=== PATIENT | male | born 1960 | race Caucasian/White ===

== ENCOUNTER → 2019-01-15 10:35 | Outpatient (CLI) | payer MEDICAID, SELFPAY ==
[2016-07-24 17:12] VITALS: BMI 32.2
[2019-01-15 11:42] LABS: Absolute Lymphocyte Count 2.09 X10^3/ul (0.83-4.51); Absolute Neutrophil Count 3.9 X10^3/uL (2.0-7.7); Basophil# 0.03 X10^3/uL; Basophil% 0.4 % (0-1); Eosinophil# 0.35 X10^3/uL; Hematocrit 45.7 % (40-54); Hemoglobin 15.8 g/dl (13.0-16.5); Lymphocyte # 2.09 X10^3/ul (4.0); Lymphocyte % 29.9 % (19-41); Mean Corp Hgb Conc 34.6 g/gl (32-36); Mean Corpuscular Hgb 30.9 pg (27.0-32.0); Mean Corpuscular Volume 89.4 fL (80-94); Mean Platelet Vol. 9.9 fl (6.2-12.0); Monocyte# 0.57 X10^3/uL; Monocyte% 8.2 % (0-10); Neutrophil # 3.93 X10^3/uL (2.7-7.7); Neutrophil % 56.2 % (47-70); Platelet Count 309 K/mm3 (150-450); RBC Distribution Width CV 13.3 % (11.6-14.6); RBC Distribution Width SD 43.8 fl (35.1-43.9); Red Blood Count 5.11 M/mm3 (4.6-6.2)
[2019-01-15 11:45] LABS: POSITIVE COUNT NO; POSITIVE DIFFERENTIAL NO; POSITIVE MORPHOLOGY NO
[2019-01-15 12:07] LABS: Anion Gap 10 (5-15); BUN 10 mg/dL (7-18); Chloride 104 mmol/L (98-107); Creatinine, Serum 0.91 mg/dL (0.70-1.30); EST Glomerular Filtration Rate 91 mL/min (>60); Est Glom Filt Rate - Afr Amer 110 mL/min (>60); Glucose 88 mg/dL (74-106); Potassium 4.4 mmol/L (3.5-5.1); Sodium Level 138 mmol/L (136-145); Thyroid Stim Hormone (TSH) 1.37 uIU/mL (0.358-3.74)
--- OUTSIDE RECORDS SUMMARY | 2019-01-15 15:24 | XMS RPT_ITS | CCD ---
:1960 External Reference #:[id number] Author Organization [facility] Care Team Providers Name Role Phone Unavailable Unavailable Unavailable Allergies Reported Allergen Reaction(s) Severity Date of Onset Location naproxen rash Moderate, 03-20-2017 - [facility] Moderate [facility] [place] [facility] ([id number]) naproxen hives Critical, 05-22-2014 - [facility] Critical (10451) penicillin throat swells Critical, 03-20-2017 - [facility] Critical [facility] (66650) Penicillins Critical, 05-22-2014 - [facility] (Antibiotic) Critical (45272) Medications Medication Name Sig Date Prescriber Location acetaminophen / PERCOCET 10-325 MG 05-22-2014 [facility] oxyCODONE TABS As needed Group (57605) OXYCODONE-ACETAMINOPH EN [id number] Dolly Harris RN PERCOCET 10-325 MG TABS As needed 05-22-2014 - --2015 [facility] ([id number]) OXYCODONE-ACETAMINOPHEN [id number] Gilles Castillo MD cyclobenzaprine CYCLOBENZAPRINE HCL 10 MG TABS 06-22-2017 [facility] One tablet by mouth three times (41847) daily CYCLOBENZAPRINE HCL [id number] Aftab Hartman [employer] CYCLOBENZAPRINE HCL 10 MG TABS 1 tablet 03-20-2017 [facility] ([id number]) daily CYCLOBENZAPRINE HCL [id number] [facility]ie [facility] CYCLOBENZAPRINE HCL 10 MG TABS 1 tablet 3 03-20-2017 [facility] (70073) times daily CYCLOBENZAPRINE HCL [id number] Rylie Cors[facility] CYCLOBENZAPRINE HCL 10 MG TABS 1 tablet 3 03-20-2017 [facility] (07527) times daily CYCLOBENZAPRINE HCL [id number] Rylie Cors[facility] gabapentin GABAPENTIN 800 MG TABS 1 tablet 03-20-2017 [facility] (57503) daily GABAPENTIN [id number] Rylie Corsaro [facility] GABAPENTIN 800 MG TABS 1 tablet daily 03-20-2017 [facility] (38715) GABAPENTIN [id number] Rylie Corsaro [facility] GABAPENTIN 800 MG TABS 1 tablet daily 03-20-2017 [facility] (02082) GABAPENTIN [id number] Rylie Cors[facility] NEURONTIN 800 MG TABS One tablet by mouth 05-22-2014 [facility] (43396) three times daily GABAPENTIN [id number] Dolly Harris RN hydroCHLOROthiazide / LISINOPRIL-HYDROCHLOROTHIAZIDE 06-22-2017 [facility]opril 10-12.5 MG TABS One tablet by [facility] daily (09882) LISINOPRIL-HYDROCHLOROTHIAZIDE [id number] Aftab Hartman NP LISINOPRIL-HYDROCHLOROTHIAZIDE 10-12.5 MG TABS 1 03-20-2017 [facility] tablet daily (07987) LISINOPRIL-HYDROCHLOROTHIAZIDE [id number] Rylie Cors[facility] LISINOPRIL-HYDROCHLOROTHIAZIDE 10-12.5 MG TABS 1 03-20-2017 [facility] tablet daily (77647) LISINOPRIL-HYDROCHLOROTHIAZIDE [id number] Rylie Cors[facility] LISINOPRIL-HYDROCHLOROTHIAZIDE 10-12.5 MG TABS 1 03-20-2017 [facility] tablet daily (41960) LISINOPRIL-HYDROCHLOROTHIAZIDE [id number] Rylie Cors[facility] meloxicam MELOXICAM 15 MG TABS 1 tablet 03-20-2017 [facility] (08558) daily MELOXICAM [id number] Rylie Cors[facility] MELOXICAM 15 MG TABS One tablet by mouth 05-22-2014 [facility] (34883) daily MELOXICAM [id number] Dolly Harris RN methocarbamol METHOCARBAMOL 750 MG TABS One 05-22-2014 [facility] tablet by mouth three times (86297) daily METHOCARBAMOL [id number] Dolly Harris RN METHOCARBAMOL 750 MG TABS One 05-22-2014 - 06-22-2017 [facility] tablet by mouth three times daily (64582) METHOCARBAMOL [id number] Aftab Hartman NP metoprolol METOPROLOL SUCCINATE ER 50 MG 03-20-2017 [facility] (80734) [id number] 1/2 tablet twice daily METOPROLOL SUCCINATE [id number] Rylie Corsaro [facility] METOPROLOL SUCCINATE ER [id number] one 09-06-2016 [facility] (09680) half tablet twice a day METOPROLOL SUCCINATE [id number] Rosio Parikh PA-C pantoprazole PROTONIX 40 MG TBEC 1 tablet 03-20-2017 [facility] (68592) daily PANTOPRAZOLE SODIUM [id number] Rylie Cors[facility] PANTOPRAZOLE SODIUM 40 MG TBEC One tablet by 05-22-2014 [facility] (55099) mouth twice daily PANTOPRAZOLE SODIUM [id number] Dolly Harris RN tamsulosin FLOMAX 0.4 MG CAPS 1 capsule 10-16-2017 [facility] Orthopaedic once daily Center - [facility] TAMSULOSIN HCL [id number] [facility] (61834) Jarvis Dolan [employer] Problems Active Problems Category Problem Name Status Date Location Allergic reactions Allergy status to Active 09-19-2018 - [facility] analgesic agent status (16204) Chronic obstructive Chronic obstructive Active 11-18-[address] [facility] pulmonary disease and pulmonary disease, (04170) bronchiectasis unspecified Disorders of lipid Hyperlipidemia Active 05-22-2014 - [facility] metabolism (77329) Esophageal disorders Gastro-esophageal Active 11-18-[address] [facility] reflux disease without (12174) esophagitis Essential hypertension Hypertensive disorder Active 09-06-2016 - [facility] (91107) Osteoarthritis Arthritis of hip Active 10-01-2018 - [facility] (28735) Other connective tissue Presence of right Active 11-18-2018 - [facility] disease artificial knee joint (21663) Other connective tissue Presence of right Active 11-18-2018 - [facility] disease artificial knee joint (84085) Other connective tissue Arthrodesis status Active 09-19-2018 - [facility] disease (57867) Other connective tissue Arthrodesis status Active 09-19-2018 - [facility] disease (23103) Other injuries and At risk for falls Active 10-01-2018 - [facility] conditions due to [facility] external causes - [facility] (63131) Other nervous system Other chronic pain Active 11-18-2018 - [facility] disorders (59374) Other nervous system Polyneuropathy, Active 11-18-2018 - [facility] disorders unspecified (80808) Other nervous system Other chronic pain Active 11-18-2018 - [facility] disorders (38067) Other nervous system Polyneuropathy, Active 11-18-2018 - [facility] disorders unspecified (94072) Other non-epithelial Personal history of Active 11-18-[address] [facility] cancer of skin other malignant (22004) neoplasm of skin Other non-traumatic joint Pain in right hip Active 09-14-2018 - [facility] disorders (39932) Other non-traumatic joint Pain in right hip Active 09-14-2018 - [facility] disorders (74709) Other non-traumatic joint Pain in left hip Active 09-14-2018 - [facility] disorders (00635) Other non-traumatic joint Pain in left hip Active 09-14-2018 - [facility] disorders (90995) Phlebitis; Personal history of Active 11-18-2018 [facility] thrombophlebitis and other venous (27957) thromboembolism thrombosis and embolism Residual codes; Other specified Active 09-08-2017 - [facility] unclassified postprocedural states [facility] (07270) Screening and history of Personal history of Active 11-18-2018 - [facility] mental health and nicotine dependence (85551) substance abuse codes Spondylosis; Degeneration of lumbar Active 03-21-2017 - [facility] intervertebral disc intervertebral disc [facility] disorders; other back - [facility] problems [facility] (04866) Substance-related Tobacco dependence Active 05-22-2014 - [facility] disorders syndrome (42942) Unclassified Other specified Active 09-08-2017 - [facility] postprocedural states [facility] Surgeons [facility] (20244) Unclassified History of cervical Active 07-20-2017 - [facility] spine fusion [facility] (37986) Past or Other Problems Category Problem Name Status Date Location Other connective Hematoma Completed 07-20-2017 - [facility] tissue disease [facility] (56477) Unclassified Preoperative Completed 05-21-2014 [facility] Heart [facility] cardiovascular - 09-08-2015 (17705) examination - Unclassified Family history of Completed 05-21-2014 [facility] ischemic heart disease (97854) and other diseases of the circulatory system Unclassified Problem [facility] (27461) Unclassified Problem [facility] (13820) Results Result Name Value Range Unit Interpretation Flag Date Location office visit: follow-up by complaint, rm: 43 on null Protein mass conc Done 09-24-2018 - [facility] 09-24-2018 [facility] (19040) NEGATED: Highlighted Done 09-24-2018 [facility] rowProtein mass conc 09-24-2018 [facility] (41732) xray history of the cervical 09-24-2018 - [facility] spine on 09-24-2018 [facility] - 02/13/2018 at [facility] Surgeons [facility] (05216) NEGATED: Highlighted of the cervical 09-24-2018 [facility] rowxray history spine on 09-24-2018 [facility] - 02/13/2018 at [facility] Orthopaedic Surgeons [facility] (09426) office visit: pre-op clearance on null Smoking cessation yes Invalid Interpretation 05-28-2014 [facility] Heart education Code 05-28-2014 Group (38759) (procedure) replaced document: midmark ecg observations on null EKG QRS axis -32 deg Invalid 05-28-2014 - [facility] Interpretation Code 05-28-2014 [facility] (50603) Interpretation Sinus Rhythm Invalid 05-28-2014 - [facility] WITHIN Interpretation Code 05-28-2014 [facility] NORMAL (10720) LIMITS P [place] -1 deg Invalid 05-28-2014 - [facility] Interpretation Code 05-28-2014 [facility] (23870) ND Interval 152 ms Invalid 05-28-2014 - [facility] Interpretation Code 05-28-2014 [facility] (85651) Pulse (Heart Rate) 73 BPM /min Invalid 05-28-2014 - [facility] Interpretation Code 05-28-2014 [facility] (70295) QRS Duration 98 ms Invalid 05-28-2014 - [facility] Interpretation Code 05-28-2014 [facility] (41721) QT Interval new path ms Invalid 05-28-2014 - [facility] Interpretation Code 05-28-2014 [facility] (83611) QTc Pandey 412 ms Invalid 05-28-2014 - [facility] Interpretation Code 05-28-2014 [facility] (91049) T [place] 12 deg Invalid 05-28-2014 - Interpretation Code 05-28-2014 [facility] (42071) clinical lists update: preload extended on null Tobacco smoking former smoker 09-20-2018 - [facility] status NHIS 09-20-2018 [facility] (94932) xr chest 2 views on 2018-12-25 XR CHEST 2 VIEWS ORIGINAL Normal 12-25-2018 [facility] XR CHEST 2 VIEWS [facility] ([place]) PA and lateral chest (40245) CLINICAL INDICATION: Chest Pain COMPARISON: 12/17/2009 FINDINGS: The heart is normal in size. Hilar and mediastinal contours are normal. There is no pleural effusion. The lungs are clear. There is no vascular congestion. There are mild degenerative changes in the thoracic spine. Postoperative changes are seen at the base of the cervical spine. IMPRESSION: No acute cardiopulmonary disease. Interpreted By: Jon Crawford MD Preliminary Report By: Jon Crawford MD Electronically Signed By: Jon Crawford MD Dictated Date: 12/25/2018 1:46:01 PM Prelim Date: 12/25/2018 1:46:01 PM Sign Date: 12/25/2018 1:48:22 PM external other: preferred method of contact on null methcontact phone Invalid Interpretation 09-08-2015 - [facility] Code 09-08-2015 Group (61913) office visit on null cardiac risk group B Invalid 09-08-2015 - [facility] Interpretation Code 09-08-2015 [facility] (18352) General Not enough Invalid 09-08-2015 - [facility] cardiovascular information Interpretation Code 09-08-2015 [facility] disease 10Y risk (38687) [#] [place] no Tobacco use CPHS Former smoker Invalid 09-08-2015 - [facility] Interpretation Code 09-08-2015 [facility] (90025) clinical lists update: preload on null Left ventricular 50 % Invalid Interpretation 06-14-2017 - [facility] Ejection fraction Code 06-14-2017 Group (77207) office visit: jhr on null Dietary management yes Invalid Interpretation 06-22-2017 - [facility] education, guidance, Code 06-22-2017 Group (67209) and counseling (procedure) Documentation of Done Invalid Interpretation 06-22-2017 - [facility] current medications Code 06-22-2017 Group (69744) (procedure) Fall risk assessment No Invalid Interpretation 06-22-2017 - [facility] Code 06-22-2017 Group (02871) office visit: new/est - 1st visit with physician, rm: on null NEGATED: Highlighted Done 10-01-2018 [facility] rowProtein mass conc 10-01-2018 [facility] Surgeons [facility] (56872) NEGATED: Highlighted of the Bilateral 10-01-2018 [facility] rowxray history hips on 09/14/2018 10-01-2018 [facility] Orthopaedic Surgeons [facility] (12019) clinical summary: hmspatientid on null OOP 10-01-2018 - [facility] 10-01-2018 [facility]geons [facility] (27407) OOP 09-24-2018 - [facility] 09-24-2018 [facility] Surgeons [facility] (78537) OOP Invalid 02-13-2018 - [facility] Interpretation Code 02-13-2018 [facility] Surgeons [facility] (99571) office visit: postop - subsequent visit, rm: 2 on null NEGATED: Highlighted Done Invalid 02-13-2018 [facility] rowDocumentation of Interpretation Code 02-13-2018 [facility] current medications Center - (procedure) Orthopaedic Surgeons [facility] (35577) trop on 2018-12-25 Troponin I.cardiac <0.020 0.000-0.040 ng/mL Normal 12-25-2018 [facility] conc [facility] ([place] (20627) Comment: Result Comment: Troponin I reference range: 0.00-0.040 ng/mL Negative and non-diagnostic. >0.040 ng/mL Consistent with cardiac damage, increased clinical risk and possibility of myocardial infarction. Serial measurements, a rise & fall in test results, clinical history, appropriate symptoms and/or ECG changes may help assess possibility of [place]. *Other non-acute coronary syndrome conditions such as CHF, myocarditis, pulmonary emboli, sepsis and cardiac surgery could result in myocardial damage and increased troponin levels. Performed By: #### CBC, ADIFF, ANEU #### [place] [address] #### BMP, TROP, GFR #### [address] [address] cbc on 2018-12-25 Erythrocyte distribution 14.2 11.5-14.5 % Normal 12-25-2018 [facility] width Ratio (RBC) [facility] ([place] (49205) Comment: Performed By: #### CBC, ADIFF, ANEU #### [place] [address] #### BMP, TROP, GFR #### [place] [address] Hematocrit Volume 44.4 42.0-52.0 % Normal 12-25-2018 Count Includes [facility] Fraction (Bld) ([place]) (00658) Comment: Performed By: #### CBC, ADIFF, ANEU #### [place] [address] #### BMP, TROP, GFR #### [place] [address] Hemoglobin mass conc 15.4 14.0-18.0 G/dL Normal 12-25-2018 [facility] (Bld) [facility] ([place]) (97580) Comment: Performed By: #### CBC, ADIFF, ANEU #### [place] [address] #### BMP, TROP, GFR #### [place] [address] MCH Entitic mass (RBC) 30.9 27.0-31.2 pg Normal 12-25-2018 Count Includes [facility] ([place]) (26209) Comment: Performed By: #### CBC, ADIFF, ANEU #### [place] [address] #### BMP, TROP, GFR #### [place] [address] MCHC mass conc (RBC) 34.6 31.8-35.4 G/dL Normal 12-25-2018 Count Includes [facility] ([place] (98893) Comment: Performed By: #### CBC, ADIFF, ANEU #### [place] [address] #### BMP, TROP, GFR #### [place] [address] MCV Entitic volume 89.4 80.0-94.0 fL Normal 12-25-2018 Count Includes [facility] (RBC) ([place]) (03567) Comment: Performed By: #### CBC, ADIFF, ANEU #### [place] [address] #### BMP, TROP, GFR #### [place] [address] Platelet mean volume 7.9 7.4-10.4 fL Normal 12-25-2018 Count Includes [facility] Entitic volume (Bld) ([place]) (04763) Comment: Performed By: #### CBC, ADIFF, ANEU #### [place] [address] #### BMP, TROP, GFR #### [place] [address] Platelets #/vol (Bld) 281 130-400 10 3/mcL Normal 12-25-2018 Count Includes [facility] ([place] (73609) Comment: Performed By: #### CBC, ADIFF, ANEU #### [place] [address] #### BMP, TROP, GFR #### [address] [address] RBC #/vol (Bld) 4.97 4.04-6.13 10 6/[facility] Normal 12-25-2018 Count Includes [facility] ([place] (41306) Comment: Performed By: #### CBC, ADIFF, ANEU #### [address] [address] #### BMP, TROP, GFR #### [place] [address] WBC #/vol (Bld) 8.00 4.60-10.80 10 3/[facility] Normal 12-25-2018 Count Includes [facility] ([place] (14262) Comment: Performed By: #### CBC, ADIFF, ANEU #### [place] [address] #### BMP, TROP, GFR #### [place] [address] bmp on 2018-12-25 Calcium mass conc 9.0 8.4-10.2 mg/dL Normal 12-25-2018 Count Includes [facility] ([place] (43468) Comment: Performed By: #### CBC, ADIFF, ANEU #### [place] [address] #### BMP, TROP, GFR #### [place] [address] Chloride molar conc 102 98-107 mmol/L Normal 12-25-2018 Count Includes [facility] ([place] (49952) Comment: Performed By: #### CBC, ADIFF, ANEU #### [place] [address] #### BMP, TROP, GFR #### [place] [address] CO2 molar conc 26 22-29 mmol/L Normal 12-25-2018 Count Includes [facility] ([place] (14012) Comment: Performed By: #### CBC, ADIFF, ANEU #### [place] [address] #### BMP, TROP, GFR #### [address] [address] Creatinine mass conc 0.81 0.70-1.30 mg/dL Normal 12-25-2018 Count Includes [facility] ([place] (96515) Comment: Performed By: #### CBC, ADIFF, ANEU #### [address] [address] #### BMP, TROP, GFR #### [address] [address] Electrolyte Balance 11.0 mEq/L Normal 12-25-2018 Count Includes [facility] ([place] (45656) Comment: Performed By: #### CBC, ADIFF, ANEU #### [place] [address] #### BMP, TROP, GFR #### [address] [address] Glucose mass conc 98 70-105 mg/dL Normal 12-25-2018 Count Includes [facility] ([place] (77197) Comment: Performed By: #### CBC, ADIFF, ANEU #### [address] [address] #### BMP, TROP, GFR #### [address] [address] Potassium molar conc 4.1 3.5-5.1 mmol/L Normal 12-25-2018 Count Includes [facility] ([place] (65291) Comment: Performed By: #### CBC, ADIFF, ANEU #### [address] [address] #### BMP, TROP, GFR #### [address] [address] Sodium molar conc 139 136-145 mmol/L Normal 12-25-2018 Count Includes [facility] ([place] (63016) Comment: Performed By: #### CBC, ADIFF, ANEU #### [address] [address] #### BMP, TROP, GFR #### [place] [address] Urea nitrogen mass conc 11 7-18 mg/dL Normal 12-25-2018 Count Includes [facility] ([place] (21405) Comment: Performed By: #### CBC, ADIFF, ANEU #### [address] [address] #### BMP, TROP, GFR #### [address] [address] Urea nitrogen/Creatinine mass 14 7-27 ratio Normal 12-25-2018 [facility] ([place]) (31453) Comment: Performed By: #### CBC, ADIFF, ANEU #### [address] [address] #### BMP, TROP, GFR #### [address] [address] .neuabs on 2018-12-25 Neutrophils #/vol 4.90 2.85-6.16 10 3/mcL Normal 12-25-2018 [facility] ([facility]) [facility]) (77109) Comment: Performed By: #### CBC, ADIFF, ANEU #### [address] [address] #### BMP, TROP, GFR #### [address] [address] .gfr on 2018-12-25 GFR 119 ml/min/1.73sqm Normal 12-25-2018 Count Includes [facility] ([place] (91782) Comment: Result Comment: GFR Population mean for , Non- Americans Ages 20-29 = 116 mL/min/1.73 sq.m. Ages 30-39 = 107 mL/min/1.73 sq.m. Ages 40-49 = 99 mL/min/1.73 sq.m. Ages 50-59 = 93 mL/min/1.73 sq.m. Ages 60-69 = 85 mL/min/1.73 sq.m. Ages 70+ = 75 mL/min/1.73 sq.m. Chronic Kidney Disease: Less than 60 mL/min/1.73 square meters End Stage Renal Disease: Less than 15 mL/min/1.73 square meters Performed By: #### CBC, ADIFF, ANEU #### [address] [address] #### BMP, TROP, GFR #### [address] [address] GFR Non- 99 ml/min/1.73sqm Normal 12-25-2018 Count Includes [facility] ([place]) (86112) Comment: Result Comment: GFR Population mean for , Non- Americans Ages 20-29 = 116 mL/min/1.73 sq.m. Ages 30-39 = 107 mL/min/1.73 sq.m. Ages 40-49 = 99 mL/min/1.73 sq.m. Ages 50-59 = 93 mL/min/1.73 sq.m. Ages 60-69 = 85 mL/min/1.73 sq.m. Ages 70+ = 75 mL/min/1.73 sq.m. Chronic Kidney Disease: Less than 60 mL/min/1.73 square meters End Stage Renal Disease: Less than 15 mL/min/1.73 square meters Performed By: #### CBC, ADIFF, ANEU #### [place] [address] #### BMP, TROP, GFR #### [address] [address] .auto diff on 2018-12-25 Ammonia mass conc 0.50 0.15-1.00 10 3/[facility] Normal 12-25-2018 [facility] () [facility] ([place] (43499) Comment: Performed By: #### CBC, ADIFF, ANEU #### [place] [address] #### BMP, TROP, GFR #### [address] [address] Basophils #/vol (Bld) 0.10 0.00-0.19 10 3/[facility] Normal 12-25-2018 Count Includes [facility] ([place] (32974) Comment: Performed By: #### CBC, ADIFF, ANEU #### [place] [address] #### BMP, TROP, GFR #### [place] [address] Basophils/100 WBC (Bld) 1.0 0.0-2.5 % Normal 12-25-2018 Count Includes [facility] ([place]) (78532) Comment: Performed By: #### CBC, ADIFF, ANEU #### [address] [address] #### BMP, TROP, GFR #### [address] [address] Eosinophils #/vol 0.40 0.00-0.40 10 3/mcL Normal 12-25-2018 [facility]) (49121) Comment: Performed By: #### CBC, ADIFF, ANEU #### [place] [address] #### BMP, TROP, GFR #### [address] [address] Eosinophils/100 WBC (Bld) 4.9 0.0-7.0 % Normal 12-25-2018 Count Includes [facility] ([place]) (09946) Comment: Performed By: #### CBC, ADIFF, ANEU #### [address] [address] #### BMP, TROP, GFR #### [address] [address] Lymphocytes #/vol 2.20 0.77-3.85 10 3/mcL Normal 12-25-2018 [facility]) (81538) Comment: Performed By: #### CBC, ADIFF, ANEU #### [place] [address] #### BMP, TROP, GFR #### [address] [address] Lymphocytes/100 WBC (Bld) 26.9 10.0-50.0 % Normal 12-25-2018 [facility]) (19467) Comment: Performed By: #### CBC, ADIFF, ANEU #### [place] [address] #### BMP, TROP, GFR #### [address] [address] Monocytes/100 WBC (Bld) 6.6 1.7-13.0 % Normal 12-25-2018 Count Includes [facility] ([place]) (24718) Comment: Performed By: #### CBC, ADIFF, ANEU #### [facility] [address] [place], [place] [address] #### BMP, TROP, GFR #### [address] [address] Neutrophils/100 WBC (Bld) 60.6 37.0-80.0 % Normal 12-25-2018 Count Includes [facility] ([place]) (53595) Comment: Performed By: #### CBC, ADIFF, ANEU #### [address] [place], [place] [address] #### BMP, TROP, GFR #### [address] [address] [address] low dose lung screening on 2018-11-16 CT Low Dose Lung Patient Name: JEMAL BETTS Jr Normal 11-16-2018 [facility] [employer] Screening System ([id number]) CT Exam Date/Time 11/15/2018 09:50:[address] Low Dose Lung Scrn Ordering Physician ARAMIS MENDOZA ANGEL M Accession Number [id number] CPT4 Codes G0297 (CT Low Dose Lung Scrn) Reason For Exam Personal history of nicotine dependence Report CLINICAL HISTORY: History of tobacco use. This is a screening study for pulmonary nodules. COMPARISON: 10/17/2017 Technique: 1 mm low dose helical CT images were obtained of the chest without the use of intravenous contrast. Images were reformatted in coronal and sagittal projections. FINDINGS: Pulmonary nodules: *All nodule measurements are mean axial diameter* There are numerous bilateral pulmonary nodules measuring up to 5 mm in mean axial diameter. These are unchanged dating back to 01/28/2016. No new pulmonary nodules or masses. Lungs: The lungs are clear with no acute infiltrate or effusion. The tracheobronchial tree remains patent. Mediastinum: Normal heart size with no pericardial effusion. Aorta and pulmonary arteries normal in caliber. No enlarged mediastinal, hilar, or axillary lymph nodes. Thyroid and Esophagus: Normal. Upper Abdomen: Normal Soft tissues and Osseous structures: No suspicious osseous lesions. IMPRESSION: Multiple bilateral pulmonary nodules measuring up to 5 mm which remain unchanged dating back to 01/28/2016. No new pulmonary nodules or masses. No areas of consolidation or effusion. Lung Rads category two: Benign behavior or appearance. Recommendations: Repeat low-dose screening CT in one year. Report Dictated on Final Dictating Physician: MD TURCIOS YUN ROBERT Signed Date and Time: 11/16/2018 8:39 am Signed by: MD TURCIOS YUN ROBERT Transcribed Date and Time: 11/16/2018 8:40 rf arthrogram aspir inj sukhi jt right on 2018-10-04 RF Arthrogram Aspir Patient Name: JEMAL BETTS Jr 10-04-2018 [facility] [employer] Inj Sukhi Jt Right System ([id number]) Fluoroscopy Exam Date/Time 10/04/2018 12:23:52 EST Exam RF Arthrogram Aspir Inj Sukhi Jt Right Ordering Physician DANNY LANDERS Accession Number [id number] CTP4 Codes 28318 (), 56663 (RF FLUORO GUIDANCE NEEDLE PLACEMENT) Reason For Exam arthritis of both hips Report Examination: Fluoroscopic guided right hip arthrogram and therapeutic injection Clinical Indication: DJD and pain Comparison: None Findings: Informed written consent was obtained from the patient after the risks, benefits, and alternatives to arthrography and therapeutic injection were adequately explained and all questions were answered. The right hip was prepared and draped in usual sterile fashion utilizing Betadine antisepsis. 1.0 percent Lidocaine was used for local anesthesia. A 22-gauge spinal needle was then introduced into the right hip joint space utilizing fluoroscopy. Approximately 1 mL of Isovue-300 contrast was used to confirm intra-articular location. Patient was then given injection of 2 mL of 40 mg/mL Kenalog (80mg) and 2 mL of one percent Lidocaine . Patient had no immediate postprocedural complications. Patient described immediate postprocedural pain relief. Total fluoroscopic time 0.6 minutes. One saved fluoroscopic image. Impression: Status post right hip arthrogram and therapeutic injection. The patient described immediate postprocedural pain relief. Report Dictated on Final Dictated: 10/04/2018 12:41 pm Dictating Physician: MD HOPKINS JASON Signed Date and Time: 10/04/2018 12:42 pm Signed by: MD HOPKINS JASON Transcribed Date and Time: 10/04/2018 12:41 ct spine lumbar w/o contrast on 2018-09-19 CT Spine Lumbar w/o Patient Name: JEMAL BETTS Jr Normal 09-19-2018 [employer] Contrast System ([id number]) CT Exam Date/Time 09/19/2018 15:20:[address] Spine Lumbar w/o Contrast Ordering Physician CLIVE FELIX Accession Number [id number] CPT4 Codes 82804 () Reason For Exam back pain, hx of surgery Report CT LUMBAR SPINE - WITH 3-D: CLINICAL INDICATION: Back pain, history of prior spine surgery TECHNIQUE: Multidetector axial sequence was performed through the lumbar spine. Multiplanar reconstruction imaging was performed. COMPARISON: MRI from 08/18/2017 FINDINGS: Five lumbar vertebrae are present. The lumbar vertebrae demonstrate no evidence for fracture or subluxation. No bone lesion is identified. T11-T12: There is a very mild posterior disc bulge. No definite encroachment on the central canal. T12-L1: There is a mild degree of intervertebral disc space narrowing. No definite disc bulge or herniation. There is no bony encroachment upon the spinal canal or bony foraminal narrowing. L1-L2: There is a mild broad-based disc bulge. There is posterior osteophyte formation involving L1. There is mild intervertebral disc space narrowing. Hypertrophic facet changes are seen. No significant central canal or neural foraminal narrowing.. L2-L3: The intervertebral disc maintains normal height without apparent bulge or identifiable herniation as noted with CT imaging. There is no bony encroachment upon the spinal . There is anterior osteophyte formation. L3-L4: Status post laminectomy. There is a posterior disc bulge and hypertrophic facet changes, which result in mild to moderate narrowing of both bony neural foramina. There is mild central canal narrowing the transverse dimensions. L4-L5: Status post laminectomy. There is a very small posterior osteophyte and a mild posterior disc bulge. Hypertrophic facet changes are seen. These findings result in mild to moderate narrowing of the bilateral bony neural foramina. There is mild central canal narrowing.. L5-S1: There is intervertebral disc space narrowing and vacuum disc phenomena. Post surgical changes are seen of prior laminectomy. There is a posterior disc osteophyte complex and hypertrophic facet changes. These findings result in moderate narrowing of the bilateral bony neural foramina and mild central canal narrowing. The paraspinal soft tissues are unremarkable. There is unchanged infrarenal abdominal aortic aneurysm measuring 3.1 cm in transverse diameter and 3.1 cm in AP diameter. Atherosclerotic calcifications are seen within the abdominal aorta. There is a punctate 3 mm nonobstructive left renal calculus. IMPRESSION: 1. Degenerative and postsurgical changes in the spine. No evidence of spondylolisthesis or fracture. 2. Note that the evaluation of the ligaments, cord and discs is somewhat limited on CT compared to MRI. 3. Abdominal aortic aneurysm. 4. Nonobstructive left renal calculus. Report Dictated on Final Dictating Physician: MD ENRIQUEZ NICHOLAS Signed Date and Time: 09/19/2018 3:49 pm Signed by: MD ENRIQUEZ NICHOLAS Transcribed Date and Time: 09/19/2018 3:50 cr hip w/ pelvis bilateral 5+ views on 2018-09-14 CR Hip w/ Pelvis Patient Name: JEMAL BETTS Jr Normal 09-14-2018 [facility] Bilateral 5+ Views System ([id number]) Diagnostic Radiology Exam Date/Time 09/14/2018 11:48:54 EST Exam CR Hip w/ Pelvis Bilateral 5+ View Ordering Physician MD QUICK PAULO M Accession Number [id number] CPT4 Codes 27427 () Reason For Exam Pain right and left hips Report BILATERAL HIPS CLINICAL INDICATION: Bilateral hip pain An AP view of the pelvis followed by AP and lateral views of the left and right hips were performed. COMPARISON: 06/30/2015 FINDINGS: No fracture of the bony pelvis is identified. There is no fracture or dislocation of the left or right hip. There is mild loss of joint space and degenerative spurring of the left and right hip joints. No bony lytic or blastic lesions are seen. The soft tissues are unremarkable. IMPRESSION: No fracture or dislocation of the pelvis, left hip, or right hip is identified. Mild osteoarthritis of the bilateral hips. Report Dictated on Workstation: [id number] Final Dictated: 09/14/2018 12:53 pm Dictating Physician: MD GE JONATHAN R Signed Date and Time: 09/14/2018 12:54 pm Signed by: MD GE JONATHAN R Transcribed Date and Time: 09/14/2018 12:53 Vital Signs Vital Sign Description Value / Unit Date Location The following section is limited to 5 entries per type and includes entries from the following time range: [id number] - [id number]. NEGATED: Highlighted 38.41 kg/m2 10-01-2018 [facility] ([id number]) NEGATED: Highlighted 38.41 kg/m2 09-24-2018 - 09-24-2018 [facility] rowBMI (Body Mass Index) [facility] (38211) NEGATED: Highlighted 36.74 kg/m2 02-13-2018 - 02-13-2018 [facility] (13537) BMI (Body Mass Index) 35.44 kg/m2 06-22-2017 - 06-22-2017 [facility] ([id number]) BSA (Body Surface Area) 1.99 m2 09-06-2016 - 09-06-2016 [facility] ([id number]) NEGATED: Highlighted 165 cm 10-01-2018 - 10-01-2018 [facility] ([id number]) NEGATED: Highlighted 165.1 cm 10-01-2018 - 10-01-2018 [facility] ([id number]) NEGATED: Highlighted 165.1 cm 09-24-2018 - 09-24-2018 [facility] ([id number]) NEGATED: Highlighted 165 cm 09-24-2018 - 09-24-2018 [facility] ([id number]) NEGATED: Highlighted 165.1 cm 02-13-2018 - [facility]-13-[facility] ([id number]) NEGATED: Highlighted 99 /min 10-01-2018 - 10-01-2018 [facility] rowPulse (Heart Rate) [facility] ([id number]) NEGATED: Highlighted 96 /min 09-24-2018 - 09-24-2018 [facility] rowPulse (Heart Rate) [facility] ([id number]) NEGATED: Highlighted 85 /min 02-13-2018 - 02-13-2018 [facility] rowPulse (Heart Rate) [facility] ([id number]) Pulse (Heart Rate) 72 /min 06-22-2017 - 06-22-2017 [facility] ([id number]) Respiratory Rate 18 /min 06-22-2017 - 06-22-2017 [facility] ([id number]) NEGATED: Highlighted 105 kg 10-01-2018 - 10-01-2018 [facility] ([id number]) NEGATED: Highlighted 104.33 kg 10-01-2018 - 10-01-2018 [facility] ([id number]) NEGATED: Highlighted 105 kg 09-24-2018 - 09-24-2018 [facility] ([id number]) NEGATED: Highlighted 104.33 kg 09-24-2018 - 09-24-2018 [facility] ([id number]) NEGATED: Highlighted 100 kg 02-13-2018 - 02-13-2018 [facility] ([id number]) Encounters Date Type Reason Provider Location 12-25-2018 - Emergency EMILY ALRED Facility:B 12-25-2018 department patient NICK QUICK visit 11-18-2018 Emergency Low back pain [facility] department patient [facility] ([id number]) visit Angeles Quick 09-19-2018 Emergency Arthrodesis status Daniel Heatr [facility] department patient [facility] ([id number]) visit Nick Quick 11-15-2018 Patient encounter URBANO Ruth MENDOZA [facility] procedure [facility] ([id number]) Nick [facility] 10-04-2018 Patient encounter Bilateral primary Danny Landers [facility] procedure osteoarthritis of hip [facility] ([id number]) Nick [facility] 10-03-2018 - Patient encounter JARVIS Miranda Facility:B 11-06-2018 procedure BENNETT JARVIS Miranda JAC NICK Rica PIRESGES 10-01-2018 - Patient encounter [facility] [place] [facility] ([id number]) 09-24-2018 - Patient encounter Jarvis Miranda [facility] 09-24-2018 procedure [facility] ([id number]) 09-14-2018 Patient encounter Pain in left hip [facility] procedure [facility] ([id number]) Nick Quick 02-13-2018 - Patient encounter Yury Holliday DO [facility] 02-18-2018 procedure [facility] [place] [facility] ([id number]) 09-24-2018 - Pt evaluation Jarvis Miranda [facility] 09-24-2018 [facility] ([id number]) Procedures Procedure Name Date Provider Location Blood pressure outside of 10-01-2018 - Danny R [place] [facility] normal parameters - 10-01-2018 [facility] - follow-up documented [facility] ([id number]) BMI documented as above 10-01-2018 - Danny R [place] [facility] normal parameters - 10-01-2018 [facility] - follow-up documented [facility] ([id number]) Documentation of current 10-01-2018 - Danny R [place] [facility] medications 10-01-2018 [facility] ([id number]) Pain assessment documented 10-01-2018 - Danny R [place] [facility] as positive - follow-up 10-01-2018 [facility] - documented [facility] ([id number]) Tobacco non-user 10-01-2018 - Danny R [place] [facility] 10-01-2018 [facility] - [facility] ([id number]) Blood pressure within normal 09-24-2018 - Jarvis Dolan [facility] parameters - no follow-up 09-24-[address] [facility] - required [facility] (59927) BMI documented as above 09-24-2018 - Jarvis Dolan [facility] normal parameters - 09-24-[address] [facility] - follow-up documented [facility] ([id number]) Documentation of current 09-24-2018 - Jarvis Dolan [facility] medications 09-24-[address] [facility] - [facility] ([id number]) Pain assessment documented 09-24-2018 [facility] 09-24-[address] [facility] - documented [facility] ([id number]) Radex spine cervical 4 or 5 09-24-2018 - Jarvis Dolan [facility] views 09-24-[address] [facility] - [facility] ([id number]) Radex spine lumbosacral 09-24-2018 - [facility] minimum 4 views 09-24-[address] [facility] ([id number]) Tobacco non-user 09-24-2018 - Jravis [facility] 09-24-[address] [facility] ([id number]) Blood pressure within normal 02-13-2018 - Scot Jarvis Holliday [facility] parameters - no follow-up 02-18-2018 [facility] - required [facility] ([id number]) BMI documented as above 02-13-2018 - Scot Jarvis Holliday DO [facility] normal parameters - 02-18-2018 [facility] - follow-up documented [facility] (39990) Current medications 02-13-2018 - Scot Jarvis Holliday DO [facility] documented 02-18-2018 [facility] [place] [facility] ([id number]) Pain assessment documented 02-13-2018 - Scot Jarvis Holliday [facility] as positive - follow-up 02-18-2018 [facility] - documented [facility] (10966) Tobacco non-user 02-13-2018 - Scot Jarvis Holliday DO [facility] 02-18-2018 [facility] ([id number]) CASTING COORDINATOR 09-06-2016 - [facility] 09-06-2016 CHASTITY Parikh ([id number]) Follow Up Appt 1 year 09-06-2016 - [facility] 09-06-2016 CHASTITY Parikh (58077) Follow Up Appt 1 year 09-08-2015 - MD [facility] 08-23-2016 ([id number]) MMM 09-08-2015 - MD [facility] 08-23-2016 (40394) Ecg routine ecg w/least 05-28-2014 - Gilles Castillo MD [facility] lds w/i&r 05-28-2014 ([id number]) Echocardiography 05-28-2014 - Gilles Castillo MD [facility] 06-05-2014 ([id number]) Follow Up Appt Other 05-28-2014 - Gilles Castillo MD [facility] 05-28-2014 ([id number]) Nuclear stress test 05-28-2014 - Gilles Castillo MD [facility] -[facility] 06-04-2014 (44801) Plan of Treatment Plan Description Date Location Appointment Appointment 10-01-2018 - [facility] 10-01-2018 [facility] ([id number]) Intra-articular Right Hip Intra-articular Right Hip 10-01-2018 - [facility] injection under Fluoro injection under Fluoro 10-01-2018 [facility] ([id number]) Appointment Appointment 09-24-2018 - [facility] 09-24-2018 [facility] ([id number]) EMG/NCT bilateral lower no information 09-24-2018 - [facility] extremity 09-24-2018 [facility] ([id number]) XR CERVICAL 4VWS FLEX/EXT XR CERVICAL 4VWS FLEX/EXT 02-13-2018 - [facility] 02-13-2018 [facility] ([id number]) Appointment Appointment 09-07-2017 - [facility] 09-07-2017 ([id number]) CASTING COORDINATOR CASTING COORDINATOR 09-06-2016 - [facility] 09-06-2016 ([id number]) Follow Up Appt 1 year Follow Up Appt 1 year 09-06-2016 - [facility] 09-06-2016 ([id number]) Follow Up Appt 1 year Follow Up Appt 1 year 09-08-2015 - [facility] 08-23-2016 ([id number]) MMM MMM 09-08-2015 - [facility] 08-23-2016 ([id number]) EKG (In office) EKG (In office) 05-28-2014 - [facility] 05-28-2014 ([id number]) Echocardiogram (complete) Echocardiogram (complete) 05-28-2014 - [facility] 05-28-2014 ([id number]) Follow Up Appt Other Follow Up Appt Other 05-28-2014 - [facility] 05-28-2014 ([id number]) Nuclear stress test Nuclear stress test 05-28-2014 - [facility] -[facility] 05-28-2014 ([id number]) Patient education \cps-sql1\CPS_PtEducation [facility] \[facility]_FALL_PREVENTION.pdf, [facility] - \cps-sql1\CPS_PtEducation [facility] \htn.pdf Clinic (50765) The following information is from the original human readable content Type Date Detail Appointment 03:00 PM Gilles Castillo MD, [address], [address], [place], [address], Pending order CASTING COORDINATOR Pending order Follow Up Appt 1 year Pending order MMM Pending order Follow Up Appt 1 year Pending order EKG (In office) Pending order Echocardiogram (complete) Pending order Nuclear stress test -Lexisc[facility] Pending order Follow Up Appt Other Type Date Detail Pending order XR CERVICAL 4VWS FLEX/EXT Type Date Detail Appointment 02:00 PM Jarvis Dolan [employer], [address] [facility], [place], [address], Appointment 11:00 AM Danny Landers MD, [address] [facility] [address] [facility], [place], [address], Pending order EMG/NCT bilateral lower extremity Pending order EMG/NCT bilateral upper extremity Type Date Detail Appointment 11:00 AM Danny Landers MD, [address] [facility] [address] [facility], [address], [place], [address], Pending order Intra-articular Right Hip injection under Fluoro Patient education \cps-sql1\CPS_PtEducation\CDC_FALL_PREVENTION.p df, \cps-sql1\CPS_PtEducation\htn.pdf Immunizations Vaccine Notes Status Date Location No information No information (completed) [facility] available. available. [facility] (01026) Payers Payer Name Policy Number Location MEDICA[place] [employer] [id number] Count Includes [facility] [place] (63207) [employer] [id number] Count Includes [facility] [place] (88673) [place] Advantage Medicaid [facility] (52402) [id number] [facility] (91400) [id number] [facility] (84224) [id number] [facility] [facility] (97052) [id number] [facility] (94887) [id number] [facility] (39179) [id number] Count Includes [facility] [place] (99254) [id number] Count Includes [facility] [place] (10269) The following information is from the original human readable content ENCOUNTER GUARANTOR PAYER SUBSCRIBER SOURCE 10/04/2018 Jemal GodinezB: Primary Jemal W ReedDOB: [employer] Insurance:[place] [id number] System Repository [facility] [address]Tdq: MedicaidPol[facility] Number: Effective Date: () 09/14/2018 Jemal W GustaboDOB: Primary Jemal W ReedDOB: [employer] [place] Insurance:MedicaidPoli [id number] System Repository [facility] Number: Effective [place] [id number]: Date: (HP) ENCOUNTER GUARANTOR PAYER SUBSCRIBER SOURCE 11/18/2018 Jemal W GustaboDOB: Primary Jemal W ReedDOB: [employer] [place] Insurance:[place] [id number] System Repository [facility] [address]Obx: MedicaidPolicy Number: Effective Date: (HP) 11/15/2018 Jemal W GretchenB: Primary Jemal W ReedDOB: [employer] [place] Insurance:[place] [id number] System Repository [address], [facility] [address]Waw: MedicaidPolicy Number: Effective Date: () 09/19/2018 Jemal BettsDOB: Primary Jemal Nam ReedDOB: [facility] Sc Insurance:MedicaidPoli [id number] System Repository [address] Number: Effective [place] [id number]: Date: (HP) ENCOUNTER GUARANTOR PAYER SUBSCRIBER SOURCE 12/25/2018 JEMAL BETTS Primary [facility] JrDOB: Insurance:[place]OUNT JrDOB: Foundation ADVANTAGE [id number] Repository [facility] Number: [place], [place] [id number] [place] [email or web address] Date:[id number]: ([phone]) Josy: [phone] -[phone] (HP)Tel: [phone] (HP) Name:[address], [place] ([place]) [id number]: 10/03/2018 JEMAL BETTS Primary [facility]AL [facility] JrDOB: Insurance:MEDICAID JrDOB: Foundation [facility] [id number] Repository [place] Number: [place], [place] [id number] [address]~[email or web address] e Date:2018-09-13 24437Bgc: [phone]) Josy: [phone] -[phone] (HP)Tel: [phone] (HP) Name:[address], [place] ([place]) [id number]: Social History Type Social History Description Date Location Assertion Unknown if ever smoked 02-18-2018 [facility] 10-01-[address] [facility] (23843) The following information is from the original human readable contentNo information available.No information available.No information available.No Social History RecordsFoundNo Social History Records FoundNo Social History Records FoundNo Social History Records FoundNoSocial History Records Found Instructions Instruction Description Start Date Patient advised to follow-up with Primary Care Physician for BMI management. Reason For Visit Description Start Date Follow-up by complaint Preliminary reason for visit data, not yet signed by the author as of neck pain Chief Complaint Description Start Date neck pain Preliminary chief complaint data, not yet signed by the author as of Instruction Description Start Date Patient advised to follow-up with Primary Care Physician for BMI management. Reason For Visit Description Start Date New/Est - 1st visit with physician Preliminary reason for visit data, not yet signed by the author as of bilateral hip pain Chief Complaint Description Start Date bilateral hip pain Preliminary chief complaint data, not yet signed by the author as of Instruction Description Start Date Please follow-up with Primary Care Physician or Neuropsychiatrist for treatment or adjustment of medication regarding elevated blood pressure.Patient advised to follow-up with Primary Care Physician for BMI management. DATE CREATED AUTHOR AUTHOR'S ORGANIZATION 10/22/2018 [facility] DATE CREATED AUTHOR AUTHOR'S ORGANIZATION 11/17/2018 [facility] DATE CREATED AUTHOR AUTHOR'S ORGANIZATION 11/30/2018 [facility] DATE CREATED AUTHOR AUTHOR'S ORGANIZATION 12/25/2018 [facility] Includes [facility] ([place]) Advance Directives No Advanced Directives Records FoundThere may be information available, but it has not been provided by the sender. Assessments There may be information available, but it has not been provided by the sender. Review of System There may be information available, but it has not been provided by the sender. Family History No Family History Records FoundThere may be information available, but it has not been provided by the sender. Chief Complaint Chief Complaint Description Start Date bilateral hip pain Preliminary chief complaint data, not yet signed by the author as of Chief Complaint Description Start Date neck pain Preliminary chief complaint data, not yet signed by the author as of History of Present Illness There may be information available, but it has not been provided by the sender. Summary Purpose DATE CREATED AUTHOR AUTHOR'S ORGANIZATION 12/25/2018 [facility] Includes [facility] ([place]) DATE CREATED AUTHOR AUTHOR'S ORGANIZATION 11/30/2018 [facility] DATE CREATED AUTHOR AUTHOR'S ORGANIZATION 11/17/2018 [facility] DATE CREATED AUTHOR AUTHOR'S ORGANIZATION 10/22/2018 [facility] Additional Source Comments FOR RECORDS PERTAINING TO PATIENTS WHO ARE OR HAVE BEEN ENROLLED IN A CHEMICAL DEPENDENCY/SUBSTANCE ABUSE PROGRAM, SOME INFORMATION MAY BE OMITTED. This clinical summary was aggregated from multiple sources. Caution should be exercised in using it in the provision of clinical care. This summary normalizes information from multiple sources, and as a consequence, information in this document may materially changethe coding, format and clinical context of patient data. In addition, data may be omittedin some cases. CLINICAL DECISIONS SHOULD BE BASED ON THE PRIMARY CLINICAL RECORDS. [facility] provides no warranty or guarantee of the accuracy or completeness of information in this document. UNRECOGNIZED CONTENT PROVIDED BELOW FOR UNRECOGNIZED SECTION Reason for Visit Reason For Visit Description Start Date New/Est - 1st visit with physician Preliminary reason for visit data, not yet signed by the author as of bilateral hip pain Chief Complaint Description Start Date bilateral hip pain Preliminary chief complaint data, not yet signed by the author as of Instruction Description Start Date Please follow-up with Primary Care Physician or Neuropsychiatrist for treatment or adjustment of medication regarding elevated blood pressure.Patient advised to follow-up with Primary Care Physician for BMI management. Reason For Visit Description Start Date Follow-up by complaint Preliminary reason for visit data, not yet signed by the author as of neck pain Chief Complaint Description Start Date neck pain Preliminary chief complaint data, not yet signed by the author as of Instruction Description Start Date Patient advised to follow-up with Primary Care Physician for BMI management. UNRECOGNIZED CONTENT PROVIDED BELOW FOR UNRECOGNIZED SECTION No Status Records Found UNRECOGNIZED CONTENT PROVIDED BELOW FOR UNRECOGNIZED SECTION INFORMATION SOURCE DATE CREATED AUTHOR AUTHOR'S ORGANIZATION 12/25/2018 Count Includes [facility] ([place]) DATE CREATED AUTHOR AUTHOR'S ORGANIZATION 11/30/2018 [facility] DATE CREATED AUTHOR AUTHOR'S ORGANIZATION 11/17/2018 [facility] DATE CREATED AUTHOR AUTHOR'S ORGANIZATION 10/22/2018 [facility]
== END ==
PROVIDERS: Family Provider Family Medicine; PCP Family Medicine; Referring Provider Internal Medicine Cardiovascular Disease; Visit Provider Internal Medicine Cardiovascular Disease
DX: I10 Essential (primary) hypertension (principal)
CPT/HCPCS: 36415; 80048; 84443; 85025

== ENCOUNTER 2021-11-01 13:58 | Outpatient (CLI) | payer MEDICARE, MEDICAID, SELFPAY ==
--- NOTE | 2021-11-01 14:03 | ECHOCS_ITS ---
Reason For Study: HYPERTENSION, PRE-OP KNEE SURGERY Procedure This was a 2D Doppler, Color Flow transthoracic echocardiogram. The study was technically difficult. Exam performed in department. Left Ventricle Normal LV size. Left ventricular systolic function is normal. The estimated ejection fraction is 65 %. Stage 1 diastolic dysfunction. No regional wall motion abnormalities noted. Right Ventricle Normal RV size. Normal systolic function. Atria Normal left atrium. Normal right atrium. Mitral Valve Normal mitral valve. Tricuspid Valve Normal tricuspid valve. Aortic Valve Normal aortic valve. Pulmonic Valve Normal pulmonic valve. Great Vessels Normal aortic root. The pulmonary artery is normal size. Normal inferior vena cava. Pericardium/Pleural No pericardial effusion. Medication 22 gauge I.V. with prn adaptor inserted into right arm. Diluted definity 3ml given slow IV push to enhance endocardial definition. MMode/2D Measurements & Calculations LVIDd: 4.1 cm IVSd: 1.1 cm Ao root diam: 3.1 cm LVIDs: 2.8 cm LVPWd: 1.1 cm RVDd: 3.0 cm FS: 31.9 % LAV(MOD-bp): 32.0 ml LVAd ap4: 32.8 cm2 SV(MOD-sp4): 61.0 ml LAV(MOD-bp) Indexed: 15.1 ml/m2 LVLd ap4: 8.4 cm LAV(MOD-sp2): 30.3 ml EDV(MOD-sp4): 107.5 ml LAV(MOD-sp4): 33.8 ml EDV(sp4-el): 109.3 ml LVAs ap4: 19.6 cm2 LVLs ap4: 6.8 cm ESV(MOD-sp4): 46.6 ml ESV(sp4-el): 48.1 ml EF(MOD-sp4): 56.7 % EF(sp4-el): 56.0 % SV(sp4-el): 61.2 ml LA A4 area: 14.3 cm2 LA dimension(2D): 3.6 cm RA A4 area: 12.0 cm2 Time Measurements MV dec time: 0.17 sec Doppler Measurements & Calculations MV E max homero: 65.3 cm/sec Lat Peak E' Homero: 8.9 cm/sec Med Peak E' Homero: 7.4 cm/sec MV A max homero: 110.0 cm/sec E/E' lat: 7.3 E/E' med: 8.8 MV E/A: 0.59 Ao V2 max: 135.2 cm/sec LV V1 max: 108.5 cm/sec PA V2 max: 109.5 cm/sec Ao max P.3 mmHg LV V1 max P.7 mmHg ECHO/Echo Complete W/ Contrast Interpretation Summary Normal LV size. Left ventricular systolic function is normal. The estimated ejection fraction is 65 %. Stage 1 diastolic dysfunction. Contrast injection was performed. Structurally normal valves. Ordering Physician: Gilles Castillo Referring Physician: NICK HAILE Performed By: Christy Schuler RDCS
== END 2021-11-01 23:59 | disposition home or self-care (01) ==
PROVIDERS: PCP Family Medicine; Referring Provider Internal Medicine Cardiovascular Disease; Visit Provider Internal Medicine Cardiovascular Disease
DX: Z01.810 Encounter for preprocedural cardiovascular examination (principal)
CPT/HCPCS: 93306; Q9957; A4216; C8929

== ENCOUNTER → 2023-01-02 | Outpatient (CLI) | payer MEDICARE, MEDICAID, SELFPAY ==
--- NOTE | 2023-01-02 08:04 | AAVD_ITS ---
Reason For Study: AAA Aorta Measurements Aorta Doppler Measurements Proximal aorta measures2.21 x 2.21cm. in cross- Peak systolic flow velocities within the proximal sectional axis. aorta measure 74.1 cm/sec. Proximal aorta measures2.18cm. in longitudinal Peak systolic flow velocities within the mid aorta axis. measure 64.2 cm/sec. Mid aorta measures3.79 x 3.48cm. in cross- Peak systolic flow velocities within the distal sectional axis. aorta measure 38.6 cm/sec. Mid aorta measures3.72cm. in longitudinal axis. Distal aorta measures3.07 x 2.92cm. in cross- sectional axis. Distal aorta measures3.36cm. in longitudinal axis. Left Iliac Artery Left iliac artery measures 1.32 x 1.30 cm. in the cross-sectional axis. Left iliac artery measures 1.30 cm. in the longitudinal axis. Peak systolic velocity in the left iliac artery measures 57.6 cm/sec. Right Iliac Artery Right iliac artery measures 2.06 x 1.96 cm. in the cross-sectional axis. Right iliac artery measures 1.96 cm. in the longitudinal axis. Peak systolic velocity in the right iliac artery measures 53.9 cm/sec. Procedure Aorta IVC Iliac vasculature or bypass grafts 55263. The exam was diagnostic. Exam performed in department. VL/Abd Aortic/IVC Duplex scan Interpretation Summary Aorta patent, 3.79 cm aneurysm present Right iliac artery patent, normal caliber Left iliac artery patent, 2.06 cm aneurysm present Ordering Physician: Moses Castañeda Referring Physician: Moses Castañeda MD Performed By: Tez Aguilar, RVT
== END | disposition home or self-care (01) ==
LOC: CVS 08:03
PROVIDERS: PCP Family Medicine; Referring Provider Surgery Trauma Surgery; Visit Provider Surgery Trauma Surgery
DX: I10 Essential (primary) hypertension (principal)
CPT/HCPCS: 93978

== ENCOUNTER → 2024-01-17 | Outpatient (CLI) | payer MEDICARE, MEDICAID, SELFPAY ==
--- NOTE | 2024-01-17 07:42 | AAVD_ITS ---
Reason For Study: HX AAA/ Rt SAM Aneurysm Aorta Measurements Aorta Doppler Measurements Proximal aorta measures2.36 x 2.29cm. in cross- Peak systolic flow velocities within the proximal sectional axis. aorta measure 68.5 cm/sec. Proximal aorta measures2.38cm. in longitudinal Peak systolic flow velocities within the mid aorta axis. measure 66.3 cm/sec. Mid aorta measures2.44/2.28cm. in cross-sectional Peak systolic flow velocities within the distal axis. aorta measure 54.3 cm/sec. Mid aorta measures2.29cm. in longitudinal axis. Distal aorta measures3.86 x 3.77cm. in cross- sectional axis. Distal aorta measures3.73cm. in longitudinal axis. Left Iliac Artery Left iliac artery measures 1.27 x 1.21 cm. in the cross-sectional axis. Left iliac artery measures 1.29 cm. in the longitudinal axis. Peak systolic velocity in the left iliac artery measures 67.4 cm/sec. Right Iliac Artery Right iliac artery measures 2.03 x 1.76 cm. in the cross-sectional axis. Right iliac artery measures 2.03 cm. in the longitudinal axis. Peak systolic velocity in the right iliac artery measures 80.2 cm/sec. VL/Abd Aortic/IVC Duplex scan Interpretation Summary Aorta patent, 3.86 cm aneurysm present. Right iliac artery patent, 2.03 cm aneurysm present Left iliac artery patent, 1.27 cm ectasia present Ordering Physician: Jagruti Jerez Referring Physician: Homer Reynoso Performed By: Tez Aguilar, RVT
== END | disposition home or self-care (01) ==
LOC: CVS 07:35
PROVIDERS: PCP Family Medicine; Referring Provider Physician Assistant; Visit Provider Physician Assistant
DX: I72.3 Aneurysm of iliac artery (principal); I71.40 Abdominal aortic aneurysm, without rupture, unspecified
CPT/HCPCS: 93978

== ENCOUNTER → 2025-01-17 | Outpatient (CLI) | payer MEDICARE, MEDICAID, SELFPAY ==
--- NOTE | 2025-01-17 08:02 | AAVD_ITS ---
Reason For Study Reason For Study: AAA, Rt SAM Aneurysm Aorta Measurements Aorta Doppler Measurements Proximal aorta measures2.29cm x 2.42cm. in cross-sectional Peak systolic flow velocities within the proximal aorta axis. measure 69 cm/sec. Proximal aorta measures2.22cm. in longitudinal axis. Peak systolic flow velocities within the mid aorta measure Mid aorta measures2.55cm x 2.40cm. in cross-sectional axis. 54 cm/sec. Mid aorta measures2.38cm. in longitudinal axis. Peak systolic flow velocities within the distal aorta Distal aorta measures3.69cm x 4.07cm. in cross-sectional measure 34 cm/sec. axis. Distal aorta measures3.73cm. in longitudinal axis. Left Iliac Artery Left iliac artery measures 1.38cm x 1.50 cm. in the cross-sectional axis. Left iliac artery measures 1.47 cm. in the longitudinal axis. Peak systolic velocity in the left iliac artery measures 68 cm/sec. Right Iliac Artery Right iliac artery measures 2.07cm x 1.98 cm. in the cross-sectional axis. Right iliac artery measures 1.99 cm. in the longitudinal axis. Peak systolic velocity in the right iliac artery measures 46 cm/sec. VL/Abd Aortic/IVC Duplex scan Interpretation Summary Aorta patent, 4.07 cm aneurysm present. Right iliac artery patent, 2.07 cm aneurysm present Left iliac artery patent, 1.50 cm ectasia present Ordering Physician: Jagruti Jerez Referring Physician: Сергей Reynoso Performed By: Ruthie Hartman, LUDWIN, RVT
== END | disposition home or self-care (01) ==
LOC: CVS 08:02
PROVIDERS: PCP Family Medicine; Referring Provider Physician Assistant; Visit Provider Physician Assistant
DX: I72.3 Aneurysm of iliac artery (principal); I71.40 Abdominal aortic aneurysm, without rupture, unspecified
CPT/HCPCS: 93978

== ENCOUNTER → 2025-03-27 | Outpatient (CLI) | payer MEDICARE, MEDICAID, SELFPAY ==
--- NOTE | 2025-03-27 06:09 | ECHOD_ITS ---
Reason For Study Reason For Study: Dyspnea/SOB Procedure This was a 2D Doppler, Color Flow transthoracic echocardiogram. Exam performed in department. Left Ventricle Normal LV size. Left ventricular systolic function is normal. The left ventricular ejection fraction is 55 %. No regional wall motion abnormalities noted. Right Ventricle Normal RV size. Normal systolic function. Atria Normal left atrium. Normal right atrium. Mitral Valve Normal mitral valve. Tricuspid Valve Normal tricuspid valve. Mild (1+) tricuspid valve insufficiency. Pulmonary artery systolic pressure is 25 mmHg. Aortic Valve Trisinus/trileaflet aortic valve. Pulmonic Valve Normal pulmonic valve. Great Vessels Normal aortic root. The pulmonary artery is normal size. Inferior vena cava collapse with respiration. Pericardium/Pleural No pericardial effusion. MMode/2D Measurements & Calculations LVIDd: 5.0 cm IVSd: 1.3 cm Ao root diam: 3.2 cm LVIDs: 3.2 cm LVPWd: 0.89 cm RVDd: 3.7 cm FS: 36.1 % LAV(MOD-bp): 40.6 ml LVAd ap4: 31.0 cm2 SV(MOD-sp4): 53.4 ml LAV(MOD-bp) Indexed: 20.1 ml/m2 LVLd ap4: 8.1 cm SI(MOD-sp4): 26.4 ml/m2 LAV(MOD-sp2): 41.9 ml EDV(MOD-sp4): 94.5 ml LAV(MOD-sp4): 35.8 ml EDV(sp4-el): 100.2 ml LVAs ap4: 18.4 cm2 LVLs ap4: 7.0 cm ESV(MOD-sp4): 41.2 ml ESV(sp4-el): 41.1 ml EF(MOD-sp4): 56.4 % EF(sp4-el): 58.9 % SV(sp4-el): 59.0 ml LA A4 area: 14.4 cm2 LA dimension(2D): 3.9 cm RA A4 area: 13.4 cm2 TAPSE: 2.3 cm Time Measurements MV dec time: 0.22 sec Doppler Measurements & Calculations MV E max homero: 74.7 cm/sec Lat Peak E' Homero: 13.4 cm/sec Med Peak E' Homero: 9.3 cm/sec MV A max homero: 103.5 cm/sec E/E' lat: 5.6 E/E' med: 8.1 MV E/A: 0.72 MV V2 max: 106.8 cm/sec MV P1/2t max homero: 90.6 cm/sec Ao V2 max: 145.5 cm/sec MV max P.6 mmHg MV P1/2t: 78.7 msec Ao max P.5 mmHg MV V2 mean: 60.0 cm/sec Ao V2 mean: 99.0 cm/sec MV mean P.7 mmHg MV dec slope: 337.3 cm/sec2 Ao mean P.5 mmHg MV V2 VTI: 30.8 cm MVA(P1/2t): 2.8 cm2 Ao V2 VTI: 29.1 cm AV (velocity ratio): 0.86 LV V1 max: 125.9 cm/sec PA V2 max: 143.0 cm/sec TR max homero: 236.1 cm/sec LV V1 max P.3 mmHg PA V2 mean: 93.0 cm/sec TR max P.3 mmHg LV V1 mean P.3 mmHg LV V1 mean: 84.0 cm/sec LV V1 VTI: 25.0 cm ECHO/Echo Complete Interpretation Summary Normal LV size. Left ventricular systolic function is normal. The left ventricular ejection fraction is 55 %. Structurally normal valves. Ordering Physician: Ro Joya Referring Physician: Ro Joya Performed By: Volodymyr Soto RCS
--- OUTSIDE RECORDS SUMMARY | 2025-03-27 06:09 | XMS RPT_ITS | CCD ---
Author Organization [facility] Care Team Providers Care Fitter/Welder Name Role Phone Daisha Little Unavailable Nick Quick Primary Care Provider [phone] Nick Quick Primary Care Provider [phone] Nick Quick Primary Care Provider [phone] Nick Quick MD Primary Care Provider Nick Quick MD Primary Care Provider Daniel Jordan MD Unavailable DR NICK QUICK MD Primary Care Physician [phone] Concepcion WILKERSON, Zhane Unavailable Unavailable Nick Quick MD Primary Care Provider Nick Quick MD Primary Care Provider PROVIDER, UNKNOWN Referring Unavailable Ck Dyer Attending Unavailable Nick Quick Primary Care Unavailable Nick Quick Primary Care Unavailable PROVIDER, UNKNOWN Referring Unavailable JOSE ARMANDO ROBBINS Attending Unavailable iNck Quick Primary Care Unavailable PROVIDER, UNKNOWN Referring Unavailable TYSHAWN LOVE Attending Unavailab Nick Houston Primary Care Unavailable Barrett Moore Attending Unavailable PROVIDER, UNKNOWN Referring Unavailable Nick Quick MD Primary Care Provider Nick Quick MD Primary Care Provider [phone] DUNCAN VÁSQUEZ Attending Unavailable NICK QUICK OSITO Primary Care Unavailable DUNCAN VÁSQUEZ Referring Unavailable BENNY HEDRICK Attending Unavaila ble NICK QUICK OSITO Primary Care Unavailable DUNCAN VÁSQUEZ Attending Unavailable NICK QUICK OSITO Primary Care Unavailable YNES, NICK OSITO Primary Care Unavailable MEGHAN JESSICARIMA Referring Unavailable NICK QUICK OSITO Primary Care Unavailable Dr. Nick Quick Primary Care Provider [phone] Nick Quick Referring Provider Devan CAR FERRIER, CAR FERRIERRaji Estevez Attending Provider Dr. Liberty Castañeda Attending Provider [phone] Nick Quick MD Primary Care Provider SHONA LYMAN Attending Unavailable SUZY MARSHALL Referring Unavailable SHOAN LYMAN Attending Unavailable Ynes MARTNIEZ, Nick Osito Primary Care Provider Ynes MARTINEZ, Nick Primary Care Provider [phone] Unavailable Primary Care Provider Unavailabl e YNES, NICK Primary Care Unavailable OZHATHIL, PRANAV K Referring Unavailable ALICIA CABALLERO Attending Unavailable OZHATHIL, PRANAV K Referring Unavailable OZHATHIL, PRANAV K Attending Unavailable YNES, NICK Primary Care Unavailable Dr. Nick Quick MD Primary Care Provider Dr. Nick Quick MD Referring Provider [phone] Jagruti Scott Attending Provider [phone] Jagruti Scott Referring Provider [phone] Liberty Castañeda MD Attending Provider Toan HUMPHRIES-Ro Reid Attending Provider QUICK, NICK Primary Care Unavailable GOMBASH, CHAN Attending Unavailable QUICK, NICK Primary Care Unavailable HUGO SINGER Attending Unavailable QUICK, NICK Primary Care Unavailable QUICK, NICK Primary Care Unavailable GOMBASH, CHAN Attending Unavailable QUICK, NICK Primary Care Unavailable EDDIE WHITE Attending Unavailable SUZY CARROLL Attending Unavailable QUICK, NICK Primary Care Unavailable QUICK, NICK Attending Unavailable QUICK, NICK Referring Unavailable QUICK, NICK Primary Care Unavailable QUICK, NICK Attending Unavailable QUICK, NICK Referring Unavailable QUICK, NICK Primary Care Unavailable GOMBASH, CHAN Referring Unavailable QUICK, NICK Primary Care Unavailable Quick, Nick Primary Care Unavailable Liberty Castañeda Attending Unavailable Jagruti Jerez Referring Unavailable Quick, Nick Primary Care Unavailable JerezJagruti galeana Attending Unavailable Jerez, Jagruti Referring Unavailable Quick, Nick Primary Care Unavailable Toan CAR FERRIER, Ro Attending Unavailable Toan CAR FERRIER, Ro Referring Unavailable Quick, Nick Primary Care Unavailable Quick, Nick Referring Unavailable Jagruti Jerez Attending Unavailable Quick, Nick Referring Unavailable Quick, Nick Primary Care Unavailable Toan CAR FERRIER, Ro Attending Unavailable Quick, Nick Referring Unavailable Doroteo Pandya Attending Unavailable Quick, Nick Primary Care Unavailable Allergies Allergy Classification Reported Allergen(s) Allergy Type Date of Onset Reaction(s) Facility NSAIDs (1 source) Naproxen Drug Allergy 8 Hives, Shortness Of Breath [facility] Penicillins (antibiotic) (1 source) Penicillins Drug Allergy 8 Hives [facility] (2 sources) naproxen; Translations: [Naproxen] [facility] Work Phone: (1 source) Penicillins (Antibiotic) drug allergy 4 [facility] Work Phone: (20 sources) Naproxen; Translations: [NAPROXEN] Drug Allergy 8 Hives, Shortness Of Breath, Other, Rash, Other (See Comments), Swelling [facility] Work Phone: (12 sources) Penicillins; Translations: [PENICILLINS] Propensity to adverse reactions to drug 8 Hives, Shortness Of Breath [facility] Work Phone: (2 sources) Penicillin G Drug Allergy 7 throat swells [facility] Work Phone: (1 source) Penicillin; Translations: [penicillins] Drug Allergy [facility] (6 sources) Penicillin Drug Allergy 8 [facility] (20 sources) Penicillins Drug Intolerance 8 Shortness of breath [facility] (1 source) OTHER; Translations: [OTHER] Propensity to adverse reactions (disorder) 8 [facility] (2 sources) Penicillins Allergy to substance 3 [facility] (3 sources) Penicillin G; Translations: [PENICILLIN G] Drug Allergy 8 [facility] (1 source) Penicillins Propensity to adverse reactions 4 [facility] Work Phone: (1 source) Naproxen Drug Allergy 5 [facility] (1 source) Penicillins Drug allergy (disorder) 5 [facility] Medications Current Medications Medication Drug Class(es) Dates Sig (Normalized) Sig (Original) acetaminophen 325 mg / HYDROcodone bitartrate 5 mg oral tablet (4 sources) Opioid Agonist Start: 02-19-2023 End: 02-22-2023 take 1 tablet by mouth every six hours as needed for pain HYDROcodone-aceta minophen (Fyffe) 5-325 MG tablet Indications: Chronic pain due to trauma Take 1 tablet by mouth every 6 hours as needed for severe pain (7-10) for up to 3 days. 12 tablet 0 02/19/2023 02/22/2023 Active Start: 03-14-2017 End: 01-12-2018 Hydrocodone-Acetaminophen 1 TABLET tablet Discontinued 1 - 2 {tbl} PO EVERY 4 HOURS NEEDED as needed for Pain March 14, 2017 12:00am January 12, 2018 11:40am Start: 03-14-2017 End: 01-12-2018 take 1 tablet by mouth every four hours as needed Hydrocodone-Acetaminophen Discontinued 1 - 2 TABLET PO EVERY 4 HOURS NEEDED March 14, 2017 12:00am January 12, 2018 11:40am acetaminophen 325 mg / oxyCODONE hydrochloride 5 mg oral tablet (20 sources) Opioid Agonist Start: 01-03-2025 End: 01-05-2025 take 1 tablet by mouth every six hours as needed for pain oxyCODONE-acetaminophen (Percocet) 5-325 MG tablet Indications: Acute exacerbation of chronic low back pain , Sciatica, left side Take 1 tablet by mouth every 6 hours as needed for severe pain (7-10) for up to 2 days. 8 tablet 01/03/2025 01/05/2025 Active Start: 09-18-2024 End: 09-21-2024 take 1 tablet by mouth every six hours as needed for pain oxyCODONE-acetaminophen (Percocet) 5-325 MG tablet Indications: Chronic sciatica of left side , Chronic left hip pain Take 1 tablet by mouth every 6 hours as needed for severe pain (7-10) for up to 3 days. 6 tablet 09/18/2024 09/21/2024 Active Start: 09-18-2024 End: 09-18-2024 1 tablet, Oral, Once, On Mon09/18/24 at 1305, For 1 dose, Maximum dose of acetaminophen is 4000 mg from all sources in 24 hours. Start: 07-22-2024 End: 07-27-2024 take 1 tablet by mouth every six hours as needed for pain oxyCODONE-acetaminophen (Percocet) 5-325 MG tablet Indications: Superficial burn of face, initial encounter , Superficial burn of back of right hand, initial encounter Take 1 tablet by mouth every 6 hours as needed for severe pain (7-10) for up to 5 days. 15 tablet 07/22/2024 07/27/2024 Active Start: 07-22-2024 End: 07-22-2024 2 tablet, Oral, Once, On Mon07/22/24 at 1050, For 1 dose, Maximum dose of acetaminophen is 4000 mg from all sources in 24 hours. Start: 04-08-2023 End: 04-08-2023 oxyCODONE-acetaminophen (Per cocet) 5-325 MG per tablet 1 tablet Start: 12-08-2022 End: 12-13-2022 take 1 tablet by mouth every six hours as needed for pain oxyCODONE-acetaminophen (Percocet) 5-325 MG tablet Indications: Acute exacerbation of chronic low back pain , Lumbar strain, initial encounter Take 1 tablet by mouth every 6 hours as needed for severe pain (7-10) for up to 5 days. 15 tablet 0 12/08/2022 12/13/2022 Active Start: 12-08-2022 End: 12-08-2022 oxyCODONE-acetaminophen (Per cocet) 5-325 MG per tablet 1 tablet Start: 06-11-2022 End: 06-13-2022 oxyCODONE-acetaminophen (PER COCET) 5-325 MG per tablet Indications: Acute exacerbation of chronic low back pain Take 1 tablet by mouth every 8 hours as needed for Pain for up to 2 days. Intended supply: 3 days. Take lowest dose possible to manage pain 6 tablet 0 06/11/2022 06/13/2022 Active Start: 03-30-2022 End: 04-04-2022 oxyCODONE-acetaminophen (PER COCET) 5-325 MG per tablet Indications: Strain of left shoulder, initial encounter Take 1 tablet by mouth 2 times daily as needed for Pain for up to 5 days. Intended supply: 5 days. Take lowest dose possible to manage pain 10 tablet 0 03/30/2022 04/04/2022 Active Start: 12-27-2021 End: 03-30-2022 take 1-2 tablets by mouth every eight hours for pain oxyCODONE-acetaminophen (PERCOCET) 5-325 MG per tablet take 1 to 2 tablets by mouth every 8 hours if needed for pain 0 12/27/2021 03/30/2022 Discontinued (LIST CLEANUP) Start: 12-02-2021 End: 12-09-2021 take 1-2 tablets by mouth every six hours as needed for pain OXYCODONE-ACETAMINOPHEN 5-325 MG TABS Take 1-2 tablet by mouth every six hours as needed for pain oxycodone-acetaminophen [id number] Daniel Jordan MD Start: 11-16-2021 End: 11-16-2021 oxyCODONE-acetaminophen (PER COCET) 5-325 MG per tablet 1 tablet Start: 05-19-2021 oxyCODONE-acet aminophen (PERCOCET) 5-325 MG per tablet 1 tablet Start: 07-24-2016 End: 10-19-2017 Oxycodone-Acetaminophen 1 TA BLET tablet Discontinued 1 {tbl} PO EVERY 6 HOURS NEEDED as needed for Pain July 24, 2016 1:00am October 19, 2017 7:44pm Start: 07-24-2016 End: 10-19-2017 take 1 tablet by mouth every six hours as needed Oxycodone-Acetaminophen Discontinued 1 TABLET PO EVERY 6 HOURS NEEDED July 24, 2016 1:00am October 19, 2017 7:44pm Start: 08-21-2015 End: 10-28-2015 Oxycodone-Acetaminophen 1 TA BLET tablet Discontinued 1 - 2 {tbl} PO EVERY 4 HOURS NEEDED as needed for Pain August 21, 2015 1:00am October 28, 2015 8:50am Start: 08-21-2015 End: 10-28-2015 take 1 tablet by mouth every four hours as needed Oxycodone-Acetaminophen Discontinued 1 - 2 TABLET PO EVERY 4 HOURS NEEDED August 21, 2015 1:00am October 28, 2015 8:50am Start: 05-22-2014 End: 09-08-2015 PERCOCET 10-325 MG TABS As n eeded OXYCODONE-ACETAMINOPHEN [id number] Dolly Harris RN End: 12-08-2022 oxyCODONE-Acetaminophen (PER COCET PO) oxyCODONE-Acetam inophen (PERCOCET PO) [id number] 200 actuat albuterol 0.09 mg/actuat metered dose inhaler (20 sources) beta2-Adrenergic Agonist Start: 01-12-2021 albut meg 108 (90 Base) MCG/ACT inhaler 2 puff(s) 01/12/2021 Active Start: 04-03-2018 End: 10-20-2019 take 2 puff(s) by inhalation every four hours as needed for wheezing albuterol sulfate HFA (PROVENTIL HFA) 108 (90 Base) MCG/ACT inhaler Inhale 2 puffs into the lungs every 4 hours as needed for Wheezing or Shortness of Breath 1 Inhaler 11 04/03/2018 10/20/2019 Discontinued amLODIPine 10 mg oral tablet (20 sources) Dihydropyridine Calcium Channel Ernie Start: 11-07-2021 take 10 mg by mouth once daily 10 mg, Oral, DAILY, First dose on 11/07/21 at 1630 Start: 05-21-2021 End: 03-02-2025 take 1 tablet by mouth in the morning amLODIPine (Norvasc) 10 MG tablet Take 1 tablet by mouth in the morning. 05/21/2021 03/02/2025 Discontinued Start: 05-20-2021 End: 05-20-2021 amLODIPine (NORVASC) tablet 5 mg amLODIPine (Norv asc) 10 MG tablet Every 24 hours. Active Comment on above: 1 tab(s) AMLODIPINE BESYLATE, BULK, MISC (1 source) AMLODIPINE BESYL ATE, BULK, MISC Active amoxicillin 875 mg / clavulanate 125 mg oral tablet (4 sources) Penicillin-class Antibacterial Start: 05-20-2021 End: 05-23-2021 amoxicillin-clavulanat e (AUGMENTIN) 875-125 MG per tablet 1 tablet Start: 05-20-2021 End: 05-25-2021 take 1 tablet by mouth every twelve hours amoxicillin-clavulanate (AUGMENTIN) 875-125 MG per tablet Take 1 tablet by mouth every 12 hours for 5 days 10 tablet 0 05/20/2021 05/25/2021 Active Start: 05-17-2021 End: 05-27-2021 take 1 tablet by mouth twice daily amoxicillin-clavulanate (AUGMENTIN) 875-125 MG per tablet Take 1 tablet by mouth 2 times daily for 10 days 20 tablet 0 05/17/2021 05/20/2021 Discontinued (Stop Taking at Discharge) apixaban 2.5 mg oral tablet (5 sources) Factor Xa Inhibitor Start: 11-07-2021 take 2.5 mg by mouth twice daily 2.5 mg, Oral, 2 TIMES DAILY, First dose on 11/07/21 at 2100 ANTICOAGULANT Start: 11-04-2021 take 1 tablet by mary anne th twice daily ELIQUIS 2.5 MG TABS 1 tablet by mouth twice a day apixaban [id number] Zhane Yap LPN aspirin 81 mg delayed release oral tablet (20 sources) Platelet Aggregation Inhibitor, Nonsteroidal Anti-inflammatory Drug Start: 10-01-2020 End: 03-02-2025 take 1 tablet by mouth once daily Aspirin (Adult Aspirin Regimen) 81 mg tablet,delayed release (DR/EC) Active 81 mg PO DAILY October 01, 2020 1:00am Start: 07-24-2016 End: 02-03-2020 take 1 tablet by mouth twice daily Aspirin 325 MG tablet Discontinued 325 mg PO TWICE A DAY July 24, 2016 1:00am February 03, 2020 8:29am aspirin 81 MG ch ewable tablet Every 24 hours. Active Comment on above: 1 tab(s) carboxymethylcellulose sodium 5 mg/ml ophthalmic solution (2 sources) Start : 07-25 End: 08-01 take 1 drop(s) into the eye(s) three times daily carboxymethylcellulose (REFRESH TEARS) 0.5 % ophthalmic solution instill 1 Drop into the right eye 3 times daily for 7 days 15 mL 07/25/2024 08/01/2024 Active cetirizine hydrochloride 10 mg oral capsule (20 sources) Histamine-1 Receptor Antagonist Start : 02-07 Cetirizine HCl 10 MG capsule Take 10 mg by mouth. 02/07/2023 Active cetirizine (ZyrT EC) 10 MG tablet Take by mouth. Active cetirizine (ZyrT EC) 10 mg chewable tablet Chew once daily. Active docusate sodium 50 mg / sennosides, senior living 8.6 mg oral tablet (1 source) Start: 11-07-2021 take 2 tablets by mouth once daily 2 tablet, Oral, NIGHTLY, First dose on 11/07/21 at 2100 0.4 ml enoxaparin sodium 100 mg/ml prefilled syringe (2 sources) Low Molecular Weight Heparin Start: 05-18-2021 enoxaparin (LOVENOX) injection 40 mg Start: 10-20-2019 End: 10-20-2019 enoxaparin (LOVENOX) injecti on 100 mg fluorouracil 50 mg/ml topical cream (20 sources) Nucleoside Metabolic Inhibitor Start: 07-04-2022 fluorouracil (Efudex) 5 % cream Indications: Actinic keratoses Apply to the cheeks, temples and forehead twice daily x2 weeks 40 g 07/04/2022 Active FLUoxetine 20 mg oral capsule (3 sources) Serotonin Reuptake Inhibitor Start: 12-20-2023 End: 07-25-2024 take 1 capsule by mouth once daily Fluoxetine 20 mg capsule Active 20 mg PO DAILY December 20, 2023 12:00am Uzdymbdokyx-Oxbtljaxc-Aga anter (1 source) Anticholinergic, Corticosteroid, beta2-Adrenergic Agonist Start: 12-19-2024 Fluticasone-Umecl idin-Vilanter (Trelegy Ellipta) 100-62.5-25 mcg blister with device Active 1 NMA INHALATION daily December 19, 2024 12:00am hydroCHLOROthiazide 12.5 mg / lisinopril 10 mg oral tablet (20 sources) Thiazide Diuretic, Angiotensin Converting Enzyme Inhibitor Start: 10-01-2020 End: 12-20-2023 Lisinopril-Hydroc hlorothiazide 10-12.5 mg tablet Active 1 {tbl} PO DAILY December 20, 2023 11:45am Start: 10-01-2020 End: 10-11-2022 take 1 tablet by mouth once daily Lisinopril-Hydrochlorothiazide Active 1 TABLET PO DAILY October 11, 2022 6:41pm Start: 08-15-2016 End: 10-20-2019 take 1 tablet by mouth once daily LISINOPRIL-HYDROCHLOROTHIAZIDE 10-12.5 M G TABS One tablet by mouth daily LISINOPRIL-HYDROCHLOROTHIAZIDE [id number] Trent Estevez Devan HUMPHRIES Start: 08-15-2016 End: 01-15-2019 take 1 tablet by mouth once daily Lisinopril-Hydrochlorothiazide Discontin ued 1 TABLET PO DAILY August 15, 2016 1:00am January 15, 2019 10:13am Start: 04-06-2016 End: 03-02-2025 lisinopril-hydroCHLOROthiazi de 10-12.5 MG tablet Every 24 hours. 04/06/2016 03/02/2025 Discontinued Comment on above: Every 24 hours. ibuprofen 200 mg oral tablet (20 sources) Nonsteroidal Anti-inflammatory Drug ibuprofen 200 MG tablet every 8 hours. Active lidocaine 0.04 mg/mg medicated patch (20 sources) Antiarrhythmic, Amide Local Anesthetic Start: 3 End: 3 apply 1 dose transdermal route once daily Lidocaine (HM Lidocaine Patch) 4 % patch Place 1 patch on the skin daily. 5 patch 12/08/2022 Active Start: 07-09-2022 End: 12-08-2022 apply 1 dose transdermal route every twelve hours in the morning lidocaine (Lidoderm) 5 % patch Apply 1 patch topically in the morning. Remove & discard patch within 12 hours or as directed by . 10 patch 0 07/09/2022 12/08/2022 Discontinued Start: 11-06-2021 End: 11-16-2021 lidocaine (LIDODERM) 5 % Yue ce 1 patch onto the skin daily for 10 days 12 hours on, 12 hours off. 10 patch 0 11/06/2021 11/16/2021 Active Start: 05-19-2021 lidocaine 4 % external patch 1 patch lisinopril 10 mg oral tablet (20 sources) Angiotensin Converting Enzyme Inhibitor Start: 11-07-2021 take 10 mg by mouth once daily 10 mg, Oral, DAILY, First dose on 11/07/21 at 1630 Start: 05-20-2021 take 1 tablet by mary anne th in the morning lisinopril 20 MG tablet Take 1 tablet by mouth in the morning. 05/21/2021 Active Start: 05-18-2021 End: 05-19-2021 lisinopril (PRINIVIL;ZESTRIL ) tablet 10 mg melatonin 3 mg oral tablet (2 sources) Start: 05-19-2021 melatonin tabl et 6 mg Start: 05-18-2021 End: 05-19-2021 melatonin tablet 3 mg meloxicam 15 mg oral tablet (20 sources) Nonsteroidal Anti-inflammatory Drug Start: 01-08-2023 take 7.5 mg by mouth every twenty-four hours as needed meloxicam (Mobic) 15 MG tablet Take 0.5 tablets (7.5 mg) by mouth Daily as needed (pain). 14 tablet 01/08/2023 Active Start: 01-08-2023 End: 01-08-2023 meloxicam (Mobic) tablet 7.5 mg Start: 05-22-2014 End: 02-07-2023 take 1 tablet by mouth once daily Meloxicam 15 MG tablet Discontinued 15 mg PO DAILY July 08, 2016 12:00am February 03, 2020 8:29am End: 01-08-2023 meloxicam (Mobic) 15 MG tabl et Every 24 hours. 0 01/08/2023 Discontinued (Reorder) Comment on above: 15 mg. methocarbamol 500 mg oral tablet (15 sources) Muscle Relaxant Start: 03-02-2025 End: 03-02-2025 take 1 dose by mouth four times daily 1,000 mg, Oral, Every 6 hours scheduled (4 times per day), First dose on 03/02/25 at 1225 Start: 01-03-2025 End: 03-12-2025 take 1 tablet by mouth twice daily methocarbamol (Robaxin) 500 MG tablet Take 1 tablet (500 mg) by mouth 2 times daily for 10 days. 20 tablet 03/02/2025 03/12/2025 Active Start: 07-24-2016 End: 02-03-2020 take 1 tablet by mouth four times daily Methocarbamol 750 MG tablet Discontinued 750 mg PO 4 TIMES DAILY July 24, 2016 1:00am February 03, 2020 8:29am Start: 05-22-2014 End: 06-22-2017 Robaxin-750 oral tablet Dose : 750 mg = 1 tab(s), Oral, TID Start Date: 05/14/15 Status: Ordered methylPREDNISolone 4 mg oral tablet (4 sources) Corticosteroid Start: 06-28-2022 methylPREDNISo lone (Medrol Dospak) 4 MG tablets use as directed FOLLOW DIRECTIONS ON BACK OF FOIL PACK 0 06/28/2022 Active Start: 12-01-2021 MEDROL 4 MG TB PK Take by mouth as directed following package instructions methylprednisolone [id number] Daniel Jordan MD Start: 07-24-2016 End: 10-19-2017 Methylprednisolone 4 MG tabl et Discontinued 4 mg PO DIRECTED July 24, 2016 1:00am October 19, 2017 7:44pm multivitamin,or-kiff-aelevhv s (1 source) Start: 10-01-2020 take 1 tablet by mouth once daily multivitamin,pr-mutl-hyhhphmt Active 1 TABLET PO DAILY October 01, 2020 1:00am ondansetron (ZOFRAN-ODT) disintegrating tablet 4 mg (1 source) Start: 11-07-2021 ondansetron (ZOFRAN-ODT) disintegrating tablet 4 mg pantoprazole 40 mg delayed release oral tablet (20 sources) Proton Pump Inhibi tor Start: 06-20-2022 End: 08-04-2023 take 1 tablet by mouth in the morning pantoprazole (ProtoNix) 40 MG EC tablet Take 40 mg by mouth in the morning. 10/28/2022 Active Start: 06-20-2022 End: 03-02-2025 pantoprazole (ProtoNix) 40 M G EC tablet Every 24 hours. 06/20/2022 03/02/2025 Discontinued Start: 08-21-2015 End: 02-03-2020 take 1 tablet by mouth once daily Pantoprazole 40 MG tablet Discontinued 40 mg PO DAILY August 15, 2016 1:00am January 15, 2019 10:13am Start: 05-22-2014 Protonix 40 mg oral enteric coated tablet Dose : 40 mg = 1 tab(s), Oral, BIDAC Start Date: 05/14/15 Status: Ordered Comment on above: Take 1 tablet by mary anne th. Take 1 tablet by mary anne th once daily. take 1 tablet by mary anne th once daily polyethylene glycol [id number] mg powder for oral solution (1 source) Osmotic Laxative Start: 2 17 g, Oral, DAILY PRN, Constipation, Starting on 11/07/21 at 1610 First line therapy for constipation predniSONE 10 mg oral tablet (13 sources) Start: 5 End: 5 take 2 tablets by mouth once daily predniSONE (Deltasone) 10 MG tablet Take 2 tablets (20 mg) by mouth daily for 4 days. 8 tablet 03/02/2025 03/06/2025 Active Start: 01-03-2025 End: 01-14-2025 take 4 tablets by mouth once daily, then take 3 tablets by mouth once daily, then take 2 tablets by mouth once daily, then take 1 tablet by mouth once daily predniSONE (Deltasone) 10 MG tablet Take 4 tablets (40 mg) by mouth daily for 3 days, THEN 3 tablets (30 mg) daily for 3 days, THEN 2 tablets (20 mg) daily for 3 days, THEN 1 tablet (10 mg) daily for 3 days. 30 tablet 01/03/2025 01/14/2025 Active Start: 01-03-2025 End: 01-03-2025 take 50 mg by mouth once 50 mg, Oral, Once, On 10/29 at 0955, For 1 dose Start: 04-08-2023 End: 04-08-2023 predniSONE (Deltasone) table t 50 mg Start: 12-08-2022 End: 12-13-2022 take 4 tablets by mouth once daily predniSONE (Deltasone) 10 MG tablet Take 4 tablets (40 mg) by mouth daily for 5 days. 20 tablet 0 12/08/2022 12/13/2022 Active Start: 12-08-2022 End: 12-08-2022 predniSONE (Deltasone) table t 40 mg predniSONE 10 mg tablets,dose pack Take by mouth. Active pregabalin 50 mg oral capsule (3 sources) Start: 07-25-2024 End: 08-08-2024 take 1 capsule by mouth three times daily pregabalin (LYRICA) 50 MG capsule Take 1 Capsule (50 mg) by mouth 3 times daily for 14 days 42 Capsule 07/25/2024 08/08/2024 Active sodium chloride flush 0.9 % injection 3 mL (1 source) Start: 11-06-2021 sodium chloride flush 0.9 % injection 3 mL sulfamethoxazole 800 mg / trimethoprim 160 mg oral tablet (2 sources) Dihydrofolate Reductase Inhibitor Antibacterial, Sulfonamide Antimicrobial Start: 05-20-2021 End: 05-25-2021 sulfamethoxazol e-trimethoprim (BACTRIM DS;SEPTRA DS) 800-160 MG per tablet 2 tablet Start: 05-20-2021 End: 05-25-2021 take 2 tablets by mouth every twelve hours sulfamethoxazole-trimethoprim (BACTRIM DS;SEPTRA DS) 800-160 MG per tablet Take 2 tablets by mouth every 12 hours for 10 doses 20 tablet 0 05/20/2021 05/25/2021 Active vancomycin 125 mg oral capsule (1 source) Glycopeptide Antibacterial Start: 09-20-2022 End: 09-30-2022 take 1 capsule by mouth four times daily vancomycin (VANCOCIN) 125 mg capsule Indications: Enterocolitis due to Clostridium difficile Take 1 capsule by mouth four times daily for 10 days. 40 capsule 0 09/20/2022 09/30/2022 Active Comment on above: Take 1 capsule by [facility] four times daily for 10 days. Completed/Discontinued Medications Medication Drug Class(es) Dates Sig (Normalized) Sig (Original) acetaminophen 500 mg oral tablet (5 sources) Start: 02-19-2023 End: 02-19-2023 acetaminophen (Tylenol) tablet 1,000 mg Start: 11-07-2021 take 1 dose by mouth three times daily 1,000 mg, Oral, EVERY 8 HOURS SCHEDULED (3 times per day), First dose on 11/07/21 at 1630 Maximum dose of acetaminophen is 4000 mg from all sources in 24 hours. Start: 05-18-2021 End: 05-19-2021 acetaminophen (TYLENOL) tabl et 1,000 mg ampicillin-sulbactam (UNASYN) 3,000 mg in sodium chloride 0.9 % 100 mL IVPB (ADD-VANTAGE) (1 source) Start: 05-19-2021 End: 05-20-2021 ampicillin-sulbactam (UNASYN) 3,000 mg in sodium chloride 0.9 % 100 mL IVPB (ADD-VANTAGE) bacitracin 0.5 unt/mg topical ointment (2 sources) Start: 07-22-2024 End: 07-22-2024 apply 1 dose topically once Topical, Once, On 07/22/24 at 1000, For 1 dose 50 ml clindamycin 12 mg/ml injection (2 sources) Lincosamide Antibacterial Start: 05-18-2021 End: 05-19-2021 clindamycin (CLEOCIN) 600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 presents for evaluation COMPARISON: Chest x-ray dated 08/17/2022 TECHNIQUE: Frontal view of the chest was obtained. FINDINGS: Lines/support devices: Cardiac leads project over the chest, somewhat limiting evaluation. Cardiomediastinal silhouette: Within normal limits. Lungs/pleura: Chronic interstitial coarsening is seen. No focal consolidation, pleural effusion or pneumothorax. Osseous structures: Degenerative changes of the spine and shoulders are seen. No acute osseous abnormality is demonstrated. Other findings: None. [facility] Claudio Greenfield MD - 07/22/2024 Patient Name: JEMAL BETTS : 1960 Exam Date/Time: 07/22/2024 10:49 Procedure: XR CHEST 1 VIEW Ordering Provider: CHAKRABORTY TYLER Reason For Exam: sob, thermal injury EXAMINATION: XR chest AP. EXAM DATE & TIME: 07/22/2024 10:49 AM EST INDICATION: sob, thermal injury ADDITIONAL INFORMATION: 64-year-old male shortness of breath and a history of thermal injury presents for evaluation COMPARISON: Chest x-ray dated 08/17/2022 TECHNIQUE: Frontal view of the chest was obtained. FINDINGS: Lines/support devices: Cardiac leads project over the chest, somewhat limiting evaluation. Cardiomediastinal silhouette: Within normal limits. Lungs/pleura: Chronic interstitial coarsening is seen. No focal consolidation, pleural effusion or pneumothorax. Osseous structures: Degenerative changes of the spine and shoulders are seen. No acute osseous abnormality is demonstrated. Other findings: None. IMPRESSION: No acute cardiopulmonary abnormality identified. Chronic appearing lung changes. Report Dictated on Electronically Signed By: Claudio Greenfield MD Electronically Signed Date/Time: 07/22/2024 11:10 AM EST [facility] Radiology Study observation (narrative) [facility] XR Chest Single viewOrdered By: Claudio Greenfield on 07-22-2024 [facility] Work Phone: CT Chest for screening WO co ntraston 04-20-2024 Unchanged pulmonary nodules measuring up to 6 mm in diameter. ASSESSMENT CATEGORY: Lung-RADS Category 2 - Benign appearance or behavior. Recommend continued annual low-dose screening CT in 12 months. No other clinically significant findings. Report Dictated on Electronically Signed By: Tj Gray DR Electronically Signed Date/Time: 04/20/2024 8:10 AM [employer] Patient Name: JEMAL BETTS : 1960 Exam Date/Time: 04/15/2024 14:51 Procedure: CT LUNG SCREENING LOW DOSE Ordering Provider: QUICK PAULO Reason For Exam: [id number] CLINICAL HISTORY: Past smoker > 20 pack year history. This is a screening study for pulmonary nodules. COMPARISON: 01/10/2023 Technique: 1 mm low dose helical CT images were obtained of the chest without the use of intravenous contrast. Images were reformatted in coronal and sagittal projections. Dose reduction was employed with automated exposure control. FINDINGS: Pulmonary nodules: *All nodule measurements are mean axial diameter and saved on zuniga images* (6:208) 6 mm right middle lobe nodule, unchanged from prior study by direct remeasurement similar technique. (6:248) 6 x 4 mm subpleural nodule in the right lower lobe, unchanged Several additional smaller nodules are again seen, unchanged from prior study. The largest of these are marked in zuniga images. Lungs: No acute consolidative process. Mediastinum: Normal heart size with no pericardial effusion. Mild coronary artery calcification. Aorta and pulmonary arteries normal in caliber. No enlarged mediastinal, hilar, or axillary lymph nodes. Thyroid and Esophagus: No significant abnormality. Upper Abdomen: No significant abnormality Soft tissues and Osseous structures: No suspicious osseous lesions. Mild endplate osteophytosis throughout the thoracic spine. [facility] Marina, Tj Castaneda MD - 04/20/2024 Patient Name: JEMAL BETTS : 1960 Located Within [facility]#: [id number] Exam Date/Time: 04/15/2024 14:51 Procedure: CT LUNG SCREENING LOW DOSE Ordering Provider: QUICK PAULO Reason For Exam: [id number] CLINICAL HISTORY: Past smoker > 20 pack year history. This is a screening study for pulmonary nodules. COMPARISON: 01/10/2023 Technique: 1 mm low dose helical CT images were obtained of the chest without the use of intravenous contrast. Images were reformatted in coronal and sagittal projections. Dose reduction was employed with automated exposure control. FINDINGS: Pulmonary nodules: *All nodule measurements are mean axial diameter and saved on zuniga images* (6:208) 6 mm right middle lobe nodule, unchanged from prior study by direct remeasurement similar technique. (6:248) 6 x 4 mm subpleural nodule in the right lower lobe, unchanged Several additional smaller nodules are again seen, unchanged from prior study. The largest of these are marked in zuniga images. Lungs: No acute consolidative process. Mediastinum: Normal heart size with no pericardial effusion. Mild coronary artery calcification. Aorta and pulmonary arteries normal in caliber. No enlarged mediastinal, hilar, or axillary lymph nodes. Thyroid and Esophagus: No significant abnormality. Upper Abdomen: No significant abnormality Soft tissues and Osseous structures: No suspicious osseous lesions. Mild endplate osteophytosis throughout the thoracic spine. IMPRESSION: Unchanged pulmonary nodules measuring up to 6 mm in diameter. ASSESSMENT CATEGORY: Lung-RADS Category 2 - Benign appearance or behavior. Recommend continued annual low-dose screening CT in 12 months. No other clinically significant findings. Report Dictated on Electronically Signed By: Tj Gray DR Electronically Signed Date/Time: 04/20/2024 8:[address] [facility] [address] Chest for screening WO co ntrastOrdered By: Tj Gray on 04-20-2024 [facility] Work Phone: CT LUNG SCREENING LOW DOSEon 04-20-2024 CT LUNG SCREENING LOW DOSE This is a summary report. The complete report is available in the patient's medical record. If you cannot access the medical record, please contact the sending organization for a detailed fax or copy. Patient Name: JEMAL BETTS : 1960 Exam Date/Time: 04/15/2024 14:51 Procedure: CT LUNG SCREENING LOW DOSE Ordering Provider: QUICK PAULO Reason For Exam: [id number] CLINICAL HISTORY: Past smoker > 20 pack year history. This is a screening study for pulmonary nodules. COMPARISON: 01/10/2023 Technique: 1 mm low dose helical CT images were obtained of the chest without the use of intravenous contrast. Images were reformatted in coronal and sagittal projections. Dose reduction was employed with automated exposure control. FINDINGS: Pulmonary nodules: *All nodule measurements are mean axial diameter and saved on zuniag images* (6:208) 6 mm right middle lobe nodule, unchanged from prior study by direct remeasurement similar technique. (6:248) 6 x 4 mm subpleural nodule in the right lower lobe, unchanged Several additional smaller nodules are again seen, unchanged from prior study. The largest of these are marked in zuniga images. Lungs: No acute consolidative process. Mediastinum: Normal heart size with no pericardial effusion. Mild coronary artery calcification. Aorta and pulmonary arteries normal in caliber. No enlarged mediastinal, hilar, or axillary lymph nodes. Thyroid and Esophagus: No significant abnormality. Upper Abdomen: No significant abnormality Soft tissues and Osseous structures: No suspicious osseous lesions. Mild endplate osteophytosis throughout the thoracic spine. IMPRESSION: Unchanged pulmonary nodules measuring up to 6 mm in diameter. ASSESSMENT CATEGORY: Lung-RADS Category 2 - Benign appearance or behavior. Recommend continued annual low-dose screening CT in 12 months. No other clinically significant findings. Report Dictated on Electronically Signed By: Tj Gray DR Electronically Signed Date/Time: 04/20/2024 8:10 AM EDT Quit 8 yrs ago Hx of COPD [facility] CT Chest for screening WO co ntraston 04-15-2024 Radiology Study observation (narrative) [facility] Cryotherapy, skin lesionon 0 03-27-2024 [facility] Office Visiton 03-27-2024 Follow-up visit [id number] Jemal Betts 1960 M Date Provider Department Center 03/27/2024 [id number] MARSHALL [facility] None Family History Problem Relation Age of Onset Heart disease Mother High Blood Pressure Father Heart disease Sister Heart disease Brother Family Status - Relation Status Age at Mother Father Alive Sister Alive Brother Alive Level of Service:83719 [place] OFFICE/OUTPATIENT ESTABLISHED SF MDM 10 MIN (25) Reason for Visit and Comments: Actinic Keratosis [[id number]] - SAMMI 11/01/2023 with Suzy Marshall PA-C (AT) [facility] PATINSon 03-27-2024 PATINS Cryotherapy Aftercar e: Redness, swelling and the formation of a blister at the site of cryotherapy are possible and normal reactions. Apply a thin layer of Vaseline or Aquaphor daily to treated sites while healing. [facility] Progress Noteon 03-27-2024 Progress Note DATE OF SERVICE: 03/27/2024 PATIENT NAME: Jemal Betts : 1960 AGE: 64 y.o. CLINIC NUMBER: [id number] Visit type: Established patient Chief Complaint Patient presents with Actinic Keratosis SAMMI 11/01/2023 with Suzy Marshall PA-C (AT) Subjective HISTORY OF PRESENT ILLNESS: This is a 64 y.o. male who presents for a follow up of actinic keratoses located on the left religious and mid forehead; last seen 11/01/2023. At this visit patient was treated with Efudex Cream BID x 2 weeks. Unsure of redness, roughness, flaking, itching, bleeding, and tenderness. Patient is unsure if areas have resolved. Pathology Report 11/01/2023: - Skin, right religious: Superficial portion of an infiltrative basal cell carcinoma with patchy squamous differentiation - s/p MOHs on 03/20/[address] Lyman. History of pacemaker/ defibrillator? No History of HIV/ Hep C? No Allergies to Lidocaine, Epinephrine, Latex or Adhesive? No Review of Systems There were no vitals filed for this visit. PHYSICAL EXAM GENERAL APPEARANCE:?Alert & oriented x3, pleasant. Well developed, well nourished. PSYCH: appropriate mood and affect DERMATOLOGY: (all measurements are in cm, unless otherwise noted) 1. Actinic keratoses (4) Left Forehead, Left Gnosticism, Left Zygomatic Area, Mid Forehead [place] scaly macule(s) - Plant to repeat efudex at follow up. Patient educated on actinic keratosis and the possibility of transformation into SCC. Treatment options are discussed with risks and benefits reviewed. Cryotherapy is agreed upon and performed. Reassured that redness, swelling and the formation of a blister at the site of cryotherapy are possible reactions. After care instructions are given and reviewed. Patient to apply Vaseline to treated sites while healing. Patient to monitor for resolution. If unresolved after 2-3 months, patient to return for further evaluation and management Cryotherapy Actinic Keratosis: Medical Necessity: It was explained to the patient that actinic keratoses are precancerous. Consent: The patient understood all the risks and benefits prior to treatment. The risks explained included scarring, hyper and/or hypopigmentation. Although this treatment is highly effective, recurrences do occur and this was explained to the patient. The patient further understood that these lesions are precancerous and may develop into a malignancy. Number of lesions treated/ location: 4=Left Forehead x 1, Left Gnosticism x2 and Mid Forehead x 1. Method: Liquid nitrogen was used to treat the lesion(s) with two freeze-thaw cycles. Post-op: The patient was instructed to clean the site normally twice a day. Signs of infection were reviewed and patient was instructed to call if he/ she develops increasing pain, purulent drainage, or beefy redness. The patient was informed that a blister may occur at the cryo site and that this is an expected event. Sun protection was reviewed and patient advised to use sunscreen with SPF 30 or greater on exposed skin when outdoors. Post-op instructions were given orally and in writing. Cryotherapy, skin lesion - Left Forehead, Left Gnosticism, Left Zygomatic Area, Mid Forehead Related Medications fluorouracil (Efudex) 5 % cream Apply to the cheeks, temples and forehead twice daily x2 weeks 2. History of nonmelanoma skin cancer Right Gnosticism No evidence of recurrence on exam today. S/p MOHs w/ Dr Lyman (03/20/24) Educated on signs of skin cancer, skin cancer causes, prevention, and risk of developing skin cancers in the future. Sun protection measures reviewed recommending 30 SPF or greater and should do monthly self skin exams and annual full skin exam. Follow up in about 5 months (around 08/27/2024) for FSE / AK Follow Up . Suzy Marshall PA-C 03/27/24 8:18 AM [facility] Mohs surgeryon 03-20-2024 Consent obtained: written [place] Protocol: Procedure explained and questions answered to patient or proxy's satisfaction: Yes Test results available and properly labeled: Yes Pathology report reviewed: Yes External notes reviewed: Yes Photo or diagram used for site identification: Yes Site/side marked: Yes Slide independently reviewed by Mohs surgeon: Yes Immediately prior to procedure a time out was called: Yes Patient identity confirmed: verbally with patient Preparation: Patient was prepped and draped in usual sterile fashion Anticoagulation: Is the patient taking prescription anticoagulant and/or aspirin prescribed/recommended by a physician? Yes Was the anticoagulation regimen changed prior to Mohs? No Anesthesia: Anesthesia method: local infiltration Local anesthetic: lidocaine 1% WITH epi Procedure Details: Biopsy accession number: [id number] Date of biopsy: 11/01/2023 Pre-Op diagnosis: basal cell carcinoma BCC subtype: infiltrative Surgery side: right Surgical site (from skin exam): Right Gnosticism Pre-operative length (cm): 1.8 Pre-operative width (cm): 1.2 Indications for Mohs surgery: anatomic location where tissue conservation is critical Previously treated? No Micrographic Surgery Details: Post-operative length (cm): 2 Post-operative width (cm): 1.8 Number of Mohs stages: 3 Stage 1 Comments: The patient was brought into the operating room and placed in the procedure chair in the appropriate position. The area positive by previous biopsy was identified and confirmed with the patient. The area of clinically obvious tumor was debulked using a curette and/or scalpel as needed. An incision was made following the Mohs approach through the skin. The specimen was taken to the lab, divided into 2 piece(s) and appropriately chromacoded and processed. . Tumor was seen on the lateral margins as indicated on the on the Mohs map. Superficial basal cell carcinoma. Histologic examination revealed small buds of atypical basaloid cells with peripheral palisading and tumoral clefting. Tumor features identified on Mohs section: basal carcinoma Depth of invasion comment: epidermis Stage 2 Comments: The area of positivity as noted on the Mohs map in the previous stage was identified and removed using the Mohs technique. The specimen was taken to the lab and appropriately chromacoded and processed in 1 piece(s). . Tumor was seen on the lateral margins as indicated on the on the Mohs map. Superficial basal cell carcinoma. Histologic examination revealed small buds of atypical basaloid cells with peripheral palisading and tumoral clefting. Tumor features identified on Mohs section: basal carcinoma Depth of invasion comment: epidermis Stage 3 Comments: The area of positivity as noted on the Mohs map in the previous stage was identified and removed using the Mohs technique. The specimen was taken to the lab and appropriately chromacoded and processed in 1 piece(s). Tumor features identified on Mohs section: no tumor identified Depth of defect: subcutaneous fat Patient tolerance of procedure: tolerated well, no immediate complications Reconstruction: Was the defect reconstructed? Yes Was reconstruction performed by the same Mohs surgeon? Yes Setting of reconstruction: outpatient office When was reconstruction performed? same day Type of reconstruction: flap Type of flap: advancement Advancement flap type: unilateral single arm Flap area (cm2): 11 Subcutaneous Layers (Deep Stitches) Suture size: 4-0 Suture type: Vicryl Stitches: Buried vertical mattress Fine/surface layer approximation (top stitches) Epidermal/Superficial suture size: 5-0 Epidermal/Superficial suture type: Fast-absorbing gut Stitches: simple interrupted and simple running Hemostasis achieved with: electrodesiccation Outcome: patient tolerated procedure well with no complications Post-procedure details: sterile dressing applied and wound care instructions given Dressing type: pressure dressing [facility] Work Phone: [facility] Work Phone: ED Nursing Noteon 03-11-2024 ED Nursing Note Pt left the ED after discussion with ED reg regarding the other pt being taken back before him. Migdalia Wood RN 03/11/24 1693 [facility] ED Nursing Note Pt questioned ED registration as to why someone else was brought back ahead of him. ED reg advised pt of pts being brought back by acuity and not order of arrival. Migdalia Wood RN 03/11/24 [id number] [facility] Cryotherapy, skin lesionon 0 05-03-2023 [facility] Skin Biopsyon 05-03-2023 Type of biopsy: punc h Informed consent: discussed and consent obtained Timeout: patient name, date of , surgical site, and procedure verified Anesthesia: the lesion was anesthetized in a standard fashion Anesthetic: 1% lidocaine w/ epinephrine 1-100,000 buffered w/ 8.4% NaHCO3 Punch size: 2 mm Hemostasis achieved with: pressure Outcome: patient tolerated procedure well Post-procedure details: wound care instructions given [facility] No Panel Informationon 01-08 Radiology Study observation (narrative) [facility] XR Wrist - left 2 Viewson Widening at the articulation between the scaphoid and lunate, possible lunate subluxation. If pain persists, CT would be recommended for further evaluation. Report Dictated on Electronically Signed By: Lopez Romo Electronically Signed Date/Time: 01/08/2023 4:53 PM [facility] [employer] Patient Name: JEMAL BETTS : 1960 Exam Date/Time: 01/08/2023 14:55 Procedure: XR WRIST 1-2 VIEWS LEFT Ordering Provider: GLEASON NISHIT Reason For Exam: supination oblique view, carpal tunnel view. left wrist pain LEFT WRIST: CLINICAL INDICATION: Injury with pain TECHNIQUE: Oblique view and supination (patient was unable to position for a scaphoid view) COMPARISON: Conventional views from earlier today FINDINGS: There is widening malalignment at the junction of the lunate and capitate. No fracture is identified. No bone lesion is identified. There is no soft tissue abnormality. [facility] Lopez Romo MD - 01/08/2023 Patient Name: JEMAL BETTS : 1960 Exam Date/Time: 01/08/2023 14:55 Procedure: XR WRIST 1-2 VIEWS LEFT Ordering Provider: GLEASON NISHIT Reason For Exam: supination oblique view, carpal tunnel view. left wrist pain LEFT WRIST: CLINICAL INDICATION: Injury with pain TECHNIQUE: Oblique view and supination (patient was unable to position for a scaphoid view) COMPARISON: Conventional views from earlier today FINDINGS: There is widening malalignment at the junction of the lunate and capitate. No fracture is identified. No bone lesion is identified. There is no soft tissue abnormality. IMPRESSION: Widening at the articulation between the scaphoid and lunate, possible lunate subluxation. If pain persists, CT would be recommended for further evaluation. Report Dictated on Electronically Signed By: Lopez Romo Electronically Signed Date/Time: 01/08/2023 4:53 PM EDT [facility] XR Wrist - left 2 ViewsOrder ed By: Lopez Romo on 01-08-2023 [facility] Work Phone: XR Wrist - left 3 Viewson No acute findings. Report Dictated on Electronically Signed By: Jorge Elias Electronically Signed Date/Time: 01/08/2023 1:33 PM EDT [facility] [employer] Patient Name: JEMAL BETTS : 1960 Exam Date/Time: 01/08/2023 13:29 Procedure: XR WRIST 3+ VIEWS LEFT Ordering Provider: GLEASON NISHIT Reason For Exam: left wrist pain Left wrist three views HISTORY: Pain No acute fracture or dislocation. Mild degenerative changes. [facility] Jorge Elias MD - 01/08/2023 [facility] 1960 [id number] Exam Date/Time: 01/08/2023 13:29 Procedure: XR WRIST 3+ VIEWS LEFT Ordering Provider: GLEASON NISHIT Reason For Exam: left wrist pain Left wrist three views HISTORY: Pain No acute fracture or dislocation. Mild degenerative changes. IMPRESSION: No acute findings. Report Dictated on Electronically Signed By: Jorge Elias Electronically Signed Date/Time: 01/08/2023 1:33 PM EDT [facility] XR Wrist - left 3 ViewsOrder ed By: Jorge Elias on 01-08-2023 [facility] Work Phone: ANES POSTPROC EVALon 023 ANES POSTPROC EVAL HNO ID: [id number] Author: Valorie Amaya APRN.HAND MARKER Service: ? Author Type: Nurse Scrap Baller Type: Anesthesia Postprocedure Evaluation Filed: 01/04/2023 11:32 AM Note Text: POST ANESTHESIA EVALUATION NOTE : 1960 Procedure Summary Date: 01/04/23 Room / Location: Ambulatory Surgery Anesthesia Start: 1106 Anesthesia Stop: 1124 Procedure: COLONOSCOPY DIAGNOSTIC Diagnosis: Encounter for screening colonoscopy Burping Chronic diarrhea Class 2 severe obesity due to excess calories with serious comorbidity and body mass index (BMI) of 35.0 to 35.9 in adult (HCC) Gastroesophageal reflux disease, unspecified whether esophagitis present Altered bowel habits Abdominal distention Generalized abdominal pain (Screening for colorectal malignant neoplasm) Scheduled Providers: Benny Hedrick MD Responsible Provider: Valorie Amaya APRN.HAND MARKER Anesthesia Type: MAC ASA Status: 3 Anesthesia Type: MAC Last Vitals Vitals Value Taken Time BP 133/79 01/04/23 1122 Temp 37 ?C (98.6 ?F) 01/04/23 1122 Pulse 85 01/04/23 1122 Resp 16 01/04/23 1122 SpO2 96 % 01/04/23 1122 Post Anesthesia Patient Status Patient Evaluation: PACU. PACU/ICU Patient Condition: stable. Anticipated Disposition: phase 2 then home. Neurological Status: sleepy but arousable. Pulmonary Status: breathing comfortably on room air Airway Control: returned to baseline unsupported. Cardiovascular Status: stable. Pain Management: clinically adequate - multimodal analgesia pain management approach Postoperative Hydration: acceptable. Intraoperative Events: no significant anesthesia events Post Operative Nausea/Vomiting Status: no significant post operative nausea or vomiting Recommendation: continue current plan of care. Anesthesia Observations No Documentation SIGNATURE: Valorie Amaya APRN.HAND MARKER PATIENT NAME: Jemal Betts JR DATE: January 04, 2023 TIME: 11:32 AM CSN: [id number] [facility] ANES PRE-OPon 01-04-2023 ANES PRE-OP HNO ID: [id number] Author: Valorie Amaya APRN.HAND MARKER Service: ? Author Type: Nurse Scrap Baller Type: Anesthesia Preprocedure Evaluation Filed: 01/04/2023 11:04 AM Note Text: ANESTHESIOLOGY DAY OF SURGERY NOTE : 1960 Procedure Information Date/Time: 01/04/23 1030 Scheduled providers: Benny Hedrick MD Procedure: COLONOSCOPY DIAGNOSTIC Location: Ambulatory Surgery Estimated body mass index is 35.87 kg/m? as calculated from the following: Height as of this encounter: 170.2 cm (5' 7"). Weight as of this encounter: 103.9 kg (229 lb). Most recent hematocrit and potassium results: No results found for this basename: HCT,HEMATOCRIT,K,POTAS SIUM Relevant Problems No relevant active problems I - PHYSICAL EVALUATION AIRWAY Patient intubated: No. Tracheostomy tube not present Mallampati: II. TM distance: >3 FB. Neck ROM: full ROM without neurological symptoms. Mouth opening: adequate. Short neck: yes. Thick neck: yes Edward present: yes DENTAL Dental findings: edentulous. Additional exam findings: no II - ANESTHESIA PLAN ASA Score: 3 Anesthetic Plan: MAC The patient is a current smoker. NPO Status: adequate Beta Ernie Monitoring Plan Monitoring plan: standard ASA. Post Procedure Analgesic Plan Postoperative analgesic plan: parenteral or oral opioids and multimodal analgesia. Informed Consent Anesthetic risks, benefits, alternatives, personnel and consent discussed: yes. Patient / Responsible Constitution Party agrees to proceed: yes Patient / Surrogate agrees to blood products: blood products not planned Significant changes in the patient condition since the History and Physical, not otherwise documented in primary service progress note: no. Vitals Value Taken Time BP 146/93 01/04/23 1057 Pulse 98 01/04/23 1057 Resp 16 01/04/23 1057 Temp 36.7 ?C (98 ?F) 01/04/23 1057 SpO2 99 % 01/04/23 1057 Outpatient Medications as of 01/04/2023 Medication Sig - pantoprazole DR (PROTONIX) 40 mg tablet Take 1 tablet by mouth once daily. - amLODIPine (NORVASC) 10 mg tablet 1 tab(s) - aspirin, enteric coated (ASPIRIN, ENTERIC COATED) 81 mg EC tablet 1 tab(s) - ondansetron (ZOFRAN) 4 mg tablet Take 4 mg by mouth. - lisinopril-hydroCHLORO thiazide (PRINZIDE,ZESTORETIC) 10-12.5 mg per tablet Every 24 hours. - meloxicam (MOBIC) 15 mg tablet 15 mg. No current facility-administered medications on file as of 01/04/2023. I have interviewed and examined the patient. I have reviewed the medical record and/or the pre-anesthesia evaluation, pertinent labs, and test results. This contains updated information obtained within 48 hours of Surgery/Procedure. SIGNATURE: Valorie Amaya APRN.HAND MARKER PATIENT NAME: Jmeal Betts JR DATE: January 04, 2023 TIME: 11:04 AM CSN: [id number] [facility] Colonoscopyon 01-04-2023 Colonoscopy [facility] Patient Name: Jemal Betts Procedure Date: 01/04/2023 10:58 AM Date of : 1960 Admit Type: Outpatient Age: 62 Room: [place] [address] Gender: Male Note Status: Finalized Attending MD: Benny Hedrick MD Procedure: Colonoscopy Indications: Screening for colorectal malignant neoplasm Providers: Benny Hedrick MD Patient Profile: Last Colonoscopy: 10 years ago. Referring Physician: Duncan Vásquez MD (Referring MD) Medicines: Propofol per Anesthesia Complications: No immediate complications. Requesting Provider: Procedure: Pre-Anesthesia Assessment: - Prior to the procedure, a History and Physical was performed, and patient medications and allergies were reviewed. The patient's tolerance of previous anesthesia was also reviewed. The risks and benefits of the procedure and the sedation options and risks were discussed with the patient. All questions were answered, and informed consent was obtained. Prior Anticoagulants: The patient has taken no anticoagulant or antiplatelet agents. ASA Grade Assessment: II - A patient with mild systemic disease. After reviewing the risks and benefits, the patient was deemed in satisfactory condition to undergo the procedure. After I obtained informed consent, the scope was passed under direct vision. Throughout the procedure, the patient's blood pressure, pulse, and oxygen saturations were monitored continuously. The Colonoscope was introduced through the anus and advanced to the cecum, identified by appendiceal orifice and ileocecal valve. I was present and participated during the entire procedure, including non-zuniga portions, and during the administration and monitoring of Moderate Sedation. The colonoscopy was performed without difficulty. The patient tolerated the procedure well. The quality of the bowel preparation was good. The ileocecal valve, appendiceal orifice, and rectum were photographed. Moderate Sedation: MAC anesthesia was administered by the anesthesia team. Findings: The colon (entire examined portion) appeared normal. Impression: - The entire examined colon is normal. - No specimens collected. Recommendation: - Resume previous diet. - Continue present medications. - Repeat colonoscopy in 10 years for screening purposes. - The patient is not currently taking anticoagulant or antiplatelet agents. - Patient has a contact number available for emergencies. The signs and symptoms of potential delayed complications were discussed with the patient. Return to normal activities tomorrow. Written discharge instructions were provided to the patient. Procedure Code(s): --- Professional --- 63350, Colonoscopy, flexible; diagnostic, including collection of specimen(s) by brushing or washing, when performed (separate procedure) CPT copyright 2020 [employer]. All rights reserved. The codes documented in this report are preliminary and upon construction teacher review may be revised to meet current compliance requirements. Attending Participation: I personally performed the entire procedure. Scope In: 11:09:50 AM Scope Out: 11:14:45 AM MD Benny Contreras MD 01/04/2023 11:18:17 AM This report has been signed electronically by Benny Hedrick MD Number of Addenda: 0 Note Initiated On: 01/04/2023 10:58 AM Estimated Blood Loss: Estimated blood loss: none. [facility] Flexible sigmoidoscopy study on 01-04-2023 [facility] Patient Name: Jemal Betts Procedure Date: 01/04/2023 10:58 AM Date of : 1960 Admit Type: Outpatient Age: 62 Room: [place] [address] Gender: Male Note Status: Finalized Attending MD: Benny Hedrick MD Procedure: Colonoscopy Indications: Screening for colorectal malignant neoplasm Providers: Benny Hedrick MD Patient Profile: Last Colonoscopy: 10 years ago. Referring Physician: Duncan Vásquez MD (Referring MD) Medicines: Propofol per Anesthesia Complications: No immediate complications. Requesting Provider: Procedure: Pre-Anesthesia Assessment: - Prior to the procedure, a History and Physical was performed, and patient medications and allergies were reviewed. The patient's tolerance of previous anesthesia was also reviewed. The risks and benefits of the procedure and the sedation options and risks were discussed with the patient. All questions were answered, and informed consent was obtained. Prior Anticoagulants: The patient has taken no anticoagulant or antiplatelet agents. ASA Grade Assessment: II - A patient with mild systemic disease. After reviewing the risks and benefits, the patient was deemed in satisfactory condition to undergo the procedure. After I obtained informed consent, the scope was passed under direct vision. Throughout the procedure, the patient's blood pressure, pulse, and oxygen saturations were monitored continuously. The Colonoscope was introduced through the anus and advanced to the cecum, identified by appendiceal orifice and ileocecal valve. I was present and participated during the entire procedure, including non-zuniga portions, and during the administration and monitoring of Moderate Sedation. The colonoscopy was performed without difficulty. The patient tolerated the procedure well. The quality of the bowel preparation was good. The ileocecal valve, appendiceal orifice, and rectum were photographed. Moderate Sedation: MAC anesthesia was administered by the anesthesia team. Findings: The colon (entire examined portion) appeared normal. Impression: - The entire examined colon is normal. - No specimens collected. Recommendation: - Resume previous diet. - Continue present medications. - Repeat colonoscopy in 10 years for screening purposes. - The patient is not currently taking anticoagulant or antiplatelet agents. - Patient has a contact number available for emergencies. The signs and symptoms of potential delayed complications were discussed with the patient. Return to normal activities tomorrow. Written discharge instructions were provided to the patient. Procedure Code(s): --- Professional --- 09958, Colonoscopy, flexible; diagnostic, including collection of specimen(s) by brushing or washing, when performed (separate procedure) CPT copyright 2020 [employer]. All rights reserved. The codes documented in this report are preliminary and upon construction teacher review may be revised to meet current compliance requirements. Attending Participation: I personally performed the entire procedure. Scope In: 11:09:50 AM Scope Out: 11:14:45 AM MD Benny Contreras MD 01/04/2023 11:18:17 AM This report has been signed electronically by Benny Hedrick MD Number of Addenda: 0 Note Initiated On: 01/04/2023 10:58 AM Estimated Blood Loss: Estimated blood loss: none. PROVATION [facility] Radiology Study observation (narrative) [facility] HISTORY PHYSICALon HISTORY PHYSICAL HNO ID: [id number] Author: Benny Hedrick MD Service: Gastroenterology Author Type: Physician Type: HANDP Filed: 01/04/2023 10:58 AM Note Text: HISTORY AND PHYSICAL Jemal Nam Alpesh GREGG, 62 year old male here fro colonoscopy, average risk for colon cancer screening Current history and physical on file: No Is a new History and Physical required for today's visit? Yes Indication for procedure: Screening PROCEDURE(S) SCHEDULED FOR: Colonoscopy with or without biopsies and with or without removal of polyps or lesions, dilation (any means), treatment of bleeding (any means), based on clinical findings. BASELINE BEHAVIOR: Calm BASELINE ORIENTATION: A AND O x3 All medications and allergies reviewed: Yes Skin Assessment: Warm dry muscus membranes pink Airway/Respiratory Assessment: Airway: visualization of the uvula- Yes Mouth: opening greater than 2 fingerbreadths- Yes Neck: full range of motion- Yes Breath sounds clear/equal- Yes Cardiac Assessment: Regular rate and rhythm without murmur Abdominal Assessment: Abdomen soft, non-tender, no masses or organomegaly. Sedation Plan: Deep Additional Comments: None Benny Hedrick MD [facility] CNCOon 11-28-2022 CNCO Letter Text [facility] CNCOon 10-28-2022 CNCO Letter Text [facility] CNOVon 10-28-2022 CNOV Office Visit ([facility] ) JEMAL BETTS ([id number]) 1960 M Date Time Provider Department 10/28/22 8:45 AM DUNCAN VÁSQUEZ [facility] During your visit today, we recorded the following information about you: Pulse Blood pressure Weight Height 77/minute 108/60 103.9 kg 1.702 m Duncan Vásquez MD 10/28/2022 9:39 AM Signed CHIEF COMPLAINT: Patient presents with: Recheck: Stool 09/12/22. Some LLQ pain and blood when he wipes at times. HPI Jemal Betts is a 62 year old male here today for Recheck (Stool 09/12/22. Some LLQ pain and blood when he wipes at times.) CV 09/12/22 HPI: Jemal Betts is a 62 year old male who presents for Abdominal Pain (Also having loose stools. Labs 08/17/22 CT 07/09/22). Pt has diarrhea Frequent bowel movements Started after taking PPI for GERD Bad diarrhea which improved after stopping PPI He restarted PPI again Now with bad GERD but ate Hamburger today Pt last colonoscopy was normal Excessive burping and abdominal distention Interval hx: Pt still with lower abd pain Still with diarrhea on and off Stomach noise after eating certain food PT wakes up at night to go to the bathroom Moves his bowels 2 times a day Some times with straining and incomplete evacuation Current Outpatient Medications Medication Sig pantoprazole DR (PROTONIX) 40 mg tablet Take 1 tablet by mouth once daily. amLODIPine (NORVASC) 10 mg tablet 1 tab(s) aspirin, enteric coated (ASPIRIN, ENTERIC COATED) 81 mg EC tablet 1 tab(s) lisinopril-hydroCHLORO thiazide (PRINZIDE,ZESTORETIC) 10-12.5 mg per tablet Every 24 hours. ondansetron (ZOFRAN) 4 mg tablet Take 4 mg by mouth. meloxicam (MOBIC) 15 mg tablet 15 mg. No current facility-administered medications for this visit. ALLERGIES Allergen Reactions Naprosyn [Naproxen] Penicillin [Other] Social History Tobacco Use Smoking status: Former Types: Cigarettes Smokeless tobacco: Never Vaping Use Vaping Use: Never used Substance Use Topics Alcohol use: Not Currently Drug use: Yes Types: Marijuana PAST MEDICAL HISTORY Diagnosis Date Aneurysm (HCC) Arthritis Basal cell carcinoma Chronic back pain COPD (chronic obstructive pulmonary disease) (HCC) PAST SURGICAL HISTORY Procedure Laterality Date COLONOSCOPY SCREENING 10/15/2012 normal History reviewed. No pertinent family history. REVIEW OF SYSTEMS Review of Systems Gastrointestinal: Positive for abdominal pain and nausea. All other systems reviewed and are negative. PHYSICAL EXAM BP 108/60 Pulse 77 Ht 5' 7" (1.70m) Wt 229 lb (103.9kg) BMI 35.86 kg/(m2). Physical Exam General: Alert, oriented, No acute distress. Skin: No rash; warm. Head: Normocephalic, atraumatic. Eyes: EOMI, PERRLA. Lymph: No cervical lymphadenopathy. Thyroid: Neck supple. No thyromegaly. Heart: S1, S2. No murmurs, gallops or rubs. Lungs: Clear to auscultation bilaterally. No wheezes or crackles. Abdomen: Soft, tender in the left lower quadrant, nondistended. Bowel sounds are normal. No organomegaly. Musculoskeletal: No joint swelling or effusion. Extremities: No cyanosis, clubbing or edema. Mental: Mood appropriate. Not depressed. Neuro: Cranial nerves II through XII intact. ASSESSMENT: Encounter for screening colonoscopy (primary encounter diagnosis) Burping Chronic diarrhea Class 2 severe obesity due to excess calories with serious comorbidity and body mass index (bmi) of 35.0 to 35.9 in adult (hcc) Gastroesophageal reflux disease, unspecified whether esophagitis present Altered bowel habits Abdominal distention Generalized abdominal pain Pelvic floor dysfunction Left lower quadrant pain PLAN: Advised to continue to use stool softeners Schedule upper endoscopy with small bowel biopsies and colonoscopy with random colon biopsies Refill PPI This office note has been created using eFolder, a speech recognition software program, and may contain errors including punctuation, grammar, spelling, gender, and inappropriate words or phrases that pertain to the sytem. Duncan Vásquez MD Office Visit on 10/28/22 EGD DIAGNOSTIC COLONOSCOPY DIAGNOSTIC No follow-ups on file. Duncan Vásquez MD DATE: 10/28/22 TIME: 9:03 AM Duncan Vásquez MD 10/28/2022 9:09 AM Signed Bowel Preparation Instructions for: Miralax-Gatorade Preparations IF YOU DO NOT FOLLOW THESE DIRECTIONS, YOUR COLONOSCOPY WILL BE CANCELLED. Zuniga Instructions: Your bowel must be empty so that your doctor can clearly view your colon. Follow all of the instructions in this handout EXACTLY as they are written. Do NOT eat any solid food the ENTIRE day before your colonoscopy. Buy your bowel preparation at least 5 days before your colonoscopy. Four (4) Dulcolax laxative tablets containing 5mg of bisacodyl each (NOT Dulcolax stool softener) One (1) 8.3oz. bottle Miralax (238 (more content not included)... [facility] [place] 09-20-2022 [facility] Telephone ([facility]) JEMAL BETTS ([id number]) 1960 M Date Time Provider Department 09/20/22 DUNCAN VÁSQUEZ During your visit today, we recorded the following information about you: Zhane Paige Ma 09/20/2022 9:46 AM Signed Patient call for results, labs neg, C diff PCR is positive, patient is symptomatic Requested Prescriptions Pending Prescriptions Disp Refills vancomycin (VANCOCIN) 125 mg capsule 40 capsule 0 Sig: Take 1 capsule by mouth four times daily for 10 days. Zhane Galdamez PA-C 09/20/2022 3:27 PM Signed Vanco script signed. Allergies As of Date: 09/20/2022 Noted Allergy Reaction NAPROSYN (NAPROXEN) 11/12/2007 penicillin [Other] 11/12/2007 Date Reviewed: 09/12/2022 Reviewed by: Nancy Haddad MA - Fully Assessed Reason for Visit: Results [95] Primary Visit Diagnosis:Enterocoliti s due to Clostridium difficile [A04.72] Order(s):vancomycin (VANCOCIN) 125 mg capsuleTake 1 capsule by mouth four times daily for 10 days.Disp: 40 capsuleRfl: 0 Prescriptions as of 09/20/2022 - vancomycin (VANCOCIN) 125 mg capsule Take 1 capsule by mouth four times daily for 10 days. - amLODIPine (NORVASC) 10 mg tablet 1 tab(s) - aspirin, enteric coated (ASPIRIN, ENTERIC COATED) 81 mg EC tablet 1 tab(s) - pantoprazole DR (PROTONIX) 40 mg tablet Take 1 tablet by mouth. - ondansetron (ZOFRAN) 4 mg tablet Take 4 mg by mouth. - lisinopril-hydroCHLORO thiazide (PRINZIDE,ZESTORETIC) 10-12.5 mg per tablet Every 24 hours. - meloxicam (MOBIC) 15 mg tablet 15 mg. Problem List As Of Date: 09/20/2022 (None) Prescriptions ordered this encounter Disp Refills Start End VANCOMYCIN 125 MG CAPSULE 40 c* 0 09/20/2022 09/30/2022 Route: ORAL Sig: Take 1 capsule by mouth four times daily for 10 days. Encounter Status:Closed by ALICIA GALDAMEZ on 09/20/22 [facility] C diff Tox gens Stl Ql THOMAS+p robeon 09-15-2022 C. difficile toxin genes THOMAS+probe Ql (Stl) Positive Abnormal Negative for C. difficile toxin by PCR [facility] Comment on above: Order Comment: Speci men Type: STOOL SPECIMENOrdering Facility: [facility] Address: [address] [place] [id number] Result Comment: A po sitive PCR result may indicate C.difficile infection or colonization. The positive predictive value of this test for C.difficile infection is highest for patients with clinically significant diarrhea (>=3 unformed stools in 24h) who do not have an alternative explanation (e.g., recent receipt of laxatives). Toxin EIA testing will also be performed as recommended by [employer]SA clinical practice guidelines for institutions without pre-agreed criteria for specimen submission. Performed By: #### [place] STUBBS, [id number] ####[facility] LABCLIA [id number] [address] C. DIFFICILE TOXIN BY EIAon 09-15-2022 C. difficile toxin A+B IA Ql (Stl) Not detected Normal Negative for C. difficile toxin [facility] Comment on above: Order Comment: Speci men Type: STOOL SPECIMENOrdering Facility: [facility] Address: [address] [place] [address] Result Comment: Toxi n EIA is less sensitive than cell cytotoxin and PCR assays. Clinical correlation of PCR positive/toxin EIA negative results is required to distinguish C. difficle colonization from disease. Performed By: #### [place] STUBBS, [id number] ####[facility] LABIA [id number] [address] [facility] Calprotectin Stl-mCnton 09-04 Calprotectin (Stl) [Mass/Mass] 109.9 mg/kg Abnormal 0-50 [facility] Comment on above: Order Comment: Speci men Type: STOOL SPECIMENOrdering Facility: [facility] Address: [address] [place] [address] Result Comment: INTE RPRETIVE INFORMATION: Calprotectin, Fecal <50.0 mg/kg : Normal 50.0-120.0 mg/kg: Borderline. Test should be re-evaluated in 4-6 wks. >120.0 mg/kg: Abnormal Performed By: #### 3 [id number] ####[facility] LABCLIA [id number] [facility] [id number] [address] [facility] CNOVon 09-12-2022 CNOV Office Visit ([facility] ) JEMAL BETTS ([id number]) 1960 M Date Time Provider Department 09/12/22 11:00 AM DUNCAN VÁSQUEZ During your visit today, we recorded the following information about you: Pulse Blood pressure Weight Height 84/minute 120/62 102.5 kg 1.702 m Duncan Vásquez MD 09/12/2022 12:01 PM Signed CHIEF COMPLAINT: Patient presents with: Abdominal Pain: Also having loose stools. Labs 08/17/22 CT 07/09/22 This consult was requested by Self for an opinion regarding loose stool. My final recommendations will be communicated to the requesting health care provider by way of the shared medical record for internal providers or letter via the [email or web address] for external providers. HPI: Jemal Betts is a 62 year old male who presents for Abdominal Pain (Also having loose stools. Labs 08/17/22 CT 07/09/22). Pt has diarrhea Frequent bowel movements Started after taking PPI for GERD Bad diarrhea which improved after stopping PPI He restarted PPI again Now with bad GERD but ate Hamburger today Pt last colonoscopy was normal Excessive burping and abdominal distention Record Review: [facility] / Outside records reviewed. PAST MEDICAL HISTORY Diagnosis Date Aneurysm (HCC) Arthritis Basal cell carcinoma Chronic back pain COPD (chronic obstructive pulmonary disease) (HCC) PAST SURGICAL HISTORY Procedure Laterality Date COLONOSCOPY SCREENING 10/15/2012 normal Allergies: ALLERGIES Allergen Reactions Naprosyn [Naproxen] Penicillin [Other] Medications: amLODIPine (NORVASC) 10 mg tablet 1 tab(s) aspirin, enteric coated (ASPIRIN, ENTERIC COATED) 81 mg EC tablet 1 tab(s) pantoprazole DR (PROTONIX) 40 mg tablet Take 1 tablet by mouth. ondansetron (ZOFRAN) 4 mg tablet Take 4 mg by mouth. lisinopril-hydroCHLORO thiazide (PRINZIDE,ZESTORETIC) 10-12.5 mg per tablet Every 24 hours. meloxicam (MOBIC) 15 mg tablet 15 mg. No family history on file. Employer And Job Title: None on file Years Of Education Completed: Not specified Marital Status: Single Social History Tobacco Use Smoking status: Former Types: Cigarettes Smokeless tobacco: Never Vaping Use Vaping Use: Never used Substance Use Topics Alcohol use: Not Currently Drug use: Yes Types: Marijuana Review of Systems: Review of Systems Gastrointestinal: Positive for abdominal pain. Gas, Heartburn All other systems reviewed and are negative. Are you taking any blood thinners? No Physical Examination: BP 120/62 Pulse 84 Ht 5' 7" (1.70m) Wt 226 lb (102.5kg) BMI 35.39 kg/(m2). Physical Exam General: Alert, oriented, No acute distress. Skin: No rash; warm. Head: Normocephalic, atraumatic. Eyes: EOMI, PERRLA. Lymph: No cervical lymphadenopathy. Thyroid: Neck supple. No thyromegaly. Heart: S1, S2. No murmurs, gallops or rubs. Lungs: Clear to auscultation bilaterally. No wheezes or crackles. Abdomen: Soft, diffusely tender, distended. Bowel sounds are normal. No organomegaly. Musculoskeletal: No joint swelling or effusion. Extremities: No cyanosis, clubbing or edema. Mental: Mood appropriate. Not depressed. Neuro: Cranial nerves II through XII intact. ASSESSMENT: Encounter for screening colonoscopy (primary encounter diagnosis) Gastroesophageal reflux disease, unspecified whether esophagitis present Class 2 severe obesity due to excess calories with serious comorbidity and body mass index (bmi) of 35.0 to 35.9 in adult (hcc) Chronic diarrhea Burping Abdominal distention Altered bowel habits Pelvic floor dysfunction Generalized abdominal pain PLAN: Check CRP and stool calprotectin Check celiac panel and C. Difficile Schedule upper endoscopy with small bowel biopsies and colonoscopy with random colon biopsies Advised to use MiraLAX and titrate up to have 1-2 bowel movements a day Might benefit from pelvic floor evaluation in the future Advised to use bisacodyl suppositories as a rescue medication This office note has been created using eFolder, a speech recognition software program, and may contain errors including punctuation, grammar, spelling, gender, and inappropriate words or phrases that pertain to the sytem. Duncan Vásquez MD Office Visit on 09/12/22 C-REACTIVE PROTEIN (CRP) TRANSGLUTAMINASE ABS IGA BLD CALPROTECTIN,FECAL C. DIFFICILE PCR EGD DIAGNOSTIC COLONOSCOPY SCREENING No follow-ups on file. Duncan Vásquez MD DATE: 09/12/22 TIME: 11:33 AM Duncan Vásquez MD 09/12/2022 11:58 AM Addendum Miralax 1-2 times a day and titrate it up to have 1-2 bowel movements a day Bisacodyl suppositories as a rescue medication Squatty potty and massage the colon very frequently Bowel Preparation Instructions for: Miralax-Gatorade Preparations IF YOU DO NOT FOLLOW THESE DIRECTIONS, YOUR COLONOSCOPY WILL BE CANCELLED. [facility] (more content not included)... Normal [facility] CRP SerPl-mCncon 09-12-2022 CRP [Mass/Vol] 0.5 mg/dL Normal <0.9 [facility] Comment on above: Order Comment: Speci men Type: BLOOD SPECIMENOrdering Facility: [facility] Address: [address] [address] Performed By: #### 1 988-5 ####[facility] [id number] [address] [place] IgA SerPl-mCncon 09-12-2022 IgA [Mass/Vol] 321 mg/dL Normal 70-400 [facility] Comment on above: Order Comment: Speci men Type: BLOOD SPECIMENOrdering Facility: [facility] Address: [address] [address] Performed By: #### 2 458-8 ####[facility] [id number] [place] [address] [place] tTG IgA Qn (S)on 09-12-2022 TRANSGLUTAMINASE IGA QUAL Negative Normal Negative, Test not Indicated [facility] Comment on above: Order Comment: Speci men Type: BLOOD SPECIMENOrdering Facility: [facility] Address: [address] [place] [address] Result Comment: The following results were obtained with the Inova QAUNTA Lite h-tTG IgA CHARLEEN. h-tTG IgA values obtained with different manufacturers' assay methods may not be used interchangeable. The magnitude of the reported IgA levels cannot be correlated to an endpoint titer. This is used as an aid in diagnosis of celiac disease. Clinical correlation is required. Performed By: #### 3 1017-7, 17579-6 ####[facility] [id number] [address] STATES OF [facility] tTG IgA Ser-aCncon 3 tTG IgA Qn (S) 8 Units Normal <20 [facility] Comment on above: Order Comment: Giuliana pride Type: BLOOD SPECIMENOrdering Facility: [facility] Address: [address] [place] [address] Performed By: #### 3 1017-7, 27706-5 ####[facility] [id number] [address] [place] tTG IgG Qn (S)on 09-12-2022 TRANSGLUTAMINASE IGG QUAL Negative Normal Negative, Test not Indicated [facility] Comment on above: Order Comment: Giuliana pride Type: BLOOD SPECIMENOrdering Facility: [facility] Address: [address] [place] [address] Result Comment: The following results were obtained with the Inova QUANTA Lite h-tTG IgG CHARLEEN. h-tTG IgG values obtained with different manufacturers' assay methods may not be used interchangeable. The magnitude of the reported IgG levels cannot be correlated to an endpoint titer. This test is used as an aid in diagnosis of celiac disease in IgA-deficient individuals only. Clinical correlation is required. Performed By: #### 3 1017-7, 39917-2 ####[facility] [id number] [place] [address] [place] tTG IgG Ser-aCncon 3 tTG IgG Qn (S) 5 Units Normal <20 [facility] Comment on above: Order Comment: Speci men Type: BLOOD SPECIMENOrdering Facility: [facility] Address: [address] [id number] Performed By: #### 3 1017-7, 61387-4 ####[facility] LABCLIA [id number] [place] [place] [address] [place] CR Shoulder 2+ Views Lefton 03-30-2022 CR Shoulder 2+ Views Left Patient Name: JEMAL BETTS Jr Diagnostic Radiology ACCESSION EXAM DATE/TIME PROCEDURE ORDERING PROVIDER [id number] 03/30/2022 14:26 EDT CR Shoulder 2+ Views MD TERESA, BARRETT T Left CPT code 95313 Reason For Exam (CR Shoulder 2+ Views Left) Pain, limitd ROM Report LEFT SHOULDER CLINICAL INDICATION: Pain after trauma Three views of the left shoulder were obtained. COMPARISON: None. FINDINGS: Questionable irregularity of the greater tuberosity on the axillary view, not seen on additional views. While this may represent a nondisplaced fracture, given lack of trauma, osteophytes or degenerative change or also considered. Recommend further evaluation with MRI. Advanced glenohumeral and acromioclavicular osteoarthritis. IMPRESSION: Questionable irregularity of the greater tuberosity on the axillary view, not seen on additional views. While this may represent a nondisplaced fracture, given lack of trauma, osteophytes or degenerative change or also considered. Recommend further evaluation with MRI. Advanced glenohumeral and acromioclavicular osteoarthritis. Alignment is anatomic. No dislocation. Report Dictated on Final Dictating Physician: MD LACY NEIL Signed Date and Time: 03/30/2022 2:57 pm Signed by: MD LACY NEIL Transcribed Date and Time: 03/30/2022 2:58 Normal [facility] XR Shoulder Left 2 VWon 03-05 Patient Name: JEMAL Redding Diagnostic Radiology ACCESSION EXAM DATE/TIME PROCEDURE ORDERING PROVIDER [id number] 03/30/2022 14:26 EDT CR Shoulder 2+ Views MD MOORE JASON T Left CPT code 79397 Reason For Exam (CR Shoulder 2+ Views Left) Pain, limitd ROM Report LEFT SHOULDER CLINICAL INDICATION: Pain after trauma Three views of the left shoulder were obtained. COMPARISON: None. FINDINGS: Questionable irregularity of the greater tuberosity on the axillary view, not seen on additional views. While this may represent a nondisplaced fracture, given lack of trauma, osteophytes or degenerative change or also considered. Recommend further evaluation with MRI. Advanced glenohumeral and acromioclavicular osteoarthritis. IMPRESSION: Questionable irregularity of the greater tuberosity on the axillary view, not seen on additional views. While this may represent a nondisplaced fracture, given lack of trauma, osteophytes or degenerative change or also considered. Recommend further evaluation with MRI. Advanced glenohumeral and acromioclavicular osteoarthritis. Alignment is anatomic. No dislocation. Report Dictated on --- Final --- Dictating Physician: MD LACY NEIL Signed Date and Time: 03/30/2022 2:57 pm Signed by: MD LACY NEIL Transcribed Date and Time: 03/30/2022 2:58 [facility] Howie Lacy MD - 03/30/2022 [id number] ACCESSION EXAM DATE/TIME PROCEDURE ORDERING PROVIDER [id number] 03/30/2022 14:26 EDT CR Shoulder 2+ Views MD MOORE JASON T Left CPT code 74093 Reason For Exam (CR Shoulder 2+ Views Left) Pain, limitd ROM Report LEFT SHOULDER CLINICAL INDICATION: Pain after trauma Three views of the left shoulder were obtained. COMPARISON: None. FINDINGS: Questionable irregularity of the greater tuberosity on the axillary view, not seen on additional views. While this may represent a nondisplaced fracture, given lack of trauma, osteophytes or degenerative change or also considered. Recommend further evaluation with MRI. Advanced glenohumeral and acromioclavicular osteoarthritis. IMPRESSION: Questionable irregularity of the greater tuberosity on the axillary view, not seen on additional views. While this may represent a nondisplaced fracture, given lack of trauma, osteophytes or degenerative change or also considered. Recommend further evaluation with MRI. Advanced glenohumeral and acromioclavicular osteoarthritis. Alignment is anatomic. No dislocation. Report Dictated on --- Final --- Dictating Physician: MD LACY NEIL Signed Date and Time: 03/30/2022 2:57 pm Signed by: MD LACY NEIL Transcribed Date and Time: 03/30/2022 2:58 [facility] Work Phone: Radiology Study observation (narrative) [facility] Work Phone: XR Shoulder Left 2 VWOrdered By: Howie Lacy on 03-30-2022 [facility] Work Phone: VL Aorta Iliac Duplexon 01-03 VL Aorta Iliac Duplex Patient Name: JEMAL BETTS Jr Located Within [facility]#: [id number] Ultrasound ACCESSION EXAM DATE/TIME PROCEDURE ORDERING PROVIDER [id number] 01/27/2022 10:22 EDT VL Aorta Iliac Duplex ARAMIS SANDS MARY KATHLEEN CPT code 06900 Reason For Exam (VL Aorta Iliac Duplex) AAA Report [facility] ----- Abdominal Aortic Duplex Report Patient Jemal Betts : 1960 Study 01/27/2022 Name: Viv (61yrs) Date: Age: 61 Account: [id number] Gender: M Loc: BP: Ordering Physician: Keila Sands Vegetable Tester: FEMI BarrientosT Interpreting Physician: Trent Laurent MD ----- Location: [address] ----- Indications: AAA. Family history. Hypertension. Smoking history. ----- Conclusions 1. There is a 3.5 cm infrarenal abdominal aortic aneurysm. 2. There is a 2.1 cm right common iliac artery aneurysm. 3. Study is negative for aneurysm and stenosis involving the left common iliac artery. ----- History: Risk factors: Former tobacco use. Hypertension. Obese. Hyperlipidemia. Age over 50 years. ----- Study data: Abdominal aorta duplex. Duplex scan, grayscale 2D imaging, color Doppler imaging, and spectral Doppler analysis. Location: Vascular laboratory. Procedure: A vascular evaluation was performed with the patient in the supine position. Images were obtained using a [email or web address] vascular ultrasound machine. The study was technically limited due to bowel gas. Ultrasound Report ----- Arterial flow: +---------+ --+ +------ -----+ +---- ----+ +Location +Diameter AP+Diameter +PSV(cm/sec)+EDV(cm/se c)+Comment + + + +Tr + + + + +---------+ --+ +------ -----+ +---- ----+ +Aorta , +2.22 cm +1.92 +64 +10 +--------+ +prox + + + + + + +---------+ --+ +------ -----+ +---- ----+ +Aorta , +2.58 cm +2.42 +24 +3 +--------+ +mid + + + + + + +---------+ --+ +------ -----+ +---- ----+ +Aorta , +3.34 cm +3.54 +22 +7 +3.3 cm + +distal + + + + +on CT + + + + + + +2021. + +---------+ --+ +------ -----+ +---- ----+ +R SAM , +1.92 cm +2.11 +44 +1 +--------+ +distal + + + + + + +---------+ --+ +------ -----+ +---- ----+ +R IIA + +------- -----+76 +4 +--------+ +---------+ --+ +------ -----+ +---- ----+ +R EIA + +------- -----+78 +3 +--------+ +---------+ --+ +------ -----+ +---- ----+ +L SAM +1.31 cm +1.34 +52 +1 +--------+ +---------+ --+ +------ -----+ +---- ----+ +L SAM , + +------- -----+77 +0 +--------+ +distal + + + + + + +---------+ --+ +------ -----+ +---- ----+ +L IIA + +------- -----+118 +14 +--------+ +---------+ --+ +------ -----+ +---- ----+ Prepared and electronically signed by Trent Laurent MD 01/27/2022 13:33 Final Dictated: 01/27/2022 1:33 pm Dictating Physician: TRENT LAURENT Signed Date and Time: 01/27/2022 1:33 pm Signed by: TRENT LAURENT Cardiovascular ACCESSION EXAM DATE/TIME PROCEDURE [id number] 01/27/2022 10:22 EDT VL Aorta Iliac Duplex CPT code 28412 Reason For Exam (VL Aorta Iliac Duplex) AAA Report [facility] ----- Abdominal Aortic Duplex Report Cardiovascular Report Patient Jemal Betts : 1960 Study 01/27/2022 Name: Viv (61yrs) Date: Age: 61 Account: [id number] Gender: M Loc: BP: Ordering Physician: Keila Sands Vegetable Tester: Amira Garcia RVT Interpreting Physician: Trent Laurent MD ----- Location: [address] ----- Indications: AAA. Family history. Hypertension. Smoking history. ----- Conclusions 1. There is a 3.5 cm infrarenal abdominal aortic aneurysm. 2. There is a 2.1 cm right common iliac artery aneurysm. 3. Study is negative for aneurysm and stenosis involving the left common iliac artery. ---- (more content not included)... Normal [facility] Clinical Summary: [employer] 12-08-2021 75 OP Visit Invalid Interpretation Code [facility] Work Phone: Clinical Summary: [employer] 12-01-2021 MC75 OP Visit Invalid Interpretation Code [facility] Work Phone: Clinical Summary: [employer] 11-26-2021 MC75 OP Visit Invalid Interpretation Code [facility] Work Phone: VL LOWER EXTREMITY VENOUS LE FTon 11-16-2021 Patient Name: JEMAL Redding Ultrasound ACCESSION EXAM DATE/TIME PROCEDURE ORDERING PROVIDER [id number] 11/16/2021 16:32 EDT VL Venous Duplex US [id number] -IVAN, TYSHAWN Lower Ext Left CPT code 71070 Reason For Exam (VL Venous Duplex US Lower Ext Left) left leg pain recent surgery Report Examination: Left lower extremity duplex Ultrasound Indication: left leg pain recent surgery Findings: Multiple static thao scale spectral and color Doppler sonographic images of the left lower extremity are submitted for interpretation. Imaging was performed of the common femoral vein, SFV, profunda femoris, popliteal veins as well as the tibial peroneal trunk below the knee. The right common femoral vein was also imaged. Augmentation was also performed, which was unremarkable. Normal compressibility of the veins is demonstrated on this study. The color and spectral Doppler images are unremarkable in appearance. IMPRESSION: Negative for DVT thrombosis. Report Dictated on --- Final --- Dictating Physician: MD STEVENS KRIKOR Signed Date and Time: 11/16/2021 4:43 pm Signed by: MD STEVENS KRIKOR Transcribed Date and Time: 11/16/2021 4:44 Cardiovascular ACCESSION EXAM DATE/TIME PROCEDURE [id number] 11/16/2021 16:32 EDT VL Venous Duplex US Lower Ext Left CPT code 03828 Reason For Exam (VL Venous Duplex US Lower Ext Left) left leg pain recent surgery Cardiovascular Report Examination: Left lower extremity duplex Ultrasound Indication: left leg pain recent surgery Findings: Multiple static thao scale spectral and color Doppler sonographic images of the left lower extremity are submitted for interpretation. Imaging was performed of the common femoral vein, SFV, profunda femoris, popliteal veins as well as the tibial peroneal trunk below the knee. The right common femoral vein was also imaged. Augmentation was also performed, which was unremarkable. Normal compressibility of the veins is demonstrated on this study. The color and spectral Doppler images are unremarkable in appearance. IMPRESSION: Negative for DVT thrombosis. Report Dictated on --- Final --- Dictating Physician: MD STEVENS KRIKOR Signed Date and Time: 11/16/2021 4:43 pm Signed by: MD STEVENS KRIKOR Transcribed Date and Time: 11/16/2021 4:44 [facility] Barbara Stevens MD - 11/16/2021 [id number] Ul[facility]ound ACCESSION EXAM DATE/TIME PROCEDURE ORDERING PROVIDER [id number] 11/16/2021 16:32 EDT VL Venous Duplex US [id number] -IVAN, TYSHAWN Lower Ext Left CPT code 03250 Reason For Exam (VL Venous Duplex US Lower Ext Left) left leg pain recent surgery Report Examination: Left lower extremity duplex Ultrasound Indication: left leg pain recent surgery Findings: Multiple static thao scale spectral and color Doppler sonographic images of the left lower extremity are submitted for interpretation. Imaging was performed of the common femoral vein, SFV, profunda femoris, popliteal veins as well as the tibial peroneal trunk below the knee. The right common femoral vein was also imaged. Augmentation was also performed, which was unremarkable. Normal compressibility of the veins is demonstrated on this study. The color and spectral Doppler images are unremarkable in appearance. IMPRESSION: Negative for DVT thrombosis. Report Dictated on --- Final --- Dictating Physician: MD STEVENS KRIKOR Signed Date and Time: 11/16/2021 4:43 pm Signed by: MD STEVENS KRIKOR Transcribed Date and Time: 11/16/2021 4:44 Cardiovascular ACCESSION EXAM DATE/TIME PROCEDURE [id number] 11/16/2021 16:32 EDT VL Venous Duplex US Lower Ext Left CPT code 22803 Reason For Exam (VL Venous Duplex US Lower Ext Left) left leg pain recent surgery Cardiovascular Report Examination: Left lower extremity duplex Ultrasound Indication: left leg pain recent surgery Findings: Multiple static thao scale spectral and color Doppler sonographic images of the left lower extremity are submitted for interpretation. Imaging was performed of the common femoral vein, SFV, profunda femoris, popliteal veins as well as the tibial peroneal trunk below the knee. The right common femoral vein was also imaged. Augmentation was also performed, which was unremarkable. Normal compressibility of the veins is demonstrated on this study. The color and spectral Doppler images are unremarkable in appearance. IMPRESSION: Negative for DVT thrombosis. Report Dictated on --- Final --- Dictating Physician: MD STEVENS KRIKOR Signed Date and Time: 11/16/2021 4:43 pm Signed by: MD STEVENS KRIKOR Transcribed Date and Time: 11/16/2021 4:44 [facility] Work Phone: Radiology Study observation (narrative) [facility] Work Phone: VL LOWER EXTREMITY VENOUS LE FTOrdered By: Barbara Stevens on 11-16-2021 [facility] Work Phone: VL Venous Duplex US Lower Ex t Lefton 11-16-2021 VL Venous Duplex US Lower Ext Left Patient Name: JEMAL BETTS Jr Ultrasound ACCESSION EXAM DATE/TIME PROCEDURE ORDERING PROVIDER [id number] 11/16/2021 16:32 EDT VL Venous Duplex US [id number] -IVAN, TYSHAWN Lower Ext Left CPT code 23969 Reason For Exam (VL Venous Duplex US Lower Ext Left) left leg pain recent surgery Report Examination: Left lower extremity duplex Ultrasound Indication: left leg pain recent surgery Findings: Multiple static thao scale spectral and color Doppler sonographic images of the left lower extremity are submitted for interpretation. Imaging was performed of the common femoral vein, SFV, profunda femoris, popliteal veins as well as the tibial peroneal trunk below the knee. The right common femoral vein was also imaged. Augmentation was also performed, which was unremarkable. Normal compressibility of the veins is demonstrated on this study. The color and spectral Doppler images are unremarkable in appearance. IMPRESSION: Negative for DVT thrombosis. Report Dictated on Final Dictating Physician: MD STEVENS KRIKOR Signed Date and Time: 11/16/2021 4:43 pm Signed by: MD STEVENS KRIKOR Transcribed Date and Time: 11/16/2021 4:44 Cardiovascular ACCESSION EXAM DATE/TIME PROCEDURE [id number] 11/16/2021 16:32 EDT VL Venous Duplex US Lower Ext Left CPT code 42278 Reason For Exam (VL Venous Duplex US Lower Ext Left) left leg pain recent surgery Cardiovascular Report Examination: Left lower extremity duplex Ultrasound Indication: left leg pain recent surgery Findings: Multiple static thao scale spectral and color Doppler sonographic images of the left lower extremity are submitted for interpretation. Imaging was performed of the common femoral vein, SFV, profunda femoris, popliteal veins as well as the tibial peroneal trunk below the knee. The right common femoral vein was also imaged. Augmentation was also performed, which was unremarkable. Normal compressibility of the veins is demonstrated on this study. The color and spectral Doppler images are unremarkable in appearance. IMPRESSION: Negative for DVT thrombosis. Report Dictated on Final Dictating Physician: MD STEVENS KRIKOR Signed Date and Time: 11/16/2021 4:43 pm Signed by: MD STEVENS KRIKOR Transcribed Date and Time: 11/16/2021 4:44 Normal [facility] ED Provider Noteon ED Provider Note Emergency Department Encounter [facility] EMERGENCY DEPT Patient: Jemal Betts Jr. : 1960 Date of Evaluation: 11/07/2021 ED Supervising Physician: Yohana Stafford MD I independently examined and evaluated Jemal Betts Jr.. In brief, Jemal Betts Jr. is a 61 y.o. male that presents to the emergency department For persistent pain. The patient states that he had a left total knee arthroplasty 3 days ago and has had a hard time getting around and caring for himself at home. The patient was here twice yesterday and seen by orthopedic surgery. He states that he has continued to have difficulty caring for himself. Focused exam: Tachycardic, no murmurs. Lungs with good aeration bilaterally. Brief ED course/MDM: Patient unable to take care of self in the setting of a recent surgery and I believe that he would benefit from admission. All diagnostic, treatment, and disposition decisions were made by myself in conjunction with the [facility]. For all further details of the patient's emergency department visit, please see their documentation. (Please note that portions of this note may have been completed with a voice recognition program. Efforts were made to edit the dictations but occasionally words are mis-transcribed.) Yohana Stafford MD Acute Care [facility] Yohana Stafford MD 11/07/21 1453 [facility] ED Provider Note Emergency DepartmentEncounter [facility] H6 TELEMETRY Patient: Jemal Betts Jr. : 1960 Date of Evaluation: 11/07/2021 ED [facility] Provider: Eduarda Oseguera PA-C EDcare was supervised by Dr. Stafford who independently examined and evaluated the patient. Please see their attestation note for further details. This patient was cared for in the setting of the COVID Pandemic, with nationwide stress on resources and staffing. Furthermore, all efforts were made to protect PHI in the setting of pandemic and the limitations of protective distancing, time, space and resources. I was wearing personal protective equipment for the entirety of this encounter. Chief Complaint Chief Complaint Patient presents with ? Post-op Problem Patient states he had total left knee replacement on 11/04, states he has no help at home, unable to take his medications, asking for help. [place] I was wearing appropriate PPE, including a mask for the entirety of this encounter. Does this patient come from an ECF, SNF, Rehab, Skilled Nursing or other Congregate setting: NO (If yes to above patient needs a Covid-19 test) Jemal Betts Jr. is a 61 y.o. male with past medical history of arthritis, asthma, COPD, HTN who presents to the emergency department with left knee pain. Patient had total left knee replacement 11/[address] Jordan at [facility]. Patient states that he has been having uncontrollable pain and has no help at home for recovery. Nauseous from the pain. Has been seen twice in the emergency department over the past 2 days for same. Negative for DVT. 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 seen by orthopedics last night, recommended supportive care at home, WBAT. Secondary to the pain, patient main concern is lack of support at home. He states that the partner that lives with him has not been helping. He has not been eating. Has been unable to take some of his medications. Has no assistance ambulating. He is afraid that his knee is not going to recover well and the surgery will have been a waste. Denies fever, chills, chest pain, SOB, palpitation, dizziness, headache, weakness, abdominal pain, bladder and bowel problems, rash, sick contacts, or recent travel. ROS: At least 10 systems reviewed and otherwise acutely negative except as in the [place]. Past History Past Medical History: Diagnosis Date ? Acid reflux ? Arthritis ? Asthma ? Cancer (HCC) Basel Cell ? Chronic back pain ? COPD (chronic obstructive pulmonary disease) (HCC) ? H/O blood clots ? Hypertension ? Neuropathy ? Spinal stenosis of cervical region Past Surgical History: Procedure Laterality Date ? CERVICAL SPINE SURGERY ? COLONOSCOPY 10/15/2012 ? HAND SURGERY ? JOINT REPLACEMENT Right 2010 Knee ? OTHER SURGICAL HISTORY 09/04/2017 revision lumbar decompression and hematoma evacuation ? SPINE SURGERY 1992 Social History Socioeconomic History ? Marital status: Single Spouse name: None ? Number of children: None ? Years of education: None ? Highest education level: None Occupational History ? None Tobacco Use ? Smoking status: Former Smoker Packs/day: 1.00 Years: 30.00 Pack years: 30.00 Types: Cigarettes Quit date: 09/04/2014 Years since quittin.1 ? Smokeless tobacco: Never Used Substance and Sexual Activity ? Alcohol use: Yes Alcohol/week: 0.0 standard drinks Comment: occasional ? Drug use: Yes Types: Marijuana (Backus) Comment: daily x 3 ? Sexual activity: None Other Topics Concern ? None Social History Narrative ? None Social Determinants of Health Financial Resource Strain: ? Difficulty of Paying Living Expenses: Not on file Food Insecurity: ? Worried About Running Out of Food in the Last Year: Not on file ? Ran Out of Food in the Last Year: Not on file Transportation Needs: ? Lack of Transportation (Medical): Not on file ? Lack of Transportation (Non-Medical): Not on file Physical Activity: ? Days of Exercise per Week: Not on file ? Minutes of Exercise per Session: Not on file Stress: ? Feeling of Stress : Not on file Social Connections: ? Frequency of Communication with Friends and Family: Not on file ? Frequency of Social Gatherings with Friends and Family: Not on file ? Attends Latter-Day Services: Not on file ? Active Member of Clubs or Organizations: Not on file ? Attends Club or Organization Meetings: Not on file ? Marital Status: Not on file Intimate Partner Violence: ? Fear of Current or Ex-Partner: Not on file ? Emotionally Abused: Not on file ? Physically Abused: Not on file ? Sexually Abused: Not on file Housing Stability: ? Unable to Pay for Housing in the Last Year: Not on file ? Number of Places Lived in the Last Year: Not on file ? Unstable Housing in the Last Year: Not on file Medications/Allergies Discharge Medication List as of 11/08/2021 5:10 PM CONTINUE these medications which have NOT CHANGED (more content not included)... Normal [facility] Basic Metabolic Panelon 03-0 Anion gap [Moles/Vol] 6 mmol/L Normal 3-13 [facility] Comment on above: Performed By: #### C /BLD #### [address] [place], [place] Calcium [Mass/Vol] 9.5 mg/dL Normal 8.4-10.4 [facility] Comment on above: Performed By: #### C /BLD #### [address] [place] [address] CO2 [Moles/Vol] 27 mmol/L Normal 22-30 [facility] Comment on above: Performed By: #### C /BLD #### [address] [place], [place] Glucose [Mass/Vol] 123 mg/dL High 70-100 [facility] Comment on above: Performed By: #### C /BLD #### [address] [address] [place], [place] Urea nitrogen [Mass/Vol] 17 mg/dL Normal 7-17 [facility] Comment on above: Performed By: #### C /BLD #### [address] [place], [place] Creatinine [Mass/Vol] 0.66 mg/dL Normal 0.52-1.25 [facility] Comment on above: Performed By: #### C /BLD #### [address] eGFR OTHER > 90.0 Normal >60 [facility] Comment on above: Result Comment: KDIG O guidelines provide the following GFR categories: Stage GFR(ml/min/1.73 m2) Terms G1 >=90 Normal or high G2 60-89 Mildly decreased* G3a 45-59 Mildly to moderately decreased G3b 30-44 Moderately to severely decreased G4 15-29 Severely decreased G5 <15 Kidney failure *Relative to young adult level. In the absence of evidence of kidney damage, neither GFR category G1 nor G2 fulfill the criteria for CKD. The CKD-EPI equation is validated in individuals 18 years of age and older. Currently the best equation for estimating glomerular filtration rate (GFR) from serum creatinine in children is the Bedside Larsen equation. It is less accurate in patients with extremes of muscle mass, restriction of dietary protein, ingestion of creatine, extra-renal metabolism of creatinine, or treatment with medications that affect renal tubular creatinine secretion. Performed By: #### C /BLD #### [address] [place], [place] GFR/1.73 sq M.predicted among blacks MDRD (S/P/Bld) [Vol rate/Area] mL/min/{1.73_m2} Normal >60 [facility] Comment on above: Performed By: #### C /BLD #### [address] [place], [place] Potassium [Moles/Vol] 4.0 mmol/L Normal 3.5-5.1 [facility] Comment on above: Performed By: #### C /BLD #### [address] [address] [place], [place] Chloride [Moles/Vol] 95 mmol/L Low 98-107 [facility] Comment on above: Performed By: #### C /BLD #### [address] [address] [place], [place] Sodium [Moles/Vol] 128 mmol/L Low 135-145 [facility] Comment on above: Performed By: #### C /BLD #### [facility] [address] [place] [address] Anion gap [Moles/Vol] 6 mmol/L 3 - 13 mmol/L [facility] Calcium [Mass/Vol] 9.5 mg/dL 8.4 - 10. 4 mg/dL [facility] Chloride [Moles/Vol] 95 mmol/L Low 98 - 10 7 mmol/L [facility] CO2 [Moles/Vol] 27 mmol/L 22 - 30 mmol/L [facility] Creatinine [Mass/Vol] 0.66 mg/dL 0.52 - 1.25 mg/dL [facility] EGFR IF NonAfrican Nigerien >90.0 >60 mL/min [facility] Comment on above: KDIGO guidelines pro vide the following GFR categories: Stage GFR(ml/min/1.73 m2) Terms G1 >=90 Normal or high G2 60-89 Mildly decreased* G3a 45-59 Mildly to moderately decreased G3b 30-44 Moderately to severely decreased G4 15-29 Severely decreased G5 <15 Kidney failure *Relative to young adult level. In the absence of evidence of kidney damage, neither GFR category G1 nor G2 fulfill the criteria for CKD. The CKD-EPI equation is validated in individuals 18 years of age and older. Currently the best equation for estimating glomerular filtration rate (GFR) from serum creatinine in children is the Bedside Larsen equation. It is less accurate in patients with extremes of muscle mass, restriction of dietary protein, ingestion of creatine, extra-renal metabolism of creatinine, or treatment with medications that affect renal tubular creatinine secretion. GFR/1.73 sq M.predicted among blacks MDRD (S/P/Bld) [Vol rate/Area] mL/min/{1.73_m2} >60 mL/min [facility] Glucose [Mass/Vol] 123 mg/dL High 70 - 100 mg/dL [facility] Potassium [Moles/Vol] 4.0 mmol/L 3.5 - 5.1 mmol/L [facility] Sodium [Moles/Vol] 128 mmol/L Low 135 - 145 mmol/L [facility] Urea nitrogen (BldV) [Mass/Vol] 17 mg/dL 7 - 17 mg/dL [facility] C-Reactive Proteinon 022 CRP [Mass/Vol] 66.8 mg/L High 0.0-9.9 [facility] Comment on above: Result Comment: . Performed By: #### C /BLD #### [facility] [address] [place] [address] CRP [Mass/Vol] 66.8 mg/L High 0.0 - 9.9 mg/L [facility] Comment on above: . CBC with Auto Differentialon 11-06-2021 Absolute Baso # 0.0 10*3/uL 0.0 - 0.2 10*3/uL [facility] Absolute Neut # 7.3 10*3/uL High 1.8 - 7.0 10*3/uL [facility] Basophils/100 WBC (Bld) 0.3 % 0.0 - 2.0 % [facility] Eosinophils (Bld) [#/Vol] 0.1 10*3/uL 0.0 - 0.5 10*3/uL [facility] Eosinophils/100 WBC (Bld) 0.9 % Low 1.0 - 6.0 % [facility] Granulocytes/100 WBC (Bld) 70.4 % 40.0 - 80.0 % [facility] Hematocrit (Bld) [Volume fraction] 34.5 % Low 40.0 - 52.0 % [facility] Hemoglobin.gastrointes tinal spec 1 Ql (Stl) 12.1 g/dL Low 13.0 - 18.0 g/dL [facility] Interpretation and review of laboratory results Abnormal [facility] Lymphocytes (Bld) [#/Vol] 1.5 10*3/uL 1.0 - 4.3 10*3/uL [facility] Lymphocytes/100 WBC (Bld) 14.2 % Low 20.0 - 40.0 % [facility] MCH (RBC) [Entitic mass] 30.4 pg 26.0 - 34.0 pg [facility] MCHC (RBC) [Mass/Vol] 35.0 % 32.0 - 36.0 % [facility] MCV (RBC) [Entitic vol] 87.1 fL 80.0 - 98.0 fL [facility] Monocytes (Bld) [#/Vol] 1.5 10*3/uL High 0.0 - 0.8 10*3/uL [facility] Monocytes/100 WBC (Bld) 14.2 % High 2.0 - 10.0 % [facility] Platelet distribution width (Bld) [Ratio] 14.0 % 11.5 - 14.5 % [facility] Platelet mean volume (Bld) [Entitic vol] 7.6 fL 7.4 - 10.4 fL [facility] Platelets (Bld) [#/Vol] 279 10*3/uL 140 - 440 10*3/uL [facility] RBC (Bld) [#/Vol] 3.96 10*6/uL Low 4.40 - 5.9 0 10*6/uL [facility] WBC (Bld) [#/Vol] 10.4 10*3/uL 3.6 - 10.7 10*3/uL [facility] Test Performed by [facility], [address] [place] [id number] [place] [address] ED Provider Noteon [facility] Patient: Jemal Betts Jr. : 1960 Date of Evaluation: 11/06/2021 ED [facility] Provider: SOLIS Gutiérrez CNP EDcare was supervised by Dr. Niño who independently examined and evaluated the patient. Please see their attestation note for further details. Chief Complaint Chief Complaint Patient presents with ? Leg Swelling left knee surgery on 11/04/21, patient complains of increased redness, swelling, and pain to the left leg [place] I was wearing a surgical mask for the entirety of this encounter. Does this patient come from an ECF, SNF, Rehab, Skilled Nursing or other Congregate setting: no (If yes to above patient needs a Covid-19 test) Jemal Betts Jr. is a 61 y.o. male who presents to the emergency department with left extremity pain, uncontrolled with pain medication as well as bleeding from the surgical site, patient had left TKR on 11/04/[address] Jordan at [facility], is currently taking Eliquis due to previous history of DVT status post right TKR on the right side. Has been taking home pain medications with no relief of symptoms. Denies any paresthesias, fevers, chills, shortness of breath, abdominal pain, nausea, vomiting. Patient reports that the pain is so bad that it gives him "heartburn". Was seen at [place] earlier and given IM opioids which did help alleviate some of his pain. ROS: Review of Systems At least 10 systems reviewed and otherwise acutely negative except as in the [place]. Past History Past Medical History: Diagnosis Date ? Acid reflux ? Arthritis ? Asthma ? Cancer (HCC) Basel Cell ? Chronic back pain ? COPD (chronic obstructive pulmonary disease) (HCC) ? H/O blood clots ? Hypertension ? Neuropathy ? Spinal stenosis of cervical region Past Surgical History: Procedure Laterality Date ? CERVICAL SPINE SURGERY ? COLONOSCOPY 10/15/2012 ? HAND SURGERY ? JOINT REPLACEMENT Right 2010 Knee ? OTHER SURGICAL HISTORY 09/04/2017 revision lumbar decompression and hematoma evacuation ? SPINE SURGERY 1992 Social History Socioeconomic History ? Marital status: Single Spouse name: Not on file ? Number of children: Not on file ? Years of education: Not on file ? Highest education level: Not on file Occupational History ? Not on file Tobacco Use ? Smoking status: Former Smoker Packs/day: 1.00 Years: 30.00 Pack years: 30.00 Types: Cigarettes Quit date: 09/04/2014 Years since quittin.1 ? Smokeless tobacco: Never Used Substance and Sexual Activity ? Alcohol use: Yes Alcohol/week: 0.0 standard drinks Comment: occasional ? Drug use: Yes Types: Marijuana ([place]) Comment: daily x 3 ? Sexual activity: Not on file Other Topics Concern ? Not on file Social History Narrative ? Not on file Social Determinants of Health Financial Resource Strain: ? Difficulty of Paying Living Expenses: Not on file Food Insecurity: ? Worried About Running Out of Food in the Last Year: Not on file ? Ran Out of Food in the Last Year: Not on file Transportation Needs: ? Lack of Transportation (Medical): Not on file ? Lack of Transportation (Non-Medical): Not on file Physical Activity: ? Days of Exercise per Week: Not on file ? Minutes of Exercise per Session: Not on file Stress: ? Feeling of Stress : Not on file Social Connections: ? Frequency of Communication with Friends and Family: Not on file ? Frequency of Social Gatherings with Friends and Family: Not on file ? Attends Latter-Day Services: Not on file ? Active Member of Clubs or Organizations: Not on file ? Attends Club or Organization Meetings: Not on file ? Marital Status: Not on file Intimate Partner Violence: ? Fear of Current or Ex-Partner: Not on file ? Emotionally Abused: Not on file ? Physically Abused: Not on file ? Sexually Abused: Not on file Housing Stability: ? Unable to Pay for Housing in the Last Year: Not on file ? Number of Places Lived in the Last Year: Not on file ? Unstable Housing in the Last Year: Not on file Medications/Allergies Previous Medications AMLODIPINE (NORVASC) 10 MG TABLET Take 1 tablet by mouth daily KETOROLAC (TORADOL) 10 MG TABLET Take 1 tablet by mouth every 6 hours as needed for Pain LIDOCAINE (LIDODERM) 5 % Place 1 patch onto the skin daily for 10 days 12 hours on, 12 hours off. LISINOPRIL (PRINIVIL;ZESTRIL) 20 MG TABLET Take 1 tablet by mouth daily Allergies Allergen Reactions ? Naprosyn [Naproxen] Hives and Shortness Of Breath ? Pcn [Penicillins] Shortness Of Breath Physical Exam ED Triage Vitals [11/06/21 1533] BP Temp Temp Source Pulse Resp SpO2 Height Weight (!) 147/102 98.2 ?F (36.8 ?C) Oral 125 16 98 % 5' 7" (1.702 m) 210 lb (95.3 kg) Physical Exam GENERAL: The patient appears well nourished, well developed. Good historian. Able to answer questions appropriately. Vital signs as documented. HEENT: (more content not included)... Normal [facility] ED Provider Note Emergency Department Encounter [facility] EMERGENCY DEPT Patient: Jemal Betts Jr. : 1960 Date of Evaluation: 11/06/2021 ED Supervising Physician: Helena Niño, DO I independently examined and evaluated Jemal Betts Jr.. ED Course as of 11/06/212044 Sat Nov 06, 2021 1728 61-year-old male presents emergency department today s/p left knee replacement on November 04 at [facility] with worsening pain. Has had some swelling and bruising is on Eliquis chronically. [BM] 1755 On exam wound appears to be well-healing no drainage, warmth or bleeding. Does have bruising to his proximal medial thigh. Compartments are soft he is neurovascular intact distally. [BM] 1755 Of note sodium found to be incidentally decreased to 128. [BM] 1755 Duplex showing no evidence of DVT. Will discuss with his orthopedic surgeon and give increased pain control for home. Was given morphine here in the emergency department. [BM] ED Course User Index [BM] Helena Niño DO Recommended wrapping the leg with pressure dressing and will increase pain control for home follow-up outpatient with orthopedic surgery. All diagnostic, treatment, and disposition decisions were made by myself in conjunction with the [facility]. For all further details of the patient's emergency department visit, please see their documentation. (Please note that portions of this note may have been completed with a voice recognition program. Efforts were made to edit the dictations but occasionally words are mis-transcribed.) Helena Niño DO [employer] Helena Niño DO 11/06/212044 [facility] ED Provider Note Emergency Department Encounter [facility] EMERGENCY DEPT Patient: Jemal Betts Jr. : 1960 Date of Evaluation: 11/06/2021 ED Provider: Mitch Leger PA-C This patient was seen during the COVID-19 pandemic. As the [id number], I performed a medical screening history and physical exam on this patient. An N95 and gloves were worn during the entirety of this encounter. HISTORY OF PRESENT ILLNESS In brief, Jemal Betts Jr. is a 61 y.o. male that presents for left lower extremity swelling, pain. Recent left total knee replacement by Dr. Duff at [facility] on 11/04/2021. Over the last 24 hours, has developed left lower extremity edema, erythema and warmth. History of clots to the other leg. Nothing makes it feel better. Denies fever, chills, chest pain, shortness of breath. Unable to bear weight. PHYSICAL EXAM ED Triage Vitals Enc Vitals Group BP Pulse Resp Temp Temp src SpO2 Weight Height Head Circumference Peak Flow Pain Score Pain Loc Pain Edu? Excl. in GC? On brief exam, patient is alert and oriented x3. Resting comfortably in no acute distress. Tachycardic with regular rhythm. Lungs clear to auscultation bilaterally. Bandage applied to the left knee. Generalized left lower extremity edema compared to the right leg. Erythema noted to the medial aspect of the proximal thigh, which patient reports is hot and painful. We will initiate diagnostics/treatments as indicated and place in main ED as soon as available. (Connie) Mitch Leger PA-C [employer] Mitch Leger PA-C 11/06/21 1535 Mitch Leger PA-C 11/06/21 1620 Normal [facility] Hemogram w/ Autodiffon 11-06 Abs Baso Cnt 0.0 10*3/uL Normal 0.0-0.2 [facility] Comment on above: Performed By: #### C /BLD #### [address] [place], [place] Abs Neutrophile Cnt 7.3 10*3/uL High 1.8-7.0 [facility] Comment on above: Performed By: #### C /BLD #### [address] [place], [place] Basophils/100 WBC (Bld) 0.3 % Normal 0.0-2.0 [facility] Comment on above: Performed By: #### C /BLD #### [address] [place], [place] Eosinophils (Bld) [#/Vol] 0.1 10*3/uL Normal 0.0-0.5 [facility] Comment on above: Performed By: #### C /BLD #### [address] [place], [place] Eosinophils/100 WBC (Bld) 0.9 % Low 1.0-6.0 [facility] Comment on above: Performed By: #### C /BLD #### [address] [place], [place] Erythrocyte distribution width (RBC) [Ratio] 14.0 % Normal 11.5-14.5 [facility] Comment on above: Performed By: #### C /BLD #### [address] [address] [place], [place] Granulocytes/100 WBC (Bld) 70.4 % Normal 40.0-80.0 [facility] Comment on above: Performed By: #### C /BLD #### [address] [place], [place] Hematocrit (Bld) [Volume fraction] 34.5 % Low 40.0-52.0 [facility] Comment on above: Performed By: #### C /BLD #### [address] [place], [place] Hemoglobin (Bld) [Mass/Vol] 12.1 g/dL Low 13.0-18.0 [facility] Comment on above: Performed By: #### C /BLD #### [address] [place], [place] Lymphocytes (Bld) [#/Vol] 1.5 10*3/uL Normal 1.0-4.3 [facility] Comment on above: Performed By: #### C /BLD #### [address] Lymphocytes/100 WBC (Bld) 14.2 % Low 20.0-40.0 [facility] Comment on above: Performed By: #### C /BLD #### [address] [place], [place] MCH (RBC) [Entitic mass] 30.4 pg Normal 26.0-34.0 [facility] Comment on above: Performed By: #### C /BLD #### [address] MCHC 35.0 % Normal 32.0-36.0 [facility] Comment on above: Performed By: #### C /BLD #### [address] [place], [place] MCV (RBC) [Entitic vol] 87.1 fL Normal 80.0-98.0 [facility] Comment on above: Performed By: #### C /BLD #### [address] Monocytes (Bld) [#/Vol] 1.5 10*3/uL High 0.0-0.8 [facility] Comment on above: Performed By: #### C /BLD #### [address] Monocytes/100 WBC (Bld) 14.2 % High 2.0-10.0 [facility] Comment on above: Performed By: #### C /BLD #### [address] Platelet mean volume (Bld) [Entitic vol] 7.6 fL Normal 7.4-10.4 [facility] Comment on above: Performed By: #### C /BLD #### [address] [address] [place], [place] Platelets (Bld) [#/Vol] 279 10*3/uL Normal 140-440 [facility] Comment on above: Performed By: #### C /BLD #### [address] RBC (Bld) [#/Vol] 3.96 10*6/uL Low 4.40-5.90 [facility] Comment on above: Performed By: #### C /BLD #### [address] WBC (Bld) [#/Vol] 10.4 10*3/uL Normal 3.6-10.7 [facility] Comment on above: Performed By: #### C /BLD #### [address] No Panel Informationon 11-06 Interpretation and review of laboratory results Abnormal [facility] Test Performed by [address] [facility] Sed Rateon 11-06-2021 Sed Rate 32 mm/h High 0-10 [facility] Comment on above: Performed By: #### C /BLD #### [address] Sedimentation Rateon 022 Interpretation and review of laboratory results Abnormal [facility] Sed Rate 32 mm/h High 0 - 10 mm/h [facility] Test Performed by [address] [facility] VL Venous Duplex US Lower Ex t Lefton 11-06-2021 VL Venous Duplex US Lower Ext Left [facility]: [id number] ACCESSION EXAM DATE/TIME PROCEDURE ORDERING PROVIDER [id number] 11/06/2021 16:28 EST VL Venous Duplex US FROYLANSILVIOCALLYGRAHAM VargasMITCH Lower Ext Left CPT code 35179 Reason For Exam (VL Venous Duplex US Lower Ext Left) LLE swelling, recent knee surgery, hx clots Report [facility] ----- Left Lower Extremity Venous Duplex Report Patient Jemal Betts : 1960 Study 11/06/2021 Name: Viv (61yrs) Date: Age: 61 Account: [id number] Gender: M Loc: 1EAW BP: Ordering Physician: Mitch Leger Vegetable Tester: Oliva Dietz RVT Interpreting Physician: Michel Vasquez MD ----- Location: [facility] ----- Indications: LLE swelling, recent knee replacement, hx clots. ----- Preliminary result was reported to Mitch Leger PA-C , by Olvia Dietz Neelima , on 11/06/2021 , at 04:33 PM. Correct read-back was verified. ----- Conclusions 1. There is no evidence of acute deep or superficial venous thrombosis noted in the left lower extremity. 2. The right common femoral vein fully compresses and demonstrates normal venous flow. ----- History: Risk factors: Obese. Immobility. ----- Study data: Left lower extremity venous duplex evaluation. Grayscale 2D imaging, color Doppler imaging, and spectral Doppler analysis. Location: Vascular laboratory. Procedure: A vascular evaluation was Ultrasound Report performed with the patient in the supine position. Images were obtained using a [employer] vascular ultrasound machine. The study was technically limited due to patient cooperation. ----- Venous flow and imaging: + +---- + ---------+ ----+ +Location +Overall +Properties +Comments + + +---- + ---------+ ----+ +L CFV +Patent +Normal phasicity; + + + + +spontaneous; normal+ + + + +augmentation; + + + + +compressible + + + +---- + ---------+ ----+ +L saphenofemoral+Patent +Compressible + + +junction + + + + + +---- + ---------+ ----+ +L profunda +Patent + +- + +femoral + + + + + +---- + ---------+ ----+ +L FV - prox. +Patent +Compressible + + + +---- + ---------+ ----+ +L FV - mid +Patent +Normal phasicity; + + + + +spontaneous; normal+ + + + +augmentation; + + + + +compressible + + + +---- + ---------+ ----+ +L FV - distal +Patent with +Normal phasicity +Patent with + + +color flow and + +color, patient + + +Doppler imaging+ +unable to + + + + +tolerate + + + + +compression. + + +---- + ---------+ ----+ +L popliteal +Patent +Normal phasicity; + + + + +spontaneous; normal+ + + + +augmentation; + + + + +compressible + + + +---- + ---------+ ----+ +L gastrocnemius +Patent +Compressible + + + +---- + ---------+ ----+ +L PTV +Patent +Compressible + + + +---- + ---------+ ----+ +L peroneal +Patent +Compressible + + + +---- + ---------+ ----+ +L soleal +Patent +Compressible + + + +---- + ---------+ ----+ +L GSV +Patent +Compressible + + + +---- + ---------+ ----+ +R CFV +Patent +Normal phasicity; + + + + +spontaneous; normal+ + + + +augmentation; + + + + +compressible + + + +---- + ---------+ ----+ Prepared and electronically signed by Michel Vasquez MD Ultrasound Report 11/07/2021 08:08 Final Dictated: 11/07/2021 8:08 am Dictating Physician: MICHEL VASQUEZ Signed Date and Time: 11/07/2021 8:08 am Signed by: MICHEL VASQUEZ Cardiovascular ACCESSION EXAM DATE/TIME PROCE (more content not included)... Normal [facility] CULTURE BLOODon 05-24-2021 Microscopic examination of blood, culture CULTURE BLOOD --> Status: F No growth at 5 days. [facility] Comment on above: Performed By: #### C /BLD #### [address] [place], [place] CULTURE BLOOD (Two)on 2020 Microscopic examination of blood, culture CULTURE BLOOD (Two) --> Status: F No growth at 5 days. [facility] Comment on above: Performed By: #### C /BLT #### [address] [place], [place] Basic Metabolic Panelon 05-05 Calcium [Mass/Vol] 9.4 mg/dL Normal 8.4-10.4 [facility] Comment on above: Performed By: #### H PAULETTE BMP3 #### [address] [place], [place] Anion gap [Moles/Vol] 10 mmol/L Normal 3-13 [facility] Comment on above: Performed By: #### H PAULETTE BMP3 #### [address] [place], [place] CO2 [Moles/Vol] 21 mmol/L Low 22-30 [facility] Comment on above: Performed By: #### H PAULETTE BMP3 #### [address] [place], [place] Creatinine [Mass/Vol] 0.68 mg/dL Normal 0.52-1.25 [facility] Comment on above: Performed By: #### H ROHITH CALDWELL3 #### [address] eGFR OTHER > 90.0 Normal >60 [facility] Comment on above: Result Comment: KDIG O guidelines provide the following GFR categories: Stage GFR(ml/min/1.73 m2) Terms G1 >=90 Normal or high G2 60-89 Mildly decreased* G3a 45-59 Mildly to moderately decreased G3b 30-44 Moderately to severely decreased G4 15-29 Severely decreased G5 <15 Kidney failure *Relative to young adult level. In the absence of evidence of kidney damage, neither GFR category G1 nor G2 fulfill the criteria for CKD. The CKD-EPI equation is validated in individuals 18 years of age and older. Currently the best equation for estimating glomerular filtration rate (GFR) from serum creatinine in children is the Bedside Larsen equation. It is less accurate in patients with extremes of muscle mass, restriction of dietary protein, ingestion of creatine, extra-renal metabolism of creatinine, or treatment with medications that affect renal tubular creatinine secretion. Performed By: #### H ROHITH CALDWELL3 #### [address] [address] [place], [place] GFR/1.73 sq M.predicted among blacks MDRD (S/P/Bld) [Vol rate/Area] mL/min/{1.73_m2} Normal >60 [facility] Comment on above: Performed By: #### H ROHITH CALDEWLL3 #### [address] Glucose [Mass/Vol] 100 mg/dL Normal 70-100 [facility] Comment on above: Performed By: #### H PAULETTE BMP3 #### [address] Urea nitrogen [Mass/Vol] 13 mg/dL Normal 7-17 [facility] Comment on above: Performed By: #### H PAULETTE BMP3 #### [address] Chloride [Moles/Vol] 106 mmol/L Normal 98-107 [facility] Comment on above: Performed By: #### H EMDF, BMP3 #### [facility] [address], [place] Potassium [Moles/Vol] 4.1 mmol/L Normal 3.5-5.1 [facility] Comment on above: Performed By: #### H EMDF, BMP3 #### [facility] [address], [place] Sodium [Moles/Vol] 138 mmol/L Normal 135-145 [facility] Comment on above: Performed By: #### H EMDF, BMP3 #### [facility] [address] [place], [place] Basic Metabolic PanelOrdered By: Melanie Burgos on 05-20-2021 Anion gap [Moles/Vol] 10 mmol/L 3 - 13 mmol/L [facility] Work Phone: Calcium [Mass/Vol] 9.4 mg/dL 8.4 - 10. 4 mg/dL [facility] Work Phone: Chloride [Moles/Vol] 106 mmol/L 98 - 10 7 mmol/L [facility] Work Phone: CO2 [Moles/Vol] 21 mmol/L Low 22 - 30 mmol/L [facility] Work Phone: Creatinine [Mass/Vol] 0.68 mg/dL 0.52 - 1.25 mg/dL [facility] Work Phone: EGFR IF NonAfrican Nigerien >90.0 >60 mL/min [facility] Work Phone: Comment on above: KDIGO guidelines pro vide the following GFR categories: Stage GFR(ml/min/1.73 m2) Terms G1 >=90 Normal or high G2 60-89 Mildly decreased* G3a 45-59 Mildly to moderately decreased G3b 30-44 Moderately to severely decreased G4 15-29 Severely decreased G5 <15 Kidney failure *Relative to young adult level. In the absence of evidence of kidney damage, neither GFR category G1 nor G2 fulfill the criteria for CKD. The CKD-EPI equation is validated in individuals 18 years of age and older. Currently the best equation for estimating glomerular filtration rate (GFR) from serum creatinine in children is the Bedside Larsen equation. It is less accurate in patients with extremes of muscle mass, restriction of dietary protein, ingestion of creatine, extra-renal metabolism of creatinine, or treatment with medications that affect renal tubular creatinine secretion. GFR/1.73 sq M.predicted among blacks MDRD (S/P/Bld) [Vol rate/Area] mL/min/{1.73_m2} >60 mL/min [employer] Work Phone: Glucose [Mass/Vol] 100 mg/dL 70 - 100 mg/dL [employer] [facility] Work Phone: Interpretation and review of laboratory results Abnormal [employer] Work Phone: Potassium [Moles/Vol] 4.1 mmol/L 3.5 - 5.1 mmol/L [employer] Work Phone: Sodium [Moles/Vol] 138 mmol/L 135 - 145 mmol/L [employer] Work Phone: Urea nitrogen (BldV) [Mass/Vol] 13 mg/dL 7 - 17 mg/dL [employer] Work Phone: Test Performed by [employer], [address] [place] [id number] [employer] Work Phone: [employer] Work Phone: CBC Auto DifferentialOrdered By: Melanie Burgos on 05-20-2021 Absolute Baso # 0.1 10*3/uL 0.0 - 0.2 10*3/uL [employer] [facility] Work Phone: Absolute Neut # 4.1 10*3/uL 1.8 - 7.0 10*3/uL [employer] Work Phone: Hemoglobin.gastrointes tinal spec 1 Ql (Stl) 15.6 g/dL 13.0 - 18.0 g/dL [employer] Work Phone: Interpretation and review of laboratory results Abnormal [employer] Work Phone: MCHC (RBC) [Mass/Vol] 33.5 % 32.0 - 36.0 % [facility] Work Phone: Platelet distribution width (Bld) [Ratio] 13.7 % 11.5 - 14.5 % [facility] Work Phone: Test Performed by [facility] [employer], [facility] [place] [address] [facility] Work Phone: [facility] Work Phone: Hemogram w/ Autodiffon 05-20 Abs Baso Cnt 0.1 10*3/uL Normal 0.0-0.2 [facility] Comment on above: Performed By: #### H EMDF BMP3 #### [facility] [employer] [address] [place] [phone] Abs Neutrophile Cnt 4.1 10*3/uL Normal 1.8-7.0 [facility] Comment on above: Performed By: #### H EMDF BMP3 #### [facility] [address] [place] [address] Erythrocyte distribution width (RBC) [Ratio] 13.7 % Normal 11.5-14.5 [facility] Comment on above: Performed By: #### H EMDF BMP3 #### [facility] [employer] [address] [place] [address] Hemoglobin (Bld) [Mass/Vol] 15.6 g/dL Normal 13.0-18.0 [facility] Comment on above: Performed By: #### H EMDF, BMP3 #### [facility] [employer] [address] [place] [address] MCHC 33.5 % Normal 32.0-36.0 [facility] Comment on above: Performed By: #### H EMDF, BMP3 #### [facility] [address] [place] [address] Hemogram w/ AutodiffOrdered By: Melanie Burgos on 05-20-2021 Basophils/100 WBC (Bld) 1.1 % Normal 0.0-2.0 [facility] Work Phone: Comment on above: Performed By: #### H EMDF, BMP3 #### [facility] [address] [place] [address] Eosinophils (Bld) [#/Vol] 0.6 10*3/uL High 0.0-0.5 [facility] Work Phone: Comment on above: Performed By: #### H EMDF, BMP3 #### [facility] [place] [address] Eosinophils/100 WBC (Bld) 8.3 % High 1.0-6.0 [facility] Work Phone: Comment on above: Performed By: #### H EMDF, BMP3 #### [employer] [facility] [place] [address] Granulocytes/100 WBC (Bld) 54.7 % Normal 40.0-80.0 [facility] Work Phone: [phone] Comment on above: Performed By: #### H EMDF, BMP3 #### [employer] [facility] [place] [address] Hematocrit (Bld) [Volume fraction] 46.6 % Normal 40.0-52.0 [facility] Work Phone: Comment on above: Performed By: #### H EMDF, BMP3 #### [facility] [place] [address] Lymphocytes (Bld) [#/Vol] 2.0 10*3/uL Normal 1.0-4.3 [facility] Work Phone: [phone] Comment on above: Performed By: #### H EMDF, BMP3 #### [facility] [place] [address] Lymphocytes/100 WBC (Bld) 26.9 % Normal 20.0-40.0 [facility] Work Phone: [phone] Comment on above: Performed By: #### H EMDF, BMP3 #### [facility] [place] [address] MCH (RBC) [Entitic mass] 30.5 pg Normal 26.0-34.0 [facility] Work Phone: Comment on above: Performed By: #### H EMDF, BMP3 #### [employer] [address] [place] [address] MCV (RBC) [Entitic vol] 90.9 fL Normal 80.0-98.0 [facility] Work Phone: Comment on above: Performed By: #### H EMDF, BMP3 #### [facility] [address] [place] Monocytes (Bld) [#/Vol] 0.7 10*3/uL Normal 0.0-0.8 [facility] Work Phone: Comment on above: Performed By: #### H EMDF, BMP3 #### [employer] [facility] [address] [place] Monocytes/100 WBC (Bld) 9.0 % Normal 2.0-10.0 [facility] Work Phone: Comment on above: Performed By: #### H EMDF, BMP3 #### [employer] [facility] [place] [address] Platelet mean volume (Bld) [Entitic vol] 8.1 fL Normal 7.4-10.4 [facility] Work Phone: Comment on above: Performed By: #### H EMDF, BMP3 #### [employer] [facility] [place] [address] Platelets (Bld) [#/Vol] 266 10*3/uL Normal 140-440 [facility] Work Phone: Comment on above: Performed By: #### H EMDF, BMP3 #### [facility] [facility] [place] [address] RBC (Bld) [#/Vol] 5.12 10*6/uL Normal 4.40-5.90 [facility] Work Phone: Comment on above: Performed By: #### H EMDF, BMP3 #### [employer] [facility] [address] [place] WBC (Bld) [#/Vol] 7.4 10*3/uL Normal 3.6-10.7 [facility] Work Phone: Comment on above: Performed By: #### H EMDF, BMP3 #### [address] Add On Lab TestOrdered By: Jose Francisco Nelson on 05-19-2021 Add On Accepted [facility] Work Phone: Comment on above: Specimen available & acceptable for analysis. Test Performed by [facility], [facility] [place] [facility] Work Phone: [facility] Work Phone: Add on test from HISon 05-19 Add on test from HIS Accepted Normal [facility] Comment on above: Result Comment: Spec imen available & acceptable for analysis. Performed By: #### C /BLD #### [address] Basic Metabolic Panelon 05-05 Anion gap [Moles/Vol] 9 mmol/L Normal 3-13 [facility] Comment on above: Performed By: #### H EMDF, BMP3, CRP2, ESR #### [address] Calcium [Mass/Vol] 9.0 mg/dL Normal 8.4-10.4 [facility] Comment on above: Performed By: #### H EMDF, BMP3, CRP2, ESR #### [address] CO2 [Moles/Vol] 21 mmol/L Low 22-30 [facility] Comment on above: Performed By: #### H EMDF, BMP3, CRP2, ESR #### [address] Glucose [Mass/Vol] 102 mg/dL High 70-100 [facility] Comment on above: Performed By: #### H EMDF, BMP3, CRP2, ESR #### [facility] [address], [place] Urea nitrogen [Mass/Vol] 14 mg/dL Normal 7-17 [facility] Comment on above: Performed By: #### H EMDF, BMP3, CRP2, ESR #### [facility] [address] [place], [place] Creatinine [Mass/Vol] 0.70 mg/dL Normal 0.52-1.25 [facility] Comment on above: Performed By: #### H EMDF, BMP3, CRP2, ESR #### [facility] [address], [place] eGFR OTHER > 90.0 Normal >60 [facility] Comment on above: Result Comment: KDIG O guidelines provide the following GFR categories: Stage GFR(ml/min/1.73 m2) Terms G1 >=90 Normal or high G2 60-89 Mildly decreased* G3a 45-59 Mildly to moderately decreased G3b 30-44 Moderately to severely decreased G4 15-29 Severely decreased G5 <15 Kidney failure *Relative to young adult level. In the absence of evidence of kidney damage, neither GFR category G1 nor G2 fulfill the criteria for CKD. The CKD-EPI equation is validated in individuals 18 years of age and older. Currently the best equation for estimating glomerular filtration rate (GFR) from serum creatinine in children is the Bedside Larsen equation. It is less accurate in patients with extremes of muscle mass, restriction of dietary protein, ingestion of creatine, extra-renal metabolism of creatinine, or treatment with medications that affect renal tubular creatinine secretion. Performed By: #### H EMDF, BMP3, CRP2, ESR #### [facility] [address], [place] GFR/1.73 sq M.predicted among blacks MDRD (S/P/Bld) [Vol rate/Area] mL/min/{1.73_m2} Normal >60 [facility] Comment on above: Performed By: #### H EMDF, BMP3, CRP2, ESR #### [facility] [address] [place], [place] Potassium [Moles/Vol] 4.4 mmol/L Normal 3.5-5.1 [facility] Comment on above: Performed By: #### H EMDF, BMP3, CRP2, ESR #### [facility] [address] [place] [address] Chloride [Moles/Vol] 108 mmol/L High 98-107 [facility] Comment on above: Performed By: #### H EMDF, BMP3, CRP2, ESR #### [facility] [address] [place], [place] Sodium [Moles/Vol] 138 mmol/L Normal 135-145 [facility] Comment on above: Performed By: #### H EMDF, BMP3, CRP2, ESR #### [facility] [address] [place] [address] Basic Metabolic PanelOrdered By: Melanie Burgos on 05-19-2021 Anion gap [Moles/Vol] 9 mmol/L 3 - 13 mmol/L [facility] Work Phone: Calcium [Mass/Vol] 9.0 mg/dL 8.4 - 10. 4 mg/dL [facility] Work Phone: Chloride [Moles/Vol] 108 mmol/L High 98 - 10 7 mmol/L [facility] Work Phone: CO2 [Moles/Vol] 21 mmol/L Low 22 - 30 mmol/L [facility] Work Phone: Creatinine [Mass/Vol] 0.7 mg/dL 0.52 - 1.25 mg/dL [facility] Work Phone: EGFR IF NonAfrican Nigerien >90.0 >60 mL/min [facility] Work Phone: Comment on above: KDIGO guidelines pro vide the following GFR categories: Stage GFR(ml/min/1.73 m2) Terms G1 >=90 Normal or high G2 60-89 Mildly decreased* G3a 45-59 Mildly to moderately decreased G3b 30-44 Moderately to severely decreased G4 15-29 Severely decreased G5 <15 Kidney failure *Relative to young adult level. In the absence of evidence of kidney damage, neither GFR category G1 nor G2 fulfill the criteria for CKD. The CKD-EPI equation is validated in individuals 18 years of age and older. Currently the best equation for estimating glomerular filtration rate (GFR) from serum creatinine in children is the Bedside Larsen equation. It is less accurate in patients with extremes of muscle mass, restriction of dietary protein, ingestion of creatine, extra-renal metabolism of creatinine, or treatment with medications that affect renal tubular creatinine secretion. GFR/1.73 sq M.predicted among blacks MDRD (S/P/Bld) [Vol rate/Area] mL/min/{1.73_m2} >60 mL/min [employer] Work Phone: Glucose [Mass/Vol] 102 mg/dL High 70 - 100 mg/dL [employer] Work Phone: Interpretation and review of laboratory results Abnormal [employer] Work Phone: Potassium [Moles/Vol] 4.4 mmol/L 3.5 - 5.1 mmol/L [employer] Work Phone: Sodium [Moles/Vol] 138 mmol/L 135 - 145 mmol/L [employer] Work Phone: Urea nitrogen (BldV) [Mass/Vol] 14 mg/dL 7 - 17 mg/dL [employer] Work Phone: Test Performed by [employer], [address] [place] [phone] [employer] Work Phone: [employer] Work Phone: C-Reactive Proteinon 021 CRP [Mass/Vol] 14.0 mg/L High 0.0-9.9 [facility] Comment on above: Result Comment: . Performed By: #### H EMDF, BMP3, CRP2, ESR #### [employer] [address] [place] [phone] C-Reactive ProteinOrdered By : Melanie Burgos on 05-19-2021 CRP [Mass/Vol] 14 mg/L High 0.0 - 9.9 mg/L [employer] Work Phone: Comment on above: . Interpretation and review of laboratory results Abnormal [employer] Work Phone: Test Performed by [employer], [address] [place] [address] [place] [address] [facility] Work Phone: [facility] Work Phone: CBC Auto DifferentialOrdered By: Melanie Burgos on 05-19-2021 Absolute Baso # 0.1 10*3/uL 0.0 - 0.2 10*3/uL [facility] Work Phone: Absolute Neut # 4.4 10*3/uL 1.8 - 7.0 10*3/uL [facility] Work Phone: Basophils/100 WBC (Bld) 1.0 % 0.0 - 2.0 % [facility] Work Phone: Eosinophils (Bld) [#/Vol] 0.7 10*3/uL High 0.0 - 0.5 10*3/uL [facility] Work Phone: Eosinophils/100 WBC (Bld) 9.2 % High 1.0 - 6.0 % [facility] Work Phone: Granulocytes/100 WBC (Bld) 57.4 % 40.0 - 80.0 % [facility] Work Phone: Hematocrit (Bld) [Volume fraction] 44.5 % 40.0 - 52.0 % [facility] Work Phone: Hemoglobin.gastrointes tinal spec 1 Ql (Stl) 15.0 g/dL 13.0 - 18.0 g/dL [facility] Work Phone: Interpretation and review of laboratory results Abnormal [facility] Work Phone: Lymphocytes (Bld) [#/Vol] 1.9 10*3/uL 1.0 - 4.3 10*3/uL [facility] Work Phone: Lymphocytes/100 WBC (Bld) 25.1 % 20.0 - 40.0 % [facility] Work Phone: MCH (RBC) [Entitic mass] 30.8 pg 26.0 - 34.0 pg [facility] Work Phone: MCHC (RBC) [Mass/Vol] 33.7 % 32.0 - 36.0 % [employer] Work Phone: MCV (RBC) [Entitic vol] 91.2 fL 80.0 - 98.0 fL [employer] Work Phone: Monocytes (Bld) [#/Vol] 0.6 10*3/uL 0.0 - 0.8 10*3/uL [employer] Work Phone: Monocytes/100 WBC (Bld) 7.3 % 2.0 - 10.0 % [employer] Work Phone: Platelet distribution width (Bld) [Ratio] 13.5 % 11.5 - 14.5 % [employer] Phone: Platelet mean volume (Bld) [Entitic vol] 8.0 fL 7.4 - 10.4 fL [employer] Phone: Platelets (Bld) [#/Vol] 255 10*3/uL 140 - 440 10*3/uL [employer] Work Phone: RBC (Bld) [#/Vol] 4.88 10*6/uL 4.40 - 5.9 0 10*6/uL [employer] Work Phone: WBC (Bld) [#/Vol] 7.6 10*3/uL 3.6 - 10.7 10*3/uL [employer] Work Phone: Test Performed by [employer], [address] [place] [phone] [facility] Work Phone: [facility] Work Phone: Hemogram w/ Autodiffon 05-19 Abs Baso Cnt 0.1 10*3/uL Normal 0.0-0.2 [facility] [employer] [facility] Comment on above: Performed By: #### H EMDF, BMP3, CRP2, ESR #### [employer] [address] [place] [phone] Abs Neutrophile Cnt 4.4 10*3/uL Normal 1.8-7.0 [facility] Comment on above: Performed By: #### H EMDF, BMP3, CRP2, ESR #### [address] Basophils/100 WBC (Bld) 1.0 % Normal 0.0-2.0 [facility] Comment on above: Performed By: #### H EMDF, BMP3, CRP2, ESR #### [address] Eosinophils (Bld) [#/Vol] 0.7 10*3/uL High 0.0-0.5 [facility] Comment on above: Performed By: #### H EMDF, BMP3, CRP2, ESR #### [address] Eosinophils/100 WBC (Bld) 9.2 % High 1.0-6.0 [facility] Comment on above: Performed By: #### H EMDF, BMP3, CRP2, ESR #### [address] Erythrocyte distribution width (RBC) [Ratio] 13.5 % Normal 11.5-14.5 [facility] Comment on above: Performed By: #### H EMDF, BMP3, CRP2, ESR #### [address] Granulocytes/100 WBC (Bld) 57.4 % Normal 40.0-80.0 [facility] Comment on above: Performed By: #### H EMDF, BMP3, CRP2, ESR #### [address] Hematocrit (Bld) [Volume fraction] 44.5 % Normal 40.0-52.0 [facility] Comment on above: Performed By: #### H EMDF, BMP3, CRP2, ESR #### [address] Hemoglobin (Bld) [Mass/Vol] 15.0 g/dL Normal 13.0-18.0 [facility] Comment on above: Performed By: #### H EMDF, BMP3, CRP2, ESR #### [address] Lymphocytes (Bld) [#/Vol] 1.9 10*3/uL Normal 1.0-4.3 [facility] Comment on above: Performed By: #### H EMDF, BMP3, CRP2, ESR #### [address] Lymphocytes/100 WBC (Bld) 25.1 % Normal 20.0-40.0 [facility] Comment on above: Performed By: #### H EMDF, BMP3, CRP2, ESR #### [address] MCH (RBC) [Entitic mass] 30.8 pg Normal 26.0-34.0 [facility] Comment on above: Performed By: #### H EMDF, BMP3, CRP2, ESR #### [address] MCHC 33.7 % Normal 32.0-36.0 [facility] Comment on above: Performed By: #### H EMDF, BMP3, CRP2, ESR #### [address] MCV (RBC) [Entitic vol] 91.2 fL Normal 80.0-98.0 [facility] Comment on above: Performed By: #### H EMDF, BMP3, CRP2, ESR #### [address] Monocytes (Bld) [#/Vol] 0.6 10*3/uL Normal 0.0-0.8 [facility] Comment on above: Performed By: #### H EMDF, BMP3, CRP2, ESR #### [address] Monocytes/100 WBC (Bld) 7.3 % Normal 2.0-10.0 [facility] Comment on above: Performed By: #### H EMDF, BMP3, CRP2, ESR #### [address] Platelet mean volume (Bld) [Entitic vol] 8.0 fL Normal 7.4-10.4 [facility] Comment on above: Performed By: #### H EMDF, BMP3, CRP2, ESR #### [address] [phone] Platelets (Bld) [#/Vol] 255 10*3/uL Normal 140-440 [facility] Comment on above: Performed By: #### H EMDF, BMP3, CRP2, ESR #### [address] RBC (Bld) [#/Vol] 4.88 10*6/uL Normal 4.40-5.90 [facility] Comment on above: Performed By: #### H EMDF, BMP3, CRP2, ESR #### [address] [phone] WBC (Bld) [#/Vol] 7.6 10*3/uL Normal 3.6-10.7 [facility] Comment on above: Performed By: #### H EMDF, BMP3, CRP2, ESR #### [address] [phone] Sed Rateon 05-19-2021 Sed Rate 12 mm/h High 0-10 [facility] Comment on above: Performed By: #### H EMDF, BMP3, CRP2, ESR #### [address] [phone] Sedimentation RateOrdered By : Melanie Burgos on 05-19-2021 Interpretation and review of laboratory results Abnormal [facility] Work Phone: Sed Rate 12 mm/h High 0 - 10 mm/h [facility] Work Phone: Test Performed by [facility], [address] [place] [id number] [facility] Work Phone: [facility] Work Phone: Basic Metabolic Panelon 05-05 Calcium [Mass/Vol] 9.7 mg/dL Normal 8.4-10.4 [facility] Comment on above: Performed By: #### B MP3, CK3, HEMDF #### [facility] [address] [place] [address] Glucose [Mass/Vol] 103 mg/dL High 70-100 [facility] Comment on above: Performed By: #### B MP3, CK3, HEMDF #### [facility] [address] [place] [address] Anion gap [Moles/Vol] 10 mmol/L Normal 3-13 [facility] Comment on above: Performed By: #### B MP3, CK3, HEMDF #### [facility] [address] [place] [address] CO2 [Moles/Vol] 20 mmol/L Low 22-30 [facility] Comment on above: Performed By: #### B MP3, CK3, HEMDF #### [facility] [address] [place] [address] Creatinine [Mass/Vol] 0.66 mg/dL Normal 0.52-1.25 [facility] Comment on above: Performed By: #### B MP3, CK3, HEMDF #### [facility] [address] [address] eGFR OTHER > 90.0 Normal >60 [facility] Comment on above: Result Comment: KDIG O guidelines provide the following GFR categories: Stage GFR(ml/min/1.73 m2) Terms G1 >=90 Normal or high G2 60-89 Mildly decreased* G3a 45-59 Mildly to moderately decreased G3b 30-44 Moderately to severely decreased G4 15-29 Severely decreased G5 <15 Kidney failure *Relative to young adult level. In the absence of evidence of kidney damage, neither GFR category G1 nor G2 fulfill the criteria for CKD. The CKD-EPI equation is validated in individuals 18 years of age and older. Currently the best equation for estimating glomerular filtration rate (GFR) from serum creatinine in children is the Bedside Larsen equation. It is less accurate in patients with extremes of muscle mass, restriction of dietary protein, ingestion of creatine, extra-renal metabolism of creatinine, or treatment with medications that affect renal tubular creatinine secretion. Performed By: #### Jalil SHERMAN3 CK3, HEMDF #### [facility] [address] [place] [address] GFR/1.73 sq M.predicted among blacks MDRD (S/P/Bld) [Vol rate/Area] mL/min/{1.73_m2} Normal >60 [facility] Comment on above: Performed By: #### B LANE[address] CK3, HEMDF #### [facility] [address] [place] [address] Urea nitrogen [Mass/Vol] 14 mg/dL Normal 7-17 [facility] Comment on above: Performed By: #### Jalil SALINAS CK3, HEMDF #### [facility] [address] [place] [address] Potassium [Moles/Vol] 4.6 mmol/L Normal 3.5-5.1 [facility] Comment on above: Performed By: #### Jalil SALINAS CK3, HEMDF #### [facility] [address] [place] [address] Chloride [Moles/Vol] 111 mmol/L High 98-107 [facility] Comment on above: Performed By: #### Jalil SALINAS CK3, HEMDF #### [facility] [address] [place] [address] Sodium [Moles/Vol] 140 mmol/L Normal 135-145 [facility] Comment on above: Performed By: #### Jalil SALINAS CK3, HEMDF #### [facility] [address] [place] [address] Basic Metabolic PanelOrdered By: Marlon Jenkins on 05-18-2021 Anion gap [Moles/Vol] 10 mmol/L 3 - 13 mmol/L [facility] Work Phone: Calcium [Mass/Vol] 9.7 mg/dL 8.4 - 10. 4 mg/dL [facility] Work Phone: Chloride [Moles/Vol] 111 mmol/L High 98 - 10 7 mmol/L [facility] Work Phone: CO2 [Moles/Vol] 20 mmol/L Low 22 - 30 mmol/L [employer] [facility] Work Phone: Creatinine [Mass/Vol] 0.66 mg/dL 0.52 - 1.25 mg/dL [facility] Work Phone: EGFR IF NonAfrican Nigerien >90.0 >60 mL/min [employer] [facility] Work Phone: Comment on above: KDIGO guidelines pro vide the following GFR categories: Stage GFR(ml/min/1.73 m2) Terms G1 >=90 Normal or high G2 60-89 Mildly decreased* G3a 45-59 Mildly to moderately decreased G3b 30-44 Moderately to severely decreased G4 15-29 Severely decreased G5 <15 Kidney failure *Relative to young adult level. In the absence of evidence of kidney damage, neither GFR category G1 nor G2 fulfill the criteria for CKD. The CKD-EPI equation is validated in individuals 18 years of age and older. Currently the best equation for estimating glomerular filtration rate (GFR) from serum creatinine in children is the Bedside Larsen equation. It is less accurate in patients with extremes of muscle mass, restriction of dietary protein, ingestion of creatine, extra-renal metabolism of creatinine, or treatment with medications that affect renal tubular creatinine secretion. GFR/1.73 sq M.predicted among blacks MDRD (S/P/Bld) [Vol rate/Area] mL/min/{1.73_m2} >60 mL/min [facility] Work Phone: Glucose [Mass/Vol] 103 mg/dL High 70 - 100 mg/dL [facility] Work Phone: Potassium [Moles/Vol] 4.6 mmol/L 3.5 - 5.1 mmol/L [facility] Work Phone: Sodium [Moles/Vol] 140 mmol/L 135 - 145 mmol/L [facility] Work Phone: Urea nitrogen (BldV) [Mass/Vol] 14 mg/dL 7 - 17 mg/dL [employer] [facility] [facility] Work Phone: CBC WITH AUTO DIFFERENTIALOr dered By: Marlon Jenkins on 05-18-2021 Absolute Baso # 0.1 10*3/uL 0.0 - 0.2 10*3/uL [facility] Work Phone: Absolute Neut # 5.7 10*3/uL 1.8 - 7.0 10*3/uL [facility] Work Phone: Basophils/100 WBC (Bld) 0.9 % 0.0 - 2.0 % [facility] Work Phone: Eosinophils (Bld) [#/Vol] 0.5 10*3/uL 0.0 - 0.5 10*3/uL [facility] Work Phone: Eosinophils/100 WBC (Bld) 6.2 % High 1.0 - 6.0 % [facility] Work Phone: Granulocytes/100 WBC (Bld) 64.2 % 40.0 - 80.0 % [facility] Work Phone: Hematocrit (Bld) [Volume fraction] 46.3 % 40.0 - 52.0 % [facility] Work Phone: Hemoglobin.gastrointes tinal spec 1 Ql (Stl) 16.0 g/dL 13.0 - 18.0 g/dL [facility] Work Phone: Interpretation and review of laboratory results Abnormal [facility] Work Phone: Lymphocytes (Bld) [#/Vol] 1.8 10*3/uL 1.0 - 4.3 10*3/uL [facility] Work Phone: Lymphocytes/100 WBC (Bld) 20.8 % 20.0 - 40.0 % [facility] Work Phone: MCH (RBC) [Entitic mass] 30.7 pg 26.0 - 34.0 pg [facility] Work Phone: MCHC (RBC) [Mass/Vol] 34.5 % 32.0 - 36.0 % [facility] Work Phone: MCV (RBC) [Entitic vol] 88.9 fL 80.0 - 98.0 fL [facility] Work Phone: Monocytes (Bld) [#/Vol] 0.7 10*3/uL 0.0 - 0.8 10*3/uL [facility] Work Phone: Monocytes/100 WBC (Bld) 7.9 % 2.0 - 10.0 % [facility] Work Phone: Platelet distribution width (Bld) [Ratio] 13.6 % 11.5 - 14.5 % [facility] Work Phone: Platelet mean volume (Bld) [Entitic vol] 7.9 fL 7.4 - 10.4 fL [employer] [facility] Work Phone: Platelets (Bld) [#/Vol] 290 10*3/uL 140 - 440 10*3/uL [employer] [facility] [facility] Work Phone: RBC (Bld) [#/Vol] 5.21 10*6/uL 4.40 - 5.9 0 10*6/uL [employer] Work Phone: WBC (Bld) [#/Vol] 8.9 10*3/uL 3.6 - 10.7 10*3/uL [employer] Work Phone: Test Performed by [employer], [address] [place] [address] [employer] Work Phone: [employer] Work Phone: CKon 05-18-2021 CK [Catalytic activity/Vol] 223 U/L High 30-170 [facility] Comment on above: Performed By: #### B MP3, CK3, HEMDF #### [facility] [address] [place] [address] CKOrdered By: Marlon Jenkins on 05-18-2021 CK [Catalytic activity/Vol] 223 U/L High 30 - 170 U/L [employer] Work Phone: CR Forearm 2 Views Lefton CR Forearm 2 Views Left Patient Name: JEMAL BETTS Jr [facility]iology ACCESSION EXAM DATE/TIME PROCEDURE ORDERING PROVIDER [id number] 05/18/2021 12:49 EDT CR Forearm 2 Views Left MD ALICIA, JENNIFER Marinelli CPT code 20960 Reason For Exam (CR Forearm 2 Views Left) bitten by a cat. retained tooth/fb? Report Indication: Cat bite. Two views of the left forearm show no evidence of an acute fracture or dislocation. There is no bone destruction, erosion or periosteal reaction. There is a small bony spur arising from the olecranon. Small well-corticated ossifications are identified adjacent to the olecranon. These are probably related to remote trauma or inflammation. There are no soft tissue air collections. There are no radiopaque foreign bodies. IMPRESSION: 1. No evidence of an acute bone process or radiopaque foreign body. Report Dictated on Final Dictating Physician: DO ARORA ANTHONY Signed Date and Time: 05/18/2021 1:42 pm Signed by: DO ARORA ANTHONY Transcribed Date and Time: 05/18/2021 1:43 Normal [facility] ED Provider Noteon ED Provider Note Emergency Department Encounter [facility] ED Patient: Jemal Betts Jr. : 1960 Date of Evaluation: 05/18/2021 ED Provider: Marlon Jenkins MD Chief Complaint Chief Complaint Patient presents with ? Animal Bite L. anterior forearm [place] Jemal Betts Jr. is a 61 y.o. male who presents to the emergency department complaining of cat bite to the left arm with worsening cellulitis Patient has a history of hypertension COPD right-sided total knee replacement ex-smoker. Not a diabetic not having HIV. This is the patient's third visit in 24 hours for a cat bite to the left anterior forearm. He was seen last night for the same and was given IV clindamycin and oral Augmentin. Patient is concerned because according to previous note the cellulitis was 1 cm x 1 cm in size with a 2 cm rash surrounding it, now his entire left forearm is hot and there is a 6 x 4 cm area of cellulitis with the streaking cellulitis moving proximally up the left antecubital into the left bicep. He endorses shaking chills and was diaphoretic this morning. He is not tachycardic or febrile. Still has full range of motion of the left arm including left elbow left wrist, but it is sore. He is also concerned because the cat that bit him is . No chest pain palpitation shortness of breath abdominal pain nausea vomiting diarrhea. Left leg right leg and right arm untouched. Family history of coronary artery disease. Denies any numbness weakness tingling or paresthesias in the left arm. ROS: Complete review of systems performed, and otherwise acutely negative except as in the HPI Past History Past Medical History: Diagnosis Date ? Acid reflux ? Arthritis ? Cancer (HCC) Basel Cell ? Chronic back pain ? COPD (chronic obstructive pulmonary disease) (HCC) ? H/O blood clots ? Hypertension ? Neuropathy ? Spinal stenosis of cervical region Past Surgical History: Procedure Laterality Date ? CERVICAL SPINE SURGERY ? COLONOSCOPY 10/15/2012 ? HAND SURGERY ? JOINT REPLACEMENT Right 2010 Knee ? OTHER SURGICAL HISTORY 09/04/2017 revision lumbar decompression and hematoma evacuation ? SPINE SURGERY 1992 Social History Socioeconomic History ? Marital status: Single Spouse name: Not on file ? Number of children: Not on file ? Years of education: Not on file ? Highest education level: Not on file Occupational History ? Not on file Tobacco Use ? Smoking status: Former Smoker Packs/day: 1.00 Years: 30.00 Pack years: 30.00 Types: Cigarettes Quit date: 09/04/2014 Years since quittin.7 ? Smokeless tobacco: Never Used Substance and Sexual Activity ? Alcohol use: Yes Alcohol/week: 0.0 standard drinks Comment: occasional ? Drug use: Yes Types: Marijuana Comment: daily ? Sexual activity: Not on file Other Topics Concern ? Not on file Social History Narrative ? Not on file Social Determinants of Health Financial Resource Strain: ? Difficulty of Paying Living Expenses: Food Insecurity: ? Worried About Running Out of Food in the Last Year: ? Ran Out of Food in the Last Year: Transportation Needs: ? Lack of Transportation (Medical): ? Lack of Transportation (Non-Medical): Physical Activity: ? Days of Exercise per Week: ? Minutes of Exercise per Session: Stress: ? Feeling of Stress : Social Connections: ? Frequency of Communication with Friends and Family: ? Frequency of Social Gatherings with Friends and Family: ? Attends L[employer] Services: ? Active Member of Clubs or Organizations: ? Attends Club or Organization Meetings: ? Marital Status: Intimate Partner Violence: ? Fear of Current or Ex-Partner: ? Emotionally Abused: ? Physically Abused: ? Sexually Abused: Medications/Allergies Previous Medications AMOXICILLIN-CLAVULANAT E (AUGMENTIN) 875-125 MG PER TABLET Take 1 tablet by mouth 2 times daily for 10 days KETOROLAC (TORADOL) 10 MG TABLET Take 1 tablet by mouth every 6 hours as needed for Pain Allergies Allergen Reactions ? Naprosyn [Naproxen] Hives and Shortness Of Breath ? Pcn [Penicillins] Shortness Of Breath Physical Exam ED Triage Vitals [05/18/21 1128] BP Temp Temp Source Pulse Resp SpO2 Height Weight (!) 178/101 98.5 ?F (36.9 ?C) Oral 90 18 98 % -- -- General: WDWN adult in mild discomfort. Nontoxic HENT: Head NCAT, EOMI with no erythema, swelling or D/C Oropharyngeal mucus membranes moist, pink, no exudate Neck: Full ROM, supple, no rigidity Cardio: RRR, nl s1 s2 no m/r/g, extremities warm, dry, well perfused, left upper extremity edematous, 2+ left radial pulse Lungs: CTAB, no wheezes, rales, rhonchi, normal work of breathing Abdomen: Soft, NT, ND, non-rigid, BS x 4 normal MSK: Full range of motion left shoulder left elbow left wrist and all the fingers on the left hand Skin: There is an warm to the touch erythematous cellulitis 6 cm x 4 cm in size, with a streaking cellulitis mo (more content not included)... Normal [facility] Hemogram w/ Autodiffon 05-18 Abs Baso Cnt 0.1 10*3/uL Normal 0.0-0.2 [facility] Comment on above: Performed By: #### B MP3, CK3, HEMDF #### [facility] [address] [address] Abs Neutrophile Cnt 5.7 10*3/uL Normal 1.8-7.0 [facility] Comment on above: Performed By: #### B MP3, CK3, HEMDF #### [facility] [address] [place] [address] Basophils/100 WBC (Bld) 0.9 % Normal 0.0-2.0 [facility] Comment on above: Performed By: #### B MP3, CK3, HEMDF #### [facility] [address] [place] [address] Eosinophils (Bld) [#/Vol] 0.5 10*3/uL Normal 0.0-0.5 [facility] Comment on above: Performed By: #### B MP3, CK3, HEMDF #### [facility] [address] [place] [address] Eosinophils/100 WBC (Bld) 6.2 % High 1.0-6.0 [facility] Comment on above: Performed By: #### B MP3, CK3, HEMDF #### [facility] [address] [place] [address] Erythrocyte distribution width (RBC) [Ratio] 13.6 % Normal 11.5-14.5 [facility] Comment on above: Performed By: #### B MP3, CK3, HEMDF #### [facility] [address] [place] [address] Granulocytes/100 WBC (Bld) 64.2 % Normal 40.0-80.0 [facility] Comment on above: Performed By: #### B MP3, CK3, HEMDF #### [facility] [address] [place] [address] Hematocrit (Bld) [Volume fraction] 46.3 % Normal 40.0-52.0 [facility] Comment on above: Performed By: #### B MP3, CK3, HEMDF #### [facility] [address] [place] [address] Hemoglobin (Bld) [Mass/Vol] 16.0 g/dL Normal 13.0-18.0 [facility] Comment on above: Performed By: #### B MP3, CK3, HEMDF #### [facility] [address] [place] [address] Lymphocytes (Bld) [#/Vol] 1.8 10*3/uL Normal 1.0-4.3 [facility] Comment on above: Performed By: #### B MP3, CK3, HEMDF #### [facility] [address] [place] [address] Lymphocytes/100 WBC (Bld) 20.8 % Normal 20.0-40.0 [facility] Comment on above: Performed By: #### B MP3, CK3, HEMDF #### [facility] [address] [place] [address] MCH (RBC) [Entitic mass] 30.7 pg Normal 26.0-34.0 [facility] Comment on above: Performed By: #### B MP3, CK3, HEMDF #### [facility] [address] [place] [address] MCHC 34.5 % Normal 32.0-36.0 [facility] Comment on above: Performed By: #### B MP3, CK3, HEMDF #### [facility] [address] [place] [address] MCV (RBC) [Entitic vol] 88.9 fL Normal 80.0-98.0 [facility] Comment on above: Performed By: #### B MP3, CK3, HEMDF #### [facility] [address] [place] [address] Monocytes (Bld) [#/Vol] 0.7 10*3/uL Normal 0.0-0.8 [facility] Comment on above: Performed By: #### B MP3, CK3, HEMDF #### [facility] [address] [place] [address] Monocytes/100 WBC (Bld) 7.9 % Normal 2.0-10.0 [facility] Comment on above: Performed By: #### B MP3, CK3, HEMDF #### [facility] [address] [place] [address] Platelet mean volume (Bld) [Entitic vol] 7.9 fL Normal 7.4-10.4 [facility] Comment on above: Performed By: #### B MP3, CK3, HEMDF #### [facility] [address] [place] [address] Platelets (Bld) [#/Vol] 290 10*3/uL Normal 140-440 [facility] Comment on above: Performed By: #### B MP3, CK3, HEMDF #### [facility] [address] [place] [address] RBC (Bld) [#/Vol] 5.21 10*6/uL Normal 4.40-5.90 [facility] Comment on above: Performed By: #### B MP3, CK3, HEMDF #### [facility] [address] [place] [address] WBC (Bld) [#/Vol] 8.9 10*3/uL Normal 3.6-10.7 [facility] Comment on above: Performed By: #### B MP3, CK3, HEMDF #### [facility] [address] [place] [address] Abs Baso Cnt 0.1 10*3/uL Normal 0.0-0.2 [facility] Comment on above: Performed By: #### L ACT3, HEMDF #### [facility] [address] [place] [address] Abs Neutrophile Cnt 6.9 10*3/uL Normal 1.8-7.0 [facility] Comment on above: Performed By: #### L ACT3, HEMDF #### [facility] [address] [place] [address] Basophils/100 WBC (Bld) 1.0 % Normal 0.0-2.0 [facility] Comment on above: Performed By: #### L ACT3, HEMDF #### [facility] [address] [place] [address] Eosinophils (Bld) [#/Vol] 0.6 10*3/uL High 0.0-0.5 [facility] Comment on above: Performed By: #### L ACT3, HEMDF #### [facility] [address] [place] [address] Eosinophils/100 WBC (Bld) 5.6 % Normal 1.0-6.0 [facility] Comment on above: Performed By: #### L ACT3, HEMDF #### [facility] [address] [place] [address] Erythrocyte distribution width (RBC) [Ratio] 13.2 % Normal 11.5-14.5 [facility] Comment on above: Performed By: #### L ACT3, HEMDF #### [facility] [address] [place] [address] Granulocytes/100 WBC (Bld) 61.1 % Normal 40.0-80.0 [facility] Comment on above: Performed By: #### L ACT3, HEMDF #### [facility] [address] [place] [address] Hematocrit (Bld) [Volume fraction] 43.9 % Normal 40.0-52.0 [facility] Comment on above: Performed By: #### L ACT3, HEMDF #### [facility] [address] [place] [address] Hemoglobin (Bld) [Mass/Vol] 15.2 g/dL Normal 13.0-18.0 [facility] Comment on above: Performed By: #### L ACT3, HEMDF #### [facility] [address] [place] [address] Lymphocytes (Bld) [#/Vol] 2.7 10*3/uL Normal 1.0-4.3 [facility] Comment on above: Performed By: #### L ACT3, HEMDF #### [facility] [address] [place] [address] Lymphocytes/100 WBC (Bld) 23.7 % Normal 20.0-40.0 [facility] Comment on above: Performed By: #### L ACT3, HEMDF #### [facility] [address] [place] [address] MCH (RBC) [Entitic mass] 30.8 pg Normal 26.0-34.0 [facility] Comment on above: Performed By: #### L ACT3, HEMDF #### [facility] [address] [place] [address] MCHC 34.6 % Normal 32.0-36.0 [facility] Comment on above: Performed By: #### L ACT3, HEMDF #### [facility] [address] [place] [address] MCV (RBC) [Entitic vol] 89.1 fL Normal 80.0-98.0 [facility] Comment on above: Performed By: #### L ACT3, HEMDF #### [facility] [address] [place] [address] Monocytes (Bld) [#/Vol] 1.0 10*3/uL High 0.0-0.8 [facility] Comment on above: Performed By: #### L ACT3, HEMDF #### [facility] [address] [place] [address] Monocytes/100 WBC (Bld) 8.6 % Normal 2.0-10.0 [facility] Comment on above: Performed By: #### L ACT3, HEMDF #### [facility] [address] [place] [address] Platelet mean volume (Bld) [Entitic vol] 7.5 fL Normal 7.4-10.4 [facility] Comment on above: Performed By: #### L ACT3, HEMDF #### [facility] [address] [place] [address] Platelets (Bld) [#/Vol] 308 10*3/uL Normal 140-440 [facility] Comment on above: Performed By: #### L ACT3, HEMDF #### [facility] [address] [place] [address] RBC (Bld) [#/Vol] 4.93 10*6/uL Normal 4.40-5.90 [facility] Comment on above: Performed By: #### L ACT3, HEMDF #### [facility] [address] [place] [address] WBC (Bld) [#/Vol] 11.3 10*3/uL High 3.6-10.7 [facility] Comment on above: Performed By: #### L ACT3, HEMDF #### [facility] [address] [place] [address] Lactic Acidon 05-18-2021 Lactate [Moles/Vol] 1.0 mmol/L Normal 0.7-2.0 [facility] Comment on above: Performed By: #### L ACT3 #### [facility] [address] [place] [address] Lactate [Moles/Vol] 1.5 mmol/L Normal 0.7-2.0 [facility] Comment on above: Performed By: #### L ACT3, HEMDF #### [facility] [address] [place] [address] Lactic Acid, PlasmaOrdered B y: Marlon Looneyo on 05-18-2021 Lactate [Moles/Vol] 1 mmol/L 0.7 - 2. 0 mmol/L [employer] Work Phone: [facility] by [facility], [facility] [address] [place] [address] [employer] Work Phone: [employer] Work Phone: No Panel InformationOrdered By: Marlon Jenkins on 05-18-2021 Interpretation and review of laboratory results Abnormal [employer] Work Phone: Test Performed by [facility], [facility] [place] [address] [employer] Work Phone: [employer] Work Phone: XR RADIUS ULNA LEFT (2 VIEWS )Ordered By: Marlon Jenkins on 05-18-2021 Patient Name: JEMAL [facility] ACCESSION EXAM DATE/TIME PROCEDURE ORDERING PROVIDER [id number] 05/18/2021 12:49 EDT CR Forearm 2 Views Left MD ALICIA, JENNIFER Marinelli CPT code 76314 Reason For Exam (CR Forearm 2 Views Left) bitten by a cat. retained tooth/fb? Report Indication: Cat bite. Two views of the left forearm show no evidence of an acute fracture or dislocation. There is no bone destruction, erosion or periosteal reaction. There is a small bony spur arising from the olecranon. Small well-corticated ossifications are identified adjacent to the olecranon. These are probably related to remote trauma or inflammation. There are no soft tissue air collections. There are no radiopaque foreign bodies. IMPRESSION: 1. No evidence of an acute bone process or radiopaque foreign body. Report Dictated on --- Final --- Dictating Physician: DO ARORA ANTHONY Signed Date and Time: 05/18/2021 1:42 pm Signed by: DO ARORA ANTHONY Transcribed Date and Time: 05/18/2021 1:43 [facility] Work Phone: [facility], [facility] Incoming Radiology Results From Pending Sale To [facility] - 05/18/2021 1:43 PM EDT Patient Name: JEMAL BETST Jr [facility] Radiology ACCESSION EXAM DATE/TIME PROCEDURE ORDERING PROVIDER [id number] 05/18/2021 12:49 EDT CR Forearm 2 Views Left MD ALICIA, JENNIFER Marinelli CPT code 69070 Reason For Exam (CR Forearm 2 Views Left) bitten by a cat. retained tooth/fb? Report Indication: Cat bite. Two views of the left forearm show no evidence of an acute fracture or dislocation. There is no bone destruction, erosion or periosteal reaction. There is a small bony spur arising from the olecranon. Small well-corticated ossifications are identified adjacent to the olecranon. These are probably related to remote trauma or inflammation. There are no soft tissue air collections. There are no radiopaque foreign bodies. IMPRESSION: 1. No evidence of an acute bone process or radiopaque foreign body. Report Dictated on --- Final --- Dictating Physician: DO ARORA ANTHONY Signed Date and Time: 05/18/2021 1:42 pm Signed by: DO ARORA ANTHONY Transcribed Date and Time: 05/18/2021 1:43 [facility] Work Phone: [facility] Work Phone: Basic Metabolic PanelOrdered By: Ck Dyer on 01-04-2021 Anion gap [Moles/Vol] 12 mmol/L 3 - 13 mmol/L [facility] Work Phone: Calcium [Mass/Vol] 10.0 mg/dL 8.4 - 10. 4 mg/dL [facility] Work Phone: Chloride [Moles/Vol] 105 mmol/L 98 - 10 7 mmol/L [facility] Work Phone: CO2 [Moles/Vol] 21 mmol/L Low 22 - 30 mmol/L [facility] Work Phone: Creatinine [Mass/Vol] 0.93 mg/dL 0.52 - 1.25 mg/dL [facility] Work Phone: EGFR IF NonAfrican Nigerien 89.6 mL/min >60 [facility] Work Phone: Comment on above: KDIGO guidelines pro vide the following GFR categories: Stage GFR(ml/min/1.73 m2) Terms G1 >=90 Normal or high G2 60-89 Mildly decreased* G3a 45-59 Mildly to moderately decreased G3b 30-44 Moderately to severely decreased G4 15-29 Severely decreased G5 <15 Kidney failure *Relative to young adult level. In the absence of evidence of kidney damage, neither GFR category G1 nor G2 fulfill the criteria for CKD. The CKD-EPI equation is validated in individuals 18 years of age and older. Currently the best equation for estimating glomerular filtration rate (GFR) from serum creatinine in children is the Bedside Larsen equation. It is less accurate in patients with extremes of muscle mass, restriction of dietary protein, ingestion of creatine, extra-renal metabolism of creatinine, or treatment with medications that affect renal tubular creatinine secretion. GFR/1.73 sq M.predicted among blacks MDRD (S/P/Bld) [Vol rate/Area] mL/min/{1.73_m2} >60 mL/min [facility] Work Phone: Glucose [Mass/Vol] 150 mg/dL High 70 - 100 mg/dL [facility] Work Phone: Interpretation and review of laboratory results Abnormal [facility] Work Phone: Potassium [Moles/Vol] 4.0 mmol/L 3.5 - 5.1 mmol/L [employer] Work Phone: Sodium [Moles/Vol] 137 mmol/L 135 - 145 mmol/L [employer] Work Phone: Urea nitrogen (BldV) [Mass/Vol] 19 mg/dL 7 - 20 mg/dL [employer] Work Phone: Test Performed by [facility], [address] [place] [address] , [place] [address] [employer] Work Phone: CT Abdomen Pelvis Wo Contras tOrdered By: Ck Dyer on 01-04-2021 Patient Name: JEMAL Redding Computed Tomography ACCESSION EXAM DATE/TIME PROCEDURE ORDERING PROVIDER [id number] 01/04/2021 08:[address] Abdomen/Pelvis (No MD AMADO, CK PO, No IV) CPT code 54091 Reason For Exam (CT Abdomen/Pelvis (No PO, No IV)) left flank pain Report CT ABDOMEN AND PELVIS WITHOUT IV CONTRAST CLINICAL INDICATION: Left flank pain. TECHNIQUE: Multidetector spiral transaxial sequence was performed through the abdomen and pelvis without intravenous contrast. Images were reconstructed at 3 mm slice width at 3 mm interval. COMPARISON: CT chest from 10/17/2017. FINDINGS: Exam quality: This examination is limited for the evaluation of solid organs and vascular structures due to the lack of intravenous contrast. Chest base: Chronically stable subcentimeter pleural-based bilateral pulmonary nodules and minimal dependent bibasilar atelectasis noted. Liver: Normal size and contour. No identifiable lesion. Biliary tree: Normal caliber. Spleen: Normal. Adrenals: Normal. Pancreas: Normal. Kidneys and Renal collecting systems: There is a punctate 1 to 2 mm calculus in the distal left ureter just proximal to the left UVJ causing mild left hydronephrosis and hydroureter with periureteral and perinephric stranding. No hydronephrosis or obstructing calculus in the right kidney. Punctate nonobstructive calculus noted in the right mid pole. Retroperitoneal/mesent liberty lymphadenopathy: None. Bowel: Normal caliber bowel loops. Aorta: Atherosclerotic calcifications are seen in the aorta and its branches. There is a small infrarenal abdominal aortic aneurysm just above the iliac bifurcation measuring 3.3 cm in diameter. Abdominal wall: Normal. Computed Tomography Report Pelvic organs/viscera: No mass identified. Bladder: No calculi or filling defects. Pelvic lymphadenopathy: None. Osseous structures: Degenerative change of the visualized spine is noted. IMPRESSION: 1 to 2 mm obstructing calculus in the distal left ureter just proximal to the UVJ causing mild left hydronephrosis and hydroureter. Small infrarenal abdominal aortic aneurysm measuring 3.3 cm in transverse diameter. Chronically stable subcentimeter pulmonary nodules. Degenerative changes of the lumbar spine. Report Dictated on --- Final --- Dictating Physician: MD BARRIGA KERISTEN L Signed Date and Time: 01/04/2021 9:45 am Signed by: MD BARRIGA KERISTEN L Transcribed Date and Time: 01/04/2021 9:46 [facility] Work Phone: [place], [facility] Incoming Radiology Results From Pending Sale To [facility] - 01/04/2021 9:46 AM EDT Patient Name: JEMAL BETTS Jr Computed Tomography ACCESSION EXAM DATE/TIME PROCEDURE ORDERING PROVIDER [id number] 01/04/2021 08:[address] Abdomen/Pelvis (No MD AMADO, CK PO, No IV) CPT code 91816 Reason For Exam (CT Abdomen/Pelvis (No PO, No IV)) left flank pain Report CT ABDOMEN AND PELVIS WITHOUT IV CONTRAST CLINICAL INDICATION: Left flank pain. TECHNIQUE: Multidetector spiral transaxial sequence was performed through the abdomen and pelvis without intravenous contrast. Images were reconstructed at 3 mm slice width at 3 mm interval. COMPARISON: CT chest from 10/17/2017. FINDINGS: Exam quality: This examination is limited for the evaluation of solid organs and vascular structures due to the lack of intravenous contrast. Chest base: Chronically stable subcentimeter pleural-based bilateral pulmonary nodules and minimal dependent bibasilar atelectasis noted. Liver: Normal size and contour. No identifiable lesion. Biliary tree: Normal caliber. Spleen: Normal. Adrenals: Normal. Pancreas: Normal. Kidneys and Renal collecting systems: There is a punctate 1 to 2 mm calculus in the distal left ureter just proximal to the left UVJ causing mild left hydronephrosis and hydroureter with periureteral and perinephric stranding. No hydronephrosis or obstructing calculus in the right kidney. Punctate nonobstructive calculus noted in the right mid pole. Retroperitoneal/mesent liberty lymphadenopathy: None. Bowel: Normal caliber bowel loops. Aorta: Atherosclerotic calcifications are seen in the aorta and its branches. There is a small infrarenal abdominal aortic aneurysm just above the iliac bifurcation measuring 3.3 cm in diameter. Abdominal wall: Normal. Computed Tomography Report Pelvic organs/viscera: No mass identified. Bladder: No calculi or filling defects. Pelvic lymphadenopathy: None. Osseous structures: Degenerative change of the visualized spine is noted. IMPRESSION: 1 to 2 mm obstructing calculus in the distal left ureter just proximal to the UVJ causing mild left hydronephrosis and hydroureter. Small infrarenal abdominal aortic aneurysm measuring 3.3 cm in transverse diameter. Chronically stable subcentimeter pulmonary nodules. Degenerative changes of the lumbar spine. Report Dictated on --- Final --- Dictating Physician: MD BARRIGA KERISTEN L Signed Date and Time: 01/04/2021 9:45 am Signed by: MD BARRIGA KERISTEN L Transcribed Date and Time: 01/04/2021 9:46 [facility] Work Phone: UrinalysisOrdered By: Ck Dyer on 01-04-2021 Appearance (U) Clear Clear NA [facility] Work Phone: Comment on above: . Bacteria, UA Few (1-5) Abnormal Negative /[HPF] [facility] Work Phone: Comment on above: . Bilirubin Urine Negative Negative mg/dL [facility] Work Phone: Comment on above: . Color (U) LIGHT YELLOW Lt. Yellow NA [facility] Work Phone: Comment on above: . Glucose, Ur Normal Normal (<70) mg/dL [facility] Work Phone: Comment on above: . Interpretation and review of laboratory results Abnormal [facility] Work Phone: Ketones Ql (U) Negative Negative mg/dL [facility] Work Phone: Comment on above: . LEUKOCYTES, UA Negative Negative Mary/uL [facility] Work Phone: Comment on above: . Mucous Threads Few Negative /[LPF] [facility] Work Phone: Comment on above: . Nitrite, Urine Negative Negative NA [facility] Work Phone: Comment on above: . Occult Blood,Urine 0.06 mg/dL Abnormal Negative [facility] Work Phone: Comment on above: . pH (U) 5.5 [pH] [facility] Work Phone: [phone] Comment on above: . Protein (U) [Mass/Vol] 100 mg/dL Abnormal Negative [facility] Work Phone: Comment on above: . RBC, UA 0-2 0 - 2 /[HPF] [facility] Work Phone: Comment on above: . Specific [place], Urine 1.017 [facility] Work Phone: Comment on above: . Squam Epithel, UA 0-2 3 - 5 /[HPF] [facility] Work Phone: Comment on above: . Urobilinogen, Urine Normal Normal (0-1) mg/dL [facility] Work Phone: Comment on above: . Volume 12 ml [facility] Work Phone: Comment on above: . WBC, UA 0-2 0 - 5 /[HPF] [facility] Work Phone: Comment on above: . Test Performed by [employer], [facility] [address] , [place], [place] [address] [employer] Work Phone: VL LOWER EXTREMITY VENOUS LE FTon 09-25-2020 Patient Name: JEMAL Redding Ultrasound ACCESSION EXAM DATE/TIME PROCEDURE ORDERING PROVIDER [id number] 09/25/2020 11:01 EST VL Venous Duplex [place] [id number] THOMAS Lower Ext Left CPT code 04703 Reason For Exam (VL Venous Duplex US Lower Ext Left) left calf pain, prior dvt Report EXAMINATION: Left lower extremity venous doppler. COMPARISON: 10/21/2019. REASON FOR STUDY: Left scalp pain, prior deep venous thrombosis. TECHNIQUE: Real-time grayscale as well as supplemental color and spectral doppler examination was performed with graded compression. FINDINGS: Common femoral, deep femoral, superficial femoral, popliteal, posterior tibial and peroneal veins appear patent. Where possible, compressibility is demonstrated. Flow augmentation is demonstrated. CONCLUSION(S): No evidence of deep venous thrombosis. Report Dictated on --- Final --- Dictating Physician: MD CHAPA B NELSON Signed Date and Time: 09/25/2020 11:24 am Signed by: MD CHAPA B NELSON Transcribed Date and Time: 09/25/2020 11:25 Cardiovascular ACCESSION EXAM DATE/TIME PROCEDURE [id number] 09/25/2020 11:01 EST VL Venous Duplex US Lower Ext Left CPT code 88617 Cardiovascular Reason For Exam (VL Venous Duplex US Lower Ext Left) left calf pain, prior dvt Report EXAMINATION: Left lower extremity venous doppler. COMPARISON: 10/21/2019. REASON FOR STUDY: Left scalp pain, prior deep venous thrombosis. TECHNIQUE: Real-time grayscale as well as supplemental color and spectral doppler examination was performed with graded compression. FINDINGS: Common femoral, deep femoral, superficial femoral, popliteal, posterior tibial and peroneal veins appear patent. Where possible, compressibility is demonstrated. Flow augmentation is demonstrated. CONCLUSION(S): No evidence of deep venous thrombosis. Report Dictated on --- Final --- Dictating Physician: MD CHAPA B NELSON Signed Date and Time: 09/25/2020 11:24 am Signed by: MD CHAPA B NELSON Transcribed Date and Time: 09/25/2020 11:25 [facility]- [place], [place] [facility], [facility] In[facility] Results From [facility] - 09/25/2020 11:25 AM EST [facility]: [id number] ACCESSION EXAM DATE/TIME PROCEDURE ORDERING PROVIDER [id number] 09/25/2020 11:01 EST VL Venous Duplex [place] [id number] SILVA Lower Ext Left CPT code 26166 Reason For Exam (VL Venous Duplex US Lower Ext Left) left calf pain, prior dvt Report EXAMINATION: Left lower extremity venous doppler. COMPARISON: 10/21/2019. REASON FOR STUDY: Left scalp pain, prior deep venous thrombosis. TECHNIQUE: Real-time grayscale as well as supplemental color and spectral doppler examination was performed with graded compression. FINDINGS: Common femoral, deep femoral, superficial femoral, popliteal, posterior tibial and peroneal veins appear patent. Where possible, compressibility is demonstrated. Flow augmentation is demonstrated. CONCLUSION(S): No evidence of deep venous thrombosis. Report Dictated on --- Final --- Dictating Physician: MD CHAPA B NELSON Signed Date and Time: 09/25/2020 11:24 am Signed by: MD CHAPA B NELSON Transcribed Date and Time: 09/25/2020 11:25 Cardiovascular ACCESSION EXAM DATE/TIME PROCEDURE [id number] 09/25/2020 11:01 EST VL Venous Duplex US Lower Ext Left CPT code 52915 Cardiovascular Reason For Exam (VL Venous Duplex US Lower Ext Left) left calf pain, prior dvt Report EXAMINATION: Left lower extremity venous doppler. COMPARISON: 10/21/2019. REASON FOR STUDY: Left scalp pain, prior deep venous thrombosis. TECHNIQUE: Real-time grayscale as well as supplemental color and spectral doppler examination was performed with graded compression. FINDINGS: Common femoral, deep femoral, superficial femoral, popliteal, posterior tibial and peroneal veins appear patent. Where possible, compressibility is demonstrated. Flow augmentation is demonstrated. CONCLUSION(S): No evidence of deep venous thrombosis. Report Dictated on --- Final --- Dictating Physician: MD CHAPA B NELSON Signed Date and Time: 09/25/2020 11:24 am Signed by: MD CHAPA B NELSON Transcribed Date and Time: 09/25/2020 11:25 [place], [place] XR ELBOW RIGHT (MIN 3 VIEWS) on 02-17-2020 Patient Name: JEMAL Redding ---Diagnostic Radiology--- Exam Date/Time 02/17/2020 15:52:08 EDT Exam CR Elbow 3+ Views Right Ordering Physician MD LITTLE GREGORY M Accession Number [id number] CPT4 Codes 33275 () Reason For Exam Right elbow pain from trauma Report CLINICAL INFORMATION: Right elbow pain and decreased range of motion since prior trauma approximately two weeks ago. Right elbow: AP, oblique and lateral views demonstrate no evidence of acute fracture or dislocation. There is calcification posterior to the olecranon process most likely related to the distal triceps tendon. No elbow joint effusion or displaced fat pad is identified. IMPRESSION: 1. No evidence of acute bone trauma. 2. Calcification of the distal triceps tendon most likely related to calcific tendinitis. Report Dictated on Workstation: [employer] Software --- Final --- Dictating Physician: MD WHITMAN HARLAN Signed Date and Time: 02/17/2020 4:34 pm Signed by: MD WHITMAN HARLAN Transcribed Date and Time: 02/17/2020 4:35 [place], [place] [facility], [facility] In[facility] Radiology Results From Pending Sale To [facility] - 02/17/2020 4:35 PM EDT Patient Name: JEMAL BETTS Jr ---Diagnostic Radiology--- Exam Date/Time 02/17/2020 15:52:08 EDT Exam CR Elbow 3+ Views Right Ordering Physician MD LITTLE GREGORY M Accession Number [id number] CPT4 Codes 32101 () Reason For Exam Right elbow pain from trauma Report CLINICAL INFORMATION: Right elbow pain and decreased range of motion since prior trauma approximately two weeks ago. Right elbow: AP, oblique and lateral views demonstrate no evidence of acute fracture or dislocation. There is calcification posterior to the olecranon process most likely related to the distal triceps tendon. No elbow joint effusion or displaced fat pad is identified. IMPRESSION: 1. No evidence of acute bone trauma. 2. Calcification of the distal triceps tendon most likely related to calcific tendinitis. Report Dictated on Workstation: [id number] --- Final --- Dictating Physician: MD WHITMAN HARLAN Signed Date and Time: 02/17/2020 4:34 pm Signed by: MD WHITMAN HARLAN Transcribed Date and Time: 02/17/2020 4:35 [facility], [place] XR WRIST RIGHT 3 VWon 2019 Patient Name: JEMAL Redding ---Diagnostic Radiology--- Exam Date/Time 02/17/2020 15:52:08 EDT Exam CR Wrist Complete 3 Views Right Ordering Physician MD LITTLE GREGORY M Accession Number [id number] CPT4 Codes 04920 () Reason For Exam Right wrist pain Report CLINICAL INFORMATION: Right wrist pain and decreased range of motion since prior trauma approximately two weeks ago. Right wrist: PA, oblique and lateral views demonstrate no evidence of acute fracture or dislocation. The joints are well maintained. The carpal bones are in normal alignment. No significant soft tissue abnormality is identified. IMPRESSION: No evidence of acute bone trauma. Report Dictated on Workstation: [id number] --- Final --- Dictating Physician: MD WHITMAN HARLAN Signed Date and Time: 02/17/2020 4:31 pm Signed by: MD WHITMAN HARLAN Transcribed Date and Time: 02/17/2020 4:32 [place], [place] [facility], [facility] In[facility] Radiology Results From Pending Sale To [facility] - 02/17/2020 4:32 PM EDT Patient Name: JEMAL BETTS Jr ---Diagnostic Radiology--- Exam Date/Time 02/17/2020 15:52:08 EDT Exam CR Wrist Complete 3 Views Right Ordering Physician MD LITTLE GREGORY M Accession Number [id number] CPT4 Codes 31902 () Reason For Exam Right wrist pain Report CLINICAL INFORMATION: Right wrist pain and decreased range of motion since prior trauma approximately two weeks ago. Right wrist: PA, oblique and lateral views demonstrate no evidence of acute fracture or dislocation. The joints are well maintained. The carpal bones are in normal alignment. No significant soft tissue abnormality is identified. IMPRESSION: No evidence of acute bone trauma. Report Dictated on Workstation: [id number] --- Final --- Dictating Physician: MD WHITMAN HARLAN Signed Date and Time: 02/17/2020 4:31 pm Signed by: MD WHITMAN HARLAN Transcribed Date and Time: 02/17/2020 4:32 [facility]- [place], [place] XR KNEE LEFT (MIN 4 VIEWS)on 10-20-2019 Patient Name: JEMAL Redding ---Diagnostic Radiology--- Exam Date/Time 10/20/2019 21:20:48 EST Exam CR Knee Complete 4+ Views Left Ordering Physician MD ALDANA LISA MARIE Accession Number [id number] CPT4 Codes 72189 () Reason For Exam pain Report LEFT KNEE 4 VIEWS CLINICAL INDICATION: pain TECHNIQUE: 4 views of the left knee. COMPARISON: None. FINDINGS: No acute fracture or dislocation. Moderate lateral and less severe patellofemoral joint space narrowing. Variable, marginal spurring in all 3 joint compartments, most pronounced in the patellofemoral joint space, as well as about the femoral notch and tibial spines. Soft tissues grossly unremarkable. IMPRESSION: 1. No acute osseous abnormality. 2. Degenerative joint disease. Report Dictated on Workstation: [id number] --- Final --- Dictating Physician: MD PHOENIX WENDELL Signed Date and Time: 10/20/2019 9:34 pm Signed by: MD PHOENIX WENDELL Transcribed Date and Time: 10/20/2019 9:35 [facility] Work Phone: [place], [facility] Incoming Radiology Results From Pending Sale To [facility] - 10/20/2019 9:35 PM EST Patient Name: JEMAL BETTS Jr ---Diagnostic Radiology--- Exam Date/Time 10/20/2019 21:20:48 EST Exam CR Knee Complete 4+ Views Left Ordering Physician MD ALDANA LISA MARIE Accession Number [id number] CPT4 Codes 15159 () Reason For Exam pain Report LEFT KNEE 4 VIEWS CLINICAL INDICATION: pain TECHNIQUE: 4 views of the left knee. COMPARISON: None. FINDINGS: No acute fracture or dislocation. Moderate lateral and less severe patellofemoral joint space narrowing. Variable, marginal spurring in all 3 joint compartments, most pronounced in the patellofemoral joint space, as well as about the femoral notch and tibial spines. Soft tissues grossly unremarkable. IMPRESSION: 1. No acute osseous abnormality. 2. Degenerative joint disease. Report Dictated on Workstation: [id number] --- Final --- Dictating Physician: MD PHOENIX WENDELL Signed Date and Time: 10/20/2019 9:34 pm Signed by: MD PHOENIX WENDELL Transcribed Date and Time: 10/20/2019 9:35 [facility] Work Phone: .Auto Diffon 12-25-2018 Ammonia (P) [Mass/Vol] 0.50 10 3/mcL Normal 0.15-1.00 [facility] ([place]) Comment on above: Performed By: #### C BC ADIFF, ANEU #### [address] [address] #### BMP, TROP, GFR #### [address] [address] Basophils (Bld) [#/Vol] 0.10 10 3/mcL Normal 0.00-0.19 [facility] ([place]) Comment on above: Performed By: #### C BC ADIFF, ANEU #### [address] [address] #### BMP, TROP, GFR #### [address] [address] Basophils/100 WBC (Bld) 1.0 % Normal 0.0-2.5 [facility] ([place]) Comment on above: Performed By: #### C BC, ADIFF, ANEU #### [address] [address] #### BMP, TROP, GFR #### [address] [address] Eosinophils (Bld) [#/Vol] 0.40 10 3/mcL Normal 0.00-0.40 [facility] ([place]) Comment on above: Performed By: #### C BC, ADIFF, ANEU #### [address] [address] #### BMP, TROP, GFR #### [address] [address] Eosinophils/100 WBC (Bld) 4.9 % Normal 0.0-7.0 [facility] ([place]) Comment on above: Performed By: #### C BC, ADIFF, ANEU #### [address] [address] #### BMP, TROP, GFR #### [address] [address] Lymphocytes (Bld) [#/Vol] 2.20 10 3/mcL Normal 0.77-3.85 [facility] ([place]) Comment on above: Performed By: #### C BC, ADIFF, ANEU #### [address] [address] #### BMP, TROP, GFR #### [address] [address] Lymphocytes/100 WBC (Bld) 26.9 % Normal 10.0-50.0 [facility] ([place]) Comment on above: Performed By: #### C BC, ADIFF, ANEU #### [address] [address] #### BMP, TROP, GFR #### [address] [address] Monocytes/100 WBC (Bld) 6.6 % Normal 1.7-13.0 [facility] ([place]) Comment on above: Performed By: #### C BC, ADIFF, ANEU #### [address] [address] #### BMP, TROP, GFR #### [address] [address] Neutrophils/100 WBC (Bld) 60.6 % Normal 37.0-80.0 [facility] ([place]) Comment on above: Performed By: #### C BC, ADIFF, ANEU #### [address] [address] #### BMP, TROP, GFR #### [address] [address] .GFRon 12-25-2018 GFR 119 ml/min/1.73sqm Normal [facility] ([place]) Comment on above: Result Comment: GFR Population mean for , [...] 15 mL/min/1.73 square meters Performed By: #### C BC, ADIFF, ANEU #### [facility] [address] [address] #### BMP, TROP, GFR #### [address] [address] GFR Non- 99 ml/min/1.73sqm Normal [facility] ([place]) Comment on above: Result Comment: GFR Population mean for , [...] 15 mL/min/1.73 square meters Performed By: #### C BC, ADIFF, ANEU #### [address] [address] #### BMP, TROP, GFR #### [address] [address] .NEUABSon 12-25-2018 Neutrophils (Bld) [#/Vol] 4.90 10 3/mcL Normal 2.85-6.16 [facility] ([place]) Comment on above: Performed By: #### C BC, ADIFF, ANEU #### [address] [address] #### BMP, TROP, GFR #### [place] [address] BMPon 12-25-2018 Calcium [Mass/Vol] 9.0 mg/dL Normal 8.4-10.2 [facility] ([place]) Comment on above: Performed By: #### C BC, ADIFF, ANEU #### [place] [address] #### BMP, TROP, GFR #### [place] [address] Chloride [Moles/Vol] 102 mmol/L Normal 98-107 [facility] ([place]) Comment on above: Performed By: #### C BC, ADIFF, ANEU #### [place] [address] #### BMP, TROP, GFR #### [place] [address] CO2 [Moles/Vol] 26 mmol/L Normal 22-29 [facility] ([place]) Comment on above: Performed By: #### C BC, ADIFF, ANEU #### [place] [address] #### BMP, TROP, GFR #### [place] [address] Creatinine [Mass/Vol] 0.81 mg/dL Normal 0.70-1.30 [facility] ([place]) Comment on above: Performed By: #### C BC, ADIFF, ANEU #### [place] [address] #### BMP, TROP, GFR #### [place] [address] Electrolyte Balance 11.0 mEq/L Normal [facility] ([place]) Comment on above: Performed By: #### C BC, ADIFF, ANEU #### [address] [address] #### BMP, TROP, GFR #### [address] [address] Glucose [Mass/Vol] 98 mg/dL Normal 70-105 [facility] ([place]) Comment on above: Performed By: #### C BC, ADIFF, ANEU #### [address] [address] #### BMP, TROP, GFR #### [address] [address] Potassium [Moles/Vol] 4.1 mmol/L Normal 3.5-5.1 [facility] ([place]) Comment on above: Performed By: #### C BC, ADIFF, ANEU #### [address] [address] #### BMP, TROP, GFR #### [address] [address] Sodium [Moles/Vol] 139 mmol/L Normal 136-145 [facility] ([place]) Comment on above: Performed By: #### C BC, ADIFF, ANEU #### [address] [address] #### BMP, TROP, GFR #### [address] [address] Urea nitrogen [Mass/Vol] 11 mg/dL Normal 7-18 [facility] ([place]) Comment on above: Performed By: #### C BC, ADIFF, ANEU #### [address] [address] #### BMP, TROP, GFR #### [address] [address] Urea nitrogen/Creatinine [Mass ratio] 14 ratio Normal 7-27 [facility] ([place]) Comment on above: Performed By: #### C BC, ADIFF, ANEU #### [address] [address] #### BMP, TROP, GFR #### [address] [address] CBCon 12-25-2018 Erythrocyte distribution width (RBC) [Ratio] 14.2 % Normal 11.5-14.5 [facility] ([place]) Comment on above: Performed By: #### C BC, ADIFF, ANEU #### [place] [address] #### BMP, TROP, GFR #### [place] [address] Hematocrit (Bld) [Volume fraction] 44.4 % Normal 42.0-52.0 [facility] ([place]) Comment on above: Performed By: #### C BC, ADIFF, ANEU #### [place] [address] #### BMP, TROP, GFR #### [place] [address] Hemoglobin (Bld) [Mass/Vol] 15.4 G/dL Normal 14.0-18.0 [facility] ([place]) Comment on above: Performed By: #### C BC, ADIFF, ANEU #### [place] [address] #### BMP, TROP, GFR #### [place] [address] MCH (RBC) [Entitic mass] 30.9 pg Normal 27.0-31.2 [facility] ([place]) Comment on above: Performed By: #### C BC, ADIFF, ANEU #### [address] [address] #### BMP, TROP, GFR #### [place] [id number] MCHC (RBC) [Mass/Vol] 34.6 G/dL Normal 31.8-35.4 [facility] ([place]) Comment on above: Performed By: #### C BC, ADIFF, ANEU #### [address] [address] #### BMP, TROP, GFR #### [address] [address] MCV (RBC) [Entitic vol] 89.4 fL Normal 80.0-94.0 [facility] ([place]) Comment on above: Performed By: #### C BC, ADIFF, ANEU #### [place] [address] #### BMP, TROP, GFR #### [address] [address] Platelet mean volume (Bld) [Entitic vol] 7.9 fL Normal 7.4-10.4 [facility] ([place]) Comment on above: Performed By: #### C BC, ADIFF, ANEU #### [place] [address] #### BMP, TROP, GFR #### [address] [address] Platelets (Bld) [#/Vol] 281 10 3/mcL Normal 130-400 [facility] ([place]) Comment on above: Performed By: #### C BC, ADIFF, ANEU #### [place] [address] #### BMP, TROP, GFR #### [address] [address] RBC (Bld) [#/Vol] 4.97 10 6/mcL Normal 4.04-6.13 [facility] ([place]) Comment on above: Performed By: #### C BC, ADIFF, ANEU #### [place] [address] #### BMP, TROP, GFR #### [address] [address] WBC (Bld) [#/Vol] 8.00 10 3/mcL Normal 4.60-10.80 [facility] ([place]) Comment on above: Performed By: #### C BC, ADIFF, ANEU #### [place] [address] #### BMP, TROP, GFR #### [facility] [address] [place] [address] TROPon 12-25-2018 Troponin I.cardiac [Mass/Vol] ng/mL Normal 0.000-0.040 [facility] ([place]) Comment on above: Result Comment: Trop onin I reference range: 0.00-0.040 ng/mL Negative and non-diagnostic. >0.040 ng/mL Consistent with cardiac damage, increased clinical risk and possibility of myocardial infarction. Serial measurements, a rise & fall in test results, clinical history, appropriate symptoms and/or ECG changes may help assess possibility of [place]. *Other non-acute coronary syndrome conditions such as CHF, myocarditis, pulmonary emboli, sepsis and cardiac surgery could result in myocardial damage and increased troponin levels. Performed By: #### C BC, ADIFF, ANEU #### [address] [address] #### BMP, TROP, GFR #### [place] [id number] [place] [address] XR CHEST 2 VIEWSon 9 XR CHEST 2 VIEWS ORIGINAL XR CHEST 2 VIEWS PA and lateral chest CLINICAL INDICATION: Chest Pain COMPARISON: 12/17/2009 FINDINGS: [...] 1:46:01 PM Sign Date: 12/25/2018 1:48:22 PM Normal [facility] ([place]) Office Visit: Jannet 06-22-20 Dietary management education, guidance, and counseling (procedure) yes Invalid Interpretation Code [facility] Work Phone: Documentation of current medications (procedure) Done Invalid Interpretation Code [facility] Work Phone: Fall risk assessment No Invalid Interpretation Code [facility] Work Phone: [phone] Clinical 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 Work Phone: [phone] General cardiovascular disease 10Y risk [#] Roman.D'Agostdameon Not enough information Invalid Interpretation Code [facility] Work Phone: [phone] Tobacco use CPHS Former smoker Invalid Interpretation Code [facility] Work Phone: [phone] Office Visit: Pre-op Clearan ceon 05-28-2014 Smoking cessation education (procedure) yes Invalid Interpretation Code [facility] Work Phone: [phone] Replaced Document: Abel SERRATO Observationson 05-28-2014 EKG QRS axis -32 deg Invalid Interpretation Code [facility] Work Phone: [phone] Interpretation Sinus Rhythm WITHIN NORMAL LIMITS Invalid Interpretation Code [facility] Work Phone: [phone] P [place] -1 deg Invalid Interpretation Code [facility] Work Phone: [phone] [place] Interval 152 ms Invalid Interpretation Code [facility] Work Phone: [phone] Pulse (Heart Rate) 73 /min Invalid Interpretation Code [facility] Work Phone: [phone] QRS Duration 98 ms Invalid Interpretation Code [facility] Work Phone: [phone] QT Interval new path ms Invalid Interpretation Code [facility] Work Phone: [phone] QTc Pandey 412 ms Invalid Interpretation Code [facility] Work Phone: [phone] T [place] 12 deg Invalid Interpretation Code [facility] Work Phone: [phone] Vital Signs Date Time Vital Sign Value Performing Clinician Facility 03-02-2025 12:21-0400 Body height 165.1 cm [employer] Work Phone: [facility] 03-02-2025 12:21-0400 Body mass index (BMI) [Ratio] 34.95 kg/m2 Eddie White DO Work Phone: [facility] 03-02-2025 12:21-0400 Body weight 95.25 kg Eddie White DO Work Phone: [facility] 03-02-2025 12:18-0400 Body temperature 98.01 [degF] Eddie White DO Work Phone: [facility] 03-02-2025 12:18-0400 Diastolic blood pressure 90 mm[Hg] Eddie White DO Work Phone: [facility] 03-02-2025 12:18-0400 Heart rate 78 /min Eddie White DO Work Phone: [facility] 03-02-2025 12:18-0400 Respiratory rate 16 /min Suncore White DO Work Phone: [facility] 03-02-2025 12:18-0400 SaO2% (BldA) [Mass fraction] 97 % Eddie White DO Work Phone: [facility] 03-02-2025 12:18-0400 Systolic blood pressure 149 mm[Hg] Eddie White DO Work Phone: [facility] 02-18-2025 07:05-0400 Body height 167.[address] Nick Quick MD Work Phone: [facility] 02-18-2025 07:05-0400 Body mass index (BMI) [Ratio] 35.2 kg/m2 Dr. Nick Quick MD Work Phone: [facility] 02-18-2025 07:05-0400 Body weight 98.[address] Nick Quick MD Work Phone: [facility] 02-18-2025 07:05-0400 Diastolic blood pressure 69 mm[Hg] Dr. Nick Quick MD Work Phone: [facility] 02-18-2025 07:05-0400 Heart rate 70 /min Dr. Nick Quick MD Work Phone: [facility] 02-18-2025 07:05-0400 Respiratory rate 18 /min Dr. Nick Quick MD Work Phone: [facility] 02-18-2025 07:05-0400 SaO2% (BldA) [Mass fraction] 97 % Dr. Nick Quick MD Work Phone: [facility] 02-18-2025 07:05-0400 Systolic blood pressure 111 mm[Hg] Dr. Nick Quick MD Work Phone: [facility] 01-03-2025 09:31-0400 Body height 167.6 cm Chan Gombash DO Work Phone: [facility] 01-03-2025 09:31-0400 Body mass index (BMI) [Ratio] 33.89 kg/m2 Chan Gombash DO Work Phone: [facility] 01-03-2025 09:31-0400 Body temperature 98.01 [degF] Chan Gombash DO Work Phone: [facility] 01-03-2025 09:31-0400 Body weight 95.25 kg Chan Gombash DO Work Phone: [facility] 01-03-2025 09:31-0400 Diastolic blood pressure 74 mm[Hg] Chan Gombash DO Work Phone: [facility] 01-03-2025 09:31-0400 Heart rate 84 /min Chan Gombash DO Work Phone: [facility] 01-03-2025 09:31-0400 Respiratory rate 16 /min Chan Gombash DO Work Phone: [facility] 01-03-2025 09:31-0400 SaO2% (BldA) [Mass fraction] 98 % Chan Gombash DO Work Phone: [facility] 01-03-2025 09:31-0400 Systolic blood pressure 132 mm[Hg] Chan Gombash DO Work Phone: [facility] 12-19-2024 10:49-0400 Body temperature 97.7 [degF] Dr. Nick Quick MD Work Phone: [facility] 12-19-2024 10:49-0400 Body weight 98.[address] Nick Quick MD Work Phone: [facility] 12-19-2024 10:49-0400 Diastolic blood pressure 67 mm[Hg] Dr. Nick Quick MD Work Phone: [facility] 12-19-2024 10:49-0400 Heart rate 72 /min Dr. Nick Quick MD Work Phone: [facility] 12-19-2024 10:49-0400 Respiratory rate 16 /min Dr. Nick Quick MD Work Phone: [facility] 12-19-2024 10:49-0400 SaO2% (BldA) [Mass fraction] 96 % Dr. Nick Quick MD Work Phone: [facility] 12-19-2024 10:49-0400 Systolic blood pressure 107 mm[Hg] Dr. Nick Quick MD Work Phone: [facility] 09-18-2024 12:57-0500 Diastolic blood pressure 80 mm[Hg] Hugo Singer MD Work Phone: [facility] 09-18-2024 12:57-0500 Systolic blood pressure 122 mm[Hg] Hugo Singer MD Work Phone: [facility] 09-18-2024 12:55-0500 Body mass index (BMI) [Ratio] 35.51 kg/m2 Hugo Singer MD Work Phone: [facility] 09-18-2024 12:55-0500 Body temperature 97.81 [degF] Hugo Singer MD Work Phone: [facility] 09-18-2024 12:55-0500 Body weight 99.79 kg Hugo Singer MD Work Phone: [facility] 09-18-2024 12:55-0500 Heart rate 70 /min Hugo Singer MD Work Phone: [facility] 09-18-2024 12:55-0500 Respiratory rate 16 /min Hugo Singer MD Work Phone: [facility] 09-18-2024 12:55-0500 SaO2% (BldA) [Mass fraction] 97 % Hugo Singer MD Work Phone: [facility] 07-31-2024 09:00-0500 Body mass index (BMI) [Ratio] 34.6 kg/m2 Alicia Caballero HEAD [employer] 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 Work Phone: [facility] 07-31-2024 09:00-0500 Body temperature 98.6 [degF] Alicia Caballero HEAD TENNIS 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-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 Work Phone: [facility] 07-31-2024 09:00-0500 Body weight 100.2 kg Aliciaadelaida Caballero HEAD TENNIS 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-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 Work Phone: [facility] 07-31-2024 09:00-0500 Diastolic blood pressure 78 mm[Hg] Alicia Caballero HEAD TENNIS 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-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 Work Phone: [facility] 07-31-2024 09:00-0500 Heart rate 81 /min Alicia Caballero HEAD [employer] 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[employer]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 Work Phone: [facility] 07-31-2024 09:00-0500 SaO2% (BldA) [Mass fraction] 97 % Alicia Caballero HEAD [employer]ENN[employer] 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[employer]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 Work Phone: [facility] 07-31-2024 09:00-0500 Systolic blood pressure 123 mm[Hg] Alicia Michael HEAD [employer]ENNIS 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[employer]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 Work Phone: [facility] 07-25-2024 06:30-0500 Body height 170.2 cm Pranav Reed MD Work Phone: [facility] 07-25-2024 06:30-0500 Body mass index (BMI) [Ratio] 34.74 kg/m2 Pranav Reed MD Work Phone: [facility] 07-25-2024 06:30-0500 Body temperature 96.8 [degF] Pranav Reed MD Work Phone: [facility] 07-25-2024 06:30-0500 Body weight 100.6 kg Pranav Reed MD Work Phone: [facility] 07-25-2024 06:30-0500 Diastolic blood pressure 62 mm[Hg] Pranav Reed MD Work Phone: [facility] 07-25-2024 06:30-0500 Heart rate 88 /min Pranav Reed MD Work Phone: [facility] 07-25-2024 06:30-0500 Respiratory rate 22 /min Pranav Reed MD Work Phone: [facility] 07-25-2024 06:30-0500 SaO2% (BldA) [Mass fraction] 97 % Pranav Reed MD Work Phone: [facility] 07-25-2024 06:30-0500 Systolic blood pressure 105 mm[Hg] Pranav Reed MD Work Phone: [facility] 07-22-2024 12:56-0500 Diastolic blood pressure 81 mm[Hg] Chan Gombash DO Work Phone: [facility] 07-22-2024 12:56-0500 Heart rate 74 /min Chan Gombash DO Work Phone: [facility] 07-22-2024 12:56-0500 Respiratory rate 18 /min Chan Gombash DO Work Phone: [facility] 07-22-2024 12:56-0500 SaO2% (BldA) [Mass fraction] 97 % Chan Gombash DO Work Phone: [facility] 07-22-2024 12:56-0500 Systolic blood pressure 121 mm[Hg] Chan Gombash DO Work Phone: [facility] 07-22-2024 09:49-0500 Body height 167.6 cm Chan Gombash DO Work Phone: [facility] 07-22-2024 09:49-0500 Body mass index (BMI) [Ratio] 35.51 kg/m2 Chan Gombash DO Work Phone: [facility] 07-22-2024 09:49-0500 Body temperature 97.5 [degF] Chan Gombash DO Work Phone: [facility] 07-22-2024 09:49-0500 Body weight 99.79 kg Chan Gombash DO Work Phone: [facility] 03-20-2024 07:57-0400 Diastolic blood pressure 83 mm[Hg] Shona Lyman MD Work Phone: [facility] 03-20-2024 07:57-0400 Heart rate 80 /min Shona Lyman MD Work Phone: [facility] 03-20-2024 07:57-0400 Systolic blood pressure 136 mm[Hg] Shona Lyman MD Work Phone: [facility] 04-08-2023 16:23-0400 Body height 167.6 cm Yariel Floyd MD Work Phone: [facility] 04-08-2023 16:23-0400 Body mass index (BMI) [Ratio] 36.8 kg/m2 Yariel Floyd MD Work Phone: [facility] 04-08-2023 16:23-0400 Body temperature 97.59 [degF] Yariel Floyd MD Work Phone: [facility] 04-08-2023 16:23-0400 Body weight 103.42 kg Yariel Flody MD Work Phone: [facility] 08-05-2023 16:23-0400 Diastolic blood pressure 74 mm[Hg] Yariel Floyd MD Work Phone: [facility] 04-08-2023 16:23-0400 Heart rate 80 /min Yariel Floyd MD Work Phone: [facility] 04-08-2023 16:23-0400 Respiratory rate 20 /min Yariel Floyd MD Work Phone: [facility] 04-08-2023 16:23-0400 SaO2% (BldA) [Mass fraction] 98 % Yariel Floyd MD Work Phone: [facility] 04-08-2023 16:23-0400 Systolic blood pressure 132 mm[Hg] Yariel Floyd MD Work Phone: [facility] 02-19-2023 17:48-0400 Body mass index (BMI) [Ratio] 36.02 kg/m2 Michel Zheng DO Work Phone: [facility] 02-19-2023 17:48-0400 Body temperature 98.01 [degF] Michel Zheng DO Work Phone: [facility] 02-19-2023 17:48-0400 Body weight 104.33 kg Michel Zheng DO Work Phone: [facility] 02-19-2023 17:48-0400 Diastolic blood pressure 98 mm[Hg] Michel Zheng DO Work Phone: [facility] 02-19-2023 17:48-0400 Heart rate 100 /min Michel Zheng DO Work Phone: [facility] 02-19-2023 17:48-0400 Respiratory rate 18 /min Michel Zheng DO Work Phone: [facility] 02-19-2023 17:48-0400 SaO2% (BldA) [Mass fraction] 98 % Michel Zheng DO Work Phone: [facility] 02-19-2023 17:48-0400 Systolic blood pressure 164 mm[Hg] Michel Zheng DO Work Phone: [facility] 01-08-2023 15:59-0400 Diastolic blood pressure 98 mm[Hg] Namrata Gleason MD Work Phone: [facility] 01-08-2023 15:59-0400 Heart rate 87 /min Namrata Gleason MD Work Phone: [facility] 01-08-2023 15:59-0400 Respiratory rate 16 /min Namrata Gleason MD Work Phone: [facility] 01-08-2023 15:59-0400 SaO2% (BldA) [Mass fraction] 100 % Namrata Gleason MD Work Phone: [facility] 01-08-2023 15:59-0400 Systolic blood pressure 128 mm[Hg] Namrata Gleason MD Work Phone: [facility] 01-08-2023 13:06-0400 Body mass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 patient visit Jt Little [facility] Comment on above: Sprain of right wris t, initial encounter (Primary Dx) Start: 10-20-2019 End: 10-20-2019 Emergency department patient visit Zhane Aldana Work Phone: [facility] Comment on above: Leg pain, posterior, left (Primary Dx) Procedures Date Procedure Procedure Detail Performing Clinician Start: 07-22-2024 Radiologic exam ches t single view Chan Castaneda Gombash DO Work Phone: Start: 07-22-2024 Basic metabolic pane l calcium total Chan A Gombash DO Work Phone: Start: 03-27-2024 CRYOTHERAPY SKIN LESION Suzy Tonya Bollas PA-C Work Phone: Start: 03-20-2024 [facility] Shona gonzalez MD Work Phone: Start: 05-03-2023 SKIN BIOPSY Suzy Castaneda Mathew llas PA-C Work Phone: Start: 05-03-2023 CRYOTHERAPY SKIN LESION Suzy Tonya Bollas PA-C Work Phone: Start: 01-08-2023 Radex wrist 2 views Neftali Gleason MD Work Phone: Start: 01-08-2023 Radex wrist complete minimum 3 views Namrata Gleason MD Work Phone: Start: 01-04-2023 Colonoscopy flx dx w /collj spec when pfrmd Duncan Vásquez MD Work Phone: Start: 01-04-2023 Colonoscopy Duncan boudreaux MD Work Phone: Start: 03-30-2022 Radex shoulder compl ete minimum 2 views Barrett Moore MD Work Phone: Start: 12-08-2021 End: 12-08-2021 BP scrn no perf at interval Daniel Jordan MD Work Phone: Start: 12-08-2021 End: 12-08-2021 Calc BMI abv up odessa f/u Daniel parker MD Work Phone: Start: 12-08-2021 End: 12-08-2021 Current tobacco non-user cad cap copd pv ramiro Jordan MD Work Phone: Start: 12-08-2021 End: 12-08-2021 Docrev cur meds by carlos alberto Jordan MD Work Phone: Start: 12-08-2021 End: 12-08-2021 No doc of pain Daniel Joseph i, MD Work Phone: Start: 12-08-2021 End: 12-08-2021 Patient encounter procedure Daniel Jordan MD Work Phone: Start: 12-01-2021 End: 12-01-2021 Documentation of current medications Tash Rodriguez AT Start: 11-26-2021 End: 11-27-2021 Arthrocentesis aspir&/inj major jt/bursa w/o us Daniel Jordan MD Work Phone: Start: 11-26-2021 End: 11-27-2021 BP scrn no perf at interval Daniel Jordan MD Work Phone: Start: 11-26-2021 End: 11-27-2021 Calc BMI abv up odessa f/u Daniel parker MD Work Phone: Start: 11-26-2021 End: 11-27-2021 Current tobacco non-user cad cap copd pv dm Daniel Jordan MD Work Phone: Start: 11-26-2021 End: 11-27-2021 Docrev cur meds by carlos alberto Jordan MD Work Phone: Start: 11-26-2021 End: 11-27-2021 No doc of pain Daniel Joseph i, MD Work Phone: Start: 11-26-2021 End: 11-27-2021 Patient encounter procedure Daniel Jordan MD Work Phone: Start: 11-26-2021 End: 11-26-2021 Radiologic examination knee 3 views Daniel Jordan MD Work Phone: Start: 11-26-2021 End: 11-27-2021 Triamcinolone acet inj NOS Daniel stubbs MD Work Phone: Start: 11-16-2021 Dup-scan xtr veins unilateral/limited study Tyshawn Love DO Work Phone: Start: 11-06-2021 Basic metabolic pane l calcium total Mitch Haverchak PA-C Work Phone: Start: 11-06-2021 C-reactive protein Diogenes katherine Haverchak PA-C Work Phone: Start: 11-06-2021 Dup-scan xtr veins unilateral/limited study Mitch Haverchak PA-C Work Phone: Start: 05-20-2021 Basic metabolic pane l calcium total Melanie Burgos [employer] 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 Work Phone: Start: 05-19-2021 ADD ON LAB TEST Yoshi Nelson MD Work Phone: Start: 05-19-2021 Basic metabolic pane l calcium total Melanie Burgos HEAD [employer]ENN[employer] 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 Work Phone: Start: 05-19-2021 C-reactive protein Virg inchristine Burgos HEAD [employer]ENN[employer] 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 Work Phone: Start: 05-18-2021 Radex forearm 2 views D rolando Jenkins MD Work Phone: Start: 05-18-2021 End: 05-18-2021 Basic metabolic panel calcium total Marlon Jenkins MD Work Phone: Start: 05-18-2021 Culture bacterial bl ood aerobic w/id isolates Marlon Jenkins MD Work Phone: Start: 05-18-2021 CULTURE, BLOOD 1 Olga Jenkins MD Work Phone: Start: 01-04-2021 Ct abdomen & pelvis w/o contrast material Ck Dyer MD Work Phone: Start: 01-04-2021 Urnls dip stick/tabl et rgnt auto w/o microscopy Ck Dyer MD Work Phone: Start: 01-04-2021 Basic metabolic pane l calcium total Ck Dyer MD Work Phone: Start: 09-25-2020 Dup-scan xtr veins unilateral/limited study Chan Castaneda Godesmondash Work Phone: Start: 02-17-2020 Radex elbow complete minimum 3 views [employer] Work Phone: Start: 02-17-2020 Radex wrist complete minimum 3 views Jt Dinomarket Work Phone: Start: 10-20-2019 Radiologic exam knee complete 4/more views Zhane Aldana Work Phone: Start: 09-06-2016 End: 09-06-2016 PHOTOLITHOGRAPHIC STRIPPER Rosio Parikh PA-C Work Phone: Start: 09-06-2016 End: 09-06-2016 Follow Up Appt 1 year Rosio abdalla PA-C Work Phone: Start: 09-08-2015 End: 08-23-2016 Follow Up Appt 1 year Gilles Castillo MD Start: 09-08-2015 End: 08-23-2016 MMM Gilles Castillo MD Start: 05-28-2014 End: 05-28-2014 Ecg routine ecg w/least 12 lds w/i&r Gilles Castillo MD Start: 05-28-2014 End: 06-05-2014 Echocardiography Gilles Castillo MD Start: 05-28-2014 End: 05-28-2014 Follow Up Appt Other Gilles Castillo MD Start: 05-28-2014 End: 06-04-2014 Nuclear stress test -Dhiraj Castillo MD Back fusion DANIEL SHIPMAN MD Entire knee joint (b hugh structure) DANIEL JORDAN MD NEGATED: Highlighted rowStart: 12-08-2021 End: 12-08-2021 Documentation of current medications Tash Rodriguez AT NEGATED: Highlighted rowStart: 11-26-2021 End: 11-26-2021 Documentation of current medications Jose Munoz AT Plan of Treatment Date Care Activity Detail Author Start: 07-22-2034 DTaP/Tdap/Td Vaccines (4 - Td or Tdap) DTaP/Tdap/Td Vaccines (4 - Td or Tdap) [facility] Start: 01-04-2033 Colonoscopy Colonoscopy [facility] Start: 01-04-2033 Colorectal Cancer Screening Colorectal Cancer Screening [facility] Start: 01-04-2033 Screening for malignant neoplasm of colon [facility] Start: 05-17-2031 DTaP/Tdap/Td vaccine (2 - Td or Tdap) DTaP/Tdap/Td vaccine (2 - Td or Tdap) [facility] Start: 05-17-2031 DTaP/Tdap/Td vaccine (3 - Td or Tdap) DTaP/Tdap/Td vaccine (3 - Td or Tdap) [facility] Start: 05-17-2031 DTaP/Tdap/Td Vaccines (3 - Td or Tdap) DTaP/Tdap/Td Vaccines (3 - Td or Tdap) [facility] Start: 05-17-2031 Urine microalbumin profile DTaP,Tdap,Td Vaccine (3 - Td or Tdap) [facility] Start: 01-05-2028 Screening for malignant neoplasm of colon [facility] Start: 08-17-2025 Diabetes Screening Diabetes Screening [facility] Start: 05-05-2025 Influenza vaccination Influenza Vaccine (Season Ended) [facility] Start: 04-15-2025 Screening for malignant neoplasm of lung Lung Cancer Screening [facility] Start: 09-04-2024 Medicare Advantage Annual Wellness Visit Medicare Advantage Annual Wellness Visit [facility] Start: 08-20-2024 End: 08-20-2024 Patient encounter procedure [facility] Start: 07-31-2024 End: 07-31-2024 Patient encounter procedure 07/31/2024 9:00 AM EST Appointment [facility] [place] [address] [address] [place] [address] BURN FU [facility] Comment on above: BURN FU Start: 05-05-2024 COVID-19 ( season) COVID-19 ( season) [facility] Start: 05-05-2024 Covid-19 Vaccine ( season) Covid-19 Vaccine ( season) [facility] Start: 05-05-2024 FLU (#1) FLU (#1) [facility] Start: 05-05-2024 Influenza vaccination [facility] Start: 04-02-2024 Subsequent hospital visit by physician 04/02/2024 8:45 AM EDT Hospital Encounter [facility] [address] [place] [phone] Nick Quick MD [address] [place] [phone] [facility] [address] Start: 03-27-2024 End: 03-27-2024 Patient encounter procedure 03/27/2024 9:30 AM EDT Office Visit [facility] [address] [phone] Shona Lyman MD [address] [facility] [address] [place] [address] [facility] Start: 03-27-2024 End: 03-27-2024 Patient encounter procedure 03/27/2024 7:40 AM EDT Office Visit [facility] [address] [facility] [address] [place] [phone] Suzy Marshall PA-C [address] [facility] [address] [place] [address] [facility] Start: 03-06-2024 End: 03-06-2025 CT Chest for screening WO contrast CT lung screening low dose Imaging Routine Other nonspecific abnormal finding of lung field Expected: 03/06/2024, Expires: 03/06/2025 [facility] Work Phone: Comment on above: Expected: 03/06/2024, Expires: Start: 01-11-2024 Screening for malignant neoplasm of lung Lung Cancer Screening [facility] Start: 12-27-2023 End: 12-27-2023 Patient encounter procedure 12/27/2023 9:20 AM EDT Office Visit [facility] [address] [facility] [address] [place] [phone] Suzy Marshall PA-C [address] [facility] [address] [place], [place] [phone] [facility] Start: 10-03-2023 End: 10-03-2023 Patient encounter procedure 10/03/2023 7:40 AM EST Office Visit [facility] [address] [facility] [address] [place] [address] Suzy Marshall PA-C [address] [facility] [address] [place], [place] [id number] [facility] Start: 09-04-2023 Medicare Advantage Annual Wellness Visit Medicare Advantage Annual Wellness Visit [facility] Start: 05-05-2023 COVID-19 Vaccine ( season) COVID-19 Vaccine () [facility] Start: 05-05-2023 Influenza vaccination [facility] Start: 04-24-2023 End: 04-24-2023 Patient encounter procedure [facility] Start: 01-10-2023 Subsequent hospital visit by physician 01/10/2023 Hospital Encounter Radiology Michel Azar MD [address] [place] [address] [facility] [address] Start: 11-06-2022 Creatinine measurement Creatinine monitoring [facility] Start: 11-06-2022 Potassium monitoring Potassium monitoring [facility] Start: 09-12-2022 End: 11-12-2022 C reactive protein [Mass/volume] in Serum or Plasma [facility] Work Phone: Comment on above: Expected: 09/12/2022, Expires: 3 Start: 09-12-2022 End: 11-12-2022 Calprotectin [Mass/mass] in Stool CALPROTECTIN,FECAL Lab Routine Encounter for screening colonoscopy Gastroesophageal reflux disease, unspecified whether esophagitis present Class 2 severe obesity due to excess calories with serious comorbidity and body mass index (BMI) of 35.0 to 35.9 in adult (HCC) Chronic diarrhea Expected: 09/12/2022, Expires: 11/12/2022 [facility] Work Phone: Comment on above: Expected: 09/12/2022, Expires: 3 Start: 09-12-2022 End: 11-12-2022 Clostridioides difficile toxin genes [Presence] in Stool by THOMAS with probe detection C. DIFFICILE PCR Lab Routine Encounter for screening colonoscopy Gastroesophageal reflux disease, unspecified whether esophagitis present Class 2 severe obesity due to excess calories with serious comorbidity and body mass index (BMI) of 35.0 to 35.9 in adult (HCC) Chronic diarrhea Expected: 09/12/2022, Expires: 11/12/2022 [facility] Work Phone: Comment on above: Expected: 09/12/2022, Expires: 3 Start: 09-12-2022 End: 11-12-2022 IgA [Mass/volume] in Serum or Plasma [facility] Work Phone: Comment on above: Expected: 09/12/2022, Expires: 3 Start: 09-12-2022 End: 11-12-2022 Tissue transglutaminase Ab panel - Serum [facility] Work Phone: Comment on above: Expected: 09/12/2022, Expires: 3 Start: 09-04-2022 DEPRESSION ASSESSMENT DEPRESSION ASSESSMENT [facility] Start: 07-14-2022 End: 07-14-2022 Patient encounter procedure 07/14/2022 Office Visit Dermatology Oliva Galindo PA-C [address] [facility] [address] [place], [place] [address] [facility] Start: 07-04-2022 End: 07-04-2022 Patient encounter procedure 07/04/2022 Office Visit Dermatology Suzy Marshall PA-C [address] [facility] [address] [place], [place] [phone] [facility] Start: 05-20-2022 Creatinine measurement Creatinine monitoring [facility] Start: 05-20-2022 Potassium monitoring Potassium monitoring [facility] Start: 05-05-2022 Influenza vaccination [facility] Start: 04-04-2022 Influenza vaccination Flu vaccine (#1) [facility] Start: 2022 RSV Immunization aged 60 or older (1 - 1-dose 60+ series) RSV Immunization aged 60 or older (1 - 1-dose 60+ series) [facility] Start: 2022 RSV Immunization for Adults (1 - Risk 60-74 years 1-dose series) RSV Immunization for Adults (1 - Risk 60-74 years 1-dose series) [facility] Start: 2022 RSV patients and/or patients aged 60+ years (1 - 1-dose 60+ series) RSV patients and/or patients aged 60+ years (1 - 1-dose 60+ series) [facility] Start: 2022 RSV Vaccine (1 - 1-dose 60+ series) RSV Vaccine (1 - 1-dose 60+ series) [facility] Start: 2022 RSV Vaccine (1 - Risk 60-74 years 1-dose series) RSV Vaccine (1 - Risk 60-74 years 1-dose series) [facility] Start: 01-07-2022 End: 01-07-2022 Patient encounter procedure Appointment [facility] Work Phone: Start: 01-04-2022 End: 01-04-2022 Patient encounter procedure 01/04/2022 Office Visit Dermatology Oliva Galindo PA-C [address] [facility] [address] [place] [address] [facility] Start: 12-08-2021 End: 12-08-2021 Patient encounter procedure Appointment [facility] Work Phone: Start: 12-08-2021 End: 12-08-2021 Mri spinal canal thoracic w/o & w/contr matrl MRI thoracic with and without contrast [facility] Work Phone: Start: 11-07-2021 End: 11-20-2021 VL DUP LOWER EXTREMITY VENOUS LEFT VL DUP LOWER EXTREMITY VENOUS LEFT Imaging Routine Acute pain of left knee Expected: 11/07/2021, Expires: 11/20/2021 [facility] Work Phone: Comment on above: Expected: 11/07/2021, Expires: Start: 07-15-2021 End: 07-15-2021 Patient encounter procedure 07/15/2021 Office Visit Dermatology Rika Vasquez APRN - CNP 1 [facility] [address] [place] [address] [phone] [facility] Start: 05-05-2021 Influenza vaccination [facility] Start: 03-25-2021 Annual Wellness Visit (AWV) Annual Wellness Visit (AWV) [facility] Start: 01-28-2021 Lipid panel [facility] Start: 01-28-2021 Lipid screen Lipid screen [facility] Work Phone: Start: 05-05-2020 Influenza vaccination [place] Start: 11-16-[address] lung screening Low dose CT lung screening [facility] Work Phone: Start: 11-16-2019 Screening for malignant neoplasm of lung Low dose CT lung screening [facility] Start: 05-05-2019 Influenza vaccination Flu vaccine (#1) [facility] Work Phone: Start: 09-07-2017 End: 09-07-[address] [facility] Work Phone: Start: 2017 PROSTATE CANCER SCREENING DISCUSSION PROSTATE CANCER SCREENING DISCUSSION [facility] Start: 2017 Prostate specific antigen measurement Prostate Cancer Screening Discussion [facility] Start: 09-06-2016 End: 09-06-2016 PHOTOLITHOGRAPHIC STRIPPER PHOTOLITHOGRAPHIC STRIPPER [facility] Work Phone: Start: 09-06-2016 End: 09-06-2016 Follow Up Appt 1 year Follow Up Appt 1 year [facility] Work Phone: Start: 09-08-2015 End: 08-23-2016 Follow Up Appt 1 year Follow Up Appt 1 year [facility] Work Phone: Start: 09-08-2015 End: 08-23-2016 MMM MMM AMS [employer] Work Phone: Start: 05-28-2014 End: 05-28-2014 Ecg routine ecg w/least 12 lds w/i&r EKG (In office) [facility] Work Phone: Start: 05-28-2014 End: 05-28-2014 Echocardiography Echocardiogram (complete) [facility] Work Phone: Start: 05-28-2014 End: 05-28-2014 Follow Up Appt Other Follow Up Appt Other [facility] Work Phone: Start: 05-28-2014 End: 05-28-2014 Nuclear stress test -Lexiscan Nuclear stress test -Lexiscan [facility] Work Phone: Start: 08-27-2013 Shingles Vaccine (2 of 3) Shingles Vaccine (2 of 3) [facility] Start: 08-27-2013 Shingrix Vaccine (2 of 3) Shingrix Vaccine (2 of 3) [facility] Start: 08-27-2013 Zoster Vaccines (1 of 2) Zoster Vaccines (1 of 2) [facility] Start: 08-27-2013 Zoster Vaccines (2 of 3) Zoster Vaccines (2 of 3) [facility] Start: 11-26-2013 MMR Vaccines (1 of 1 - Standard series) MMR Vaccines (1 of 1 - Standard series) [facility] Start: 02-10-2012 Colon cancer screen colonoscopy Colon cancer screen colonoscopy [facility] Work Phone: Start: 02-10-2012 Screening for malignant neoplasm of colon Colon cancer screen colonoscopy [place] Start: 02-10-2012 Screening for malignant neoplasm of lung Lung Cancer Screening [facility] Start: 02-10-2012 Shingles Vaccine (1 of 2) Shingles Vaccine (1 of 2) [facility] Work Phone: Start: 02-10-2012 SHINGRIX VACCINE (1 of 2) SHINGRIX VACCINE (1 of 2) [facility] Start: 2007 COLOGUARD (FIT-DNA) COLOGUARD (FIT-DNA) [facility] Start: 2007 Colonoscopy COLONOSCOPY [facility] Start: 2007 COLORECTAL CANCER SCREENING COLORECTAL CANCER SCREENING [facility] Start: [address] COLONOGRAPHY [facility] Start: 2007 DIABETES SCREEN DIABETES SCREEN [facility] Start: 2007 Diabetes Screening Diabetes Screening [facility] Start: 2007 FECAL OCCULT BLOOD FECAL OCCULT BLOOD [facility] Start: 2007 Screening for malignant neoplasm of colon [facility] Start: 2007 SIGMOIDOSCOPY SIGMOIDOSCOPY [facility] Start: 2002 Diabetes screen Diabetes screen [facility] Work Phone: Start: 2002 Prostate specific antigen measurement Prostate Specific Antigen (PSA) Screening or Monitoring [facility] Start: 1997 Diabetes screen Diabetes screen [facility] Start: 1997 Lipid 1996 panel - Serum or Plasma Lipid Screening [facility] Start: 1997 Lipid panel Lipid Screening [facility] Start: 1997 LIPID SCREEN LIPID SCREEN [facility] Start: 1981 DTaP/Tdap/Td vaccine (1 - Tdap) DTaP/Tdap/Td vaccine (1 - Tdap) [place] Start: 1981 Pneumococcal Vaccine: 50+ Years (1 of 2 - PCV) Pneumococcal Vaccine: 50+ Years (1 of 2 - PCV) [facility] Start: 1981 Urine microalbumin profile DTAP,TDAP,TD (1 - Tdap) [facility] Start: 02-10-1980 Anxiety Screening Anxiety Screening [facility] Start: 02-10-1980 Depression Screening Depression Screening [facility] Start: 02-10-1980 Diabetes mellitus screening Diabetes Screening [facility] Start: 02-10-1980 Hepatitis C screening [facility] Start: 02-10-1980 HEPATITIS C SCREENING HEPATITIS C SCREENING [facility] Start: 02-10-1980 HIV SCREENING HIV SCREENING [facility] Start: 02-10-1980 HIV screening HIV Screening [facility] Start: 1978 COVID-19 Vaccine (1) COVID-19 Vaccine (1) [facility] Work Phone: Start: 1978 MenB (1 of 2 - MenB 2-Dose Series Bexsero) MenB (1 of 2 - MenB 2-Dose Series Bexsero) [facility] Start: 1977 HIV screen HIV screen [facility] Work Phone: Start: 1977 HIV screening HIV screen [facility] Start: 1975 Varicella (1 of 2 - 13+ 2-dose series) Varicella (1 of 2 - 13+ 2-dose series) [facility] Start: 1974 COVID-19 Vaccine (1) COVID-19 Vaccine (1) [facility] Work Phone: Start: 1974 Depression Screen Depression Screen [facility] Start: 1974 Depression Screening Depression Screening [facility] Start: 1973 DTaP/Tdap/Td vaccine (1 - Tdap) DTaP/Tdap/Td vaccine (1 - Tdap) [facility] Work Phone: Start: 1969 Tetanus Diphtheria and Pertussis Vaccines (1 - Tdap) Tetanus Diphtheria and Pertussis Vaccines (1 - Tdap) [facility] Start: 02-10-1968 Pneumococcal 0-64 years Vaccine (1 - PCV) Pneumococcal 0-64 years Vaccine (1 - PCV) [facility] Start: 02-10-1968 Pneumococcal 0-64 years Vaccine (1 of 2 - PPSV23) Pneumococcal 0-64 years Vaccine (1 of 2 - PPSV23) [facility] Start: 02-10-1968 Pneumococcal Vaccine: Pediatrics (0 to 5 Years) and At-Risk Patients (6 to 64 Years) (1 - PCV) Pneumococcal Vaccine: Pediatrics (0 to 5 Years) and At-Risk Patients (6 to 64 Years) (1 - PCV) [facility] Start: 02-10-1968 Pneumococcal Vaccine: Pediatrics (0 to 5 Years) and At-Risk Patients (6 to 64 Years) (1 of 2 - PCV) Pneumococcal Vaccine: Pediatrics (0 to 5 Years) and At-Risk Patients (6 to 64 Years) (1 of 2 - PCV) [facility] Start: 1967 COVID-19 Vaccine (#1) COVID-19 Vaccine (#1) [facility] Start: 1967 COVID-19 Vaccine (1) COVID-19 Vaccine (1) [facility] Start: 1963 MMR (1 of 1 - Standard series) MMR (1 of 1 - Standard series) [facility] Start: 1962 COVID-19 Vaccine (#1) COVID-19 Vaccine (#1) [facility] Start: 1962 Examination of skin Derm Melanoma Skin Check [facility] Start: 1962 Annual Wellness Visit (AWV) Annual Wellness Visit (AWV) [facility] Start: 1962 Hepatitis B Vaccines (1 of 3 - 3-dose series) Hepatitis B Vaccines (1 of 3 - 3-dose series) [facility] Start: 1962 Hepatitis C screen Hepatitis C screen [facility] Work Phone: Start: 1962 Hepatitis C screening Hepatitis C screen [facility] Start: 1962 HIV screening HIV Screening [facility] Start: 1962 Lipid panel Lipid Panel [facility] Start: 1962 Medicare Annual Wellness Visit Medicare Annual Wellness Visit (AWV) [facility] Start: 1962 Screening for malignant neoplasm of colon [facility] Basic metabolic 2000 panel - Serum or Plasma Basic Metabolic Panel Lab Routine Daily until discontinued starting 05/19/2021, 2 completed [facility] Work Phone: Comment on above: Daily until discontinued starting 2020, 2 completed CBC W Auto Different ial panel - Blood CBC Auto Differential Lab Routine Daily until discontinued starting 05/19/2021, 2 completed [employer] Work Phone: Comment on above: Daily until discontinued starting 2020, 2 completed End: 10-28-2023 COLONOSCOPY DIAGNOSTIC COLONOSCOPY DIAGNOSTIC Endoscopy Routine Encounter for screening colonoscopy [place] Chronic diarrhea Class 2 severe obesity due to excess calories with serious comorbidity and body mass index (BMI) of 35.0 to 35.9 in adult (HCC) Gastroesophageal reflux disease, unspecified whether esophagitis present Altered bowel habits Abdominal distention Generalized abdominal pain 1 Occurrences starting 10/28/2022 until 10/28/2023 [facility] Work Phone: Comment on above: 1 Occurrences starting 10/28/2022 until 10/28/2023 End: 01-10-2023 CT Chest for screening WO contrast [employer] Work Phone: Comment on above: Once for 1 Occurrences starting 01/11/20 until 01/10/2023 End: 04-15-2024 CT Chest for screening WO contrast [employer] Work Phone: Comment on above: Once for 1 Occurrences starting 04/15/20 until 04/15/2024 Culture, Blood 2 Culture, Blood 2 Microbiology STAT 05/18/2021 12:16 PM EDT [employer] Work Phone: End: 01-04-2021 Culture, Urine Culture, Urine Microbiology STAT One Time for 1 Occurrences starting 01/04/2021 until 01/04/2021 [employer] Work Phone: Comment on above: One Time for 1 Occurrences starting 11/2020 until 01/04/2021 Culture, Urine Culture, Urine Microbiology STAT 01/04/2021 8:15 AM EDT [employer] Work Phone: End: 09-12-2023 EGD DIAGNOSTIC EGD DIAGNOSTIC Endoscopy Routine Encounter for screening colonoscopy Gastroesophageal reflux disease, unspecified whether esophagitis present 1 Occurrences starting 09/12/2022 until 09/12/2023 [facility] Work Phone: Comment on above: 1 Occurrences starting 09/12/2022 until 09/12/2023 End: 10-28-2023 EGD DIAGNOSTIC EGD DIAGNOSTIC Endoscopy Routine Encounter for screening colonoscopy [place] Chronic diarrhea Class 2 severe obesity due to excess calories with serious comorbidity and body mass index (BMI) of 35.0 to 35.9 in adult (HCC) Gastroesophageal reflux disease, unspecified whether esophagitis present Altered bowel habits Abdominal distention Generalized abdominal pain 1 Occurrences starting 10/28/2022 until 10/28/2023 [facility] Work Phone: Comment on above: 1 Occurrences starting 10/28/2022 until 10/28/2023 Microscopic examinat ion of blood, culture Culture, Blood Microbiology STAT 05/18/2021 12:16 PM EDT [employer] Work Phone: OUTSIDE PROCEDURE SCAN OUTSIDE P ROCEDURE SCAN Procedures [facility] on above: Ordered: 01/09/2023 Oxygen therapy [Mini mum Data Set] Initiate Oxygen Therapy Protocol Respiratory Care Routine Daily until discontinued starting 05/18/2021 [employer] Work Phone: Comment on above: Daily until discontinued starting 2020 Oxygen therapy [Mini mum Data Set] Initiate Oxygen Therapy Protocol Respiratory Care Routine As Needed until discontinued starting 11/07/2021 [employer] Phone: Comment on above: As Needed until discontinued starting Radionuclide imaging of perfusion of myocardium under exercise stress [facility] End: 09-12-2023 Screening colonoscopy COLONOSCOPY SCREENING Endoscopy Routine Encounter for screening colonoscopy Gastroesophageal reflux disease, unspecified whether esophagitis present 1 Occurrences starting 09/12/2022 until 09/12/2023 [facility] Work Phone: Comment on above: 1 Occurrences starting 09/12/2022 until 09/12/2023 End: 05-19-2021 Splint application Splint application Procedures Routine One Time for 1 Occurrences starting 05/19/2021 until 05/19/2021 [employer] Work Phone: Comment on above: One Time for 1 Occurrences starting 05/05 until 05/19/2021 Tissue exam [employer] Work Phone: Comment on above: Release Upon Ordering for 1 Occurrences starting 05/03/2023 [facility] VL DUP LOWER EXTREMI TY VENOUS LEFT VL DUP LOWER EXTREMITY VENOUS LEFT Imaging STAT 11/06/2021 4:28 PM EST [facility] Work Phone: [facility] Immunizations Immunization Date Immunization Notes Care Provider Martha gaffney 07-22-2024 tetanus toxoid, reduced diphtheria toxoid, and acellular pertussis vaccine, adsorbed Chna Chakraborty DO Work Phone: [facility] 05-18-2021 Human rabies vaccine from Chicken fibroblast culture Marlon Jenkins MD Work Phone: [facility] 05-17-2021 tetanus toxoid, reduced diphtheria toxoid, and acellular pertussis vaccine, adsorbed Jt Little MD Work Phone: [facility] Work Phone: 01-04-2017 tetanus toxoid, reduced diphtheria toxoid, and acellular pertussis vaccine, adsorbed DANIEL JORDAN MD [facility] Payers Date Payer Category Payer Self-pay [id number] 2020 Medicare [id number] 2020 Medicare HMO [id number] 2020 Medicare [id number] 2019 Medicaid 2019 Medicaid [id number] 1962 Unknown [id number] 1962 Unknown [id number] 668 1962 Unknown [id number] 668 1962 Unknown [id number] 668 1962 Unknown [id number] 1962 Unknown [id number]. [id number] 1962 Unknown [id number] 479 1962 Unknown [id number] 479 Medicare [id number] Private Health Insurance Unknown [facility] *DO NOT USE* [id number] Unknown [id number] Unknown [id number] Unknown [id number] Unknown [id number] Unknown [id number] Unknown [id number] Social History Date Type Detail Facility Start: 11-18-2018 End: 06-23-2022 Tobacco smoking status WIIS Former smoker [facility] Start: 09-04-1984 End: 09-04-2014 History of tobacco use Current smoker [facility] Work Phone: Start: 09-04-1984 End: 09-04-2014 History of tobacco use Cigarette Smoker [facility] Work Phone: Start: 11-18-2018 End: 03-02-2025 Cigarettes smoked current (pack per day) - Reported [facility] Start: 11-18-2018 End: 06-11-2022 Alcohol intake Current drinker of alcohol (finding) [employer] Work Phone: Start: 09-27-2017 Alcohol Comment occasional [employer] Work Phone: Start: 1960 Sex Assigned At Not on file [facility] Work Phone: Exposure to SARS-CoV -2 (event) Unable to assess [employer] [employer] Start: 09-25-2020 End: 06-23-2022 Tobacco use and exposure Never used [email or web address] Start: 03-20-2022 End: 03-20-2024 Exposure to SARS-CoV-2 (event) Not sure [employer] Start: 11-27-2021 End: 12-08-2021 Assertion Unknown if ever smoked [facility] Work Phone: Start: 1960 Sex Assigned At Male [facility] Start: 09-12-2022 End: 03-02-2025 Alcohol intake Ex-drinker (finding) [facility] Start: 08-17-2022 History SDOH Alcohol Frequency 1 [facility] Start: 08-17-2022 History SDOH Alcohol Std Drinks 0 [facility] Start: 10-26-2015 Occasional [facility] Start: 10-26-2015 None [facility] Start: 08-17-2022 End: 03-02-2025 Alcohol Use Disorder Identification Test - Consumption [AUDIT-C] [facility] How often to you hav e a drink containing alcohol? Never [facility] How many standard dr inks containing alcohol do you have on a typical day? Patient does not drink [facility] How often to you hav e a drink containing alcohol? Monthly or less [facility] How many standard dr inks containing alcohol do you have on a typical day? 3 or 4 [facility] Start: 04-04-2022 Sex Male (finding) Penny Neal [facility] Start: 07-25-2024 Tobacco Comment Quit tobacco in 2014 [facility] NEGATED: Highlighted rowStart: ARIANNAF History of tobacco use Passive smoker [facility] Clinical Notes 05-20-2021 to 03-02-2025 Telephone Encounter - Asher Loera RN - 03/02/2025 5:34 PM EDTTelephone Encounter - Asher Loera RN - 03/02/2025 5:34 PM EDTDischarge Julia White DO - 03/02/2025 12:04 PM EDT Note Date & Type Note Facility 03-02-2025 Telephone encounter Note Form atting of this note might be different from the original. S: Patient called the [facility] to speak to on-call physician. B: Unable to assess. Patient did state he was at an ED earlier today. A: Declining triage, insisting to speak to Dr. Quick. R: Informed patient that Dr. Quick was not on duty tonight, but message would be sent to on-call provider. Patient verbalizes understanding and terminates call. On-call provider, weston Ballesteros. Provider calls this nurse, provided brief update on [facility] ED visit. Physician states he will call patient. Reason for Disposition [1] Caller requests to speak ONLY to PCP AND [2] URGENT question Protocols used: PCP Call - No [id number] [facility] 03-02-2025 Miscellaneous Notes Formattin g of this note might be different from the original. S: Patient called the [facility] to speak to on-call physician. B: Unable to assess. Patient did state he was at an ED earlier today. A: Declining triage, insisting to speak to Dr. Quick. R: Informed patient that Dr. Quick was not on duty tonight, but message would be sent to on-call provider. Patient verbalizes understanding and terminates call. On-call provider, weston Ballesteros. Provider calls this nurse, provided brief update on [facility] ED visit. Physician states he will call patient. Reason for Disposition [1] Caller requests to speak ONLY to PCP AND [2] URGENT question Protocols used: PCP Call - No [id number] documented in this encounter [facility] 03-02-2025 Hospital Discharg e instructions Eddie White DO - 03/02/2025 12:25 PM EDT In the medical field, there is always a level of diagnostic uncertainty, even if this uncertainty is low. For this reason, it is important to immediately return to the emergency department if you have any new symptoms, worsening symptoms, change of symptoms, or if you have any other concerns. We would be happy to re-evaluate you. Otherwise, please take your medications as prescribed and follow-up as recommended. Some additional instructions, if any, as below: Follow up with [facility] as discussed Return if you have worsening symptoms. The following attachments cannot be sent through Care Everywhere.Using Heat for Pain (Congolese)Chronic Pain Discharge Instructions (Congolese)documented in this encounter [facility] 03-02-2025 Emergency department Note For matting of this note is different from the original. EMERGENCY DEPARTMENT ENCOUNTER Pt Name: Jemal Betts Jr. Birthdate 1960 Date of evaluation: 03/02/2025 ED Provider: Eddie White DO CHIEF COMPLAINT Chief Complaint Patient presents with Leg Pain Back Pain HISTORY OF PRESENT ILLNESS (Location/Symptom, Timing/Onset, Context/Setting, Quality, Duration, Modifying Factors, Severity) Note limiting factors. I wore appropriate PPE for the entirety of this encounter. HPI Jemal Betts Jr. is a 65 y.o. who presents to the emergency department with chief complaint of leg and back pain. Patient has complicated history involving numerous surgeries of lower back and chronic pain. He reports that he has no pain medication at home. He reports that yesterday he was mowing the grass and may have aggravated his chronic pains. He endorses spasms particularly notable in the left calf, burning sensations throughout. He denies any numbness or tingling to the groin area. Denies any loss of bladder or bowel control. No cracks or noises. Nursing Notes were reviewed. REVIEW OF SYSTEMS Review of Systems Pertinent positives and negatives as per HPI. PAST MEDICAL HISTORY Medical History[1] SURGICAL HISTORY Surgical History[2] CURRENT MEDICATIONS Discharge Medication List as of 03/02/2025 12:25 PM CONTINUE these medications which have NOT CHANGED Details albuterol 108 (90 Base) MCG/ACT inhaler 2 puff(s), Historical Med amLODIPine (Norvasc) 10 MG tablet Every 24 hours., Historical Med aspirin 81 MG chewable tablet Every 24 hours., Historical Med cetirizine (ZyrTEC) 10 MG tablet Take by mouth., Historical Med Cetirizine HCl 10 MG capsule Take 10 mg by mouth., Starting Mon02/07/2023, Historical Med fluorouracil (Efudex) 5 % cream Apply to the cheeks, temples and forehead twice daily x2 weeks, Normal ibuprofen 200 MG tablet every 8 hours., Historical Med Lidocaine (HM Lidocaine Patch) 4 % patch Place 1 patch on the skin daily., Starting Mon12/08/2022, Normal lisinopril 20 MG tablet Take 1 tablet by mouth in the morning., Starting Mon05/21/2021, Historical Med meloxicam (Mobic) 15 MG tablet Take 0.5 tablets (7.5 mg) by mouth Daily as needed (pain)., Starting Mon01/08/2023, Normal pantoprazole (ProtoNix) 40 MG EC tablet Take 40 mg by mouth in the morning., Starting Mon10/28/2022, Historical Med ALLERGIES Naproxen and Penicillins FAMILY HISTORY Family History[3] SOCIAL HISTORY Social History[4] SCREENINGS PHYSICAL EXAM ED Triage Vitals [03/02/25 1218] Temp Heart Rate Resp BP 36.7 C (98 F) 78 16 (!) 149/90 SpO2 Temp Source Heart Rate Source Patient Position 97 % Temporal -- -- BP Location FiO2 (%) -- -- General: A&O x 3, well appearing, no acute distress Head: NC/AT Eyes: Atraumatic, EOMI, clear conjunctival, PERRLA Nose: Atraumatic, no skin changes Throat: Moist mucus membranes, uvula midline, oropharynx clear Neck: atraumatic, Supple, no lymphadenopathy, no stiffness or restricted ROM Heart: Normal rate and regular rhythm, no m/r/g Lungs: CTA bilaterally, no crackles or wheezes, no respiratory distress Abd: Soft, nontender, nondistended, no guarding Back: atraumatic, no step-off, No midline vertebral ttp, no CVA tenderness bilaterally Extremity: warm, no clubbing or edema, 2+ pulses bilateral radial pulse bilaterally, 2+ PT pulses bilaterally, left lateral hip tenderness to palpation, no skin changes Neurologic: Non focal exam, moving all extremities spontaneously, normal gait Skin: warm, dry, no obvious rashes DIAGNOSTIC RESULTS Procedures/EKG: EKG was reviewed by myself. Physician EKG interpretation can be found below in MDM RADIOLOGY (Per Emergency Physician): As per below in MDM section Interpretation per the Radiologist below, if available at the time of this note: No orders to display ED BEDSIDE ULTRASOUND: Performed by ED Physician - none LABS: Labs Reviewed - No data to display All other labs were within normal range or not returned as of this dictation. EMERGENCY DEPARTMENT COURSE and DIFFERENTIAL DIAGNOSIS/MDM: Vitals: Vitals: 03/02/25 1218 03/02/25 1221 BP: (!) 149/90 Pulse: 78 Resp: 16 Temp: 36.7 C (98 F) TempSrc: Temporal SpO2: 97% Weight: 95.3 kg (210 lb) Height: 1.651 m (5' 5") Diagnoses as of 03/02/25 1555 Chronic back pain, unspecified back location, unspecified back pain laterality Muscle cramp Medications dexAMETHasone (PF) (Decadron) injection 8 mg (8 mg IntraMUSCular Given 03/02/25 1230) Patient with hx of chronic back issues and low back pain presents to the ED with a chief complaint of low back pain and leg pain. On exam, vitals able. Per above. Otherwise per above (Differential diagnosis) With consideration of age, sex/gender, risk factors, to evaluate patient for high risk causes of morbidity and mortality such as, but not limited to, chronic pain versus bursitis versus other Today we will obtain none We will also provide medical/symptomatic management with Decadron IM, Robaxin. Discussed plan with patient who agrees with current plan. REVAL: End of visit medical decision making Patient was reassessed. Resting comfortably. No acute distress. Response to medical management provided in the ED: Offered imaging however it was decided to defer at this time. Will provide symptomatic management. Close follow-up with pain management as discussed. Patient is planning on going to [facility] tomorrow or the following day Discussed all results with patient and/or family members. Pertinent parties verbalize understanding. Offered admission for further management. Discussed risks, benefits and alternatives. Considered additional workup and the emergency department or inpatient however patient will be discharged home with close follow-up. Strict return precautions given including when to return to the emergency department. Close follow-up with PCP and consultants as displayed in the discharge. Discussed all of the above with the following. Patient understands. Patient able to follow-up on [facility] Patient verbalizes understanding and is agreeable to plan Follow up: PCP, [facility] Will prescribe: robaxin, prednisone CRITICAL CARE TIME None CONSULTS: None PROCEDURES: Unless otherwise noted below, none Procedures FINAL IMPRESSION 1. Chronic back pain, unspecified back location, unspecified back pain laterality 2. Muscle cramp DISPOSITION Discharge 03/02/2025 12:25:46 PM PATIENT REFERRED TO: [facility] [id number] [facility] [id number] In 3 days DISCHARGE MEDICATIONS: Discharge Medication List as of 03/02/2025 12:25 PM START taking these medications Details predniSONE (Deltasone) 10 MG tablet Take 2 tablets (20 mg) by mouth daily for 4 days., Starting 03/02/2025, Until Harleen 03/06/2025, Normal (Comment: Please note this report has been produced using speech recognition software and may contain errors related to that system including errors in grammar, punctuation, and spelling, as well as words and phrases that may be inappropriate. If there are any questions or concerns please feel free to contact the dictating provider for clarification.) Eddie White DO (electronically signed) Emergency Medicine Provider [1] Past Medical History: Diagnosis Date Acid reflux Arthritis Asthma Basal cell carcinoma Chronic back pain Chronic pain COPD (chronic obstructive pulmonary disease) (HCC) H/O blood clots Hypertension Medical marijuana use Neuropathy Spinal stenosis of cervical region [2] Past Surgical History: Procedure Laterality Date CERVICAL SPINE SURGERY COLONOSCOPY 10/15/2012 HAND SURGERY JOINT REPLACEMENT Right 2010 knee OTHER SURGICAL HISTORY 09/04/2017 revision lumbar decompression and hematoma evacuation SPINE SURGERY 1992 [3] Family History Problem Relation Name Age of Onset Heart disease Mother High Blood Pressure Father Heart disease Sister Heart disease Brother [4] Social History Socioeconomic History Marital status: Single Tobacco Use Smoking status: Former Current packs/day: 0.00 Average packs/day: 1 pack/day for 30.0 years (30.0 ttl pk-yrs) Types: Cigarettes Start date: 09/04/1984 Quit date: 09/04/2014 Years since quittin.4 Smokeless tobacco: Never Vaping Use Vaping status: Never Used Substance and Sexual Activity Alcohol use: Not Currently Drug use: Yes Types: Marijuana Social Drivers of Health Food Insecurity: Low Risk (07/31/2024) Received from [facility] Food Insecurity Do you have any concerns about having enough food?: No Food Insecurity Urgent Need: N/A Transportation Needs: Low Risk (07/31/2024) Received from [facility] Transportation Needs Has lack of transportation kept you from medical appointments or from getting things needed for daily living?: No Transportation Urgent Need: N/A Housing Stability: Low Risk (07/31/2024) Received from [facility] Housing Stability Are you worried about losing your housing?: No Housing Stability Urgent Need: N/A Eddie White DO 03/02/25 1555 C/o exacerbation of chronic pain to hips, lower back and c/o cramping both lower legs. States became worse after mowing yard a few days ago. No numbness or tingling. States has "twitching" to both calves. Has taken nothing for pain today documented in this encounter [facility] 03-02-2025 Emergency departm ent Triage note C/o exacerbation of chronic pain to hips, lower back and c/o cramping both lower legs. States became worse after mowing yard a few days ago. No numbness or tingling. States has "twitching" to both calves. Has taken nothing for pain today [facility] 03-02-2025 Physician Emergen cy department Note EMERGENCY DEPARTMENT ENCOUNTER Pt Name: Jemal Betts Jr. Birthdate 1960 Date of evaluation: 03/02/2025 ED Provider: Eddie White DO CHIEF COMPLAINT Chief Complaint Patient presents with Leg Pain Back Pain HISTORY OF PRESENT ILLNESS (Location/Symptom, Timing/Onset, Context/Setting, Quality, Duration, Modifying Factors, Severity) Note limiting factors. I wore appropriate PPE for the entirety of this encounter. HPI Jemal Betts Jr. is a 65 y.o. who presents to the emergency department with chief complaint of leg and back pain. Patient has complicated history involving numerous surgeries of lower back and chronic pain. He reports that he has no pain medication at home. He reports that yesterday he was mowing the grass and may have aggravated his chronic pains. He endorses spasms particularly notable in the left calf, burning sensations throughout. He denies any numbness or tingling to the groin area. Denies any loss of bladder or bowel control. No cracks or noises. Nursing Notes were reviewed. REVIEW OF SYSTEMS Review of Systems Pertinent positives and negatives as per HPI. PAST MEDICAL HISTORY Medical History[1] SURGICAL HISTORY Surgical History[2] CURRENT MEDICATIONS Discharge Medication List as of 03/02/2025 12:25 PM CONTINUE these medications which have NOT CHANGED Details albuterol 108 (90 Base) MCG/ACT inhaler 2 puff(s), Historical Med amLODIPine (Norvasc) 10 MG tablet Every 24 hours., Historical Med aspirin 81 MG chewable tablet Every 24 hours., Historical Med cetirizine (ZyrTEC) 10 MG tablet Take by mouth., Historical Med Cetirizine HCl 10 MG capsule Take 10 mg by mouth., Starting Mon02/07/2023, Historical Med fluorouracil (Efudex) 5 % cream Apply to the cheeks, temples and forehead twice daily x2 weeks, Normal ibuprofen 200 MG tablet every 8 hours., Historical Med Lidocaine (HM Lidocaine Patch) 4 % patch Place 1 patch on the skin daily., Starting Mon12/08/2022, Normal lisinopril 20 MG tablet Take 1 tablet by mouth in the morning., Starting Mon05/21/2021, Historical Med meloxicam (Mobic) 15 MG tablet Take 0.5 tablets (7.5 mg) by mouth Daily as needed (pain)., Starting Mon01/08/2023, Normal pantoprazole (ProtoNix) 40 MG EC tablet Take 40 mg by mouth in the morning., Starting Mon10/28/2022, Historical Med ALLERGIES Naproxen and Penicillins FAMILY HISTORY Family History[3] SOCIAL HISTORY Social History[4] SCREENINGS PHYSICAL EXAM ED Triage Vitals [03/02/25 1218] Temp Heart Rate Resp BP 36.7 C (98 F) 78 16 (!) 149/90 SpO2 Temp Source Heart Rate Source Patient Position 97 % Temporal -- -- BP Location FiO2 (%) -- -- General: A&O x 3, well appearing, no acute distress Head: NC/AT Eyes: Atraumatic, EOMI, clear conjunctival, PERRLA Nose: Atraumatic, no skin changes Throat: Moist mucus membranes, uvula midline, oropharynx clear Neck: atraumatic, Supple, no lymphadenopathy, no stiffness or restricted ROM Heart: Normal rate and regular rhythm, no m/r/g Lungs: CTA bilaterally, no crackles or wheezes, no respiratory distress Abd: Soft, nontender, nondistended, no guarding Back: atraumatic, no step-off, No midline vertebral ttp, no CVA tenderness bilaterally Extremity: warm, no clubbing or edema, 2+ pulses bilateral radial pulse bilaterally, 2+ PT pulses bilaterally, left lateral hip tenderness to palpation, no skin changes Neurologic: Non focal exam, moving all extremities spontaneously, normal gait Skin: warm, dry, no obvious rashes DIAGNOSTIC RESULTS Procedures/EKG: EKG was reviewed by myself. Physician EKG interpretation can be found below in MDM RADIOLOGY (Per Emergency Physician): As per below in MDM section Interpretation per the Radiologist below, if available at the time of this note: No orders to display ED BEDSIDE ULTRASOUND: Performed by ED Physician - none LABS: Labs Reviewed - No data to display All other labs were within normal range or not returned as of this dictation. EMERGENCY DEPARTMENT COURSE and DIFFERENTIAL DIAGNOSIS/MDM: Vitals: Vitals: 03/02/25 1218 03/02/25 1221 BP: (!) 149/90 Pulse: 78 Resp: 16 Temp: 36.7 C (98 F) TempSrc: Temporal SpO2: 97% Weight: 95.3 kg (210 lb) Height: 1.651 m (5' 5") Diagnoses as of 03/02/25 1555 Chronic back pain, unspecified back location, unspecified back pain laterality Muscle cramp Medications dexAMETHasone (PF) (Decadron) injection 8 mg (8 mg IntraMUSCular Given 03/02/25 1230) Patient with hx of chronic back issues and low back pain presents to the ED with a chief complaint of low back pain and leg pain. On exam, vitals able. Per above. Otherwise per above (Differential diagnosis) With consideration of age, sex/gender, risk factors, to evaluate patient for high risk causes of morbidity and mortality such as, but not limited to, chronic pain versus bursitis versus other Today we will obtain none We will also provide medical/symptomatic management with Decadron IM, Robaxin. Discussed plan with patient who agrees with current plan. REVAL: End of visit medical decision making Patient was reassessed. Resting comfortably. No acute distress. Response to medical management provided in the ED: Offered imaging however it was decided to defer at this time. Will provide symptomatic management. Close follow-up with pain management as discussed. Patient is planning on going to [facility] tomorrow or the following day Discussed all results with patient and/or family members. Pertinent parties verbalize understanding. Offered admission for further management. Discussed risks, benefits and alternatives. Considered additional workup and the emergency department or inpatient however patient will be discharged home with close follow-up. Strict return precautions given including when to return to the emergency department. Close follow-up with PCP and consultants as displayed in the discharge. Discussed all of the above with the following. Patient understands. Patient able to follow-up on [facility] Patient verbalizes understanding and is agreeable to plan Follow up: PCP, [facility] Will prescribe: robaxin, prednisone CRITICAL CARE TIME None CONSULTS: None PROCEDURES: Unless otherwise noted below, none Procedures FINAL IMPRESSION 1. Chronic back pain, unspecified back location, unspecified back pain laterality 2. Muscle cramp DISPOSITION Discharge 03/02/2025 12:25:46 PM PATIENT REFERRED TO: Nick Quick MD [address] [facility] [id number] In 3 days DISCHARGE MEDICATIONS: Discharge Medication List as of 03/02/2025 12:25 PM START taking these medications Details predniSONE (Deltasone) 10 MG tablet Take 2 tablets (20 mg) by mouth daily for 4 days., Starting 03/02/2025, Until Harleen 03/06/2025, Normal (Comment: Please note this report has been produced using speech recognition software and may contain errors related to that system including errors in grammar, punctuation, and spelling, as well as words and phrases that may be inappropriate. If there are any questions or concerns please feel free to contact the dictating provider for clarification.) Eddie White DO (electronically signed) Emergency Medicine Provider [1] Past Medical History: Diagnosis Date Acid reflux Arthritis Asthma Basal cell carcinoma Chronic back pain Chronic pain COPD (chronic obstructive pulmonary disease) (HCC) H/O blood clots Hypertension Medical marijuana use Neuropathy Spinal stenosis of cervical region [2] Past Surgical History: Procedure Laterality Date CERVICAL SPINE SURGERY COLONOSCOPY 10/15/2012 HAND SURGERY JOINT REPLACEMENT Right 2010 knee OTHER SURGICAL HISTORY 09/04/2017 revision lumbar decompression and hematoma evacuation SPINE SURGERY 1992 [3] Family History Problem Relation Name Age of Onset Heart disease Mother High Blood Pressure Father Heart disease Sister Heart disease Brother [4] Social History Socioeconomic History Marital status: Single Tobacco Use Smoking status: Former Current packs/day: 0.00 Average packs/day: 1 pack/day for 30.0 years (30.0 ttl pk-yrs) Types: Cigarettes Start date: 09/04/1984 Quit date: 09/04/2014 Years since quittin.4 Smokeless tobacco: Never Vaping Use Vaping status: Never Used Substance and Sexual Activity Alcohol use: Not Currently Drug use: Yes Types: Marijuana Social Drivers of Health Food Insecurity: Low Risk (07/31/2024) Received from [facility] Food Insecurity Do you have any concerns about having enough food?: No Food Insecurity Urgent Need: N/A Transportation Needs: Low Risk (07/31/2024) Received from [facility] Transportation Needs Has lack of transportation kept you from medical appointments or from getting things needed for daily living?: No Transportation Urgent Need: N/A Housing Stability: Low Risk (07/31/2024)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 11/01/2023 Pre-Op diagnosis: basal cell carcinoma BCC subtype: infiltrative Surgery side: right Surgical site (from skin exam): Right Gnosticism Pre-operative length (cm): 1.8 Pre-operative width (cm): 1.2 Indications for Mohs surgery: anatomic location where tissue conservation is critical Previously treated? No Micrographic Surgery Details: Post-operative length (cm): 2 Post-operative width (cm): 1.8 Number of Mohs stages: 3 Stage 1 Comments: The patient was brought into the operating room and placed in the procedure chair in the appropriate position. The area positive by previous biopsy was identified and confirmed with the patient. The area of clinically obvious tumor was debulked using a curette and/or scalpel as needed. Anincision was made following the Mohs approach through the skin. The specimen was taken to the lab, divided into 2 piece(s) and appropriately chromacoded and processed. . Tumor was seen on the lateral margins as indicated on the on the Mohs map. Superficial basal cell carcinoma. Histologic examination revealed small buds of atypical basaloid cells with peripheral palisading and tumoral clefting. Tumor features identified on Mohs section: basal carcinoma Depth of invasion comment: epidermis Stage 2 Comments: The area of positivity as noted on the Mohs map in the previous stage was identified and removed using the Mohs technique. The specimen was taken to the lab and appropriately chromacoded and processed in 1 piece(s). . Tumor was seen on the lateral margins as indicated on the on the Mohs map. Superficial basal cell carcinoma. Histologic examination revealed small buds of atypical basaloid cells with peripheral palisading and tumoral clefting. Tumor features identified on Mohs section: basal carcinoma Depth of invasion comment: epidermis Stage 3 Comments: The area of positivity as noted on the Mohs map in the previous stage was identified and removed using the Mohs technique. The specimen was taken to the lab and appropriately chromacoded and processed in 1 piece(s). Tumor features identified on Mohs section: no tumor identified Depth of defect: subcutaneous fat Patient tolerance of procedure: tolerated well, no immediate complications Reconstruction: Was the defect reconstructed? Yes Was reconstruction performed by the same Mohs surgeon? Yes Setting of reconstruction: outpatient office When was reconstruction performed? same day Type of reconstruction: flap Type of flap: advancement Advancement flap type: unilateral single arm Flap area (cm2): 11 Subcutaneous Layers (Deep Stitches) Suture size: 4-0 Suture type: Vicryl Stitches: Buried vertical mattress Fine/surface layer approximation (top stitches) Epidermal/Superficial suture size: 5-0 Epidermal/Superficial suture type: Fast-absorbing gut Stitches: simple interrupted and simple running Hemostasis achieved with: electrodesiccation Outcome: patient tolerated procedure well with no complications Post-procedure details: sterile dressing applied and wound care instructions given Dressing type: pressure dressing Advancement Flap: Due to geometric and functional constraints, a flap reconstruction was performed to reconstruct the defect. To that end, adjacent tissue was incised and carried over to close the defect in the following manner: Advancement flap Using skin marking ink, an advancement flap was designed to repair the defect and minimize functional and cosmetic distortion. Given the size, depth, andlocation of the defect, the surrounding structures and local tissue laxity, it was felt that an advancement flap was necessary to provide the best latter day of normal anatomy and function of the skin. The risks, benefits and likely outcome of the flap were discussed. The wound edges were refreshed to a 90 degree angle. The flap was cut and undermined extensively at the level of the subcutaneousplane. Standing cutaneous cones were removed using Burow's triangles. The deep tissue was elevated and the flap was advanced into position to close the primary defect using multiple zuniga deep sutures.The remainder of the flap was then affixed with epidermal sutures. The flap measured 11 cm2. The final repair measured 6.0 x1.8 cm Wound care was discussed, and the patient was given written post-operative wound care instructions. 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 documented in this encounterPro[facility] Work Phone: [phone] 573-221506-18-2024 Telephone encounter Note* Telephone Encounter - Priti Rose - 02/20/2024 1:18 PM EDT This patient has had a prior lung screening CT scan at [facility]. According to our records, he/she is now due for an annual lung screening CT scan. Please evaluate and order this annual screening if your patient still meets lung screening criteria. [facility] [id number] Miscellaneous Notes* Telephone Encounter - Priti Rose - 02/20/2024 1:18 PM EDT This patient has had a prior lung screening CT scan at [facility]. According to our records, he/she is now due for an annual lung screening CT scan. Please evaluate and order this annual screening if your patient still meets lung screening criteria. documented in this encounterSUniversity Hospitals St. John Medical [id number] Telephone encounter Note* Telephone Encounter - Sana Prieto LPN - 01/24/2024 9:40 AM EDT Spoke with patient, he missed his appoitment in january so he is scheduled for 03/20/[address] Chadwick now. He has no further questions or concerns at this time. [facility] [id number] Miscellaneous Notes* Telephone Encounter - Sana Prieto LPN - 01/24/2024 9:40 AM EDT Spoke with patient, he missed his appoitment in january so he is scheduled for 03/20/[address] Chadwick now. He has no further questions or concerns at this time. * Telephone Encounter - Sana Prieto LPN - 11/02/2023 4:39 PM EST Signed referral, office notes, pathology report and insurance cards faxed to Dr. Chadwick's office. * Telephone Encounter - Sana Prieto LPN - 11/02/2023 4:07 PM EST Spoke with patient regarding biopsy results per Suzy. States Dr. Chadwick's office is closer so he prefers to go there. Patient has no further questions or concerns. Referral pended please sign and sendback to me. * Telephone Encounter - Sana Prieto LPN - 11/02/2023 4:07 PM EST ----- Message from Suzy Marshall PA-C sent at 11/02/2023 12:01 PM EST ----- Please call patient with biopsy result: Skin, right religious: Superficial portion of an infiltrative basal cell carcinoma with patchy squamous differentiation Please notify patient that their biopsy results show that the lesion removed was a BCC which is a treatable type of skin cancer that is caused from excessive sun exposure. In order to fully remove the abnormal cells a procedure called Mohs is recommended. Please provide patient education with regard to Mohs surgery, this is a tissue preserving surgery designed to ensure removal of skin cancer while at the same time, minimize removal of surrounding skin. They should stay up to date on their yearly skin checks and follow proper sun protective measures. Please refer patient to [facility] Dr. Chadwick documented in this encounterSUniversity Hospitals St. John Medical [id number] Telephone encounter Note* Telephone Encounter - Sana Prieto LPN - 11/02/2023 4:39 PM EST Signed referral, office notes, pathology report and insurance cards faxed to Dr. Chadwick's office. [facility] [id number] Miscellaneous Notes* Telephone Encounter - Sana Prieto LPN - 11/02/2023 4:39 PM EST Signed referral, office notes, pathology report and insurance cards faxed to Dr. Chadwick's office. * Telephone Encounter - Sana Prieto LPN - 11/02/2023 4:07 PM EST Spoke with patient regarding biopsy results per Suzy. States Dr. Chadwick's office is closer so he prefers to go there. Patient has no further questions or concerns. Referral pended please sign and sendback to me. * Telephone Encounter - Sana Prieto LPN - 11/02/2023 4:07 PM EST ----- Message from Suzy Marshall PA-C sent at 11/02/2023 12:01 PM EST ----- Please call patient with biopsy result: Skin, right religious: Superficial portion of an infiltrative basal cell carcinoma with patchy squamous differentiation Please notify patient that their biopsy results show that the lesion removed was a BCC which is a treatable type of skin cancer that is caused from excessive sun exposure. In order to fully remove the abnormal cells a procedure called Mohs is recommended. Please provide patient education with regard to Mohs surgery, this is a tissue preserving surgery designed to ensure removal of skin cancer while at the same time, minimize removal of surrounding skin. They should stay up to date on their yearly skin checks and follow proper sun protective measures. Please refer patient to [facility] OR Dr. Chadwick documented in this encounterSUniversity Hospitals St. John Medical [id number] Telephone encounter Note* Telephone Encounter - Sana Prieto LPN - 11/02/2023 4:07 PM EST Spoke with patient regarding biopsy results per Suzy. States Dr. Chadwick's office is closer so he prefers to go there. Patient has no further questions or concerns. Referral pended please sign and sendback to me. [facility] [id number] Telephone encounter Note* Telephone Encounter - Sana Prieto LPN - 11/02/2023 4:07 PM EST ----- Message from Suzy Marshall PA-C sent at 11/02/2023 12:01 PM EST ----- Please call patient with biopsy result: Skin, right religious: Superficial portion of an infiltrative basal cell carcinoma with patchy squamous differentiation Please notify patient that their biopsy results show that the lesion removed was a BCC which is a treatable type of skin cancer that is caused from excessive sun exposure. In order to fully remove the abnormal cells a procedure called Mohs is recommended. Please provide patient education with regard to Mohs surgery, this is a tissue preserving surgery designed to ensure removal of skin cancer while at the same time, minimize removal of surrounding skin. They should stay up to date on their yearly skin checks and follow proper sun protective measures. Please refer patient to [facility] Dr. Chadwick [facility] [id number] Miscellaneous Notes* Telephone Encounter - Tanika Timmons RN - 08/04/2023 12:05 PM EST Last OV 10/28/2022 No upcoming appointments Requested Prescriptions Pending Prescriptions Disp Refills pantoprazole DR (PROTONIX) 40 mg tablet [Pharmacy Med Name: PANTOPRAZOLE SOD DR 40 MG TAB] 30 tablet 5 Sig: take 1 tablet by mouth once daily documented in this encounterAvita [facility] History of Present illness Narrative* Suzy Marshall PA-C - 05/03/2023 7:40 AM EDT Images from the original note were not included. DATE OF SERVICE: 05/03/2023 PATIENT NAME: Jemal Betts : 1960 AGE: 63 y.o. CLINIC NUMBER: [id number] Visit type: Established patient Chief Complaint Patient presents with Skin Check SAMMI 10/24/2022 with Suzy Marshall PA-C (AT) Subjective HISTORY OF PRESENT ILLNESS: Jemal Betts is a 63 y.o. who presents to the office for a check up. This is patients first FSE. Patient has a history of BCC to the nose treated with radiation in 2011. Patient has concerns of a skin lesion located on the left cheek x years. Patient states the lesion feels like glass in his face.Admits to bleeding but denies itching or pain. Denies changes in size, shape, color. Denies previous treatment. Patient has concerns of a skin lesion located on the right shoulder x years. Denies itching, bleeding, pain. Denies changes in size, shape, color.Denies previous treatment. Patient is also following up for actinic keratoses located on the face. At last visit patient was treated with Efudex Cream (BID to cheeks, forehead and temples x 14 days). Admits redness, roughness, flaking, itching, bleeding, and tenderness. Patient is unsure if the areas have resolved Patient denies ?h/o of ATN. Patient has?h/o of Aks Patient admits ?personal h/o skin cancer - BCC on the nose (27 radiation treatments approx 2011) Patient has ?family h/o skin cancer - Father (unknown type) History of pacemaker/ defibrillator? No History of HIV/ Hep C? No Allergies to Lidocaine, Epinephrine, Latex or Adhesive? No Social History: Born/raised in [place]. Excessive sun exposure: Yes Used tanning beds: Yes Patient does wear SPF. Patient does not use additional sun protection measures. Review of Systems There were no vitals filed for this visit. PHYSICAL EXAM: GENERAL APPEARANCE:?alert and oriented x3, well developed and well nourished. PSYCH: appropriate mood and affect 1. Neoplasm of uncertain behavior of skin Left Gnosticism 3 mm red scaly macule (tender to the touch) Skin Biopsy Type of biopsy: punch Informed consent: discussed and consent obtained Timeout: patient name, date of , surgical site, and procedure verified Anesthesia: the lesion was anesthetized in a standard fashion Anesthetic: 1% lidocaine w/ epinephrine 1-100,000 buffered w/ 8.4% NaHCO3 Punch size: 2 mm Hemostasis achieved with: pressure Outcome: patient tolerated procedure well Post-procedure details: wound care instructions given Specimen A - Tissue exam Differential Diagnosis: AK vs NMSC Check Margins: No Biopsy recommended. Patient expresses understanding and is in agreement with the plan. Biopsy (x1) obtained today. Patient educated that we will call with the biopsy results within 2 weeks. Care instructions reviewed and written instructions provided to patient. 2. Actinic keratoses (2) Mid Forehead (2) Two [place] scaly macule(s) Cryotherapy Actinic Keratosis: Medical Necessity: It was explained to the patient that actinic keratoses are precancerous. Consent: The patient understood all the risks and benefits prior to treatment. The risks explained included scarring, hyper and/or hypopigmentation. Although this treatment is highly effective, recurrences do occur and this was explained to the patient. The patient further understood that these lesions are precancerous and may develop into a malignancy. Number of lesions treated/ location: Mid forehead x 2. Method: Liquid nitrogen was used to treat the lesion(s) with two freeze-thaw cycles. Post-op: The patient was instructed to clean the site normally twice a day. Signs of infection werereviewed and patient was instructed to call if he/ she develops increasing pain, purulent drainage,or beefy redness. The patient was informed that a blister may occur at the cryo site and that this is an expected event. Sun protection was reviewed and patient advised to use sunscreen with SPF 30 or greater on exposed skin when outdoors. Post-op instructions were given orally and in writing. Cryotherapy, skin lesion - Mid Forehead (2) Related Medications fluorouracil (Efudex) 5 % cream Apply to the cheeks, temples and forehead twice daily x2 weeks 3. Multiple benign melanocytic nevi of both upper extremities, both lower extremities, and trunk Multiple uniformly pigmented brown macules with regular network pattern on dermoscopy Reassured that this is a benign lesion and does not require any treatment. Educated that if the lesion changes color, becomes larger, bleeds, becomes bothersome or painful then it should be reevaluated. Patient expresses understanding and is agreeable to plan. Patient advised to perform monthly skin exams; checking the skin for any new or changing lesions. Any lesions that are new, elevated, firm and/or growing should be evaluated in our office. Also look for ABCDEs of Melanoma (warning signs): Asymmetry- the appearance of one side of the mole doesn't look like the other side. Borders- the borders of the mole are jagged, notched or smeared. Color- there are multiple colors in the mole, or it has changed colors. It can become darker, red or even lose pigment. Diameter- diameter greater than 6mm or the size of a pencil eraser. Evolution- Any change or evolving in size, shape or color of a mole. Also, any new symptom like bleeding, pain or itching may be a warning sign. You can visit the [employer] Cancer Foundation at skincancer.org for more information on melanoma and other skin cancers. 4. Watkins angioma Bright red vascular papule(s) Reassured and educated, benign finding. 5. Seborrheic keratosis [place]-brown waxy papule(s) and plaque(s) Reassured that this is a benign lesion and does not require any treatment. Educated that if the lesion changes color, becomes larger, bleeds, becomes bothersome or painful then it should be reevaluated. Patient expresses understanding and is agreeable to plan. 6. Solar lentigo Light brown well-circumscribed macule(s) Educated and reassured, benign finding secondary to sun exposure. Patient educated on the proper use of sunscreen, SPF, and how often to reapply. Recommend use of OTC mineral sun block, like Neutrogena or La-Jayde Posay. Patient advised to look for zinc or titanium as the active ingredient(s). Try to limit sun exposure to janitor caretaker or late evening hours. Patient advised to perform self-skin checks and call for follow up appointment if any new or concerning lesions detected. 7. History of nonmelanoma skin cancer Nose No evidence of recurrence on exam today. Educated on signs of skin cancer, skin cancer causes, prevention, and risk of developing skin cancers in the future. Sun protection measures reviewed, recommended monthly self skin exams and annual full skin exam. I spent a total of 33 minutes on the day of the visit. [x]Preparing to see the patient [x]Obtaining/reviewing separately obtained history [x]Performing exam/evaluation [x]Counseling patient/family/caregiver [x]Ordering medication/tests/procedures []Referring and communicating with other health professionals [x]Documenting clinical information in the EMR []Independently interpreting results and communicating results to patient/family/caregiver []Care coordination Follow up in about 5 months (around 10/03/2023). Suzy Marshall PA-C 05/03/23 10:42 AM REFERRING MD: No referring provider defined for this encounter. documented in this [facility]08-05-2023 Emergency department Note* Yariel Floyd MD - 04/08/2023 4:03 PM EDT EMERGENCY DEPARTMENT ENCOUNTER Pt Name: Jemal Betts Birthdate 1960 Date of evaluation: 04/08/2023 ED Provider: Yariel Floyd MD CHIEF COMPLAINT Chief Complaint Patient presents with Back Pain History from patient HISTORY OF PRESENT ILLNESS (Location/Symptom, Timing/Onset, Context/Setting, Quality, Duration, Modifying Factors, Severity) Note limiting factors. I wore appropriate PPE for the entirety of this encounter. HPI Jemal Betts is a 63 y.o. who presents to the emergency department with chief complaint of back pain. Patient says he history of back pain with multiple surgeries and spinal stenosis. He is followedby his PCP and spine surgeon. 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 He says during that ride he began having pain in his lower back similar to what he had before. Dull mild aching pain without radiation. No fever or incontinence. No direct traumaor overuse. He says he no longer has medication at home and is the weekend and his providers are not available so he came to the emergency department for pain relief. No history of cancer osteoporosis or IV drug abuse. Nursing Notes were reviewed. Limitations to history: None Outside historians: None REVIEW OF SYSTEMS Review of Systems Constitutional: Negative for fever. Eyes: Negative for visual disturbance. Respiratory: Negative for shortness of breath. Cardiovascular: Negative for chest pain. Gastrointestinal: Negative for abdominal pain. Genitourinary: Negative for difficulty urinating. Musculoskeletal: Positive for back pain and neck pain. Negative for arthralgias, gait problem, joint swelling, myalgias and neck stiffness. Skin: Negative for rash. Neurological: Negative for seizures, weakness, light-headedness, numbness and headaches. Pertinent positives and negatives as per HPI. PAST MEDICAL HISTORY Past Medical History: Diagnosis Date Acid reflux Arthritis Asthma Basal cell carcinoma Chronic back pain Chronic pain COPD (chronic obstructive pulmonary disease) (HCC) H/O blood clots Hypertension Medical marijuana use Neuropathy Spinal stenosis of cervical region SURGICAL HISTORY Past Surgical History: Procedure Laterality Date CERVICAL SPINE SURGERY COLONOSCOPY 10/15/2012 HAND SURGERY JOINT REPLACEMENT Right 2010 knee OTHER SURGICAL HISTORY 09/04/2017 revision lumbar decompression and hematoma evacuation SPINE SURGERY 1992 CURRENT MEDICATIONS Previous Medications ALBUTEROL 108 (90 BASE) MCG/ACT INHALER 2 puff(s) AMLODIPINE (NORVASC) 10 MG TABLET Take 1 tablet by mouth in the morning. AMLODIPINE (NORVASC) 10 MG TABLET Every 24 hours. ASPIRIN 81 MG CHEWABLE TABLET Every 24 hours. ASPIRIN 81 MG EC TABLET 1 tab(s) CETIRIZINE (ZYRTEC) 10 MG TABLET Take by mouth. FLUOROURACIL (EFUDEX) 5 % CREAM Apply to the cheeks, temples and forehead twice daily x2 weeks IBUPROFEN 200 MG TABLET every 8 hours. LIDOCAINE ( LIDOCAINE PATCH) 4 % PATCH Place 1 patch on the skin daily. LISINOPRIL 20 MG TABLET Take 1 tablet by mouth in the morning. LISINOPRIL-HYDROCHLOROTHIAZIDE 10-12.5 MG TABLET Every 24 hours. MELOXICAM (MOBIC) 15 MG TABLET Take 0.5 tablets (7.5 mg) by mouth Daily as needed (pain). ONDANSETRON (ZOFRAN) 4 MG TABLET every 8 hours. PANTOPRAZOLE (PROTONIX) 40 MG EC TABLET Every 24 hours. ALLERGIES Naproxen and Penicillins FAMILY HISTORY Family History Problem Relation Name Age of Onset Heart disease Mother High Blood Pressure Father Heart disease Sister Heart disease Brother SOCIAL HISTORY Social History Socioeconomic History Marital status: Single Tobacco Use Smoking status: Former Packs/day: 1.00 Years: 30.00 Pack years: 30.00 Types: Cigarettes Quit date: 09/04/2014 Years since quittin.5 Smokeless tobacco: Never Vaping Use Vaping Use: Never used Substance and Sexual Activity Alcohol use: Not Currently Drug use: Yes Types: Marijuana SCREENINGS PHYSICAL EXAM ED Triage Vitals Temp Pulse Resp BP -- -- -- -- SpO2 Temp src Heart Rate Source Patient Position -- -- -- -- BP Location FiO2 (%) -- -- Physical Exam Constitutional: Appearance: Normal appearance. HENT: Head: Normocephalic and atraumatic. Cardiovascular: Rate and Rhythm: Normal rate. Pulmonary: Effort: Pulmonary effort is normal. Musculoskeletal: General: No swelling or tenderness. Normal range of motion. Skin: General: Skin is warm and dry. Capillary Refill: Capillary refill takes less than 2 seconds. Neurological: General: No focal deficit present. Mental Status: He is alert. Cranial Nerves: No cranial nerve deficit. Sensory: No sensory deficit. Motor: No weakness. Coordination: Coordination normal. Gait: Gait normal. Deep Tendon Reflexes: Reflexes normal. Back -ambulatory, no spinal tenderness from C1-L5, negative straight leg raise, able to heel walk toe walk and stand on each leg individually Neurologic -no focal neurologic deficit, NIHSS 0 EMERGENCY DEPARTMENT COURSE and DIFFERENTIAL DIAGNOSIS/MDM: Vitals: Vitals: 04/08/23 1623 BP: 132/74 BP Location: Right arm Patient Position: Sitting Pulse: 80 Resp: 20 Temp: 36.4 C (97.6 F) TempSrc: Oral SpO2: 98% Weight: 103 kg (228 lb) Height: 1.676 m (5' 6") Medical Decision Making and ED Course The patient presented with a chief complaint of back pain. The differential diagnosis associated with this patient's presentation includes mechanical back pain epidural hematoma disc disease fracture. Our workup consisted of ordering/reviewing history and physical examination which shows minimal point tenderness which in the absence of injury makes fracture unlikely. He also has no new focal neurologic deficit making epidural disease or spinal cord involvement unlikely. He is a long history of back problems and spinal stenosis and this pain feels similar to him today. Most likely an exacerbation of same. Old chart review shows multiple visits for same which were treated with oral agents. Patient agrees with repeat treatment with oral agents to temporize him until he can see his regular physicians after the weekend. He has a ride home. He agrees with plan. Review of prior external records: No hospitalizations recorded since at least September 2017 Chronic conditions impacting care: DVT, hypertension, COPD, acid reflux, back pain and spinal stenosis ED Medications managed: Analgesics and steroids Consideration of hospitalization or de-escalation of care: Ambulatory with tolerable pain and no sphincter symptoms makes him a candidate for outpatient follow-up Medications oxyCODONE-acetaminophen (Percocet) 5-325 MG per tablet 1 tablet (has no administration in time range) predniSONE (Deltasone) tablet 50 mg (has no administration in time range) FINAL IMPRESSION 1. Lumbar strain, initial encounter DISPOSITION Discharge 04/08/2023 04:48:56 PM PATIENT REFERRED TO: Nick Quick MD [address] [facility] [id number] In 2 days DISCHARGE MEDICATIONS: New Prescriptions No medications on file (Comment: Please note this report has been produced using speech recognition software and may contain errors related to that system including errors in grammar, punctuation, and spelling, as well as words and phrases that may be inappropriate. If there are any questions or concerns please feel freeto contact the dictating provider for clarification.) Yariel Floyd MD (electronically signed) Emergency Medicine Provider Yariel Floyd MD 04/08/23 1717 documented in this [facility]08-05-2023 Physician Emergency department Note* Yariel Floyd MD - 04/08/2023 4:03 PM EDT EMERGENCY DEPARTMENT ENCOUNTER Pt Name: Jemal Betts Birthdate 1960 Date of evaluation: 04/08/2023 ED Provider: Yariel Floyd MD CHIEF COMPLAINT Chief Complaint Patient presents with Back Pain History from patient HISTORY OF PRESENT ILLNESS (Location/Symptom, Timing/Onset, Context/Setting, Quality, Duration, Modifying Factors, Severity) Note limiting factors. I wore appropriate PPE for the entirety of this encounter. HPI Jemal Betts is a 63 y.o. who presents to the emergency department with chief complaint of back pain. Patient says he history of back pain with multiple surgeries and spinal stenosis. He is followedby his PCP and spine surgeon. 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 He says during that ride he began having pain in his lower back similar to what he had before. Dull mild aching pain without radiation. No fever or incontinence. No direct traumaor overuse. He says he no longer has medication at home and is the weekend and his providers are not available so he came to the emergency department for pain relief. No history of cancer osteoporosis or IV drug abuse. Nursing Notes were reviewed. Limitations to history: None Outside historians: None REVIEW OF SYSTEMS Review of Systems Constitutional: Negative for fever. Eyes: Negative for visual disturbance. Respiratory: Negative for shortness of breath. Cardiovascular: Negative for chest pain. Gastrointestinal: Negative for abdominal pain. Genitourinary: Negative for difficulty urinating. Musculoskeletal: Positive for back pain and neck pain. Negative for arthralgias, gait problem, joint swelling, myalgias and neck stiffness. Skin: Negative for rash. Neurological: Negative for seizures, weakness, light-headedness, numbness and headaches. Pertinent positives and negatives as per HPI. PAST MEDICAL HISTORY Past Medical History: Diagnosis Date Acid reflux Arthritis Asthma Basal cell carcinoma Chronic back pain Chronic pain COPD (chronic obstructive pulmonary disease) (HCC) H/O blood clots Hypertension Medical marijuana use Neuropathy Spinal stenosis of cervical region SURGICAL HISTORY Past Surgical History: Procedure Laterality Date CERVICAL SPINE SURGERY COLONOSCOPY 10/15/2012 HAND SURGERY JOINT REPLACEMENT Right 2010 knee OTHER SURGICAL HISTORY 09/04/2017 revision lumbar decompression and hematoma evacuation SPINE SURGERY 1992 CURRENT MEDICATIONS Previous Medications ALBUTEROL 108 (90 BASE) MCG/ACT INHALER 2 puff(s) AMLODIPINE (NORVASC) 10 MG TABLET Take 1 tablet by mouth in the morning. AMLODIPINE (NORVASC) 10 MG TABLET Every 24 hours. ASPIRIN 81 MG CHEWABLE TABLET Every 24 hours. ASPIRIN 81 MG EC TABLET 1 tab(s) CETIRIZINE (ZYRTEC) 10 MG TABLET Take by mouth. FLUOROURACIL (EFUDEX) 5 % CREAM Apply to the cheeks, temples and forehead twice daily x2 weeks IBUPROFEN 200 MG TABLET every 8 hours. LIDOCAINE ( LIDOCAINE PATCH) 4 % PATCH Place 1 patch on the skin daily. LISINOPRIL 20 MG TABLET Take 1 tablet by mouth in the morning. LISINOPRIL-HYDROCHLOROTHIAZIDE 10-12.5 MG TABLET Every 24 hours. MELOXICAM (MOBIC) 15 MG TABLET Take 0.5 tablets (7.5 mg) by mouth Daily as needed (pain). ONDANSETRON (ZOFRAN) 4 MG TABLET every 8 hours. PANTOPRAZOLE (PROTONIX) 40 MG EC TABLET Every 24 hours. ALLERGIES Naproxen and Penicillins FAMILY HISTORY Family History Problem Relation Name Age of Onset Heart disease Mother High Blood Pressure Father Heart disease Sister Heart disease Brother SOCIAL HISTORY Social History Socioeconomic History Marital status: Single Tobacco Use Smoking status: Former Packs/day: 1.00 Years: 30.00 Pack years: 30.00 Types: Cigarettes Quit date: 09/04/2014 Years since quittin.5 Smokeless tobacco: Never Vaping Use Vaping Use: Never used Substance and Sexual Activity Alcohol use: Not Currently Drug use: Yes Types: Marijuana SCREENINGS PHYSICAL EXAM ED Triage Vitals Temp Pulse Resp BP -- -- -- -- SpO2 Temp src Heart Rate Source Patient Position -- -- -- -- BP Location FiO2 (%) -- -- Physical Exam Constitutional: Appearance: Normal appearance. HENT: Head: Normocephalic and atraumatic. Cardiovascular: Rate and Rhythm: Normal rate. Pulmonary: Effort: Pulmonary effort is normal. Musculoskeletal: General: No swelling or tenderness. Normal range of motion. Skin: General: Skin is warm and dry. Capillary Refill: Capillary refill takes less than 2 seconds. Neurological: General: No focal deficit present. Mental Status: He is alert. Cranial Nerves: No cranial nerve deficit. Sensory: No sensory deficit. Motor: No weakness. Coordination: Coordination normal. Gait: Gait normal. Deep Tendon Reflexes: Reflexes normal. Back -ambulatory, no spinal tenderness from C1-L5, negative straight leg raise, able to heel walk toe walk and stand on each leg individually Neurologic -no focal neurologic deficit, NIHSS 0 EMERGENCY DEPARTMENT COURSE and DIFFERENTIAL DIAGNOSIS/MDM: Vitals: Vitals: 04/08/23 1623 BP: 132/74 BP Location: Right arm Patient Position: Sitting Pulse: 80 Resp: 20 Temp: 36.4 C (97.6 F) TempSrc: Oral SpO2: 98% Weight: 103 kg (228 lb) Height: 1.676 m (5' 6") Medical Decision Making and ED Course The patient presented with a chief complaint of back pain. The differential diagnosis associated with this patient's presentation includes mechanical back pain epidural hematoma disc disease fracture. Our workup consisted of ordering/reviewing history and physical examination which shows minimal point tenderness which in the absence of injury makes fracture unlikely. He also has no new focal neurologic deficit making epidural disease or spinal cord involvement unlikely. He is a long history of back problems and spinal stenosis and this pain feels similar to him today. Most likely an exacerbation of same. Old chart review shows multiple visits for same which were treated with oral agents. Patient agrees with repeat treatment with oral agents to temporize him until he can see his regular physicians after the weekend. He has a ride home. He agrees with plan. Review of prior external records: No hospitalizations recorded since at least September 2017 Chronic conditions impacting care: DVT, hypertension, COPD, acid reflux, back pain and spinal stenosis ED Medications managed: Analgesics and steroids Consideration of hospitalization or de-escalation of care: Ambulatory with tolerable pain and no sphincter symptoms makes him a candidate for outpatient follow-up Medications oxyCODONE-acetaminophen (Percocet) 5-325 MG per tablet 1 tablet (has no administration in time range) predniSONE (Deltasone) tablet 50 mg (has no administration in time range) FINAL IMPRESSION 1. Lumbar strain, initial encounter DISPOSITION Discharge 04/08/2023 04:48:56 PM PATIENT REFERRED TO: Nick Quick MD [address] [facility] [id number] In 2 days DISCHARGE MEDICATIONS: New Prescriptions No medications on file (Comment: Please note this report has been produced using speech recognition software and may contain errors related to that system including errors in grammar, punctuation, and spelling, as well as words and phrases that may be inappropriate. If there are any questions or concerns please feel freeto contact the dictating provider for clarification.) Yariel Floyd MD (electronically signed) Emergency Medicine Provider Yariel Floyd MD 04/08/23 1717 [id number] Emergency department Note* Michel Zheng DO - 02/19/2023 5:37 PM EDT EMERGENCY DEPARTMENT ENCOUNTER Pt Name: Jemal Betts Birthdate 1960 Date of evaluation: 02/19/2023 ED Provider: Michel Zheng DO CHIEF COMPLAINT Chief Complaint Patient presents with Hand Pain Left HISTORY OF PRESENT ILLNESS (Location/Symptom, Timing/Onset, Context/Setting, Quality, Duration, Modifying Factors, Severity) Note limiting factors. I wore appropriate PPE for the entirety of this encounter. HPI Jemal Betts is a 63 y.o. male who presents to the emergency department with chronic left hand pain. The patient reports history of fractures and sprains to his left hand which have left his hand with chronic pain and immobile. The patient reports that he had multiple imaging studies of his left hand/wrist, and has followed up with orthopedics. He reports that he is planned for surgery next weekwith orthopedics. The patient reports that he was instructed to stop taking NSAIDs 1 week prior to surgery, and therefore his chronic pain has been uncontrolled. He denies any new trauma, numbness, or weakness. Nursing Notes were reviewed. Limitations to history: Outside historians: REVIEW OF SYSTEMS Review of Systems Musculoskeletal: Positive for left hand pain PAST MEDICAL HISTORY Past Medical History: Diagnosis Date Acid reflux Arthritis Asthma Basal cell carcinoma Chronic back pain Chronic pain COPD (chronic obstructive pulmonary disease) (HCC) H/O blood clots Hypertension Medical marijuana use Neuropathy Spinal stenosis of cervical region SURGICAL HISTORY Past Surgical History: Procedure Laterality Date CERVICAL SPINE SURGERY COLONOSCOPY 10/15/2012 HAND SURGERY JOINT REPLACEMENT Right 2010 knee OTHER SURGICAL HISTORY 09/04/2017 revision lumbar decompression and hematoma evacuation SPINE SURGERY 1992 CURRENT MEDICATIONS Previous Medications ALBUTEROL 108 (90 BASE) MCG/ACT INHALER 2 puff(s) AMLODIPINE (NORVASC) 10 MG TABLET Take 1 tablet by mouth in the morning. AMLODIPINE (NORVASC) 10 MG TABLET Every 24 hours. ASPIRIN 81 MG CHEWABLE TABLET Every 24 hours. ASPIRIN 81 MG EC TABLET 1 tab(s) CETIRIZINE (ZYRTEC) 10 MG TABLET Take by mouth. FLUOROURACIL (EFUDEX) 5 % CREAM Apply to the cheeks, temples and forehead twice daily x2 weeks IBUPROFEN 200 MG TABLET every 8 hours. LIDOCAINE ( LIDOCAINE PATCH) 4 % PATCH Place 1 patch on the skin daily. LISINOPRIL 20 MG TABLET Take 1 tablet by mouth in the morning. LISINOPRIL-HYDROCHLOROTHIAZIDE 10-12.5 MG TABLET Every 24 hours. MELOXICAM (MOBIC) 15 MG TABLET Take 0.5 tablets (7.5 mg) by mouth Daily as needed (pain). ONDANSETRON (ZOFRAN) 4 MG TABLET every 8 hours. PANTOPRAZOLE (PROTONIX) 40 MG EC TABLET Every 24 hours. ALLERGIES Naproxen and Penicillins FAMILY HISTORY Family History Problem Relation Name Age of Onset Heart disease Mother High Blood Pressure Father Heart disease Sister Heart disease Brother SOCIAL HISTORY Social History Socioeconomic History Marital status: Single Tobacco Use Smoking status: Former Packs/day: 1.00 Years: 30.00 Pack years: 30.00 Types: Cigarettes Quit date: 09/04/2014 Years since quittin.4 Smokeless tobacco: Never Vaping Use Vaping Use: Never used Substance and Sexual Activity Alcohol use: Not Currently Drug use: Yes Types: Marijuana SCREENINGS PHYSICAL EXAM ED Triage Vitals Temp Pulse Resp BP -- -- -- -- SpO2 Temp src Heart Rate Source Patient Position -- -- -- -- BP Location FiO2 (%) -- -- Physical Exam Musculoskeletal: Comments: Limited range of motion of the left wrist and left hand. Tenderness to palpation of the left wrist and left hand. Left hand is neurovascularly intact. DIAGNOSTIC RESULTS RADIOLOGY (Per Emergency Physician): Interpretation per the Radiologist below, if available at the time of this note: No orders to display LABS: Labs Reviewed - No data to display All other labs were within normal range or not returned as of this dictation. EMERGENCY DEPARTMENT COURSE and DIFFERENTIAL DIAGNOSIS/MDM: Vitals: Vitals: 02/19/23 1748 BP: (!) 164/98 BP Location: Right arm Patient Position: Sitting Pulse: 100 Resp: 18 Temp: 36.7 C (98 F) TempSrc: Oral SpO2: 98% Weight: 104 kg (230 lb) Medications ketorolac (Toradol) injection 30 mg (has no administration in time range) acetaminophen (Tylenol) tablet 1,000 mg (has no administration in time range) oxyCODONE (Roxicodone) immediate release tablet 10 mg (has no administration in time range) MDM The patient presented with chief complaint of left wrist and hand pain. This is a chronic complaint. The patient appears well, no acute distress, vitals are stable. He denies any new trauma. He reports that the symptoms are usually controlled with NSAIDs, however he stopped taking them as instructed by his physician prior to surgery. The patient will be given medications as above for pain controland discharged with prescription as below and given follow-up to his orthopedist. He was instructedto return back if symptoms change or worsen. The patient demonstrated general understanding and wasagreeable to medical plan. Tenzin Zheng DO am the central office repairer of record. PROCEDURES: Unless otherwise noted below, none Procedures FINAL IMPRESSION 1. Chronic pain due to trauma DISPOSITION Discharge 02/19/2023 05:54:38 PM PATIENT REFERRED TO: Nick Quick MD [address] [facility] [id number] [facility] ED [address] [facility] [address] DISCHARGE MEDICATIONS: New Prescriptions HYDROCODONE-ACETAMINOPHEN (NORCO) 5-325 MG TABLET Take 1 tablet by mouth every 6 hours as needed for severe pain (7-10) for up to 3 days. (Comment: Please note this report has been produced using speech recognition software and may contain errors related to that system including errors in grammar, punctuation, and spelling, as well as words and phrases that may be inappropriate. If there are any questions or concerns please feel freeto contact the dictating provider for clarification.) Michel Zheng DO (electronically signed) Emergency Medicine Provider Michel Zheng DO 02/19/23 1800 * Ely Little RN - 02/19/2023 5:37 PM EDT Patient arrived ambulatory to room 4 without difficulty. Patient complains of left hand pain. Patient states this is a chronic problem from previous fracture and tendons being "pinched off". Patient states he has tried everything for pain relief and nothing work. Patient states he was unable to sleep last night due to the pain. Patient to have 4 point fusion surgery this week. documented in this [facility]06-18-2023 Emergency department Triage note* Ely Little RN - 02/19/2023 5:37 PM EDT Patient arrived ambulatory to room 4 without difficulty. Patient complains of left hand pain. Patient states this is a chronic problem from previous fracture and tendons being "pinched off". Patient states he has tried everything for pain relief and nothing work. Patient states he was unable to sleep last night due to the pain. Patient to have 4 point fusion surgery this week. [id number] Physician Emergency department Note* Michel Zheng DO - 02/19/2023 5:37 PM EDT EMERGENCY DEPARTMENT ENCOUNTER Pt Name: Jemal Betts Birthdate 1960 Date of evaluation: 02/19/2023 ED Provider: Michel Zheng DO CHIEF COMPLAINT Chief Complaint Patient presents with Hand Pain Left HISTORY OF PRESENT ILLNESS (Location/Symptom, Timing/Onset, Context/Setting, Quality, Duration, Modifying Factors, Severity) Note limiting factors. I wore appropriate PPE for the entirety of this encounter. HPI Jemal Betts is a 63 y.o. male who presents to the emergency department with chronic left hand pain. The patient reports history of fractures and sprains to his left hand which have left his hand with chronic pain and immobile. The patient reports that he had multiple imaging studies of his left hand/wrist, and has followed up with orthopedics. He reports that he is planned for surgery next weekwith orthopedics. The patient reports that he was instructed to stop taking NSAIDs 1 week prior to surgery, and therefore his chronic pain has been uncontrolled. He denies any new trauma, numbness, or weakness. Nursing Notes were reviewed. Limitations to history: Outside historians: REVIEW OF SYSTEMS Review of Systems Musculoskeletal: Positive for left hand pain PAST MEDICAL HISTORY Past Medical History: Diagnosis Date Acid reflux Arthritis Asthma Basal cell carcinoma Chronic back pain Chronic pain COPD (chronic obstructive pulmonary disease) ([facility]) H/O blood clots Hypertension Medical marijuana use Neuropathy Spinal stenosis of cervical region SURGICAL HISTORY Past Surgical History: Procedure Laterality Date CERVICAL SPINE SURGERY COLONOSCOPY 10/15/2012 HAND SURGERY JOINT REPLACEMENT Right 2009 knee OTHER SURGICAL HISTORY 09/04/2017 revision lumbar decompression and hematoma evacuation SPINE SURGERY 1993 CURRENT MEDICATIONS Previous Medications ALBUTEROL 108 (90 BASE) MCG/ACT INHALER 2 puff(s) AMLODIPINE (NORVASC) 10 MG TABLET Take 1 tablet by mouth in the morning. AMLODIPINE (NORVASC) 10 MG TABLET Every 24 hours. ASPIRIN 81 MG CHEWABLE TABLET Every 24 hours. ASPIRIN 81 MG EC TABLET 1 tab(s) CETIRIZINE (ZYRTEC) 10 MG TABLET Take by mouth. FLUOROURACIL (EFUDEX) 5 % CREAM Apply to the cheeks, temples and forehead twice daily x2 weeks IBUPROFEN 200 MG TABLET every 8 hours. LIDOCAINE ( LIDOCAINE PATCH) 4 % PATCH Place 1 patch on the skin daily. LISINOPRIL 20 MG TABLET Take 1 tablet by mouth in the morning. LISINOPRIL-HYDROCHLOROTHIAZIDE 10-12.5 MG TABLET Every 24 hours. MELOXICAM (MOBIC) 15 MG TABLET Take 0.5 tablets (7.5 mg) by mouth Daily as needed (pain). ONDANSETRON (ZOFRAN) 4 MG TABLET every 8 hours. PANTOPRAZOLE (PROTONIX) 40 MG EC TABLET Every 24 hours. ALLERGIES Naproxen and Penicillins FAMILY HISTORY Family History Problem Relation Name Age of Onset Heart disease Mother High Blood Pressure Father Heart disease Sister Heart disease Brother SOCIAL HISTORY Social History Socioeconomic History Marital status: Single Tobacco Use Smoking status: Former Packs/day: 1.00 Years: 30.00 Pack years: 30.00 Types: Cigarettes Quit date: 09/04/2014 Years since quittin.4 Smokeless tobacco: Never Vaping Use Vaping Use: Never used Substance and Sexual Activity Alcohol use: Not Currently Drug use: Yes Types: Marijuana SCREENINGS PHYSICAL EXAM ED Triage Vitals Temp Pulse Resp BP -- -- -- -- SpO2 Temp src Heart Rate Source Patient Position -- -- -- -- BP Location FiO2 (%) -- -- Physical Exam Musculoskeletal: Comments: Limited range of motion of the left wrist and left hand. Tenderness to palpation of the left wrist and left hand. Left hand is neurovascularly intact. DIAGNOSTIC RESULTS RADIOLOGY (Per Emergency Physician): Interpretation per the Radiologist below, if available at the time of this note: No orders to display LABS: Labs Reviewed - No data to display All other labs were within normal range or not returned as of this dictation. EMERGENCY DEPARTMENT COURSE and DIFFERENTIAL DIAGNOSIS/MDM: Vitals: Vitals: 02/19/23 1748 BP: (!) 164/98 BP Location: Right arm Patient Position: Sitting Pulse: 100 Resp: 18 Temp: 36.7 C (98 F) TempSrc: Oral SpO2: 98% Weight: 104 kg (230 lb) Medications ketorolac (Toradol) injection 30 mg (has no administration in time range) acetaminophen (Tylenol) tablet 1,000 mg (has no administration in time range) oxyCODONE (Roxicodone) immediate release tablet 10 mg (has no administration in time range) MDM The patient presented with chief complaint of left wrist and hand pain. This is a chronic complaint. The patient appears well, no acute distress, vitals are stable. He denies any new trauma. He reports that the symptoms are usually controlled with NSAIDs, however he stopped taking them as instructed by his physician prior to surgery. The patient will be given medications as above for pain controland discharged with prescription as below and given follow-up to his orthopedist. He was instructedto return back if symptoms change or worsen. The patient demonstrated general understanding and wasagreeable to medical plan. I Michel Zheng DO am the central office repairer of record. PROCEDURES: Unless otherwise noted below, none Procedures FINAL IMPRESSION 1. Chronic pain due to trauma DISPOSITION Discharge 02/19/2023 05:54:38 PM PATIENT REFERRED TO: Nick Quick MD [address] [facility] [phone] [facility] ED [address] [facility] [address] DISCHARGE MEDICATIONS: New Prescriptions HYDROCODONE-ACETAMINOPHEN (NORCO) 5-325 MG TABLET Take 1 tablet by mouth every 6 hours as needed for severe pain (7-10) for up to 3 days. (Comment: Please note this report has been produced using speech recognition software and may contain errors related to that system including errors in grammar, punctuation, and spelling, as well as words and phrases that may be inappropriate. If there are any questions or concerns please feel freeto contact the dictating provider for clarification.) Michel Zheng DO (electronically signed) Emergency Medicine Provider Michel Zheng DO 02/19/23 1800 [id number] Emergency department Note* Kandace Serrano RN - 01/08/2023 12:58 PM EDT Pt states dissatisfaction with prescribed medication stating "I need something to make this stop NOW". Pt is informed that it has only been 20 minutes since medication was taken but will inform physician. Kandace Serrano RN 01/08/23 4275 [facility] [id number] Emergency department Note* Kandace Serrano RN - 01/08/2023 12:58 PM EDT Physician at bedside to discuss results Kandace Serrano RN 01/08/23 1526 [facility] [id number] Emergency department Note* Kandace Serrano RN - 01/08/2023 12:58 PM EDT Pt unable to tolerate positioning for additional xrays. Physician aware. OCL splint applied by physician. Kandace Serrano RN 01/08/23 1510 [id number] Emergency department Note* Namrata Gleason MD - 01/08/2023 12:58 PM EDT EMERGENCY DEPARTMENT ENCOUNTER Pt Name: Jemal Betts Birthdate 1960 Date of evaluation: 01/08/2023 CHIEF COMPLAINT Chief Complaint Patient presents with Wrist Pain HISTORY OF PRESENT ILLNESS HPI Jemal Betts is a 62 y.o. male who presents to the emergency department with left wrist pain, swelling decreased range of motion. No fever. No specific injury. He reports he was cutting firewood. Symptoms started less than 72 hours ago. No numbness. REVIEW OF SYSTEMS Review of Systems CURRENT MEDICATIONS Current Discharge Medication List CONTINUE these medications which have NOT CHANGED Details albuterol 108 (90 Base) MCG/ACT inhaler 2 puff(s) !! amLODIPine (Norvasc) 10 MG tablet Take 1 tablet by mouth in the morning. !! amLODIPine (Norvasc) 10 MG tablet Every 24 hours. aspirin 81 MG chewable tablet Every 24 hours. aspirin 81 MG EC tablet 1 tab(s) cetirizine (ZyrTEC) 10 MG tablet Take by mouth. fluorouracil (Efudex) 5 % cream Apply to the cheeks, temples and forehead twice daily x2 weeks Qty: 40 g, Refills: 0 Associated Diagnoses: Actinic keratoses ibuprofen 200 MG tablet every 8 hours. Lidocaine (HM Lidocaine Patch) 4 % patch Place 1 patch on the skin daily. Qty: 5 patch, Refills: 0 lisinopril 20 MG tablet Take 1 tablet by mouth in the morning. lisinopril-hydroCHLOROthiazide 10-12.5 MG tablet Every 24 hours. ondansetron (Zofran) 4 MG tablet every 8 hours. pantoprazole (ProtoNix) 40 MG EC tablet Every 24 hours. !! - Potential duplicate medications found. Please discuss with provider. ALLERGIES Naproxen and Penicillins FAMILY HISTORY Family History Problem Relation Name Age of Onset Heart disease Mother High Blood Pressure Father Heart disease Sister Heart disease Brother SOCIAL HISTORY Social History Socioeconomic History Marital status: Single Tobacco Use Smoking status: Former Packs/day: 1.00 Years: 30.00 Pack years: 30.00 Types: Cigarettes Quit date: 09/04/2014 Years since quittin.3 Smokeless tobacco: Never Vaping Use Vaping Use: Never used Substance and Sexual Activity Alcohol use: Not Currently Drug use: Yes Types: Marijuana PHYSICAL EXAM Vitals: 01/08/23 1306 BP: 128/82 BP Location: Right arm Patient Position: Sitting Pulse: 97 Resp: 18 Temp: 36.7 C (98 F) TempSrc: Oral SpO2: 100% Weight: 102 kg (225 lb) Physical Exam Vitals and nursing note reviewed. HENT: Head: Atraumatic. Eyes: Conjunctiva/sclera: Conjunctivae normal. Cardiovascular: Rate and Rhythm: Normal rate and regular rhythm. Pulses: Radial pulses are 2+ on the left side. Musculoskeletal: Left forearm: No swelling, deformity, lacerations or tenderness. Left wrist: Swelling and tenderness present. No lacerations or crepitus. Decreased range of motion. Left hand: No swelling or tenderness. Normal strength. Normal sensation. Normal capillary refill. Skin: General: Skin is warm. Capillary Refill: Capillary refill takes less than 2 seconds. Coloration: Skin is not cyanotic or jaundiced. Findings: No abscess or erythema. Comments: Neurological: Mental Status: He is alert. Sensory: Sensation is intact. Gait: Gait is intact. Psychiatric: Behavior: Behavior normal. Thought Content: Thought content normal. SCREENINGS Medical decision making Medical Decision Making Problems Addressed: Closed fracture of left wrist, initial encounter: complicated acute illness or injury Amount and/or Complexity of Data Reviewed Radiology: ordered. Decision-making details documented in ED Course. Risk Prescription drug management. DIAGNOSTIC RESULTS Procedures/EKG: Physician EKG interpretation can be found in [facility] if done RADIOLOGY (Per Emergency Physician): Interpretation per the Radiologist below, if available at the time of this note: XR wrist 3+ views left Final Result No acute findings. Report Dictated on Electronically Signed By: Jorge Elias Electronically Signed Date/Time: 01/08/2023 1:33 PM EDT XR wrist 1 or 2 views left (Results Pending) LABS: Labs Reviewed - No data to display Medications ordered: Medications meloxicam (Mobic) tablet 7.5 mg (7.5 mg Oral Given 01/08/23 1323) dexAMETHasone (PF) (Decadron) injection 10 mg (10 mg IntraMUSCular Given 01/08/23 1406) ED Course as of 01/08/23 1555 Sun January 08, 2023 1504 XR wrist 3+ views left Radiology: X-ray was reviewed and was independently interpreted by myself: Extremities: Wrist: distal radius step off on lateral view and bone lucency on lateral view [NM] ED Course User Index [NM] Namrata Gleason MD Diagnoses as of 01/08/23 1555 Closed fracture of left wrist, initial encounter * No order type specified * MDM: 62 y.o. presented with chief complaint of wrist pain. The differential diagnosis considered: arthritis, fx. unlikely, infection is no fever no redness ofthe joint Our workup consisted of ordering/reviewing: xray. X-ray shows 2 areas with probable fractures. He is tender in the area so we will treat as fracture. Procedure note:splinting or strapping Volar ortho glass splinting by me to the wrist. Post splint application patient was neurovascularlyintact and alignment was good NAMRATA GLEASON MD . Diagnostic tests considered but not performed: Blood ESR level as I do not think it is infection. Patient is in agreement with this plan. Prescription medications considered but not prescribed: oxycodone po. Will trial ALTO REVAL: CRITICAL CARE TIME CONSULTS: None PROCEDURES: Procedures FINAL IMPRESSION 1. Closed fracture of left wrist, initial encounter DISPOSITION/PLAN DISPOSITION Discharge 01/08/2023 03:54:28 PM PATIENT REFERRED TO: Mukund Crowley MD [address] [facility] [id number] In 1 week I prescribed: Current Discharge Medication List (Comment: this report has been produced using speech recognition software and may contain errors related to that system including errors in grammar, punctuation, and spelling, as well as words and phrases that may be inappropriate) NAMRATA GLEASON MD (electronically signed) Namrata Gleason MD 01/08/23 6226 * Kandace Serrano RN - 01/08/2023 12:58 PM EDT Pt ambulatory to room 3 with c/o left wrist pain since yesterday. Pt reports that he spent day splitting and moving logs prior to onset of pain. Denies any direct injury to area. Pt states pain is constant and increased with movement of hand and wrist and radiating up arm and into shoulder. Pt states he has had no improvement with use of prescribed pain meds * Kandace Serrano RN - 01/08/2023 12:58 PM EDT Pt states dissatisfaction with prescribed medication stating "I need something to make this stop NOW". Pt is informed that it has only been 20 minutes since medication was taken but will inform physician. Kandace Serrano RN 01/08/23 1344 * Kandace Serrano RN - 01/08/2023 12:58 PM EDT Physician at bedside to discuss results Kandace Serrano RN 01/08/23 1356 * Kandace Serrano RN - 01/08/2023 12:58 PM EDT Pt unable to tolerate positioning for additional xrays. Physician aware. OCL splint applied by physician. Kandace Serrano RN 01/08/23 1510 documented in this [facility]05-07-2023 Emergency department Triage note* Kandace Serrano RN - 01/08/2023 12:58 PM EDT Pt ambulatory to room 3 with c/o left wrist pain since yesterday. Pt reports that he spent day splitting and moving logs prior to onset of pain. Denies any direct injury to area. Pt states pain is constant and increased with movement of hand and wrist and radiating up arm and into shoulder. Pt states he has had no improvement with use of prescribed pain meds [id number] Physician Emergency department Note* Namrata Gleason MD - 01/08/2023 12:58 PM EDT EMERGENCY DEPARTMENT ENCOUNTER Pt Name: Jemal Betts Birthdate 1960 Date of evaluation: 01/08/2023 CHIEF COMPLAINT Chief Complaint Patient presents with Wrist Pain HISTORY OF PRESENT ILLNESS HPI Jemal Betts is a 62 y.o. male who presents to the emergency department with left wrist pain, swelling decreased range of motion. No fever. No specific injury. He reports he was cutting firewood. Symptoms started less than 72 hours ago. No numbness. REVIEW OF SYSTEMS Review of Systems CURRENT MEDICATIONS Current Discharge Medication List CONTINUE these medications which have NOT CHANGED Details albuterol 108 (90 Base) MCG/ACT inhaler 2 puff(s) !! amLODIPine (Norvasc) 10 MG tablet Take 1 tablet by mouth in the morning. !! amLODIPine (Norvasc) 10 MG tablet Every 24 hours. aspirin 81 MG chewable tablet Every 24 hours. aspirin 81 MG EC tablet 1 tab(s) cetirizine (ZyrTEC) 10 MG tablet Take by mouth. fluorouracil (Efudex) 5 % cream Apply to the cheeks, temples and forehead twice daily x2 weeks Qty: 40 g, Refills: 0 Associated Diagnoses: Actinic keratoses ibuprofen 200 MG tablet every 8 hours. Lidocaine (HM Lidocaine Patch) 4 % patch Place 1 patch on the skin daily. Qty: 5 patch, Refills: 0 lisinopril 20 MG tablet Take 1 tablet by mouth in the morning. lisinopril-hydroCHLOROthiazide 10-12.5 MG tablet Every 24 hours. ondansetron (Zofran) 4 MG tablet every 8 hours. pantoprazole (ProtoNix) 40 MG EC tablet Every 24 hours. !! - Potential duplicate medications found. Please discuss with provider. ALLERGIES Naproxen and Penicillins FAMILY HISTORY Family History Problem Relation Name Age of Onset Heart disease Mother High Blood Pressure Father Heart disease Sister Heart disease Brother SOCIAL HISTORY Social History Socioeconomic History Marital status: Single Tobacco Use Smoking status: Former Packs/day: 1.00 Years: 30.00 Pack years: 30.00 Types: Cigarettes Quit date: 09/04/2014 Years since quittin.3 Smokeless tobacco: Never Vaping Use Vaping Use: Never used Substance and Sexual Activity Alcohol use: Not Currently Drug use: Yes Types: Marijuana PHYSICAL EXAM Vitals: 01/08/23 1306 BP: 128/82 BP Location: Right arm Patient Position: Sitting Pulse: 97 Resp: 18 Temp: 36.7 C (98 F) TempSrc: Oral SpO2: 100% Weight: 102 kg (225 lb) Physical Exam Vitals and nursing note reviewed. HENT: Head: Atraumatic. Eyes: Conjunctiva/sclera: Conjunctivae normal. Cardiovascular: Rate and Rhythm: Normal rate and regular rhythm. Pulses: Radial pulses are 2+ on the left side. Musculoskeletal: Left forearm: No swelling, deformity, lacerations or tenderness. Left wrist: Swelling and tenderness present. No lacerations or crepitus. Decreased range of motion. Left hand: No swelling or tenderness. Normal strength. Normal sensation. Normal capillary refill. Skin: General: Skin is warm. Capillary Refill: Capillary refill takes less than 2 seconds. Coloration: Skin is not cyanotic or jaundiced. Findings: No abscess or erythema. Comments: Neurological: Mental Status: He is alert. Sensory: Sensation is intact. Gait: Gait is intact. Psychiatric: Behavior: Behavior normal. Thought Content: Thought content normal. SCREENINGS Medical decision making Medical Decision Making Problems Addressed: Closed fracture of left wrist, initial encounter: complicated acute illness or injury Amount and/or Complexity of Data Reviewed Radiology: ordered. Decision-making details documented in ED Course. Risk Prescription drug management. DIAGNOSTIC RESULTS Procedures/EKG: Physician EKG interpretation can be found in Ep[facility]any if done RADIOLOGY (Per Emergency Physician): Interpretation per the Radiologist below, if available at the time of this note: XR wrist 3+ views left Final Result No acute findings. Report Dictated on Electronically Signed By: Jorge Elias Electronically Signed Date/Time: 01/08/2023 1:33 PM EDT XR wrist 1 or 2 views left (Results Pending) LABS: Labs Reviewed - No data to display Medications ordered: Medications meloxicam (Mobic) tablet 7.5 mg (7.5 mg Oral Given 01/08/23 1323) dexAMETHasone (PF) (Decadron) injection 10 mg (10 mg IntraMUSCular Given 01/08/23 1406) ED Course as of 01/08/23 1555 Sun January 08, 2023 1504 XR wrist 3+ views left Radiology: X-ray was reviewed and was independently interpreted by myself: Extremities: Wrist: distal radius step off on lateral view and bone lucency on lateral view [NM] ED Course User Index [NM] Namrata Gleason MD Diagnoses as of 01/08/23 1555 Closed fracture of left wrist, initial encounter * No order type specified * MDM: 62 y.o. presented with chief complaint of wrist pain. The differential diagnosis considered: arthritis, fx. unlikely, infection is no fever no redness ofthe joint Our workup consisted of ordering/reviewing: xray. X-ray shows 2 areas with probable fractures. He is tender in the area so we will treat as fracture. Procedure note:splinting or strapping Volar ortho glass splinting by me to the wrist. Post splint application patient was neurovascularlyintact and alignment was good NAMRATA GLEASON MD . Diagnostic tests considered but not performed: Blood ESR level as I do not think it is infection. Patient is in agreement with this plan. Prescription medications considered but not prescribed: oxycodone po. Will trial ALTO REVAL: CRITICAL CARE TIME CONSULTS: None PROCEDURES: Procedures FINAL IMPRESSION 1. Closed fracture of left wrist, initial encounter DISPOSITION/PLAN DISPOSITION Discharge 01/08/2023 03:54:28 PM PATIENT REFERRED TO: Mukund Crowley MD [address] [facility] [id number] In 1 week I prescribed: Current Discharge Medication List (Comment: this report has been produced using speech recognition software and may contain errors related to that system including errors in grammar, punctuation, and spelling, as well as words and phrases that may be inappropriate) NAMRATA GLEASON MD (electronically signed) Namrata Gleason MD 01/08/23 1556 [id number] NoteHNO ID: [id number] Author: Vernon Robins RN Service: Gastroenterology Author Type: Registered Nurse Type: Nursing Progress Note Filed: 01/04/2023 12:00 PM Note Text: Physician at bedside.[facility]05-03-2023 Nurse Note* Vernon Robins - 01/04/2023 11:45 AM EDT Physician at bedside. [facility]05-03-2023 Nurse Note* Vernon Robins - 01/04/2023 11:45 AM EDT Physician at bedside. [facility] History and physical note * Benny Hedrick MD - 01/04/2023 10:30 AM EDT HISTORY AND PHYSICAL Jemal Betts , 62 year old male here fro colonoscopy, average risk for colon cancer screening Current history and physical on file: No Is a new History and Physical required for today's visit? Yes Indication for procedure: Screening PROCEDURE(S) SCHEDULED FOR: Colonoscopy with or without biopsies and with or without removal of polyps or lesions, dilation (any means), treatment of bleeding (any means), based on clinical findings. BASELINE BEHAVIOR: Calm BASELINE ORIENTATION: A & O x3 All medications and allergies reviewed: Yes Skin Assessment: Warm dry muscus membranes pink Airway/Respiratory Assessment: Airway: visualization of the uvula- Yes Mouth: opening greater than 2 fingerbreadths- Yes Neck: full range of motion- Yes Breath sounds clear/equal- Yes Cardiac Assessment: Regular rate and rhythm without murmur Abdominal Assessment: Abdomen soft, non-tender, no masses or organomegaly. Sedation Plan: Deep Additional Comments: None Benny Hedrick MD [facility] Work Phone: [phone] 300-470305-03-2023 History and physical note* Benny Hedrick MD - 01/04/2023 10:30 AM EDT HISTORY AND PHYSICAL Jemal Betts JR, 62 year old male here fro colonoscopy, average risk for colon cancer screening Current history and physical on file: No Is a new History and Physical required for today's visit? Yes Indication for procedure: Screening PROCEDURE(S) SCHEDULED FOR: Colonoscopy with or without biopsies and with or without removal of polyps or lesions, dilation (any means), treatment of bleeding (any means), based on clinical findings. BASELINE BEHAVIOR: Calm BASELINE ORIENTATION: A & O x3 All medications and allergies reviewed: Yes Skin Assessment: Warm dry muscus membranes pink Airway/Respiratory Assessment: Airway: visualization of the uvula- Yes Mouth: opening greater than 2 fingerbreadths- Yes Neck: full range of motion- Yes Breath sounds clear/equal- Yes Cardiac Assessment: Regular rate and rhythm without murmur Abdominal Assessment: Abdomen soft, non-tender, no masses or organomegaly. Sedation Plan: Deep Additional Comments: None Benny Hedrick MD documented in this [facility]Av[facility] Hospital Discharge instructions* Discharge Instructions* Ashok Moise DO - 12/08/2022 2:07 PM EDT Please make your appointment with [facility] for further orthopedic evaluation. * Attachments The following attachments cannot be sent through Care Everywhere. * Back Muscle Strain (Congolese) * Opioids for Short-Term Treatment of Pain (Congolese) documented in this [facility]04-06-2023 Emergency department Note* Ashok Moise DO - 12/08/2022 1:04 PM EDT EMERGENCY DEPARTMENT ENCOUNTER Pt Name: Jemal Betts Birthdate 1960 Date of evaluation: 12/08/2022 ED Provider: Ashok Moise DO CHIEF COMPLAINT Chief Complaint Patient presents with Back Pain HISTORY OF PRESENT ILLNESS (Location/Symptom, Timing/Onset, Context/Setting, Quality, Duration, Modifying Factors, Severity) Note limiting factors. I wore appropriate PPE for the entirety of this encounter. HPI Jemal Betst is a 62 y.o. male who presents to the emergency department with chief complaint of back pain. Patient notes pain is located in right lower lumbar area with radiation to right lower extremity. Tends to be worse with movement. Cannot find a position of comfort. Previously had been getting good relief with seeing the chiropractor regularly. Chiropractor is currently out of office and he has not been able to follow-up with his orthopedic surgeon yet. Does note some recent increased activity because he has been trying to get work done in the spring. He denies any falls or any other traumatic injuries recently. No fever, dysuria, hematuria. Ambulates with a cane which is his baseline since surgery. Denies any sudden increase in leg weakness. No fever. Denies history of drug use. No history of cancer or chemotherapy. Nursing Notes were reviewed. Limitations to history: None Outside historians: None REVIEW OF SYSTEMS Review of Systems Pertinent positives and negatives as per HPI PAST MEDICAL HISTORY Past Medical History: Diagnosis Date Acid reflux Arthritis Asthma Basal cell carcinoma Chronic back pain Chronic pain COPD (chronic obstructive pulmonary disease) (HCC) H/O blood clots Hypertension Medical marijuana use Neuropathy Spinal stenosis of cervical region SURGICAL HISTORY Past Surgical History: Procedure Laterality Date CERVICAL SPINE SURGERY COLONOSCOPY 10/15/2012 HAND SURGERY JOINT REPLACEMENT Right 2010 knee OTHER SURGICAL HISTORY 09/04/2017 revision lumbar decompression and hematoma evacuation SPINE SURGERY 1993 CURRENT MEDICATIONS Previous Medications ALBUTEROL 108 (90 BASE) MCG/ACT INHALER 2 puff(s) AMLODIPINE (NORVASC) 10 MG TABLET Take 1 tablet by mouth in the morning. AMLODIPINE (NORVASC) 10 MG TABLET Every 24 hours. ASPIRIN 81 MG CHEWABLE TABLET Every 24 hours. ASPIRIN 81 MG EC TABLET 1 tab(s) CETIRIZINE (ZYRTEC) 10 MG TABLET Take by mouth. FLUOROURACIL (EFUDEX) 5 % CREAM Apply to the cheeks, temples and forehead twice daily x2 weeks IBUPROFEN 200 MG TABLET every 8 hours. LISINOPRIL 20 MG TABLET Take 1 tablet by mouth in the morning. LISINOPRIL-HYDROCHLOROTHIAZIDE 10-12.5 MG TABLET Every 24 hours. MELOXICAM (MOBIC) 15 MG TABLET Every 24 hours. ONDANSETRON (ZOFRAN) 4 MG TABLET every 8 hours. PANTOPRAZOLE (PROTONIX) 40 MG EC TABLET Every 24 hours. ALLERGIES Naproxen and Penicillins FAMILY HISTORY Family History Problem Relation Name Age of Onset Heart disease Mother High Blood Pressure Father Heart disease Sister Heart disease Brother SOCIAL HISTORY Social History Socioeconomic History Marital status: Single Tobacco Use Smoking status: Former Packs/day: 1.00 Years: 30.00 Pack years: 30.00 Types: Cigarettes Quit date: 09/04/2014 Years since quittin.2 Smokeless tobacco: Never Vaping Use Vaping Use: Never used Substance and Sexual Activity Alcohol use: Not Currently Drug use: Yes Types: Marijuana SCREENINGS PHYSICAL EXAM ED Triage Vitals [12/08/22 1318] Temp Heart Rate Resp BP 36.4 C (97.6 F) 92 16 128/77 SpO2 Temp Source Heart Rate Source Patient Position 98 % Oral Monitor -- BP Location FiO2 (%) -- -- Physical Exam Vitals and nursing note reviewed. Constitutional: General: He is not in acute distress. HENT: Head: Normocephalic and atraumatic. Nose: Nose normal. Mouth/Throat: Mouth: Mucous membranes are moist. Eyes: Conjunctiva/sclera: Conjunctivae normal. Pulmonary: Effort: No respiratory distress. Musculoskeletal: Cervical back: Neck supple. Comments: Well-healed/old surgical scar noted to lower lumbar region. Tenderness to palpation of right sacroiliac region. Right straight leg raise test is positive. Difficult to elicit patellar reflexes due to prior bilateral knee replacements. Achilles reflexes normal bilaterally. PT pulses are 2+bilaterally. No lower extremity edema. Neurological: Mental Status: He is alert and oriented to person, place, and time. Psychiatric: Mood and Affect: Mood normal. DIAGNOSTIC RESULTS RADIOLOGY (Per Emergency Physician): Interpretation per the Radiologist below, if available at the time of this note: No orders to display LABS: Labs Reviewed - No data to display All other labs were within normal range or not returned as of this dictation. EMERGENCY DEPARTMENT COURSE and DIFFERENTIAL DIAGNOSIS/MDM: Vitals: Vitals: 12/08/22 1318 BP: 128/77 Pulse: 92 Resp: 16 Temp: 36.4 C (97.6 F) TempSrc: Oral SpO2: 98% Weight: 97.5 kg (215 lb) Height: 1.702 m (5' 7") Medications Lidocaine 4 % patch 1 patch (1 patch TransDERmal Medication Applied 12/08/221332) oxyCODONE-acetaminophen (Percocet) 5-325 MG per tablet 1 tablet (1 tablet Oral Given 12/08/221332) predniSONE (Deltasone) tablet 40 mg (40 mg Oral Given 12/08/221332) Patient presents with chief complaint of acute exacerbation of chronic back pain. No red flag symptoms such as urinary retention, bowel dysfunction, or saddle anesthesia. He is afebrile with stable vital signs. He does not have history of IV drug abuse. Based on exam findings today and patient's HPI, I have very low clinical suspicion for acute cauda equina syndrome, epidural abscess, transverse myelitis, or or other acute spine emergency needing urgent MRI and further orthopedic evaluation. He is acute pain was treated in the emergency department with some relief. He is able to ambulate with a steady gait in the ED with a cane which is his baseline. He has plans to follow-up with [facility] as outpatient and also sees a chiropractor for supportive care. Suitable for discharge home with supportive care. Reviewed home care and return precautions. FINAL IMPRESSION 1. Acute exacerbation of chronic low back pain 2. Lumbar strain, initial encounter DISPOSITION Discharge 12/08/2022 02:07:23 PM PATIENT REFERRED TO: [facility] ED [address] [place] [phone] Go to As needed, If symptoms worsen Nick Quick MD [address] [facility] [phone] Schedule an appointment as soon as possible for a visit As needed, If symptoms worsen DISCHARGE MEDICATIONS: New Prescriptions LIDOCAINE (HM LIDOCAINE PATCH) 4 % PATCH Place 1 patch on the skin daily. OXYCODONE-ACETAMINOPHEN (PERCOCET) 5-325 MG TABLET Take 1 tablet by mouth every 6 hours as needed for severe pain (7-10) for up to 5 days. PREDNISONE (DELTASONE) 10 MG TABLET Take 4 tablets (40 mg) by mouth daily for 5 days. (Comment: Please note this report has been produced using speech recognition software and may contain errors related to that system including errors in grammar, punctuation, and spelling, as well as words and phrases that may be inappropriate. If there are any questions or concerns please feel freeto contact the dictating provider for clarification.) Ashok Moise DO (electronically signed) Emergency Medicine Provider Ashok Moise DO 12/08/22 1414 * Rosio Irving RN - 12/08/2022 1:04 PM EDT Patient to room 3 with c/o lumbar back pain. Patient reports having the pain for two week's. Patient reports seeing a chiropractor in the last week for the pain. Patient reports he is going to followup with the [facility], he has not made an initial appointment yet. V/S obtained, call light within reach. documented in this [facility]04-06-2023 Emergency department Triage note* Rosio Irving RN - 12/08/2022 1:04 PM EDT Patient to room 3 with c/o lumbar back pain. Patient reports having the pain for two week's. Patient reports seeing a chiropractor in the last week for the pain. Patient reports he is going to followup with the [facility], he has not made an initial appointment yet. V/S obtained, call light within reach. [id number] Physician Emergency department Note* Ashok Moise DO - 12/08/2022 1:04 PM EDT EMERGENCY DEPARTMENT ENCOUNTER Pt Name: Jemal Betts Birthdate 1960 Date of evaluation: 12/08/2022 ED Provider: Ashok Moise DO CHIEF COMPLAINT Chief Complaint Patient presents with Back Pain HISTORY OF PRESENT ILLNESS (Location/Symptom, Timing/Onset, Context/Setting, Quality, Duration, Modifying Factors, Severity) Note limiting factors. I wore appropriate PPE for the entirety of this encounter. HPI Jemal Betts is a 62 y.o. male who presents to the emergency department with chief complaint of back pain. Patient notes pain is located in right lower lumbar area with radiation to right lower extremity. Tends to be worse with movement. Cannot find a position of comfort. Previously had been getting good relief with seeing the chiropractor regularly. Chiropractor is currently out of office and he has not been able to follow-up with his orthopedic surgeon yet. Does note some recent increased activity because he has been trying to get work done in the spring. He denies any falls or any other traumatic injuries recently. No fever, dysuria, hematuria. Ambulates with a cane which is his baseline since surgery. Denies any sudden increase in leg weakness. No fever. Denies history of drug use. No history of cancer or chemotherapy. Nursing Notes were reviewed. Limitations to history: None Outside historians: None REVIEW OF SYSTEMS Review of Systems Pertinent positives and negatives as per HPI PAST MEDICAL HISTORY Past Medical History: Diagnosis Date Acid reflux Arthritis Asthma Basal cell carcinoma Chronic back pain Chronic pain COPD (chronic obstructive pulmonary disease) (HCC) H/O blood clots Hypertension Medical marijuana use Neuropathy Spinal stenosis of cervical region SURGICAL HISTORY Past Surgical History: Procedure Laterality Date CERVICAL SPINE SURGERY COLONOSCOPY 10/15/2012 HAND SURGERY JOINT REPLACEMENT Right 2009 knee OTHER SURGICAL HISTORY 09/04/2017 revision lumbar decompression and hematoma evacuation SPINE SURGERY 1993 CURRENT MEDICATIONS Previous Medications ALBUTEROL 108 (90 BASE) MCG/ACT INHALER 2 puff(s) AMLODIPINE (NORVASC) 10 MG TABLET Take 1 tablet by mouth in the morning. AMLODIPINE (NORVASC) 10 MG TABLET Every 24 hours. ASPIRIN 81 MG CHEWABLE TABLET Every 24 hours. ASPIRIN 81 MG EC TABLET 1 tab(s) CETIRIZINE (ZYRTEC) 10 MG TABLET Take by mouth. FLUOROURACIL (EFUDEX) 5 % CREAM Apply to the cheeks, temples and forehead twice daily x2 weeks IBUPROFEN 200 MG TABLET every 8 hours. LISINOPRIL 20 MG TABLET Take 1 tablet by mouth in the morning. LISINOPRIL-HYDROCHLOROTHIAZIDE 10-12.5 MG TABLET Every 24 hours. MELOXICAM (MOBIC) 15 MG TABLET Every 24 hours. ONDANSETRON (ZOFRAN) 4 MG TABLET every 8 hours. PANTOPRAZOLE (PROTONIX) 40 MG EC TABLET Every 24 hours. ALLERGIES Naproxen and Penicillins FAMILY HISTORY Family History Problem Relation Name Age of Onset Heart disease Mother High Blood Pressure Father Heart disease Sister Heart disease Brother SOCIAL HISTORY Social History Socioeconomic History Marital status: Single Tobacco Use Smoking status: Former Packs/day: 1.00 Years: 30.00 Pack years: 30.00 Types: Cigarettes Quit date: 09/04/2014 Years since quittin.2 Smokeless tobacco: Never Vaping Use Vaping Use: Never used Substance and Sexual Activity Alcohol use: Not Currently Drug use: Yes Types: Marijuana SCREENINGS PHYSICAL EXAM ED Triage Vitals [12/08/22 1318] Temp Heart Rate Resp BP 36.4 C (97.6 F) 92 16 128/77 SpO2 Temp Source Heart Rate Source Patient Position 98 % Oral Monitor -- BP Location FiO2 (%) -- -- Physical Exam Vitals and nursing note reviewed. Constitutional: General: He is not in acute distress. HENT: Head: Normocephalic and atraumatic. Nose: Nose normal. Mouth/Throat: Mouth: Mucous membranes are moist. Eyes: Conjunctiva/sclera: Conjunctivae normal. Pulmonary: Effort: No respiratory distress. Musculoskeletal: Cervical back: Neck supple. Comments: Well-healed/old surgical scar noted to lower lumbar region. Tenderness to palpation of right sacroiliac region. Right straight leg raise test is positive. Difficult to elicit patellar reflexes due to prior bilateral knee replacements. Achilles reflexes normal bilaterally. PT pulses are 2+bilaterally. No lower extremity edema. Neurological: Mental Status: He is alert and oriented to person, place, and time. Psychiatric: Mood and Affect: Mood normal. DIAGNOSTIC RESULTS RADIOLOGY (Per Emergency Physician): Interpretation per the Radiologist below, if available at the time of this note: No orders to display LABS: Labs Reviewed - No data to display All other labs were within normal range or not returned as of this dictation. EMERGENCY DEPARTMENT COURSE and DIFFERENTIAL DIAGNOSIS/MDM: Vitals: Vitals: 12/08/22 1318 BP: 128/77 Pulse: 92 Resp: 16 Temp: 36.4 C (97.6 F) TempSrc: Oral SpO2: 98% Weight: 97.5 kg (215 lb) Height: 1.702 m (5' 7") Medications Lidocaine 4 % patch 1 patch (1 patch TransDERmal Medication Applied 12/08/22 133) oxyCODONE-acetaminophen (Percocet) 5-325 MG per tablet 1 tablet (1 tablet Oral Given 12/08/221332) predniSONE (Deltasone) tablet 40 mg (40 mg Oral Given 12/08/221332) Patient presents with chief complaint of acute exacerbation of chronic back pain. No red flag symptoms such as urinary retention, bowel dysfunction, or saddle anesthesia. He is afebrile with stable vital signs. He does not have history of IV drug abuse. Based on exam findings today and patient's HPI, I have very low clinical suspicion for acute cauda equina syndrome, epidural abscess, transverse myelitis, or or other acute spine emergency needing urgent MRI and further orthopedic evaluation. He is acute pain was treated in the emergency department with some relief. He is able to ambulate with a steady gait in the ED with a cane which is his baseline. He has plans to follow-up with [facility] as outpatient and also sees a chiropractor for supportive care. Suitable for discharge home with supportive care. Reviewed home care and return precautions. FINAL IMPRESSION 1. Acute exacerbation of chronic low back pain 2. Lumbar strain, initial encounter DISPOSITION Discharge 12/08/2022 02:07:23 PM PATIENT REFERRED TO: [facility] ED [address] [facility] [phone] Go to As needed, If symptoms worsen Nick Quick MD [address] [facility] [id number] Schedule an appointment as soon as possible for a visit As needed, If symptoms worsen DISCHARGE MEDICATIONS: New Prescriptions LIDOCAINE (HM LIDOCAINE PATCH) 4 % PATCH Place 1 patch on the skin daily. OXYCODONE-ACETAMINOPHEN (PERCOCET) 5-325 MG TABLET Take 1 tablet by mouth every 6 hours as needed for severe pain (7-10) for up to 5 days. PREDNISONE (DELTASONE) 10 MG TABLET Take 4 tablets (40 mg) by mouth daily for 5 days. (Comment: Please note this report has been produced using speech recognition software and may contain errors related to that system including errors in grammar, punctuation, and spelling, as well as words and phrases that may be inappropriate. If there are any questions or concerns please feel freeto contact the dictating provider for clarification.) Ashok Moise DO (electronically signed) Emergency Medicine Provider Ashok Moise DO 12/08/22 1414 [facility] [id number] NoteHNO ID: [id number] Author: Duncan Vásquez MD Service: ? Author Type: Physician Type: Progress Notes Filed: 10/28/2022 9:39 AM Note Text: CHIEF COMPLAINT: Patient presents with: Recheck: Stool 09/12/22. Some LLQ pain and blood when he wipes at times. HPI Jemal Betts is a 62 year old male here today for Recheck (Stool 09/12/22. Some LLQ pain and blood when he wipes at times.) CV 09/12/22 HPI: Jemal Betts is a 62 year old male who presents for Abdominal Pain (Also having loose stools. Labs 08/17/22 CT 07/09/22). Pt has diarrhea Frequent bowel movements Started after taking PPI for GERD Bad diarrhea which improved after stopping PPI He restarted PPI again Now with bad GERD but ate Hamburger today Pt last colonoscopy was normal Excessive burping and abdominal distention Interval hx: Pt still with lower abd pain Still with diarrhea on and off Stomach noise after eating certain food PT wakes up at night to go to the bathroom Moves his bowels 2 times a day Some times with straining and incomplete evacuation Current Outpatient Medications Medication Sig pantoprazole DR (PROTONIX) 40 mg tablet Take 1 tablet by mouth once daily. amLODIPine (NORVASC) 10 mg tablet 1 tab(s) aspirin, enteric coated (ASPIRIN, ENTERIC COATED) 81 mg EC tablet 1 tab(s) lisinopril-hydroCHLOROthiazide (PRINZIDE,ZESTORETIC) 10-12.5 mg per tablet Every 24 hours. ondansetron (ZOFRAN) 4 mg tablet Take 4 mg by mouth. meloxicam (MOBIC) 15 mg tablet 15 mg. No current facility-administered medications for this visit. ALLERGIES Allergen Reactions Naprosyn [Naproxen] Penicillin [Other] Social History Tobacco Use Smoking status: Former Types: Cigarettes Smokeless tobacco: Never Vaping Use Vaping Use: Never used Substance Use Topics Alcohol use: Not Currently Drug use: Yes Types: Marijuana PAST MEDICAL HISTORY Diagnosis Date Aneurysm (HCC) Arthritis Basal cell carcinoma Chronic back pain COPD (chronic obstructive pulmonary disease) ([facility]) PAST SURGICAL HISTORY Procedure Laterality Date COLONOSCOPY SCREENING 10/15/2012 normal History reviewed. No pertinent family history. REVIEW OF SYSTEMS Review of Systems Gastrointestinal: Positive for abdominal pain and nausea. All other systems reviewed and are negative. PHYSICAL EXAM BP 108/60 Pulse 77 Ht 5' 7" (1.70m) Wt 229 lb (103.9kg) BMI 35.86 kg/(m2). Physical Exam General: Alert, oriented, No acute distress. Skin: No rash; warm. Head: Normocephalic, atraumatic. Eyes: EOMI, PERRLA. Lymph: No cervical lymphadenopathy. Thyroid: Neck supple. No thyromegaly. Heart: S1, S2. No murmurs, gallops or rubs. Lungs: Clear to auscultation bilaterally. No wheezes or crackles. Abdomen: Soft, tender in the left lower quadrant, nondistended. Bowel sounds are normal. No organomegaly. Musculoskeletal: No joint swelling or effusion. Extremities: No cyanosis, clubbing or edema. Mental: Mood appropriate. Not depressed. Neuro: Cranial nerves II through XII intact. ASSESSMENT: Encounter for screening colonoscopy (primary encounter diagnosis) Burping Chronic diarrhea Class 2 severe obesity due to excess calories with serious comorbidity and body mass index (bmi) of 35.0 to 35.9 in adult ([facility]) Gastroesophageal reflux disease, unspecified whether esophagitis present Altered bowel habits Abdominal distention Generalized abdominal pain Pelvic floor dysfunction Left lower quadrant pain PLAN: Advised to continue to use stool softeners Schedule upper endoscopy with small bowel biopsies and colonoscopy with random colon biopsies Refill PPI This office note has been created using eFolder, a speech recognition software program, and may contain errors including punctuation, grammar, spelling, gender, and inappropriate words or phrases that pertain to the sytem. Duncan Vásquez MD Office Visit on 10/28/22 EGD DIAGNOSTIC COLONOSCOPY DIAGNOSTIC No follow-ups on file. Duncan Vásquez MD DATE: 10/28/22 TIME: 9:03 [facility]02-24-2023 Instructions* Patient Instructions* Duncan Vásquez MD - 10/28/2022 9:09 AM EST Images from the original note were not included. Bowel Preparation Instructions for: Miralax-Gatorade Preparations IF YOU DO NOT FOLLOW THESE DIRECTIONS, YOUR COLONOSCOPY WILL BE CANCELLED. Zuniga Instructions: Your bowel must be empty so that your doctor can clearly view your colon. Follow all of the instructions in this handout EXACTLY as they are written. Do NOT eat any solid food the ENTIRE day before your colonoscopy. Buy your bowel preparation at least 5 days before your colonoscopy. Four (4) Dulcolax laxative tablets containing 5mg of bisacodyl each (NOT Dulcolax stool softener) One (1) 8.3oz. bottle Miralax (238 grams) or generic equivalent 2 x 32oz. Bottles of Gatorade (NOT RED) Diabetic Patients: Use G2 (Gatorade 2) TRANSPORTATION on the Day of Your Exam A responsible adult MUST be present with you at Check In prior to your colonoscopy and REMAIN in the endoscopy area until you are discharged. You are NOT ALLOWED to drive, take a taxi or bus, or leave the Endoscopy Center ALONE. If you do not have a responsible cdl bulk driver (family member or friend) withyou to take you home, your exam cannot be done with sedation and will be cancelled. Please bring a list of all of your current medications, including any Hqnz-koj-Yrqtccs medications with you. Medications If you take insulin, diabetic medications or blood thinners such as Coumadin (warfarin), Plavix (clopidogrel), Ticlid (ticlopidine hydrochloride), Agrylin (anagrelide), Xarelto (Rivaroxaban), Pradaxa(Dabigatran), Eliquis (Apixaban), and Effient (Prasugrel). You MUST call the doctors who orders those medicines for instructions on altering the dosage before your colonoscopy. All other medications should be taken the day of the exam with a sip of water including ASPIRIN. Five (5) Days Before Your Colonoscopy Do NOT take medicines that stop diarrhea - such as Imodium, Kaopectate, or Pepto Bismol. Do NOT take fiber supplements - such as Metamucil, Citrucel, or Perdiem. Do NOT take products that contain iron - such as multi-vitamins (the label lists what is in the products). Three (3) Days Before Your Colonoscopy Do NOT eat high-fiber foods - such as popcorn, beans, seeds (flax, sunflower, quinoa), multigrain bread, nuts, salad/vegetables, or fresh and dried fruit. 1 Bowel Preparation Instructions for: Miralax-Gatorade Preparations One (1) Day Before Your Colonoscopy Only drink clear liquids the ENTIRE DAY before your colonoscopy. Do NOT eat any solid foods. Drink at least 8 ounces of clear liquids every hour after waking up. The clear liquids you can drink include: Clear Liquid (NO RED LIQUIDS) DO NOT DRINK Gatorade, Pedialyte or Powerade Clear broth or bouillon Coffee or tea (no milk or non-dairy creamer) Carbonated and non-carbonated soft drinks Carlitos-Aid or other fruit flavored drinks Strained fruit juices (no pulp) Jell-O, popsicles, hard candy Water Alcohol Milk or non-dairy creamers Noodles or vegetables in soup Juice with pulp Liquid you cannot see through Do not use tobacco/vaping products Mix 1/2 of Miralax bottle (119 grams) in each 32 ounces of Gatorade bottle until dissolved. Keep cool in the refrigerator. DO NOT ADD ICE. The bowel preparation solution will be consumed in two parts. Part 1 5:00 PM - Evening before your colonoscopy Take 4 Dulcolax tablets. 6 PM - Evening before your colonoscopy Drink 32 oz. of the mixed solution. Drink an 8 oz. glass of bowel preparation every 15 minutes for a total of 4 glasses. Fifteen (15) minutes later, drink an 8 oz. glass of of clear liquids every 15 minutes for a total of 2 glasses. You may continue to drink clear liquids till midnight. Part 2 On the day of your colonoscopy you may drink clear liquids up to (three) 3 hours prior to procedure. 4 1/2 hours before your colonoscopy Take another 32 oz. bottle of mixed solution. Drink an 8 oz. glass of bowel prep every 15 minutes for a total of 4 glasses. Fifteen (15) minutes later, drink an 8 oz. glass of clear liquids every 15 minutes for a total of 2glasses. You may continue to drink clear liquids up to (three) 3 hours before your exam. 2 08/2019 [facility] History of Present illness Narrative* Duncan Vásquez MD - 10/28/2022 8:59 AM EST CHIEF COMPLAINT: Patient presents with: Recheck: Stool 09/12/22. Some LLQ pain and blood when he wipes at times. HPI Jemal Betts is a 62 year old male here today for Recheck (Stool 09/12/22. Some LLQ pain and blood when he wipes at times.) CV 09/12/22 HPI: Jemal Betts is a 62 year old male who presents for Abdominal Pain (Also having loose stools.Labs 08/17/22 CT 07/09/22). Pt has diarrhea Frequent bowel movements Started after taking PPI for GERD Bad diarrhea which improved after stopping PPI He restarted PPI again Now with bad GERD but ate Hamburger today Pt last colonoscopy was normal Excessive burping and abdominal distention Interval hx: Pt still with lower abd pain Still with diarrhea on and off Stomach noise after eating certain food PT wakes up at night to go to the bathroom Moves his bowels 2 times a day Some times with straining and incomplete evacuation Current Outpatient Medications Medication Sig pantoprazole DR (PROTONIX) 40 mg tablet Take 1 tablet by mouth once daily. amLODIPine (NORVASC) 10 mg tablet 1 tab(s) aspirin, enteric coated (ASPIRIN, ENTERIC COATED) 81 mg EC tablet 1 tab(s) lisinopril-hydroCHLOROthiazide (PRINZIDE,ZESTORETIC) 10-12.5 mg per tablet Every 24 hours. ondansetron (ZOFRAN) 4 mg tablet Take 4 mg by mouth. meloxicam (MOBIC) 15 mg tablet 15 mg. No current facility-administered medications for this visit. ALLERGIES Allergen Reactions Naprosyn [Naproxen] Penicillin [Other] Social History Tobacco Use Smoking status: Former Types: Cigarettes Smokeless tobacco: Never Vaping Use Vaping Use: Never used Substance Use Topics Alcohol use: Not Currently Drug use: Yes Types: Marijuana PAST MEDICAL HISTORY Diagnosis Date Aneurysm (HCC) Arthritis Basal cell carcinoma Chronic back pain COPD (chronic obstructive pulmonary disease) ([facility]) PAST SURGICAL HISTORY Procedure Laterality Date COLONOSCOPY SCREENING 10/15/2012 normal History reviewed. No pertinent family history. REVIEW OF SYSTEMS Review of Systems Gastrointestinal: Positive for abdominal pain and nausea. All other systems reviewed and are negative. PHYSICAL EXAM BP 108/60 Pulse 77 Ht 5' 7" (1.70m) Wt 229 lb (103.9kg) BMI 35.86 kg/(m^2). Physical Exam General: Alert, oriented, No acute distress. Skin: No rash; warm. Head: Normocephalic, atraumatic. Eyes: EOMI, PERRLA. Lymph: No cervical lymphadenopathy. Thyroid: Neck supple. No thyromegaly. Heart: S1, S2. No murmurs, gallops or rubs. Lungs: Clear to auscultation bilaterally. No wheezes or crackles. Abdomen: Soft, tender in the left lower quadrant, nondistended. Bowel sounds are normal. No organomegaly. Musculoskeletal: No joint swelling or effusion. Extremities: No cyanosis, clubbing or edema. Mental: Mood appropriate. Not depressed. Neuro: Cranial nerves II through XII intact. ASSESSMENT: Encounter for screening colonoscopy (primary encounter diagnosis) Burping Chronic diarrhea Class 2 severe obesity due to excess calories with serious comorbidity and body mass index (bmi) of35.0 to 35.9 in adult ([facility]) Gastroesophageal reflux disease, unspecified whether esophagitis present Altered bowel habits Abdominal distention Generalized abdominal pain Pelvic floor dysfunction Left lower quadrant pain PLAN: Advised to continue to use stool softeners Schedule upper endoscopy with small bowel biopsies and colonoscopy with random colon biopsies Refill PPI This office note has been created using eFolder, a speech recognition software program, and may contain errors including punctuation, grammar, spelling, gender, and inappropriate words or phrases that pertain to the sytem. Duncan Vásquez MD Office Visit on 10/28/22 EGD DIAGNOSTIC COLONOSCOPY DIAGNOSTIC No follow-ups on file. Duncan Vásquez MD DATE: 10/28/22 TIME: 9:03 AM documented in this [facility] History of Present illness Narrative* Suzy Marshall PA-C - 10/24/2022 8:00 AM EST DATE OF SERVICE: 10/24/2022 PATIENT NAME: Jemal Betts : 1960 AGE: 62 y.o. CLINIC NUMBER: [id number] Visit type: Established patient Chief Complaint Patient presents with Actinic Keratosis (LMS) Subjective HISTORY OF PRESENT ILLNESS: This is a 62 y.o. male who presents for evaluation of Aks; last seen 07/04/22. Tx: Efudex BID x 2 weeks to bilateral cheeks, temples and forehead. Pt states he is still using the cream, last used this morning, as it will be the 10th day today. Pt states he did get some redness and scabbing with use of the cream. Re-check spot on R upper arm. Noted as skin lesion at the lat visit. Pt advised to discontinue picking to allow lesion to fully heal. Pt states the lesion has resolved. Patient denies ?h/o of ATN. Patient has?h/o of AKs. ? Patient admits ?personal h/o skin cancer - BCC on the nose (27 radiation treatments approx 2011) Patient has ?family h/o skin cancer - Father (unknown type) History of pacemaker/ defibrillator? No History of HIV/ Hep C? No Allergies to Lidocaine, Epinephrine, Latex or Adhesive? No Review of Systems There were no vitals filed for this visit. PHYSICAL EXAM GENERAL APPEARANCE:?Alert & oriented x3, pleasant. Well developed, well nourished. PSYCH: appropriate mood and affect DERMATOLOGY: (all measurements are in cm, unless otherwise noted) 1. Seborrheic keratosis Left Forehead Pathak-brown waxy papule(s) and plaque(s) Reassured that this is a benign lesion and does not require any treatment. Educated that if the lesion changes color, becomes larger, bleeds, becomes bothersome or painful then it should be reevaluated. Patient expresses understanding and is agreeable to plan. 2. Actinic keratoses [place] scaly macule(s) [x]Chronic []Acute [x]Stable []Flaring/Exacerbation Patient educated on actinic keratosis and the possibility of transformation into SCC. Treatment options are discussed with risks and benefits reviewed. - Patient to continue Efudex BID to cheeks, forehead and temples x 14 days total (Patient currentlyon day 10 of 14). Patient is getting an appropriate reaction with the Fluorouracil. He is tolerating it well and will finish out the 14 days. Patient thoroughly educated about treatment with Efudex, including risks and benefits and detailed application instructions. The severity of your reaction to this medication cannot be predicted. It is normal to have some redness/ irritation and crusting, but to stop treatment if patient develops any open sores, weeping, oozing, ulceration. If any issues with treatment, stop for a few days and then restart until completing 2 week treatment course. The skin must be protected from sun exposure; use clothing, sunscreen, hats, etc. Apply 15-20 minutes before any other creams or makeup. Do not get into eyes. Related Medications fluorouracil (Efudex) 5 % cream Apply to the cheeks, temples and forehead twice daily x2 weeks Follow up for . Suzy Marshall PA-C 10/24/22 7:54 AM REFERRING MD: documented in this [facility]01-17-2023 Miscellaneous Notes* Telephone Encounter - Alicia Galdamez PA-C - 09/20/2022 3:27 PM EST [place] script signed. * Telephone Encounter - Zhane Paige Ma - 09/20/2022 9:44 AM EST Patient call for results, labs neg, C diff PCR is positive, patient is symptomatic Requested Prescriptions Pending Prescriptions Disp Refills vancomycin (VANCOCIN) 125 mg capsule 40 capsule 0 Sig: Take 1 capsule by mouth four times daily for 10 days. Zhane Paige CMA documented in this [facility]Av[facility] [facility] NoteHNO ID: [id number] Author: Duncan Vásquez MD Service: ? Author Type: Physician Type: Progress Notes Filed: 09/12/2022 12:01 PM Note Text: CHIEF COMPLAINT: Patient presents with: Abdominal Pain: Also having loose stools. Labs 08/17/22 CT 07/09/22 This consult was requested by Self for an opinion regarding loose stool. My final recommendations will be communicated to the requesting health care provider by way of the shared medical record for internal providers or letter via the [email or web address] for external providers. HPI: Jemal Betts is a 62 year old male who presents for Abdominal Pain (Also having loose stools. Labs 08/17/22 CT 07/09/22). Pt has diarrhea Frequent bowel movements Started after taking PPI for GERD Bad diarrhea which improved after stopping PPI He restarted PPI again Now with bad GERD but ate Hamburger today Pt last colonoscopy was normal Excessive burping and abdominal distention Record Review: [facility] / Outside records reviewed. PAST MEDICAL HISTORY Diagnosis Date Aneurysm (HCC) Arthritis Basal cell carcinoma Chronic back pain COPD (chronic obstructive pulmonary disease) (HCC) PAST SURGICAL HISTORY Procedure Laterality Date COLONOSCOPY SCREENING 10/15/2012 normal Allergies: ALLERGIES Allergen Reactions Naprosyn [Naproxen] Penicillin [Other] Medications: amLODIPine (NORVASC) 10 mg tablet 1 tab(s) aspirin, enteric coated (ASPIRIN, ENTERIC COATED) 81 mg EC tablet 1 tab(s) pantoprazole DR (PROTONIX) 40 mg tablet Take 1 tablet by mouth. ondansetron (ZOFRAN) 4 mg tablet Take 4 mg by mouth. lisinopril-hydroCHLOROthiazide (PRINZIDE,ZESTORETIC) 10-12.5 mg per tablet Every 24 hours. meloxicam (MOBIC) 15 mg tablet 15 mg. No family history on file. Employer And Job Title: None on file Years Of Education Completed: Not specified Marital Status: Single Social History Tobacco Use Smoking status: Former Types: Cigarettes Smokeless tobacco: Never Vaping Use Vaping Use: Never used Substance Use Topics Alcohol use: Not Currently Drug use: Yes Types: Marijuana Review of Systems: Review of Systems Gastrointestinal: Positive for abdominal pain. Gas, Heartburn All other systems reviewed and are negative. Are you taking any blood thinners? No Physical Examination: BP 120/62 Pulse 84 Ht 5' 7" (1.70m) Wt 226 lb (102.5kg) BMI 35.39 kg/(m2). Physical Exam General: Alert, oriented, No acute distress. Skin: No rash; warm. Head: Normocephalic, atraumatic. Eyes: EOMI, PERRLA. Lymph: No cervical lymphadenopathy. Thyroid: Neck supple. No thyromegaly. Heart: S1, S2. No murmurs, gallops or rubs. Lungs: Clear to auscultation bilaterally. No wheezes or crackles. Abdomen: Soft, diffusely tender, distended. Bowel sounds are normal. No organomegaly. Musculoskeletal: No joint swelling or effusion. Extremities: No cyanosis, clubbing or edema. Mental: Mood appropriate. Not depressed. Neuro: Cranial nerves II through XII intact. ASSESSMENT: Encounter for screening colonoscopy (primary encounter diagnosis) Gastroesophageal reflux disease, unspecified whether esophagitis present Class 2 severe obesity due to excess calories with serious comorbidity and body mass index (bmi) of 35.0 to 35.9 in adult (hcc) Chronic diarrhea Burping Abdominal distention Altered bowel habits Pelvic floor dysfunction Generalized abdominal pain PLAN: Check CRP and stool calprotectin Check celiac panel and C. Difficile Schedule upper endoscopy with small bowel biopsies and colonoscopy with random colon biopsies Advised to use MiraLAX and titrate up to have 1-2 bowel movements a day Might benefit from pelvic floor evaluation in the future Advised to use bisacodyl suppositories as a rescue medication This office note has been created using eFolder, a speech recognition software program, and may contain errors including punctuation, grammar, spelling, gender, and inappropriate words or phrases that pertain to the sytem. Duncan Vásquez MD Office Visit on 09/12/22 C-REACTIVE PROTEIN (CRP) TRANSGLUTAMINASE ABS IGA BLD CALPROTECTIN,FECAL C. DIFFICILE PCR EGD DIAGNOSTIC COLONOSCOPY SCREENING No follow-ups on file. Duncan Vásquez MD DATE: 09/12/22 TIME: 11:33 [facility]01-09-2023 Instructions* Patient Instructions* Duncan Vásquez MD - 09/12/2022 11:41 AM EST Images from the original note were not included. Miralax 1-2 times a day and titrate it up to have 1-2 bowel movements a day Bisacodyl suppositories as a rescue medication Squatty potty and massage the colon very frequently Bowel Preparation Instructions for: Miralax-Gatorade Preparations IF YOU DO NOT FOLLOW THESE DIRECTIONS, YOUR COLONOSCOPY WILL BE CANCELLED. Zuniga Instructions: Your bowel must be empty so that your doctor can clearly view your colon. Follow all of the instructions in this handout EXACTLY as they are written. Do NOT eat any solid food the ENTIRE day before your colonoscopy. Buy your bowel preparation at least 5 days before your colonoscopy. Four (4) Dulcolax laxative tablets containing 5mg of bisacodyl each (NOT Dulcolax stool softener) One (1) 8.3oz. bottle Miralax (238 grams) or generic equivalent 2 x 32oz. Bottles of Gatorade (NOT RED) Diabetic Patients: Use G2 (Gatorade 2) TRANSPORTATION on the Day of Your Exam A responsible adult MUST be present with you at Check In prior to your colonoscopy and REMAIN in the endoscopy area until you are discharged. You are NOT ALLOWED to drive, take a taxi or bus, or leave the Endoscopy Center ALONE. If you do not have a responsible cdl bulk driver (family member or friend) withyou to take you home, your exam cannot be done with sedation and will be cancelled. Please bring a list of all of your current medications, including any Vxck-ckh-Vfluubm medications with you. Medications If you take insulin, diabetic medications or blood thinners such as Coumadin (warfarin), Plavix (clopidogrel), Ticlid (ticlopidine hydrochloride), Agrylin (anagrelide), Xarelto (Rivaroxaban), Pradaxa(Dabigatran), Eliquis (Apixaban), and Effient (Prasugrel). You MUST call the doctors who orders those medicines for instructions on altering the dosage before your colonoscopy. All other medications should be taken the day of the exam with a sip of water including ASPIRIN. Five (5) Days Before Your Colonoscopy Do NOT take medicines that stop diarrhea - such as Imodium, Kaopectate, or Pepto Bismol. Do NOT take fiber supplements - such as Metamucil, Citrucel, or Perdiem. Do NOT take products that contain iron - such as multi-vitamins (the label lists what is in the products). Three (3) Days Before Your Colonoscopy Do NOT eat high-fiber foods - such as popcorn, beans, seeds (flax, sunflower, quinoa), multigrain bread, nuts, salad/vegetables, or fresh and dried fruit. 1 Bowel Preparation Instructions for: Miralax-Gatorade Preparations One (1) Day Before Your Colonoscopy Only drink clear liquids the ENTIRE DAY before your colonoscopy. Do NOT eat any solid foods. Drink at least 8 ounces of clear liquids every hour after waking up. The clear liquids you can drink include: Clear Liquid (NO RED LIQUIDS) DO NOT DRINK Gatorade, Pedialyte or Powerade Clear broth or bouillon Coffee or tea (no milk or non-dairy creamer) Carbonated and non-carbonated soft drinks Carlitos-Aid or other fruit flavored drinks Strained fruit juices (no pulp) Jell-O, popsicles, hard candy Water Alcohol Milk or non-dairy creamers Noodles or vegetables in soup Juice with pulp Liquid you cannot see through Do not use tobacco/vaping products Mix 1/2 of Miralax bottle (119 grams) in each 32 ounces of Gatorade bottle until dissolved. Keep cool in the refrigerator. DO NOT ADD ICE. The bowel preparation solution will be consumed in two parts. Part 1 5:00 PM - Evening before your colonoscopy Take 4 Dulcolax tablets. 6 PM - Evening before your colonoscopy Drink 32 oz. of the mixed solution. Drink an 8 oz. glass of bowel preparation every 15 minutes for a total of 4 glasses. Fifteen (15) minutes later, drink an 8 oz. glass of of clear liquids every 15 minutes for a total of 2 glasses. You may continue to drink clear liquids till midnight. Part 2 On the day of your colonoscopy you may drink clear liquids up to (three) 3 hours prior to procedure. 4 1/2 hours before your colonoscopy Take another 32 oz. bottle of mixed solution. Drink an 8 oz. glass of bowel prep every 15 minutes for a total of 4 glasses. Fifteen (15) minutes later, drink an 8 oz. glass of clear liquids every 15 minutes for a total of 2glasses. You may continue to drink clear liquids up to (three) 3 hours before your exam. 2 08/2019 [facility] History of Present illness Narrative* Duncan Vásquez MD - 09/12/2022 11:21 AM EST CHIEF COMPLAINT: Patient presents with: Abdominal Pain: Also having loose stools. Labs 08/17/22 CT 07/09/22 This consult was requested by Self for an opinion regarding loose stool. My final recommendations will be communicated to the requesting health care provider by way of the shared medical record for internal providers or letter via the [email or web address] for external providers. HPI: Jemal Betts is a 62 year old male who presents for Abdominal Pain (Also having loose stools.Labs 08/17/22 CT 07/09/22). Pt has diarrhea Frequent bowel movements Started after taking PPI for GERD Bad diarrhea which improved after stopping PPI He restarted PPI again Now with bad GERD but ate Hamburger today Pt last colonoscopy was normal Excessive burping and abdominal distention Record Review: [facility] / Outside records reviewed. PAST MEDICAL HISTORY Diagnosis Date Aneurysm (HCC) Arthritis Basal cell carcinoma Chronic back pain COPD (chronic obstructive pulmonary disease) (HCC) PAST SURGICAL HISTORY Procedure Laterality Date COLONOSCOPY SCREENING 10/15/2012 normal Allergies: ALLERGIES Allergen Reactions Naprosyn [Naproxen] Penicillin [Other] Medications: amLODIPine (NORVASC) 10 mg tablet 1 tab(s) aspirin, enteric coated (ASPIRIN, ENTERIC COATED) 81 mg EC tablet 1 tab(s) pantoprazole DR (PROTONIX) 40 mg tablet Take 1 tablet by mouth. ondansetron (ZOFRAN) 4 mg tablet Take 4 mg by mouth. lisinopril-hydroCHLOROthiazide (PRINZIDE,ZESTORETIC) 10-12.5 mg per tablet Every 24 hours. meloxicam (MOBIC) 15 mg tablet 15 mg. No family history on file. Employer And Job Title: None on file Years Of Education Completed: Not specified Marital Status: Single Social History Tobacco Use Smoking status: Former Types: Cigarettes Smokeless tobacco: Never Vaping Use Vaping Use: Never used Substance Use Topics Alcohol use: Not Currently Drug use: Yes Types: Marijuana Review of Systems: Review of Systems Gastrointestinal: Positive for abdominal pain. Gas, Heartburn All other systems reviewed and are negative. Are you taking any blood thinners? No Physical Examination: BP 120/62 Pulse 84 Ht 5' 7" (1.70m) Wt 226 lb (102.5kg) BMI 35.39 kg/(m^2). Physical Exam General: Alert, oriented, No acute distress. Skin: No rash; warm. Head: Normocephalic, atraumatic. Eyes: EOMI, PERRLA. Lymph: No cervical lymphadenopathy. Thyroid: Neck supple. No thyromegaly. Heart: S1, S2. No murmurs, gallops or rubs. Lungs: Clear to auscultation bilaterally. No wheezes or crackles. Abdomen: Soft, diffusely tender, distended. Bowel sounds are normal. No organomegaly. Musculoskeletal: No joint swelling or effusion. Extremities: No cyanosis, clubbing or edema. Mental: Mood appropriate. Not depressed. Neuro: Cranial nerves II through XII intact. ASSESSMENT: Encounter for screening colonoscopy (primary encounter diagnosis) Gastroesophageal reflux disease, unspecified whether esophagitis present Class 2 severe obesity due to excess calories with serious comorbidity and body mass index (bmi) of35.0 to 35.9 in adult (hcc) Chronic diarrhea Burping Abdominal distention Altered bowel habits Pelvic floor dysfunction Generalized abdominal pain PLAN: Check CRP and stool calprotectin Check celiac panel and C. Difficile Schedule upper endoscopy with small bowel biopsies and colonoscopy with random colon biopsies Advised to use MiraLAX and titrate up to have 1-2 bowel movements a day Might benefit from pelvic floor evaluation in the future Advised to use bisacodyl suppositories as a rescue medication This office note has been created using eFolder, a speech recognition software program, and may contain errors including punctuation, grammar, spelling, gender, and inappropriate words or phrases that pertain to the sytem. Duncan Vásquez MD Office Visit on 09/12/22 C-REACTIVE PROTEIN (CRP) TRANSGLUTAMINASE ABS IGA BLD CALPROTECTIN,FECAL C. DIFFICILE PCR EGD DIAGNOSTIC COLONOSCOPY SCREENING No follow-ups on file. Duncan Vásquez MD DATE: 09/12/22 TIME: 11:33 AM documented in this [facility] Hospital Discharge instructions* Discharge Instructions* Ck Dyer MD - 06/11/2022 12:34 PM EDT Rest and ice left back and hip; Return for abdominal pain/nausea/vomiting. You should talk with your primary care doctor about getting referral to a painter ski edge * Attachments The following attachments cannot be sent through Care Everywhere. * Back: Preventing Injuries (Congolese) documented in this encounterSUMWittlebee Work Phone: [phone]) 776-306307-27-2022 Hospital Discharge instructions* Discharge Instructions* Barrett Moore MD - 03/30/2022 3:01 PM EDT Continue the medications as you have been. Keep your orthopedic appointment on Monday. Wear the sling as needed for comfort, but take it off at least a few times a day and move the arm through gentlerange of motion. documented in this [facility] Work Phone: [phone]) 141-903303-15-2022 Hospital Discharge instructions* Instructions* Tyshawn Love, - 11/16/2021 Please take already prescribed pain medicine as needed. Please return if you have chest pain or shortness of breath. * Attachments The following attachments cannot be sent through Care Everywhere. * Leg Pain (Congolese) documented in this [facility] Work Phone: [phone]) 246-584503-07-2022 History of Present illness Narrative* Donna Wadsworth RN - 11/08/2021 5:24 PM EST Pt discharged instructions reviewed and signed. No questions at this time * Vicki Bradley, PT - 11/08/2021 1:32 PM EST Physical Therapy Facility/Department: [facility] Initial Assessment NAME: Jemal Betts Jr. : 1960 Date of Service: 11/08/2021 Discharge Recommendations: Home with assist PRN,Home with Home health PT PT Equipment Recommendations Equipment Needed: No Assessment Assessment: Pt is s/p L TKA at [facility] 11/04/21. Came to ED x 3 for concerns of inability to care for self at home. Pt now reporting pain and weakness are improved and wishing to go home. Found Indep ambulating in room with FWW upon arrival. Supervision for stairs with step to gait. Decreased L knee mobility. S.O. works during the day, but has help from other family. Recommend disch to home with S.O. to assist PRN and Home Health PT. Prognosis: Good Decision Making: Low Complexity PT Education: PT Role REQUIRES PT FOLLOW UP: No Activity Tolerance Activity Tolerance: Patient Tolerated treatment well Patient Diagnosis(es): The primary encounter diagnosis was Acute pain of left knee. A diagnosis of Failure of outpatient treatment was also pertinent to this visit. has a past medical history of Acid reflux, Arthritis, Asthma, Cancer ([facility]), Chronic back pain, COPD(chronic obstructive pulmonary disease) ([facility]), H/O blood clots, Hypertension, Neuropathy, and Spinal stenosis of cervical region. has a past surgical history that includes Spine surgery (1992); Colonoscopy (10/15/2012); Hand surgery; joint replacement (Right, 2009); other surgical history (09/04/2017); and Cervical spine surgery. Restrictions Restrictions/Precautions Restrictions/Precautions: Weight Bearing,General Precautions Required Braces or Orthoses?: No Lower Extremity Weight Bearing Restrictions Left Lower Extremity Weight Bearing: Weight Bearing As Tolerated Vision/Hearing Subjective General Chart Reviewed: Yes Patient assessed for rehabilitation services?: Yes Additional Pertinent Hx: Prior R TKA 10 years prior. COPD. lumbar surgery. C- Spine stenosis Family / Caregiver Present: No Follows Commands: Within Functional Limits Subjective Subjective: RN OK with PT to see pt. Pt found ambulating in room Indep. States he is planning on going home today. Reported "I feel 60% better". States pain and weakness are better. Pain Screening Patient Currently in Pain: Yes Orientation Orientation Overall Orientation Status: Within Normal Limits Social/Functional History Social/Functional History Lives With: Spouse Type of Home: House Home Layout: Two level,Able to Live on Main level with bedroom/bathroom Home Access: Stairs to enter without rails Entrance Stairs - Number of Steps: 4 Bathroom Toilet: Standard Bathroom Accessibility: Accessible Home Equipment: Rolling walker Receives Help From: Family ADL Assistance: Independent Homemaking Assistance: Independent Ambulation Assistance: Independent Transfer Assistance: Independent 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 Ankle WNL Strength RLE Comment: 3-/5 R knee flexion and extension. 5/5 ankle DF Strength LLE Strength LLE: WFL Comment: 5/5 knee extension and flexion and ankle DF Sensation Overall Sensation Status: (None currently, but has neuropathy that flares up at times bilat LE's) Bed mobility Comment: NT- found standing in room upon arrival. Transfers Sit to Stand: Independent Stand to sit: Independent Bed to Chair: Independent Comment: STS completed x 4 throughout session Ambulation Ambulation?: Yes WB Status: WBAT R LE Ambulation 1 Surface: level tile Device: Rolling Walker Gait Deviations: Slow Jeanna;Decreased step length;Decreased step height Distance: 120 ft x 2 Comments: Slowly improved stride, step-to initially that progressed to step- thru. decreased knee extension in initial to mid stance. Stairs/Curb Stairs?: Yes Stairs # Steps : 3 Stairs Height: 6" Device: Rolling walker Assistance: Contact guard assistance;Stand by assistance Comment: Step to gait throughout. Balance Posture: Fair Sitting - Static: Good Sitting - Dynamic: Good;- Standing - Static: Good;- Standing - Dynamic: Fair Comments: Static stands well at sink for hygeine. Indep with ambulation using FWW Other exercises Other exercises?: Yes Other exercises 1: manual therapy: L knee extension mobes A-P Grade 2-3, 30" x 3. Rest breaks required d/t increased pain throughout Plan Safety Devices Type of devices: (Pt requesting to stay on couch in room to eat meal. left with L knee propped in extension on the couch) Restraints Initially in place: No G-Code OutComes Score AM-PAC Score AM-PAC Inpatient Mobility Raw Score : 24 (11/08/21 1200) AM-[facility] Inpatient T-Scale Score : 61.14 (11/08/21 1200) Mobility Inpatient CMS 0-100% Score: 0 (11/08/21 1200) Mobility Inpatient CMS G-Code Modifier : CH (11/08/21 1200) Goals Short term goals Time Frame for Short term goals: DC PT Patient Goals Patient goals : to go home Therapy Time Individual Concurrent Group Co-treatment Time In 1142 Time Out 1210 Minutes 28 Timed Code Treatment Minutes: (x1 manual) Variance: 4 (Toileting) Patient s Physical Therapy Plan of Care supervision is transferred to [facility] Rehab Department Physical Therapist. PT wore surgical mask, goggles, and gloves throughout entire session with patient. Vicki Bradley, PT * Donna Wadsworth RN - 11/08/2021 12:39 PM EST IV removed, pt complain of pain and discomfort at site, site infiltrated. documented in this [facility] Work Phone: [phone]) [phone] [facility] Discharge Summary with Discharge DayProgress Note and Transition Note Jemal Nam Alpesh Montoya : 1960 ADMIT DATE: 11/07/2021 DISCHARGE DATE: 11/08/2021 PRIMARYCARE PHYSICIAN: NICK QUICK MD VISIT STATUS: Observation CODE STATUS: Full Code DISCHARGE DIAGNOSES: Active Problems: Postoperative or surgical complication, sequela Unable to care for self History of DVT (deep vein thrombosis) Resolved Problems: * No resolved hospital problems. * HOSPITAL COURSE: 61 yo male who underwent L TKA 11/04/2021 at [facility] presents to the ED for the third time complaining of inability to care for himself at home. Evaluated by orthopedic residents last night who felt the knee was ok and recommended discharge. He now returns asking for placement. He has no other new concerns. In the hospital he was ambulating independently in the room. PT assessed him and recommended home. Discharged to home with home care. DAY OF DISCHARGE: Review of Systems Respiratory: Negative for cough and shortness of breath. Cardiovascular: Negative for chest pain and palpitations. Patient Vitals for the past 24 hrs: BP Temp Temp src Pulse Resp SpO2 Height Weight 11/08/21 0513 104/63 97.6 ?F (36.4 ?C) Temporal 101 18 97 % ? ? 11/07/21 1757 103/70 98.2 ?F (36.8 ?C) Temporal 116 16 98 % ? ? 11/07/21 1700 ? 5' 7" (1.702 m) 210 lb (95.3 kg) 11/07/21 1618 126/86 98.2 ?F (36.8 ?C) Temporal 122 16 98 % ? ? Average, Min, and Max forlast 24 hours Vitals: TEMPERATURE: Temp Av ?F (36.7 ?C) Min: 97.6 ?F (36.4 ?C) Max: 98.2 ?F (36.8 ?C) RESPIRATIONS RANGE: Resp Av.7 Min: 16 Max: 18 PULSE RANGE: Pulse Av Min: 101 Max: 122 BLOOD PRESSURE RANGE: Systolic (24hrs), Av , Min:103 , Max:126 ; Diastolic (24hrs), Av, Min:63, Max:86 PULSE OXIMETRYRANGE: SpO2 Av.7 % Min: 97 % Max: 98 % I/O last 3 completed shifts: In: 240 [P.O.:240] Out: 450 [Urine:450] Physical Exam Constitutional: General: He is awake. Neurological: Mental Status: He is alert and oriented to person, place, and time. PROCEDURES: n/a CONSULTANTS: n/a DISCHARGE MEDICATIONS: Significant Medication Changes: none Medication List START taking these medications apixaban 2.5 MG Tabs tablet Commonly known as: ELIQUIS Take 1 tablet by mouth 2 times daily CONTINUE taking these medications amLODIPine 10 MG tablet Commonly known as: NORVASC Take 1 tablet by mouth daily lidocaine 5 % Commonly known as: LIDODERM Place 1 patch onto the skin daily for 10 days 12 hours on, 12 hours off. lisinopril 20 MG tablet Commonly known as: PRINIVIL;ZESTRIL Take 1 tablet by mouth daily Where to Get Your Medications Information about where to get these medications is not yet available Ask your nurse or doctor about these medications ? apixaban 2.5 MG Tabs tablet DIET: regular ACTIVITY: resume regular activity COMPLEXITY OF FOLLOW UP: [x] Moderate Complexity: follow up within 7-14 calendar days (00590) [] Severe Complexity: follow up within 7 calendar days (82573) FOLLOW UP TESTING, PENDING RESULTS ORREFERRALS AT TRANSITIONAL CARE VISIT: [] Yes [] No DISPOSITION: home Follow up with NICK QUICK MD to be scheduled . Notification (telephone encounter) to PCP initiated: [] Yes [] No INSTRUCTIONS TO MA/SW: Please call patient on day after discharge (must document patient contacted within 2 business days of discharge). FOLLOW UP QUESTIONS FOR MA/SW: 1. Did you get medications filled and takingthem as instructed from discharge? 2. Are you following your discharge instructions from your hospital stay? 3. Please confirm patient is scheduled for a follow up appointment within the above time frame. DISCHARGE TIME: n/a [facility]03-07-2022 Hospital Discharge instructions* Discharge Instr - Lab* Carrol Underwood RN - 11/08/2021 3:01 PM EST Your physician has ordered skilled home care services for you. Your home care will be provided by: [place] [phone] documented in this encounterSUMMA Work Phone: [phone] Hospital course Narrative* Jose Alvarenga MD - 11/08/2021 2:49 PM EST Images from the original note were not included. [facility] Discharge Summary with Discharge DayProgress Note and Transition Note Jemal Nam Alpesh Gregg. : 1960 ADMIT DATE: 11/07/2021 DISCHARGE DATE: 11/08/2021 PRIMARYCARE PHYSICIAN: NICK QUICK MD VISIT STATUS: Observation CODE STATUS: Full Code DISCHARGE DIAGNOSES: Active Problems: Postoperative or surgical complication, sequela Unable to care for self History of DVT (deep vein thrombosis) Resolved Problems: * No resolved hospital problems. * HOSPITAL COURSE: 61 yo male who underwent L TKA 11/04/2021 at [facility] presents to the ED for the third time complaining of inability to care for himself at home. Evaluated by orthopedic residents last night who felt the knee was ok and recommended discharge. He now returns asking for placement. He has no othernew concerns. In the hospital he was ambulating independently in the room. PT assessed him and recommended home. Discharged to home with home care. DAY OF DISCHARGE: Review of Systems Respiratory: Negative for cough and shortness of breath. Cardiovascular: Negative for chest pain and palpitations. Patient Vitals for the past 24 hrs: BP Temp Temp src Pulse Resp SpO2 Height Weight 11/08/21 0513 104/63 97.6 F (36.4 C) Temporal 101 18 97 % 11/07/21 1757 103/70 98.2 F (36.8 C) Temporal 116 16 98 % 11/07/21 1700 5' 7" (1.702 m) 210 lb (95.3 kg) 11/07/21 1618 126/86 98.2 F (36.8 C) Temporal 122 16 98 % Average, Min, and Max forlast 24 hours Vitals: TEMPERATURE: Temp Av F (36.7 C) Min: 97.6 F (36.4 C) Max: 98.2 F (36.8 C) RESPIRATIONS RANGE: Resp Av.7 Min: 16 Max: 18 PULSE RANGE: Pulse Av Min: 101 Max: 122 BLOOD PRESSURE RANGE: Systolic (24hrs), Av , Min:103 , Max:126 ; Diastolic (24hrs), Av, Min:63, Max:86 PULSE OXIMETRYRANGE: SpO2 Av.7 % Min: 97 % Max: 98 % I/O last 3 completed shifts: In: 240 [P.O.:240] Out: 450 [Urine:450] Physical Exam Constitutional: General: He is awake. Neurological: Mental Status: He is alert and oriented to person, place, and time. PROCEDURES: n/a CONSULTANTS: n/a DISCHARGE MEDICATIONS: Significant Medication Changes: none Medication List START taking these medications apixaban 2.5 MG Tabs tablet Commonly known as: ELIQUIS Take 1 tablet by mouth 2 times daily CONTINUE taking these medications amLODIPine 10 MG tablet Commonly known as: NORVASC Take 1 tablet by mouth daily lidocaine 5 % Commonly known as: LIDODERM Place 1 patch onto the skin daily for 10 days 12 hours on, 12 hours off. lisinopril 20 MG tablet Commonly known as: PRINIVIL;ZESTRIL Take 1 tablet by mouth daily Where to Get Your Medications Information about where to get these medications is not yet available Ask your nurse or doctor about these medications apixaban 2.5 MG Tabs tablet DIET: regular ACTIVITY: resume regular activity COMPLEXITY OF FOLLOW UP: [x] Moderate Complexity: follow up within 7-14 calendar days (01531) [] Severe Complexity: follow up within 7 calendar days (95308) FOLLOW UP TESTING, PENDING RESULTS ORREFERRALS AT TRANSITIONAL CARE VISIT: [] Yes [] No DISPOSITION: home Follow up with NICK QUICK MD to be scheduled . Notification (telephone encounter) to PCP initiated: [] Yes [] No INSTRUCTIONS TO MA/SW: Please call patient on day after discharge (must document patient contacted within 2 business days of discharge). FOLLOW UP QUESTIONS FOR MA/SW: 1. Did you get medications filled and takingthem as instructed from discharge? 2. Are you following your discharge instructions from your hospital stay? 3. Please confirm patient is scheduled for a follow up appointment within the above time frame. DISCHARGE TIME: n/a documented in this encounterSUMWittlebee Work Phone: 1(792) 533-442603-05-2022 Hospital Discharge instructions* Instructions* Marcelo Beatty MD - 11/06/2021 Ortho discharge instructions: Weightbearing as tolerated to bilateral lower extremity. Compressive wrap to left lower. Ice to affected area. This will help with pain. Elevate left lower extremity as much as possible. This will help with swelling. Take your medications as prescribed. Follow-up outpatient with Dr. Jordan at scheduled outpatient visit * Attachments The following attachments cannot be sent through Care Everywhere. * Pain Post-Surgery: Acute (Congolese) documented in this TeamVisibilityUMWittlebee Work Phone: [phone]) 355-457809-16-2021 NoteDischarge Summary Patient Name: Jemal Betts Jr. : 1960 Admit date: 05/18/2021 Discharge date: 05/20/21 Admitting Physician: Yoshi Nelson MD Primary Care Physician: NICK QUICK MD Code Status: Prior Visit Status: Observation Discharged Condition: Stable Discharge Diagnoses: Principal Problem: Cellulitis Active Problems: Arthritis Essential hypertension COPD (chronic obstructive pulmonary disease) (HCC) Cellulitis of left arm Resolved Problems: * No resolved hospital problems. * Hospital Course: 61 y.o. male presented to [place] ER for a cat bite which occurred Monday. He states it was a jackie kitten which he fed and gave a bath to due to fleas and ticks. He states the cat bit him and scratched his arm. He denies noticing any ticks on his body although has a small lesion on the top of his head. No tick identified. This was his third ER visit. He was given Clindamycin X 1 IV in ER and placed on Augmentin outpatient but noticed worsening today so returned to ER. Patient was concerned because according to his previous note the area measured 1 cm x 1 cm in size with a 2 cm rash surrounding it, now his entire anterior left forearm is hot, edematous measuring 6 x 4 cm area of cellulites with streaking noted moving proximally up the left antecubital area and starting into the left bicep. He endorses nausea, shaking and chills last night with diaphoresis. He notes he has night sweats on occasion but this was worse. He claims he took 800mg of Ibuprofen last night prior to going to bed for pain in the arm and also a headache which gave him relief.He denies any drainage from site. He denies fever or palpitations. He continues to have full range of motion of the left arm including left elbow and wrist but is "sore". He is also concerned because the cat that bit him is . He took the cat to the vet to be analyzed for rabies. He also complains of some numbness around his mouth which started this AM and also in the fingertips of his left hand. He denies headache today visual changes, chest pain, dizziness, lightheadedness. He denies abdominal pain, constipation. He states he had diarrhea today X 4 but has a hx of crohns. Denies any signs of bleeding. He denies dysuria, urgency frequency of urination, recent illness, recent travel, recent surgery. He states he had a hx of DVT after his knee surgery years ago and was placed on anticoagulation but is no longer on it. Of Note: He admits to smoking THC daily as needed for his chronic pain. He claims he is no longer on pain medications per his choice and has multiple orthopedic surgeries in the past. He claims he has Lisinopril at home but does not take it for his HTN because he does not want to take any pills noting someone tried to say I was a drug addict years ago prior to his surgeries and that was it". BP is elevated while in ER and on admission. Admitted to CDU for further monitoring. CDU Course: ? Started on Unasyn IV 05/18. Added Vancomycin IV on 05/19 per ID recommendations. ? Orthopedic Surgery Consult completed (see below) ? ID Consult Completed (see below) ? Transitioned to Bactrim and Augmentin ? Patient initially restarted on home Lisinopril at 20mg daily. Patient BP remained elevated. Added Amlodipine 5mg. Had improvement in SBP but DBP remained elevated. He was asymptomatic. Increased amlodipine to 10mg. Patient to take daily BP at home and have close follow up with PCP. ? Scheduled follow appointment with PCP, Dr. Quick, for hospital f/u and BP management on 05/24/21. Scheduled follow up appointment with Orthopedic hand surgeon Dr. Crowley (known to patient), for wound check on 05/27/21. Patient advised to take daily blood pressure readings to bring with him to follow up appointment. He is to return to the emergency department with any new or worsening symptoms. Patient to finish course of both oral antibiotics as prescribed. He will follow up with PCP and Ortho hand as scheduled. Patient verbalized understanding and agrees to plan. Significant Laboratory Studies: Micro: Blood cultures: Lab Results Component Value Date ? BC No growth at 1 day. 05/18/2021 ? BC No growth at 1 day. 05/18/2021 ? Results for JEMAL BETTS JR. ( ) as of 05/21/2021 07:46 Ref. Range 05/19/2021 06:51 CRP Latest Ref Range: 0.0 - 9.9 mg/L 14.0 (H) Results for JEMAL BETTS Viv ( ) as of 05/21/2021 07:46 Ref. Range 05/19/2021 06:51 Sed Rate Latest Ref Range: 0 - 10 mm/h 12 (H) Results for JEMAL BETTS JR. ( ) as of 05/21/2021 07:46 Ref. Range 05/17/2021 22:00 05/18/2021 12:16 05/18/2021 12:49 05/18/2021 12:51 05/19/2021 06:51 05/19/2021 09:50 05/20/2021 04:25 WBC Latest Ref Range: 3.6 - 10.7 10*3/uL 11.3 (H) 8.9 7.6 7.4 RBC Latest Ref Range: 4.40 - 5.90 10*6/uL 4.93 5.21 4.88 5.12 Hemoglobin Quant Latest Ref Range: 13.0 - 18.0 g/dL 15.2 16.0 15.0 15.6 Hematocrit Lates (more content not included)...[facility]09-16-2021 Hospital Discharge instructions* Discharge Instr - Activity* Josette Perez PA - 05/20/2021 6:10 PM EDT As instructed. * Additional Instructions* Josette Perez PA - 05/19/2021 Start taking Lisinopril 20mg daily and amlodipine 10mg daily. Please take your blood pressure daily and bring record to your follow up appointment. Please finish complete course of antibiotics. Follow up with Dr. Quick 05/24/21 @ 9:40am as scheduled. Ortho discharge instructions: Non-weight bearing to left arm Keep splint intact until symptoms resolve Ice to affected area. This will help with pain. Elevate left extremity. This will help with swelling. Take your medications as prescribed. Follow-up outpatient with Dr. Crowley on 05/27/21 @ 9:00 am as scheduled * Attachments The following attachments cannot be sent through Care Everywhere. * amlodipine (Congolese) * Cellulitis (Congolese) documented in this encounterSUMMA Work Phone: [phone]) 558-479609-16-2021 History of Present illness Narrative* Radha Ybarra MD - 05/20/2021 11:59 AM EDT Pt seen and examined Improvement in erythema Ok to dc on PO bactrim and augmentin x 5days Antibiotics changed Full note to follow * Nadia Holliday - 05/20/2021 11:39 AM EDT .Nutrition rescreen completed. Chart reviewed. Patient to be monitored and followed by the diet weed science research technician.DEVIN Cameron * Diogenes Hendrix JD, MD - 05/20/2021 6:22 AM EDT Images from the original note were not included. [facility] [address] [id number] Dept: [phone] Loc: [phone] Orthopedic Progress Note Name: Jemal Betts Jr. Date:05/20/2021 Attending:Yoshi Nelson MD Subjective Doing well. Reports interval improvement of pain and N/T of first 4 fingers. Objective Vitals: 05/19/21 2243 05/19/21 2245 05/20/21 0231 05/20/21 0304 BP: (!) 165/95 (!) 170/98 (!) 154/99 Pulse: 64 66 68 Resp: 16 18 Temp: 97.9 F (36.6 C) 97.9 F (36.6 C) TempSrc: Temporal Temporal Temporal SpO2: 96% 98% Weight: Height: 5' 7" (1.702 m) Physical Exam: General: NAD LUE Erythema decreased. Lymphangitis resolved. Minimal ttp. No short arc pain. Interval decreased in pain with extension of wrist. No areas of fluctuance or induration. SILT: Radial/Ulnar/Median distributions. 2 pt intact all fingers. Motor: +AIN/PIN/Hand Intrinsic Pulses: Palpable Radial LABS: Recent Labs 05/18/21 1216 05/19/21 0651 05/20/21 0425 WBC 8.9 7.6 7.4 HGB 16.0 15.0 15.6 HCT 46.3 44.5 46.6 PLT 290 255 266 Recent Labs 05/18/21 1216 05/19/21 0651 05/20/21 0425 NA 140 138 138 K 4.6 4.4 4.1 CL 111* 108* 106 CO2 20* 21* 21* BUN 14 14 13 CREATININE 0.66 0.70 0.68 CALCIUM 9.7 9.0 9.4 No results for input(s): INR in the last 72 hours. Recent Labs 05/19/21 0651 SEDRATE 12* CRP 14.0* No results for input(s): HCG in the last 72 hours. Assessment Jemal is a 61 y.o.male with cat bite to left radial wrist with ascending lymphangitis Plan WBAT Ice/Elevate from IV pole. Please ensure fresh ice on forearm. Antibiotics per ID Monitor Hgb Immob: continue ice and elevation in splint Neurovascular and skin checks DVT ppx per primary Pain, medical management per primary F/u with Dr. Castellano in 1 week for wound check Pt improved clinically with no definite abscess. Ok for diet. Ortho to sign off, please call with questions/concerns * Marcelo Beatty MD - 05/19/2021 7:01 PM EDT Ortho to bedside to reevaluate left forearm. At this time the forearm does not to appear to have worsened. We will plan to continue with ice and elevation in the splint from the IV pole. We recommendbroad-spectrum IV antibiotics. Ortho to recheck in the a.m. Marcelo Beatty MD Orthopaedic Surgery PGY-2 *[id number] * Melanie Burgos APRN - CNP - 05/19/2021 4:37 PM EDT Patient states he received a call from his vet that the cat did not have Rabies. Will D/C rabies vaccine series * Melanie Burgos APRN - CNP - 05/19/2021 8:00 AM EDT Images from the original note were not included. CDU Progress Note 05/19/2021 8:00 AM Subjective: Admit Date: 05/18/2021 PCP: NICK QUICK MD Interval History: No overnight issues. Worsening erythema noted of anterior aspect of left arm withincreased tenderness and edema noted at site of cat bite. Orthopedic consult ordered, ID consult ordered. Patient afebrile currently although has been receiving tylenol for pain control.Patient denies shortness of breath or allergic reaction when taking Augmentin despite PCN allergy. Discussed withAntibiotic support team: will proceed with Unasyn IV. Denies chest pain, sob, abdominal pain, nausea, vomiting, diarrhea, constipation, fevers, or chills. ADULT DIET; Regular Patient Vitals for the past 96 hrs (Last 3 readings): Weight 05/18/21 1753 213 lb 8 oz (96.8 kg) Medications: sodium chloride 100 mL/hr at 05/18/21 1747 clindamycin (CLEOCIN) IV 600 mg IntraVENous Q8H enoxaparin 40 mg SubCUTAneous Daily lisinopril 10 mg Oral Daily acetaminophen 1,000 mg Oral 3 times per day LABS: Recent Results (from the past 24 hour(s)) CBC WITH AUTO DIFFERENTIAL Collection Time: 05/18/21 12:16 PM Result Value Ref Range WBC 8.9 3.6 - 10.7 10*3/uL RBC 5.21 4.40 - 5.90 10*6/uL Hemoglobin 16.0 13.0 - 18.0 g/dL Hematocrit 46.3 40.0 - 52.0 % MCV 88.9 80.0 - 98.0 fL MCH 30.7 26.0 - 34.0 pg MCHC 34.5 32.0 - 36.0 % RDW 13.6 11.5 - 14.5 % Platelets 290 140 - 440 10*3/uL MPV 7.9 7.4 - 10.4 fL Granulocytes % 64.2 40.0 - 80.0 % Lymphocyte % 20.8 20.0 - 40.0 % Monocytes 7.9 2.0 - 10.0 % Eosinophils 6.2 (H) 1.0 - 6.0 % Basophils 0.9 0.0 - 2.0 % Absolute Neut # 5.7 1.8 - 7.0 10*3/uL Absolute Lymph # 1.8 1.0 - 4.3 10*3/uL Absolute [place] # 0.7 0.0 - 0.8 10*3/uL Absolute Eos # 0.5 0.0 - 0.5 10*3/uL Absolute Baso # 0.1 0.0 - 0.2 10*3/uL Basic Metabolic Panel Collection Time: 05/18/21 12:16 PM Result Value Ref Range Sodium 140 135 - 145 mmol/L Potassium 4.6 3.5 - 5.1 mmol/L Chloride 111 (H) 98 - 107 mmol/L CO2 20 (L) 22 - 30 mmol/L Anion Gap 10 3 - 13 mmol/L Glucose 103 (H) 70 - 100 mg/dL BUN 14 7 - 17 mg/dL CREATININE 0.66 0.52 - 1.25 mg/dL eGFR >90.0 >60 mL/min EGFR IF NonAfrican Nigerien >90.0 >60 mL/min Calcium 9.7 8.4 - 10.4 mg/dL CK Collection Time: 05/18/21 12:16 PM Result Value Ref Range Total CK 223 (H) 30 - 170 U/L Lactic Acid, Plasma Collection Time: 05/18/21 12:51 PM Result Value Ref Range Lactic Acid 1.0 0.7 - 2.0 mmol/L Basic Metabolic Panel Collection Time: 05/19/21 6:51 AM Result Value Ref Range Sodium 138 135 - 145 mmol/L Potassium 4.4 3.5 - 5.1 mmol/L Chloride 108 (H) 98 - 107 mmol/L CO2 21 (L) 22 - 30 mmol/L Anion Gap 9 3 - 13 mmol/L Glucose 102 (H) 70 - 100 mg/dL BUN 14 7 - 17 mg/dL CREATININE 0.70 0.52 - 1.25 mg/dL eGFR >90.0 >60 mL/min EGFR IF NonAfrican Nigerien >90.0 >60 mL/min Calcium 9.0 8.4 - 10.4 mg/dL CBC Auto Differential Collection Time: 05/19/21 6:51 AM Result Value Ref Range WBC 7.6 3.6 - 10.7 10*3/uL RBC 4.88 4.40 - 5.90 10*6/uL Hemoglobin 15.0 13.0 - 18.0 g/dL Hematocrit 44.5 40.0 - 52.0 % MCV 91.2 80.0 - 98.0 fL MCH 30.8 26.0 - 34.0 pg MCHC 33.7 32.0 - 36.0 % RDW 13.5 11.5 - 14.5 % Platelets 255 140 - 440 10*3/uL MPV 8.0 7.4 - 10.4 fL Granulocytes % 57.4 40.0 - 80.0 % Lymphocyte % 25.1 20.0 - 40.0 % Monocytes 7.3 2.0 - 10.0 % Eosinophils 9.2 (H) 1.0 - 6.0 % Basophils 1.0 0.0 - 2.0 % Absolute Neut # 4.4 1.8 - 7.0 10*3/uL Absolute Lymph # 1.9 1.0 - 4.3 10*3/uL Absolute [place] # 0.6 0.0 - 0.8 10*3/uL Absolute Eos # 0.7 (H) 0.0 - 0.5 10*3/uL Absolute Baso # 0.1 0.0 - 0.2 10*3/uL Urine Culture: Results for orders placed or performed during the hospital encounter of 01/04/21 Culture, Urine Specimen: Urine, clean catch Result Value Ref Range Urine Culture, Routine No growth (<1,000 CFU/ml). Objective: Vitals: BP 119/75 Pulse 60 Temp 98 F (36.7 C) (Temporal) Resp 18 Wt 213 lb 8 oz (96.8 kg) SpO2 98% BMI 33.44 kg/m Pulse Ox: SpO2 Av.1 % Min: 93 % Max: 100 % Supplemental O2: General appearance: alert and cooperative with exam Lungs: clear to auscultation bilaterally Heart: regular rate and rhythm, S1, S2 normal, no murmur, click, rub or gallop Abdomen: soft, non-tender; bowel sounds normal; no masses, no organomegaly Extremities: extremities normal x3, atraumatic, no cyanosis Left anterior forearm with non drainingcat bite surrounded by erythema with streaking noted to left antecubital into left bicep, edema noted, ROM intact although limited in left wrist, FERREIRA X 4, radial and ulnar pulses 2 + bilaterally. Neurologic: No obvious focal neurologic deficits. Psychiatric: Normal affect, denies any suicidal ideation or active depression. Assessment and Plan 1. Cellulitis Left arm: IV NS @ 100 cc/hr, ice and elevate, Start Unasyn IV 3gm Q8h. Denies Shortness of breath with Augmentin despite PCN allergy. Discussed with pharmacy antibiotic support team. Continue to monitor VS q 4. Blood cultures completed in [place], Symptomatic treatment for pain. Consult ID due to worsening cellulitis and evaluate Cat bite: possible I&D. Consult to ortho due toworsening edema, pain and erythema with decreased ROM this AM. Rabies vaccine ordered due to Jackie cat and unknown status. 2. HTN: Elevated 170/90 on admission. Lisinopril restarted: BP improved. Will continue to monitor and adjust medications as needed 3. Arthritis: Chronic. Uses THC medicinally for pain control 4. COPD: Currently not on medications. Former smoker Past Medical History: Diagnosis Date Acid reflux Arthritis Asthma Cancer (HCC) Basel Cell Chronic back pain COPD (chronic obstructive pulmonary disease) (HCC) H/O blood clots Hypertension Neuropathy Spinal stenosis of cervical region Advance Directive: Full Code Discharge planning: home when medically stable SOLIS Estevez CNP, 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 * Morenita Narvaez APRN - CNP - 05/18/2021 7:37 PM EDT Introduced myself and role to patient. Pt lying in bed with left arm elevated and ice applied to site. No extension of erythema noted outside of marked area. Good movement of arm and left wrist. Radial pulses equal bilaterally. No drainage noted. Pain reported as improved but still remains at a 7/10. Tylenol 1,000mg q8 scheduled as pt does not want anything stronger at this time. Will continue tomonitor on IV antibiotic. Last BP 158/97- will monitor on reinitiated lisinopril 10mg daily. Melatonin ordered nightly PRN for sleep. [facility] Work Phone: Evaluation + Plan note No data available for this section [facility] Evaluation note* Diagnosis Ureterolithiasis- Primary Calculus of ureter documented in this encounter [facility] Work Phone: Evaluation note* Diagnosis Cat bite, initial encounter- Primary documented in this encounter [facility] Work Phone: Evaluation note* Diagnosis Cellulitis- Primary Cellulitis and abscess of unspecified site Cellulitis of left arm Cellulitis and abscess of upper arm and forearm Failure of outpatient treatment Arthritis Arthropathy, unspecified, site unspecified Essential hypertension Unspecified essential hypertension COPD (chronic obstructive pulmonary disease) ([facility]) Chronic airway obstruction, not elsewhere classified documented in this encounter [facility] Work Phone: Evaluation note* Diagnosis Acute pain of left knee- Primary documented in this encounter [facility] Work Phone: Evaluation note* Diagnosis Acute post-operative pain- Primary documented in this encounter [facility] Work Phone: Evaluation note* Diagnosis Acute pain of left knee- Primary Failure of outpatient treatment Postoperative or surgical complication, sequela Unable to care for self History of DVT (deep vein thrombosis) Personal history of venous thrombosis and embolism documented in this encounter [facility] Work Phone: Evaluation note* Diagnosis Left leg pain- Primary Pain in limb documented in this encounter [facility] Work Phone: Evaluation noteThere may be information available, but it has not been provided by the sender.[facility] Work Phone: Evaluation note* Diagnosis Strain of left shoulder, initial encounter- Primary documented in this encounter [facility] Work Phone: Evaluation note* Diagnosis Acute exacerbation of chronic low back pain- Primary documented in this encounter [facility] Work Phone: Evaluation note* Diagnosis Encounter for screening colonoscopy- Primary Special screening for malignant neoplasms, colon Gastroesophageal reflux disease, unspecified whether esophagitis present Class 2 severe obesity due to excess calories with serious comorbidity and body mass index (BMI) of 35.0 to 35.9 in adult ([facility]) Chronic diarrhea Diarrhea Burping Flatulence, eructation, and gas pain Abdominal distention Flatulence, eructation, and gas pain Altered bowel habits Other symptoms involving digestive system Pelvic floor dysfunction Pelvic muscle wasting Generalized abdominal pain Abdominal pain, generalized [facility] Diagnosis Enterocolitis due to Clostridium difficile- Primary Intestinal infection due to clostridium difficile documented in this encounter [facility]* Diagnosis Encounter for screening colonoscopy- Primary Special screening for malignant neoplasms, colon Burping Flatulence, eructation, and gas pain Chronic diarrhea Diarrhea Class 2 severe obesity due to excess calories with serious comorbidity and body mass index (BMI) of 35.0 to 35.9 in adult (HCC) Gastroesophageal reflux disease, unspecified whether esophagitis present Altered bowel habits Other symptoms involving digestive system Abdominal distention Flatulence, eructation, and gas pain Generalized abdominal pain Abdominal pain, generalized Pelvic floor dysfunction Pelvic muscle wasting Left lower quadrant pain Abdominal pain, left lower quadrant documented in this encounter [facility]* Diagnosis Acute exacerbation of chronic low back pain- Primary Lumbar strain, initial encounter [facility] Diagnosis Onset Date Resolution Status Aneurysm of infrarenal abdominal aorta chronic Essential (primary) hypertension chronic Family history of coronary artery disease [facility] Work Phone: Evaluation note* Diagnosis Closed fracture of left wrist, initial encounter- Primary [facility]* Diagnosis Chronic cough Cough [facility] Chronic pain due to trauma- Primary [facility] encounter [facility]* Diagnosis Lumbar strain, initial encounter- Primary [facility]* Diagnosis Neoplasm of uncertain behavior of skin Actinic keratoses Actinic keratosis Multiple benign melanocytic nevi of both upper extremities, both lower extremities, and trunk Watkins angioma Seborrheic keratosis Solar lentigo Other dyschromia History of nonmelanoma skin cancer [facility] Diagnosis Basal cell carcinoma (BCC) of skin of face, unspecified part of face [facility] Diagnosis Basal cell carcinoma (BCC) of skin of face, unspecified part of face [facility] Diagnosis Actinic keratoses Actinic keratosis History of nonmelanoma skin cancer [facility] Diagnosis Personal history of nicotine dependence [facility] Diagnosis Encounter for screening colonoscopy Special screening for malignant neoplasms, colon Burping Flatulence, eructation, and gas pain Chronic diarrhea Diarrhea Class 2 severe obesity due to excess calories with serious comorbidity and body mass index (BMI) of 35.0 to 35.9 in adult (HCC) Gastroesophageal reflux disease, unspecified whether esophagitis present Altered bowel habits Other symptoms involving digestive system Abdominal distention Flatulence, eructation, and gas pain Generalized abdominal pain Abdominal pain, generalized [facility] Diagnosis Other nonspecific abnormal finding of lung field- Primary [facility] Diagnosis Personal history of nicotine dependence- Primary Personal history of nicotine dependence [facility]* Diagnosis Superficial burn of face, initial encounter- Primary Superficial burn of back of right hand, initial encounter [facility]* Diagnosis Partial thickness burn of face, initial encounter- Primary Neuropathy Mononeuritis of unspecified site [facility] Diagnosis Basal cell carcinoma (BCC) of face documented in this encounter [facility] Work Phone: Evaluation note* Diagnosis Seborrheic keratosis- Primary Actinic keratoses Actinic keratosis documented [facility]* Diagnosis Chronic sciatica of left side- Primary Chronic left hip pain documented in this encounter [facility] note* Diagnosis Acute exacerbation of chronic low back pain- Primary Sciatica, left side documented [facility]* Diagnosis Chronic back pain, unspecified back location, unspecified back pain laterality- Primary Muscle cramp Cramp of limb [facility]* Instructions* Ck Dyer MD - 01/04/2021 Expect fluctuation in pain; return here for fever * Attachments The following attachments cannot be sent through Care Everywhere. * Kidney Stone (Congolese) documented in this [facility] Work Phone: Hospital Discharge instructions* Instructions* Jt Little MD - 05/17/2021 Use warm compresses. * Attachments The following attachments cannot be sent through Care Everywhere. * Bites: Animal (Congolese) documented in this [facility] Work Phone: Hospital Discharge instructions* Attachments The following attachments cannot be sent through Care Everywhere. * Knee Arthroscopy: Post-op (Congolese) documented in this [facility] Work Phone: Hospital Discharge instructions No data available for this section [facility] Discharge instructions* Attachments The following attachments cannot be sent through Care Everywhere. * Forearm and Wrist Fractures ED (Congolese) documented in this [facility] Discharge instructions* Attachments The following attachments cannot be sent through Care Everywhere. * Chronic Pain Discharge Instructions (Congolese) documented in this [facility] Discharge instructions* Attachments The following attachments cannot be sent through Care Everywhere. * Low Back Pain Discharge Instructions (Congolese) documented in this [facility] Discharge instructions* Attachments The following attachments cannot be sent through Care Everywhere. * Skin Rosa Discharge Instructions (Congolese) documented in this [facility] Discharge instructions* Attachments The following attachments cannot be sent through Care Everywhere. * Hip Pain ED (Congolese) * Sciatica Discharge Instructions (Congolese) documented in this [facility] Discharge instructions* Attachments The following attachments cannot be sent through Care Everywhere. * Chronic Pain Discharge Instructions (Congolese) [facility] Instruction Description Start Date CompletedPatient advised to follow-up with Primary Care Physician for BMI management. [facility] Work Phone: Instructions* Instruction Description Start Date CompletedPatient advised to follow-up with Primary Care Physician for BMI management. [facility] Work Phone: Progress note No data available for this section [facility] Reason for referral (narrative)* Outpatient Procedure (Routine) - Pending Review Specialty Diagnoses / Procedures Referred By Judd ortiz Referred To Contact [facility] Diagnoses Encounter for screening colonoscopy Gastroesophageal reflux disease, unspecified whether esophagitis present Procedures COLONOSCOPY SCREENING COLONOSCOPY FLX DX W/COLLJ SPEC WHEN Duncan Burgos MD [address] [facility] [place] [address] [facility] [address] [place] [address] Referral ID Status Reason Start Date Expiration Date Visits Requested Visits Authorized [id number] Pending Review Auto-Generat ed Referral 09/12/2022 09/12/2023 1 1 * Outpatient Procedure (Routine) - Pending Review Specialty Diagnoses / Procedures Referred By Judd t Referred To Contact [facility] Diagnoses Encounter for screening colonoscopy Gastroesophageal reflux disease, unspecified whether esophagitis present Procedures EGD DIAGNOSTIC ESOPHAGOGASTRODUODENOSC OPY TRANSORAL DIAGNOSTIC Duncan Vásquez MD [facility] [place] [address] [address] Referral ID Status Reason Start Date Expiration Date Visits Requested Visits Authorized [id number] Pending Review Auto-Generat ed Referral 09/12/2022 09/12/2023 1 1 [facility] for referral (narrative)* Outpatient Procedure (Routine) - Pending Review Specialty Diagnoses / Procedures Referred By Judd t Referred To Contact [facility] Diagnoses Encounter for screening colonoscopy Burping Chronic diarrhea Class 2 severe obesity due to excess calories with serious comorbidity and body mass index (BMI) of 35.0 to 35.9 in adult (HCC) Gastroesophageal reflux disease, unspecified whether esophagitis present Altered bowel habits Abdominal distention Generalized abdominal pain Procedures COLONOSCOPY DIAGNOSTIC COLONOSCOPY FLX DX W/COLLJ SPEC WHEN PFRMD Duncan Vásquez MD [address] [facility] [place] [address] [address] Referral ID Status Reason Start Date Expiration Date Visits Requested Visits Authorized [id number] Pending Review Auto-Generat ed Referral 10/28/2022 10/28/2023 1 1 * Outpatient Procedure (Routine) - Pending Review Specialty Diagnoses / Procedures Referred By Judd t Referred To Contact [facility] Diagnoses Encounter for screening colonoscopy Burping Chronic diarrhea Class 2 severe obesity due to excess calories with serious comorbidity and body mass index (BMI) of 35.0 to 35.9 in adult (HCC) Gastroesophageal reflux disease, unspecified whether esophagitis present Altered bowel habits Abdominal distention Generalized abdominal pain Procedures EGD DIAGNOSTIC ESOPHAGOGASTRODUODENOSCOPY TRANSORAL DIAGNOSTIC Duncan Vásquez MD [address] [place] [address] [facility] [address] [place] [address] Referral ID Status Reason Start Date Expiration Date Visits Requested Visits Authorized [id number] Pending Review Auto-Generat ed Referral 10/28/2022 10/28/2023 1 1 [facility] for referral (narrative)* Consultation (Routine) - Pending Review Specialty Diagnoses / Procedures Referred By Contac t Referred To Contact Dermatology Diagnoses Basal cell carcinoma (BCC) of skin of face, unspecified part of face Procedures [place] OFFICE[facility]OUTPATIENT [facility] 60 MINUTES Suzy Marshall PA-C 1 [facility] [address] [place] [address] Hemal Chadwick MD [address] [place] [phone] Referral ID Status Reason Start Date Expiration Date Visits Requested Visits Authorized [id number] Pending Review Specialty Services Required 11/02/2023 11/01/2024 1 1 [facility] for referral (narrative)* Consultation (Routine) - Closed Specialty Diagnoses / Procedures Referred By Contac t Referred To Contact Dermatology Diagnoses Basal cell carcinoma (BCC) of skin of face, unspecified part of face Procedures [place] [facility] 60 MINUTES Suzy Marshall PA-C 1 [facility] [address] [place] [address] Hemal Chadwick MD [address] [place] [phone] Referral ID Status Reason Start Date Expiration Date V isits Requested Visits Authorized [id number] Closed Specialty Services Required 11/02/2023 11/01/2024 1 1 [facility] for referral (narrative)* Outpatient Procedure (Routine) - Closed Specialty Diagnoses / Procedures Referred By Contac t Referred To Contact ENDOSCOPY Diagnoses Encounter for screening colonoscopy Burping Chronic diarrhea Class 2 severe obesity due to excess calories with serious comorbidity and body mass index (BMI) of 35.0 to 35.9 in adult (HCC) Gastroesophageal reflux disease, unspecified whether esophagitis present Altered bowel habits Abdominal distention Generalized abdominal pain Procedures COLONOSCOPY DIAGNOSTIC COLONOSCOPY FLX [place] W/[place] [address] [place] [address] [address] [place] [address] Referral ID Status Reason Start Date Expiration Date V isits Requested Visits Authorized [id number] Closed Auto-Generate d Referral 10/28/2022 10/28/2023 1 1 [facility] for referral (narrative)No reason for referral [facility] Work [facility]: [facility] Narrative* Outpatient Procedure (Routine) - Closed Specialty Diagnoses / Procedures Referred By Judd ortiz Referred To Contact ENDOSCOPY Diagnoses Encounter for screening colonoscopy Burping Chronic diarrhea Class 2 severe obesity due to excess calories with serious comorbidity and body mass index (BMI) of 35.0 to 35.9 in adult (HCC) Gastroesophageal reflux disease, unspecified whether esophagitis present Altered bowel habits Abdominal distention Generalized abdominal pain Procedures COLONOSCOPY DIAGNOSTIC COLONOSCOPY FLX DX W/COLLJ SPEC WHEN Duncan Burgos MD [address] [facility] [place] [address] [facility] [address] [place] [address] Referral ID Status Reason Start Date Expiration Date V isits Requested Visits Authorized [id number] Closed Auto-Generate d Referral 10/28/2022 10/28/2023 1 1 [facility] Summary Purpose Family History No Family History Records Found Relationship Condition Age at Onset Recorded Date/T nirmala father Coronary artery disease Unknown sister Coronary artery disease Unknown brother Coronary artery disease Unknown mother Coronary artery disease Unknown Advance Directives No Advanced Directives Records FoundDocuments on File Type Date Recorded 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 Sales Representative Expl anation Advance Directives and Living Will Power of Community Outreach Worker Latest Code Status on File Code Status Date Activated Date Inactivated Comments Full Code 09/04/2017 6:27 PM 09/06/2017 7:57 PM Full Code 01/28/2016 9:47 PM 01/29/2016 4:27 PM Documents on File Type Date Recorded 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 Sales Representative Expl anation ACP-Advance Directive ACP-Power of Community Outreach Worker Latest Code Status on File Code Status Date Activated Date Inactivated Comments Full Code 05/18/2021 5:00 PM Full Code 09/04/2017 6:27 PM 09/06/2017 7:57 PM Documents on File Type Date Recorded 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 Sales Representative Expl anation ACP-Advance Directive ACP-Power of Community Outreach Worker Latest Code Status on File Code Status Date Activated Date Inactivated Comments Full Code 05/18/2021 5:00 PM 05/20/2021 9:45 PM Full Code 09/04/2017 6:27 PM 09/06/2017 7:57 PM Full Code 01/28/2016 9:47 PM 01/29/2016 4:27 PM Latest Code Status on File Code Status Date Activated Date Inactivated Comments Full Code 05/18/2021 5:00 PM 05/20/2021 9:45 PM Latest Code Status on File Code Status Date Activated Date Inactivated Comments Full Code 11/07/2021 4:10 PM Full Code 05/18/2021 5:00 PM 05/20/2021 9:45 PM Latest Code Status on File Code Status Date Activated Date Inactivated Comments Full Code 11/07/2021 4:10 PM 11/08/2021 7:28 PM Advance Directive Response Recorded Date/ Time Advance Directives No October 9:56am Living Will No March 14, 2017 3:34pm Power of Community Outreach Worker No March 14 7 3:34pm Advance Directive Response Recorded Date/ Time Advance Directives No December 16, 2 025 3:33pm Living Will No March 14, 2017 3:34pm Do you have a Healthcare Power of Community Outreach Worker? No March 14, 2017 3:34pm Discharge Instructions * Instructions* Zhane Aldana MD - 10/20/2019 You can either follow-up tomorrow morning for a duplex ultrasound of the lower extremity. Or call your primary care doctor and see if they can get an ultrasound for U tomorrow. Return immediately to the emergency department if he developed chest pain or shortness of breath. * Attachments The following attachments cannot be sent through Care Everywhere. * Leg Pain (Congolese) documented in this encounter* Instructions* Jt Little MD - 02/17/2020 Use splint for comfort. Ice and elevate. * Attachments The following attachments cannot be sent through Care Everywhere. * Wrist Sprain (Congolese) * RICE: General Info (Congolese) documented in this encounter* Attachments The following attachments cannot be sent through Care Everywhere. * Leg Pain (Congolese) documented in this encounter Assessments Diagnosis Leg pain, posterior, left- Primary Diagnosis Sprain of right wrist, initial encounter Diagnosis Pain of left calf- Primary Reason for Referral Specialty Diagnoses / Procedures Referred By Contac t Referred To Contact Radiology Diagnoses Acute pain of left knee Procedures VL DUP LOWER EXTREMITY VENOUS LEFT Jose Armando Robbins DO [address] [place] [address] Referral ID Status Reason Start Date Expiration Date Visits Re quested Visits Authorized [id number] Open 11/07/2021 11/07/2022 1 1 Specialty Diagnoses / Procedures Referred By Contac t Referred To Contact Radiology Diagnoses Chronic cough Procedures CT lung screening low dose Michel Azar MD [address] [place] [address] Referral ID Status Reason Start Date Expiration Date Visits Re quested Visits Authorized [id number] Closed 12/27/2022 06/25/2023 1 1 Specialty Diagnoses / Procedures Referred By Contac t Referred To Contact Radiology Diagnoses Personal history of nicotine dependence Procedures CT lung screening low dose Nick Quick MD [address] [place] [address] Referral ID Status Reason Start Date Expiration Date Visits Re quested Visits Authorized [id number] Closed 03/06/2024 03/06/2025 1 1 Specialty Diagnoses / Procedures Referred By Contac t Referred To Contact Radiology Diagnoses Other nonspecific abnormal finding of lung field Procedures CT lung screening low dose Nick Quick MD [address] [place] [address] Referral ID Status Reason Start Date Expiration Date V isits Requested Visits Authorized [id number] Authorized 03/06/2024 03/06/2025 1 1 Chief Complaint Chief Complaint Description Start Date left knee post LEFT TOTAL KN EE ARTHROPLASTY on 11/04/2021 Preliminary chief co mplaint data, not yet signed by the author as of Chief Complaint Description Start Date left hip pain Preliminary chief co mplaint data, not yet signed by the author as of Health Concerns Infection Onset Date Last Indicated Resolved Time C. difficile 09/15/2022 09/15/2022 Infection Onset Date Last Indicated Resolved Time C. difficile 09/15/2022 09/15/2022 Chief Complaint and Reason for Visit Chief Complaint 1 Y FU HTN, AAA, RT ILIAC ANEURYSM Reason for Visit Aneurysm of infraren al abdominal aorta Essential (primary) hypertension Family history of coronary artery disease Chief Complaint Admit Date Aneurysm Growth F/U December 19, 2024 10: 27am Aneurysm of iliac artery January 17, 2025 8:02am 1 Y FU/MOVED FROM [facility] February 18, 2025 9: 44am Reason for Visit Admit Date Iliac artery aneurysm, right December 19, 2024 10:27am Aneurysm of infrarenal abdominal aorta A pril 2024 10:27am Aneurysm of infrarenal abdominal aorta J une 2024 9:44am Essential (primary) hypertension February 182024 9:44am Family history of coronary artery diseas e February 18, 2025 9:44am Additional Source Comments (unrecognized sect ion and content) No Status Records FoundNo Status Records FoundNo Status Records FoundNo Status Records FoundNo Status Records FoundNo Status Records FoundNo Status Records FoundNo Status Records FoundNo Status Records FoundNo Status Records FoundNo Status Records Found INFORMATION SOURCE (unrecogn ized section and content) DATE CREATED AUTHOR 08/04/2019 [facility] ([place]) DATE CREATED AUTHOR AUTHOR'S ORGANIZ ATION 01/28/2022 [facility] DATE CREATED AUTHOR AUTHOR'S ORGANIZ ATION 04/02/2022 [facility] DATE CREATED AUTHOR AUTHOR'S ORGANIZ ATION 06/13/2022 [facility] DATE CREATED AUTHOR AUTHOR'S ORGANIZ ATION 01/05/2023 [facility] DATE CREATED AUTHOR AUTHOR'S ORGANIZ ATION 03/31/2024 [facility] DATE CREATED AUTHOR AUTHOR'S ORGANIZ ATION 12/27/2024 [facility] DATE CREATED AUTHOR AUTHOR'S ORGANIZ ATION 01/07/2025 [facility] DATE CREATED AUTHOR AUTHOR'S ORGANIZ ATION 03/02/2025 [facility] DATE CREATED AUTHOR AUTHOR'S ORGANIZ ATION 03/23/2025 [facility] Reason for Visit (unrecogniz ed section and content) Reason Comments Knee Pain Reason Comments Fall Reason Comments Leg Pain Reason Comments Flank Pain Reason Comments Animal Bite Reason Comments Animal Bite L. anterior forearm Reason Comments Post-op Problem Patient had a left T KR on 11/04 at [facility] and was discharged on 11/05. Last night, patient had increased pain and bleeding that started around 1830. Patient changed dressing and feels that he has a blood clot because this "is the same symptoms of a blood clot when I had my right knee done." Dressing has some shadowing on dressing, dressing removed, incision dry and intact, well approximated. Reason Comments Leg Swelling left knee surgery on 11/04/21, patient complains of increased redness, swelling, and pain to the left leg Reason Comments Post-op Problem Patient states he bhakta d total left knee replacement on 11/04, states he has no help at home, unable to take his medications, asking for help. Reason For Visit Description Start Date Postop - 1st visit Preliminary reason f or visit data, not yet signed by the author as of left knee post LEFT TOTAL KN EE ARTHROPLASTY on 11/04/2021 Reason For Visit Description Start Date Follow-up by complaint Preliminary reason f or visit data, not yet signed by the author as of left hip pain Reason Comments Shoulder Pain Reason Comments Back Pain Chronic Pain Reason Comments Abdominal Pain Also having loose st ools. Labs 08/17/22 CT 07/09/22 Reason Comments Results Reason Comments Recheck Stool 09/12/22. Some L LQ pain and blood when he wipes at times. Reason Comments Back Pain Reason Comments Wrist Pain Specialty Diagnoses / Procedures Referred By Contac t Referred To Contact Radiology Diagnoses Chronic cough Procedures CT lung screening low dose Michel Azar MD [address] [place] [address] Referral ID Status Reason Start Date Expiration Date Visits Re quested Visits Authorized [id number] Closed 12/27/2022 06/25/2023 1 1 Reason Comments Hand Pain Left Reason Comments Skin Check [facility] 10/24/2022 with G race Bollas, PA-C(AT) Reason Comments Refill Request Reason Onset Date Comments Results 11/02/2023 Reason Onset Date Comments Annual Lung Screening Reminder 02/20/2024 Reason Comments Actinic Keratosis [facility] 11/01/2023 with G race Bollas, PA-C(AT) Specialty Diagnoses / Procedures Referred By Contac t Referred To Contact Radiology Diagnoses Personal history of nicotine dependence Procedures CT lung screening low dose Nick Quick MD [address] [place] [address] Referral ID Status Reason Start Date Expiration Date Visits Re quested Visits Authorized [id number] Closed 03/06/2024 03/06/2025 1 1 Reason Comments Facial Burn Hand Burn Reason Comments Burn Reason Comments Follow Up Facial burn Reason Comments MOHS Surgery Specialty Diagnoses / Procedures Referred By Contac t Referred To Contact Dermatology Diagnoses Neoplasm of uncertain behavior of skin Hemal Chadwick MD [address] [address] Referral ID Status Reason Start Date Expiration Date Visits Requested Visits Authorized [id number] Authorized Specialty Services Required 11/03/2023 11/02/2024 1 1 Reason Comments Actinic Keratosis (LMS) Reason Comments Hip Pain Left hip, leg, and b ack pain Reason Comments Leg Pain Back Pain Reason Onset Date Comments Advice Only 03/02/2025 Ordered Prescriptions (unrec ognized section and content) Prescription Sig Dispensed Refills Start Date End Da te ondansetron (ZOFRAN ODT) 4 MG disintegrating tablet Take 1 tablet by mouth every 8 hours as needed for Nausea or Vomiting 9 tablet 0 01/04/2021 01/07/2021 ketorolac (TORADOL) 10 MG tablet Take 1 tablet by mouth every 6 hours as needed for Pain 8 tablet 0 01/04/2021 01/06/2021 Prescription Sig Dispensed Refills Start Date End Da te amoxicillin-clavulanate (AUGMENTIN) 875-125 MG per tablet Take 1 tablet by mouth 2 times daily for 10 days 20 tablet 0 05/17/2021 05/27/2021 Prescription Sig Dispensed Refills Start Date End Da te amoxicillin-clavulanate (AUGMENTIN) 875-125 MG per tablet Take 1 tablet by mouth every 12 hours for 5 days 10 tablet 0 05/20/2021 05/25/2021 sulfamethoxazole-trimeth oprim (BACTRIM DS;SEPTRA DS) 800-160 MG per tablet Take 2 tablets by mouth every 12 hours for 10 doses 20 tablet 0 05/20/2021 05/25/2021 amLODIPine (NORVASC) 10 MG tablet Take 1 tablet by mouth daily 30 tablet 1 05/21/2021 lisinopril (PRINIVIL;ZESTRIL) 20 MG tablet Take 1 tablet by mouth daily 30 tablet 1 05/21/2021 Prescription Sig Dispensed Refills Start Date End Da te lidocaine (LIDODERM) 5 % Place 1 patch onto the skin daily for 10 days 12 hours on, 12 hours off. 10 patch 0 11/06/2021 11/16/2021 Prescription Sig Dispensed Refills Start Date End Da te apixaban (ELIQUIS) 2.5 MG TABS tablet Take 1 tablet by mouth 2 times daily 60 tablet 0 11/08/2021 Prescription Sig Dispensed Refills Start Date End Da te oxyCODONE-acetaminophen (PERCOCET) 5-325 MG per tabletIndications:Strain of left shoulder, initial encounter Take 1 tablet by mouth 2 times daily as needed for Pain for up to 5 days. Intended supply: 5 days. Take lowest dose possible to manage pain 10 tablet 0 03/30/2022 04/04/2022 Prescription Sig Dispensed Refills Start Date End Da te oxyCODONE-acetaminophen (PERCOCET) 5-325 MG per tabletIndications:Acute exacerbation of chronic low back pain Take 1 tablet by mouth every 8 hours as needed for Pain for up to 2 days. Intended supply: 3 days. Take lowest dose possible to manage pain 6 tablet 0 06/11/2022 06/13/2022 Scheduled Active and Recently Administ ered Medications (unrecognized section and content) Medication Order 05/18/2021 05/19/2021 05/20/2021 acetaminophen (TYLENOL) tablet 1,000 mg (CANCELED) 1,000 mg, Oral, EVERY 8 HOURS SCHEDULED (3 times per day), First dose on Mon05/18/21 at 2200, Maximum dose of acetaminophen is 4000 mg from all sources in 24 hours. 5 (Given - Provider: Michel Stewart RN) 0650 (Given - Provider: Michel Stewart RN) amLODIPine (NORVASC) tablet 10 mg 10 mg, Oral, DAILY, First dose (after last modification) on Mon05/21/21 at 0900 amLODIPine (NORVASC) tablet 5 mg (CANCELED) 5 mg, Oral, DAILY, First dose on Mon05/20/21 at 1130 1139 (Given - Provider: Kyaw Torres RN) amLODIPine (NORVASC) tablet 5 mg (COMPLETED) 5 mg, Oral, ONCE, On Mon05/20/21 at 1830, For 1 dose 1810 (Given - Provider: Hortensia Kim RN) amoxicillin-clavulanate (AUGMENTIN) 875-125 MG per tablet 1 tablet 1 tablet, Oral, EVERY 12 HOURS SCHEDULED (2 times per day), First dose on Mon05/20/21 at 2100, For 5 doses 2100 (Due) ampicillin-sulbactam (UNASYN) 3,000 mg in sodium chloride 0.9 % 100 mL IVPB (ADD-VANTAGE) (CANCELED) 3,000 mg, IntraVENous, EVERY 6 HOURS, First dose on Mon05/19/21 at 1000, Until Discontinued 1038 (New Bag - Provider: Marce Narayan RN)1108 (Stopped - Provider: Kyaw Torres RN)1650 (New Bag - Provider: Marce Narayan RN)1720 (Stopped - Provider: Marce Narayan RN)2128 (New Bag - Provider: Shauna Rosario RN)2200 (Stopped - Provider: Shauna Rosario RN) 0430 (New Bag - Provider: Shauna Rosario RN)0510 (Stopped - Provider: Shauna Rosario RN)0946 (New Bag - Provider: Hortensia Kim RN)1016 (Stopped - Provider: Kyaw Torres RN) clindamycin (CLEOCIN) 600 mg in dextrose 5 % 50 mL IVPB (CANCELED) 600 mg, IntraVENous, EVERY 8 HOURS, First dose on Mon05/18/21 at 1800, Until Discontinued 2022 (New Bag - Provider: Michel Stewart RN)205 (Stopped - Provider: Michel Stewart RN) 0137 (New Bag - Provider: Michel Stewart RN)0207 (Stopped - Provider: Michel Stewart RN) clindamycin (CLEOCIN) 600 mg IVPB (COMPLETED) 600 mg, IntraVENous, Administer over 30 Minutes, ONCE, On Mon05/18/21 at 1202, For 1 dose 1231 (New Bag - Provider: Nancy Holliday RN)1305 (Stopped - Provider: Nancy Holliday RN) enoxaparin (LOVENOX) injection 40 mg 40 mg, SubCUTAneous, DAILY, First dose on Mon05/18/21 at 1730 1747 (Given - Provider: Yamileth Noland, KEYSHA) 1650 (Given - Provider: Marce Narayan RN) 1645 (Not Given - Provider: Hortensia Kim RN - Reason: Other - Comment: Pt being discharged) ketorolac (TORADOL) injection 30 mg (COMPLETED) 30 mg, IntraVENous, ONCE, On Mon05/18/21 at 1715, For 1 dose, Do not administer for more than 5 days. 1747 (Given - Provider: Yamileth Noland RN) ketorolac (TORADOL) injection 30 mg (COMPLETED) 30 mg, IntraVENous, ONCE, On Mon05/19/21 at 0100, For 1 dose, Do not administer for more than 5 days. 0137 (Given - Provider: Michel Stewart RN) ketorolac (TORADOL) injection 30 mg (COMPLETED) 30 mg, IntraVENous, ONCE, On Mon05/19/21 at 1015, For 1 dose, Do not administer for more than 5 days. 1038 (Given - Provider: Marce Narayan RN) lidocaine 1 % injection 20 mL 20 mL, IntraDERmal, ONCE, On Mon05/19/21 at 0915, For 1 dose 1042 (Not Given - Provider: Marce Narayan RN - Reason: Other - Comment: md did not need) lidocaine 4 % external patch 1 patch 1 patch, TransDERmal, Administer over 12 Hours, DAILY, First dose on Mon05/19/21 at 2000, Apply patch to right hip/back. Patch may remain in place for up to 12 hours in any 24 hour period. 1999 (Patch Applied - Provider: Shauna Rosario RN) 0946 (Patch Applied - Provider: Hortensia Kim RN)0949 (Patch Removed - Provider: Hortensia Kmi RN)2145 (Due: Patch Removed - Provider: Hortensia Kim RN) lisinopril (PRINIVIL;ZESTRIL) tablet 10 mg (CANCELED) 10 mg, Oral, DAILY, First dose on Mon05/18/21 at 1730 1747 (Given - Provider: Yamileth Noland RN) 0955 (Given - Provider: Marce Narayan RN) lisinopril (PRINIVIL;ZESTRIL) tablet 10 mg (COMPLETED) 10 mg, Oral, ONCE, On Mon05/19/21 at 1630, For 1 dose 1650 (Given - Provider: Marce Narayan RN) lisinopril (PRINIVIL;ZESTRIL) tablet 20 mg 20 mg, Oral, DAILY, First dose (after last modification) on Mon05/20/21 at 0900 0946 (Given - Provider: Hortensia Kim, KEYSHA) morphine (PF) injection 4 mg (COMPLETED) 4 mg, IntraVENous, ONCE, On Mon05/18/21 at 1203, For 1 dose 1231 (Given - Provider: Nancy Holliday, RN) ondansetron (ZOFRAN) injection 4 mg (COMPLETED) 4 mg, IntraVENous, ONCE, On Mon05/18/21 at 1203, For 1 dose 1230 (Given - Provider: Nancy Holliday, RN) sulfamethoxazole-trimeth oprim (BACTRIM DS;SEPTRA DS) 800-160 MG per tablet 2 tablet 2 tablet, Oral, EVERY 12 HOURS SCHEDULED (2 times per day), First dose on Mon05/20/21 at 2100, For 5 days 2100 (Due) vancomycin (VANCOCIN) 1,500 mg in dextrose 5 % 250 mL IVPB (CANCELED) 1,500 mg (rounded from 1,452 mg = 15 mg/kg 96.8 kg), IntraVENous, at 166.7 mL/hr, Administer over 90 Minutes, EVERY 12 HOURS, First dose on Mon05/19/21 at 2315 2353 (New Bag - Provider: Shauna Rosario RN) 0205 (Stopped - Provider: Shauna Rosario RN)1101 (New Bag - Provider: Kyaw Torres RN)1231 (Stopped - Provider: Hortensia Kim, KEYSHA) Continuous Medication Order 05/18/2021 05/19/2021 05/20/2021 0.9 % sodium chloride infusion (CANCELED) IntraVENous, at 100 mL/hr, CONTINUOUS, Starting on Mon05/18/21 at 1730 1747 (New Bag - Provider: Yamileth Noland, KEYSHA) 1727 (Stopped - Provider: Marce Narayan, KEYSHA) PRN Medication Order 05/18/2021 05/19/2021 05/20/2021 acetaminophen (TYLENOL) tablet 1,000 mg 1,000 mg, Oral, EVERY 8 HOURS PRN, Pain Mild (1-3), Starting on Mon05/19/21 at 1345, Maximum dose of acetaminophen is 4000 mg from all sources in 24 hours. melatonin tablet 3 mg (CANCELED) 3 mg, Oral, NIGHTLY PRN, Sleep, Starting on Mon05/18/21 at 2100 2055 (Given - Provider: Michel Stewart RN) melatonin tablet 6 mg 6 mg, Oral, NIGHTLY PRN, Sleep, Starting on Mon05/19/21 at 1939 2128 (Given - Provider: Shauna Rosario RN) oxyCODONE-acetaminophen (PERCOCET) 5-325 MG per tablet 1 tablet 1 tablet, Oral, EVERY 4 HOURS PRN, Pain Moderate (4-6), Starting on Mon05/19/21 at 1336, Maximum dose of acetaminophen is 4000 mg from all sources in 24 hours. 1451 (Given - Provider: Marce Narayan RN)2000 (Given - Provider: Shauna Rosario RN) 0233 (Given - Provider: Shauna Rosario RN)0946 (Given - Provider: Hortensia Kim RN)1810 (Given - Provider: Hortensia Kim RN) Scheduled Medication Order 11/04/2021 11/05/2021 11/06/2021 HYDROmorphone (DILAUDID) injection 1 mg (COMPLETED) 1 mg, IntraMUSCular, ONCE, On 11/06/21 at 0456, For 1 dose, If oral and IV narcotics ordered, use oral first and only use IV if oral is ineffective or cannot take oral. Do Not give oral and IV within 1 hour of each other unless specifically ordered. 0511 (Given - Provid er: Allegra Bhakta RN) HYDROmorphone (DILAUDID) injection 1 mg (COMPLETED) 1 mg, IntraMUSCular, ONCE, On 11/06/21 at 0636, For 1 dose, If oral and IV narcotics ordered, use oral first and only use IV if oral is ineffective or cannot take oral. Do Not give oral and IV within 1 hour of each other unless specifically ordered. 0638 (Given - Provid er: Allegra Bhakta RN) Scheduled Medication Order 11/04/2021 11/05/2021 11/06/2021 HYDROmorphone (DILAUDID) injection 1 mg (COMPLETED) 1 mg, IntraVENous, ONCE, On 11/06/21 at 1815, For 1 dose, If oral and IV narcotics ordered, use oral first and only use IV if oral is ineffective or cannot take oral. Do Not give oral and IV within 1 hour of each other unless specifically ordered. 1833 (Given - Provid er: Malathi Tse RN) morphine sulfate (PF) injection 4 mg (COMPLETED) 4 mg, IntraVENous, ONCE, On 11/06/21 at 1645, For 1 dose, If oral and IV narcotics ordered, use oral first and only use IV if oral is ineffective or cannot take oral. Do Not give oral and IV within 1 hour of each other unless specifically ordered. 1646 (Given - Provid er: Malathi Tse RN) sodium chloride flush 0.9 % injection 3 mL(Linked Group 1) 3 mL, IntraVENous, EVERY 8 HOURS, First dose on 11/06/21 at 1645, Flush line with 3-5 mL 1644 (Given - Provid er: Malathi Tse RN) Linked Groups Order Group 1: Saline lock IV (COMPLETED) Routine, CONTINUOUS, Starting on 11/06/21 at 1645, Until Specified And sodium chloride flush 0.9 % injection 3 mLJump to med 3 mL, IntraVENous, EVERY 8 HOURS, First dose on 11/06/21 at 1645
Flush line with 3-5 mL
Scheduled Medication Order 11/06/2021 11/07/2021 11/08/2021 acetaminophen (TYLENOL) tablet 1,000 mg 1,000 mg, Oral, EVERY 8 HOURS SCHEDULED (3 times per day), First dose on 11/07/21 at 1630, Maximum dose of acetaminophen is 4000 mg from all sources in 24 hours. 1635 (Given - Provider: Traci Hagan RN)2100 (Given - Provider: Rosalba Andres, RN) 0632 (Given - Provider: Rosalba Andres, RN)1321 (Given - Provider: Donna Wadsworth RN)2200 (Due) amLODIPine (NORVASC) tablet 10 mg 10 mg, Oral, DAILY, First dose on 11/07/21 at 1630 1759 (Not Given - Provider: Traci Hagan RN - Reason: Patient took at home) 0934 (Given - Provider: Donna Wadsworth RN) apixaban (ELIQUIS) tablet 2.5 mg 2.5 mg, Oral, 2 TIMES DAILY, First dose on 11/07/21 at 2100, ANTICOAGULANT 2100 (Given - Provider: Rosalba Andres RN) 0934 (Given - Provider: Donna Wadsworth RN)2100 (Due) HYDROmorphone (DILAUDID) injection 1 mg (COMPLETED) 1 mg, IntraVENous, ONCE, On 11/07/21 at 1245, For 1 dose, If oral and IV narcotics ordered, use oral first and only use IV if oral is ineffective or cannot take oral. Do Not give oral and IV within 1 hour of each other unless specifically ordered. 1319 (Given - Provider: Justice Berry RN) lisinopril (PRINIVIL;ZESTRIL) tablet 10 mg 10 mg, Oral, DAILY, First dose on 11/07/21 at 1630 1636 (Given - Provider: Traci Hagan RN) 0934 (Given - Provider: Donna Wadsworth RN) ondansetron (ZOFRAN) injection 4 mg (COMPLETED) 4 mg, IntraVENous, ONCE, On 11/07/21 at 1245, For 1 dose 1319 (Given - Provider: Justice Berry RN) sennosides-docusate sodium (SENOKOT-S) 8.6-50 MG tablet 2 tablet 2 tablet, Oral, NIGHTLY, First dose on 11/07/21 at 2100 2100 (Given - Provider: Rosalba Andres RN) 2100 (Due) sodium chloride flush 0.9 % injection 3 mL (CANCELED) 3 mL, IntraVENous, EVERY 8 HOURS, First dose on 11/07/21 at 1245, Flush line with 3-5 mL 1508 (Given - Provider: Lizy Nelson RN) sodium chloride flush 0.9 % injection 5-40 mL 5-40 mL, IntraVENous, EVERY 12 HOURS SCHEDULED (2 times per day), First dose on 11/07/21 at 2100, For Line Patency: Peripheral IV = 5 mL; Midline or Central Line = 10 mL/lumen. If following IV push medication, administer flush at same rate as the IV push. Flush volume is determined by type of infusion therapy being given. For non-viscous solutions use: Peripheral IV = 5 mL Midline or Central Line = 10 mL/lumen For viscous solutions (i.e. blood components, parenteral nutrition, contrast media, or after obtaining blood sample) use: Peripheral IV = 10 mL Midline or Central Line = 20 mL/lumen 2104 (Given - Provider: Rosalba Andres RN) 0934 (Given - Provider: Donna Wadsworth RN)2100 (Due) PRN Medication Order 11/06/2021 11/07/2021 11/08/2021 0.9 % sodium chloride infusion 25 mL, IntraVENous, at 100 mL/hr, PRN, If patient receiving piggyback infusions without ordered maintenance IV fluids or with frequent/long duration piggyback infusions, Starting on 11/07/21 at 1610, Administer at the same rate as the piggyback being infused. ondansetron (ZOFRAN) injection 4 mg(Linked Group 1) 4 mg, IntraVENous, EVERY 6 HOURS PRN, Nausea, Vomiting, Starting on 11/07/21 at 1610, Administer if oral route cannot be used. ondansetron (ZOFRAN-ODT) disintegrating tablet 4 mg(Linked Group 1) 4 mg, Oral, EVERY 8 HOURS PRN, Nausea, Vomiting, Starting on 11/07/21 at 1610 oxyCODONE (ROXICODONE) immediate release tablet 10 mg 10 mg, Oral, EVERY 4 HOURS PRN, Pain Severe (7-10), Starting on 11/07/21 at 1610 1636 (Given - Provider: Traci Hagan RN)2100 (Given - Provider: Rosalba Andres RN) 0124 (Given - Provider: Rosalba Andres RN)0937 (Given - Provider: Donna Wadsworth, KEYSHA)1321 (Given - Provider: Donna Wadsworth, KEYSHA) oxyCODONE (ROXICODONE) immediate release tablet 5 mg 5 mg, Oral, EVERY 4 HOURS PRN, Pain Moderate (4-6), Starting on 11/07/21 at 1610 polyethylene glycol (GLYCOLAX) packet 17 g 17 g, Oral, DAILY PRN, Constipation, Starting on 11/07/21 at 1610, First line therapy for constipation 1635 (Given - Provider: Traci Hagan RN) sodium chloride flush 0.9 % injection 5-40 mL 5-40 mL, IntraVENous, PRN, Line Care, After every IV line use, Starting on 11/07/21 at 1610, For Line Patency: Peripheral IV = 5 mL; Midline or Central Line = 10 mL/lumen. If following IV push medication, administer flush at same rate as the IV push. Flush volume is determined by type of infusion therapy being given. For non-viscous solutions use: Peripheral IV = 5 mL Midline or Central Line = 10 mL/lumen For viscous solutions (i.e. blood components, parenteral nutrition, contrast media, or after obtaining blood sample) use: Peripheral IV = 10 mL Midline or Central Line = 20 mL/lumen Linked Groups Order Group 1: ondansetron (ZOFRAN-ODT) disintegrating tablet 4 mgJump to med 4 mg, Oral, EVERY 8 HOURS PRN, Nausea, Vomiting, Starting on 11/07/21 at 1610 Or ondansetron (ZOFRAN) injection 4 mgJump to med 4 mg, IntraVENous, EVERY 6 HOURS PRN, Nausea, Vomiting, Starting on 11/07/21 at 1610
Administer if oral route cannot be used.
Scheduled Medication Order 11/14/2021 11/15/2021 11/16/2021 oxyCODONE-acetaminophen (PERCOCET) 5-325 MG per tablet 1 tablet (COMPLETED) 1 tablet, Oral, ONCE, On 11/16/21 at 1556, For 1 dose, Maximum dose of acetaminophen is 4000 mg from all sources in 24 hours. 1704 (Given - Provid er: Migdalia Wood RN) Scheduled Medication Order 06/09/2022 06/10/2022 06/11/2022 ketorolac (TORADOL) injection 30 mg (COMPLETED) Ketorolac is contraindicated in patients with advanced renal impairment and in patients at risk of renal failure due to volume depletion. For 65 years of age and older OR weight less than 50 kg, use 15 mg IV every 6 hours; MAX dose: 60 mg/day. Dose greater than 30 mg must be administered via intramuscular route. Do not administer for more than 5 days., 30 mg, IntraMUSCular, ONCE, 1 dose, On 06/11/22 at 1235, Do not administer for more than 5 days. 1244 (Given - Provid er: Migdalia Wood RN) Scheduled Medication Order 12/06/2022 12/07/2022 12/08/2022 Lidocaine 4 % patch 1 patch 1 patch, TransDERmal, Administer over 12 Hours, Daily, First dose on Harleen 12/08/22 at 1330, Apply patch to right low back. Patch may remain in place for up to 12 hours in any 24 hour period. 1333 (Medication Saundra lied - Provider: Rosio Irving RN - Comment: Lumbar Back)1422 (Due: Medication Removed - Provider: Automatic Discharge Provider - Comment: Time automatically adjusted from order being discontinued) oxyCODONE-acetaminophen (Percocet) 5-325 MG per tablet 1 tablet (COMPLETED) 1 tablet, Oral, Once, On Harleen 12/08/22 at 1330, For 1 dose, Maximum dose of acetaminophen is 4000 mg from all sources in 24 hours. 1333 (Given - Provid er: Rosio Irving RN) predniSONE (Deltasone) tablet 40 mg (COMPLETED) 40 mg, Oral, Once, On Harleen 12/08/22 at 1330, For 1 dose 1333 (Given - Provid er: Rosio Irving RN) Scheduled Medication Order 01/06/2023 01/07/2023 01/08/2023 dexAMETHasone (PF) (Decadron) injection 10 mg (COMPLETED) 10 mg, IntraMUSCular, Once, On 01/08/23 at 1405, For 1 dose 1406 (Given - Provid er: Kandace Serrano RN) meloxicam (Mobic) tablet 7.5 mg (COMPLETED) 7.5 mg, Oral, Once, On 01/08/23 at 1320, For 1 dose 1323 (Given - Provid er: Kandace Serrano RN - Comment: verified with physician) Scheduled Medication Order 02/17/2023 02/18/2023 02/19/2023 acetaminophen (Tylenol) tablet 1,000 mg (COMPLETED) 1,000 mg, Oral, Once, On 02/19/23 at 1755, For 1 dose, Maximum dose of acetaminophen is 4000 mg from all sources in 24 hours. 1805 (Given - Provid er: Ely Little RN) ketorolac (Toradol) injection 30 mg (COMPLETED) 30 mg, IntraMUSCular, Once, On 02/19/23 at 1755, For 1 dose 1806 (Given - Provid er: Ely Little RN) oxyCODONE (Roxicodone) immediate release tablet 10 mg (COMPLETED) 10 mg, Oral, Once, On 02/19/23 at 1755, For 1 dose 1805 (Given - Provid er: Ely Little RN) Scheduled Medication Order 04/06/2023 04/07/2023 04/08/2023 oxyCODONE-acetaminophen (Percocet) 5-325 MG per tablet 1 tablet (COMPLETED) 1 tablet, Oral, Once, On 04/08/23 at 1650, For 1 dose, Maximum dose of acetaminophen is 4000 mg from all sources in 24 hours. 165 (Given - Provid er: Alden Streeter RN) predniSONE (Deltasone) tablet 50 mg (COMPLETED) 50 mg, Oral, Once, On 04/08/23 at 1650, For 1 dose 165 (Given - Provid er: Alden Streeter RN) Scheduled Medication Order 07/20/2024 07/21/2024 07/22/2024 bacitracin ointment (COMPLETED) Topical, Once, On 07/22/24 at 1000, For 1 dose 1004 (Given - Provid er: Javier Cruz RN) morphine injection 4 mg (COMPLETED) 4 mg, IntraVENous, Once, On 07/22/24 at 1000, For 1 dose, If oral and IV narcotics ordered, use oral first and only use IV if oral is ineffective or cannot take oral. Do Not give oral and IV within 1 hour of each other unless specifically ordered. 1004 (Given - Provid er: Javier Cruz RN) oxyCODONE-acetaminophen (Percocet) 5-325 MG per tablet 2 tablet (COMPLETED) 2 tablet, Oral, Once, On 07/22/24 at 1050, For 1 dose, Maximum dose of acetaminophen is 4000 mg from all sources in 24 hours. 1103 (Given - Provid er: Javier Cruz RN) sodium chloride 0.9 % bolus 1,000 mL (COMPLETED) 1,000 mL, IntraVENous, at 1,000 mL/hr, Administer over 1 Hours, Once, On 07/22/24 at 1000, For 1 dose 1018 (New Bag - Prov ider: Javier Anthony, RN)1118 (Stopped - Provider: Javier Cruz RN) Scheduled Medication Order 09/16/2024 09/17/2024 09/18/2024 oxyCODONE-acetaminophen (Percocet) 5-325 MG per tablet 1 tablet (COMPLETED) 1 tablet, Oral, Once, On Mon09/18/24 at 1305, For 1 dose, Maximum dose of acetaminophen is 4000 mg from all sources in 24 hours. 1316 (Given - Provid er: Trent Preciado RN) Scheduled Medication Order 01/01/2025 01/02/2025 01/03/2025 predniSONE (Deltasone) tablet 50 mg (COMPLETED) 50 mg, Oral, Once, On Mon01/03/25 at 0955, For 1 dose 1016 (Given - Provid er: Rosio Ross RN) Scheduled Medication Order 02/28/2025 03/01/2025 03/02/2025 dexAMETHasone (PF) (Decadron) injection 8 mg (COMPLETED) 8 mg, IntraMUSCular, Once, On 03/02/25 at 1225, For 1 dose 1230 (Given - Provid er: Alicia Landin, KEYSHA) methocarbamol (Robaxin) tablet 1,000 mg 1,000 mg, Oral, Every 6 hours scheduled (4 times per day), First dose on 03/02/25 at 1225 1230 (Given - Provid er: Alicia Landin, KEYSHA) Care Teams (unrecognized sec tion and content) Fitter/Welder Relationship Specialty Start Date End Date Nick Quick MD PCP - General 04/23/15 Fitter/Welder Relationship Specialty Start Date End Date Nick Quick MD PCP - General 04/23/15 Fitter/Welder Relationship Specialty Start Date End Date Nick Quick MD PCP - General 04/23/15 Fitter/Welder Relationship Specialty Start Date End Date Nick Quick MD PCP - General 04/23/15 Fitter/Welder Relationship Specialty Start Date End Date Nick Quick MD PCP - General 04/23/15 Fitter/Welder Relationship Specialty Start Date End Date Nick Quick MD PCP - General 04/23/15 Fitter/Welder Relationship Specialty Start Date End Date Nick Quick MD [address] [place], [place] [address] [phone] PCP - General Family Medicine 06/24/22 Fitter/Welder Relationship Specialty Start Date End Date Nick Quick MD [address] [place] [address] PCP - General Family Medicine 06/24/22 Fitter/Welder Relationship Specialty Start Date End Date Nick Quick MD [address] [place] [address] PCP - General Family Medicine 06/24/22 Fitter/Welder Relationship Specialty Start Date End Date Nick Quick MD [address] [place] [phone] PCP - General 04/23/15 Fitter/Welder Relationship Specialty Start Date End Date Nick Quick MD [address] [place] [address] PCP - General Family Medicine 06/24/22 Team Status: Active Member Role Status Dates Dr. Nick Quick MD Family Provider Active Dr. Nick Quick MD Primary Care Provider Active Team Status: Inactive Member Role Status Dates Dr. Nick Quick MD Primary Care Provider, Referring Provider Active Trent Hartman NP, CAR FERRIER-C Attending Provider Active Team Status: Active Member Role Status Dates Dr. Nick Quick MD Primary Care Provider Active Dr. Liberty Castañeda MD Attending Provider Active Team Status: Inactive Member Role Status Dates Dr. Nick Quick MD Primary Care Provider Active Dr. Liberty Castañeda MD Attending Provider, Referring Pro vider Active Fitter/Welder Relationship Specialty Start Date End Date Nick Quick MD [address] [place] [address] PCP - General 04/23/15 Fitter/Welder Relationship Specialty Start Date End Date Nick Quick MD [address] [place] [address] PCP - General 04/23/15 Fitter/Welder Relationship Specialty Start Date End Date Nick Quick MD [address] [place] [address] PCP - General 04/23/15 Fitter/Welder Relationship Specialty Start Date End Date Nick Quick MD [address] [place] [phone] PCP - General 04/23/15 Fitter/Welder Relationship Specialty Start Date End Date Nick Quick MD [address] [place] [address] PCP - General 04/23/15 Fitter/Welder Relationship Specialty Start Date End Date Nick Quick MD [address] [place] [address] PCP - General 04/23/15 Fitter/Welder Relationship Specialty Start Date End Date Nick Quick MD [address] [facility] [place] [phone] PCP - General Family Medicine 06/24/22 Fitter/Welder Relationship Specialty Start Date End Date Nick Quick MD [address] [place] [phone] PCP - General 04/23/15 Fitter/Welder Relationship Specialty Start Date End Date Nick Quick MD [address] [place] [phone] PCP - General 04/23/15 Fitter/Welder Relationship Specialty Start Date End Date Nick Quick MD [address] [place] [phone] PCP - General 04/23/15 Fitter/Welder Relationship Specialty Start Date End Date Nick Quick MD [address] [place] [phone] PCP - General 04/23/15 Fitter/Welder Relationship Specialty Start Date End Date Nick Quick MD [address] [place] [phone] PCP - General 04/23/15 Fitter/Welder Relationship Specialty Start Date End Date Nick Quick MD [address], [place] [phone] PCP - General Family Medicine 06/24/22 Fitter/Welder Relationship Specialty Start Date End Date Nick Quick MD [address] [place] [address] PCP - General 04/23/15 Fitter/Welder Relationship Specialty Start Date End Date Nick Quick MD [address] [place] [address] PCP - General 04/23/15 Fitter/Welder Relationship Specialty Start Date End Date Nick Quick MD [address] [place] [address] PCP - General 04/23/15 Fitter/Welder Relationship Specialty Start Date End Date Nick Quick MD [address] [place] [address] PCP - General 04/23/15 Fitter/Welder Relationship Specialty Start Date End Date Nick Quick MD [address] [phone] PCP - General Family Medicine 07/25/24 Fitter/Welder Relationship Specialty Start Date End Date Nick Quick MD [address] [phone] PCP - General Family Medicine 07/25/24 Fitter/Welder Relationship Specialty Start Date End Date Nick Quick MD [address] [place] [address] PCP - General 04/23/15 Fitter/Welder Relationship Specialty Start Date End Date Nick Quick MD [address] [place] [address] PCP - General 04/23/15 Fitter/Welder Relationship Specialty Start Date End Date Nick Quick MD [address] [place] [address] PCP - General 04/23/15 Team Status: Active Member Role Status Dates Dr. Nick Quick MD Primary Care Provider Active Team Status: Inactive Member Role Status Dates Dr. Nick Quick MD Primary Care Provider Active Start: December 19, 2024 End: December 19, 2024 Dr. Nick Quick MD Referring Provider Active Start: December 19, 2024 End: December 19, 2024 YEVGENIY Diaz Attending Provider Active Star t: December 19, 2024 End: December 19, 2024 Team Status: Inactive Member Role Status Dates Dr. Nick Quick MD Primary Care Provider Active Start: January 17, 2025 End: January 17, 2025 YEVGENIY Diaz Attending Provider Active Star t: January 17, 2025 End: January 17, 2025 YEVGENIY Diaz Referring Provider Active Star t: January 17, 2025 End: January 17, 2025 Team Status: Active Member Role Status Dates Dr. Nick Quick MD Primary Care Provider Active Start: January 17, 2025 Dr. Liberty Castañeda MD Attending Provider Active S tart: January 17, 2025 YEVGENIY Diaz Referring Provider Active Star t: January 17, 2025 Team Status: Inactive Member Role Status Dates Dr. Nick Quick MD Primary Care Provider Active Start: February 18, 2025 End: February 18, 2025 Dr. Nick Quick MD Referring Provider Active Start: February 18, 2025 End: February 18, 2025 Ro Joya CAR FERRIER, CAR FERRIER-C Attending Provider Active Start: February 18, 2025 End: February 18, 2025 Fitter/Welder Relationship Specialty Start Date End Date Nick Quick MD [address] [place] [address] PCP - General 04/23/15 Fitter/Welder Relationship Specialty Start Date End Date Nick Quick MD [address] [place] [address] (work) PCP - General 04/23/15 Source Comments (unrecognize d section and content) In the event this informatio n is protected by the Federal Confidentiality of Alcohol and Drug Abuse Patient Records regulations: The Federal rules restrict any use of the information to criminally investigate or prosecute any alcohol or drug abuse patient.[facility] the event this information is protected by the Federal Confidentiality of Alcohol and Drug Abuse Patient Records regulations: The Federal rules restrict any use of the information to criminally investigate or prosecute any alcohol or drug abuse patient.[facility] the event this information is protected by the Federal Confidentiality of Alcohol and Drug Abuse Patient Records regulations: The Federal rules restrict any use of the information to criminally investigate or prosecute any alcohol or drug abuse patient.[facility] the event this information is protected by the Federal Confidentiality of Alcohol and Drug Abuse Patient Records regulations: The Federal rules restrict any use of the information to criminally investigate or prosecute any alcohol or drug abuse patient.[facility] the event this information is protected by the Federal Confidentiality of Alcohol and Drug Abuse Patient Records regulations: The Federal rules restrict any use of the information to criminally investigate or prosecute any alcohol or drug abuse patient.[facility] the event this information is protected by the Federal Confidentiality of Alcohol and Drug Abuse Patient Records regulations: The Federal rules restrict any use of the information to criminally investigate or prosecute any alcohol or drug abuse patient.[facility] Goals (unrecognized section and content) Goals may be documented in a n alternate section FOR RECORDS PERTAINING TO PATIENTS WHO ARE OR HAVE BEEN ENROLLED IN A CHEMICAL DEPENDENCY/SUBSTANCEABUSE PROGRAM, SOME INFORMATION MAY BE OMITTED. This clinical summary was aggregated from multiple sources. Caution should be exercised in using it in the provision of clinical care. This summary normalizes information from multiple sources, and as a consequence, information in this document may materially change the coding, format and clinical context of patient data. In addition, data may be omitted in some cases. CLINICAL DECISIONS SHOULD BE BASED ON THE PRIMARY CLINICAL RECORDS. [facility]. provides no warranty or guarantee of the accuracy or completeness of information in this document.
--- NOTE | 2025-03-29 11:21 | STRESSREP_ITS ---
Stress Test Report Exercise myocardial perfusion stress test. 65-year-old male with a history of chest pain Stress protocol: Resting EKG demonstrates normal sinus rhythm with a rate of 68 bpm resting blood pressure is 118/82 mmHg. The patient exercised according to the regular Willy protocol for a total duration of 3 minutes attaining a maximum heart rate of 142 bpm which was 90% of maximum predicted heart rate; the maximum workload was 4.7 metabolic equivalents. At rest there were no ST or T wave changes noted to suggest ischemia and at peak exercise upsloping ST changes only were noted which did not meet the criteria for ischemia. No clinical angina was noted the test was terminated due to the target heart rate being achieved/fatigue. The peak b lood pressure was 146/7 mmHg. Rate-pressure product was 18,007. Myocardial perfusion protocol. 13.9 mCi of technetium 99m sestamibi was injected at rest. The patient exercised according to regular Willy protocol for total duration of 3 minutes and at peak exercise 40.6 mCi of technetium 99m sestamibi was injected stress images were obtained stress and rest images were reconstructed in comparing the short axis vertical long and horizontal long axis. Gated images were also obtained. Perfusion SPECT analysis: Review of the stress images demonstrate normal uptake of tracer noted in all areas of the myocardium. The resting images similarly demonstrate normal uptake of tracer noted in all areas of the myocardium. No areas of reversibility are noted to suggest ischemia no previous infarct was noted. Gated SPECT analysis: The gated ejection fraction is 65%. Conclusion: Normal exercise myocardial perfusion stress test at a low workload Preserved ejection fraction.
== END | disposition home or self-care (01) ==
LOC: CVS 06:05
PROVIDERS: PCP Family Medicine; Referring Provider Nurse Practitioner Gerontology; Visit Provider Nurse Practitioner Gerontology
DX: R06.02 Shortness of breath (principal); R07.9 Chest pain, unspecified; Z82.49 Family history of ischemic heart disease and other diseases of the circulatory system
CPT/HCPCS: 78452; 93017; 93306; A9500; A4216

== ENCOUNTER 2025-05-20 17:17 | Emergency (ER) | payer MEDICARE, MEDICAID, SELFPAY ==
[2025-05-20 17:18] VITALS: BP 128/79; PULSE 80; RESP 17; TEMP 36.9; O2SAT 98; BMI 35.8
--- NOTE | 2025-05-20 17:19 | EKG12_ITS ---
Test Reason : CP Blood Pressure : */* mmHG Vent. Rate : 79 BPM Atrial Rate : 79 BPM P-R Int : 164 ms QRS Dur : 94 ms QT Int : 394 ms P-R-T Axes : 29 -31 29 degrees QTcB Int : 451 ms Normal sinus rhythm Left axis deviation Abnormal ECG Confirmed by BHAVESH MARTINEZ, DOUG ([id number]), newspaper editor OVI PIKE ([id number]) on 05/21/2025 9:47:38 AM Referred By: JOHN Confirmed By: DOUG OSPINA MD
--- NOTE | 2025-05-20 17:31 | EDS_ITS ---
HPI History of Present Illness Chief Complaint: Chest Pain Narrative Narrative: Patient is a 65-year-old male presenting to the emergency department for chest pain. Patient has a past medical history of hypertension, right iliac artery aneurysm, abdominal aortic aneurysm and hyperlipidemia. He had a normal echo on 03/27/2025 and a normal stress test on 03/2625. Sees Dr. Castillo, cardiology. Patient states that last night he was sitting down talking to his friend when he developed left-sided chest pain that went down his left arm. States that he drove himself to [facility] to be evaluated. They reportedly did a cardiac workup there that was negative and discharged him home. He states that when he was discharged home the chest pain was faint. He states today he walked across the yard to talk with his neighbor and then walked back and was resting when he developed left sided chest pain again. He reports some mild SOB with it. Was reporting diaphoresis as well. Denies right arm pain, ripping or tearing back pain, numbness or weakness in his legs or arms. States he called Dr. Valles office and they told him to come in to be evaluated. He reports squad gave him 3 baby aspirin and 2 nitro with little to no relief of his pain. Denies abdominal pain, vomiting. [facility] Medical History History of deep venous thrombosis Aneurysm of infrarenal abdominal aorta Iliac artery aneurysm, right DDD (degenerative disc disease) Osteoarthritis Essential (primary) hypertension Tobacco abuse Obesity GERD (gastroesophageal reflux disease) Asthma Family history of coronary artery disease Syncope and collapse Basal cell carcinoma (BCC) in situ of skin DJD (degenerative joint disease), lumbar Hyperlipemia Home Medications ?Medication ?Instructions ?Recorded ?Last Taken ?Type aspirin 81 mg tablet,delayed 81 mg PO DAILY 10/01/20 U nknown History release (Adult Aspirin Regimen) pantoprazole 40 mg tablet,delayed 40 mg PO DAILY 10/11 Unknown History release (Protonix) cetirizine 10 mg capsule (Zyrtec) 10 mg PO DAILY 02/07 Unknown History amlodipine 10 mg tablet 10 mg PO DAILY #90 tabs 12/03 03/27 Unknown Rx fluoxetine 20 mg capsule 20 mg PO DAILY 12/20/23 Unkn own History lisinopril 10 1 tab PO DAILY #90 tabs 12/03 03/27 Unknown Rx mg-hydrochlorothiazide 12.5 mg tablet fluticasone fur. 100 mcg-umeclid 1 inh inhalation QDAY 12/19/24 Unknown History 62.5 mcg-vilant 25 mcg inhalat.powder (Trelegy Ellipta) Allergy/AdvReac Type Severity Reaction Status Date / Time naproxen (From Naprosyn) Allergy Hives Verified 05/20/25 17:22 Penicillins Allergy Hives Verified 05/20/25 17:22 Family History Mother No problems noted. Father CAD (coronary artery disease) Sister CAD (coronary artery disease) CABG < 65 Brother CAD (coronary artery disease) < 55 Sister No problems noted. Brother CAD (coronary artery disease) Mother CAD (coronary artery disease) Father No problems noted. Surgical History History of spinal surgery History of knee surgery History of neck surgery History of total right knee replacement History of lumbar laminectomy Social History Smoking Status: Former smoker alcohol intake: current alcohol intake frequency: holidays/special occasions only substance use type: marijuana caffeine: Yes Type: coffee Number of servings: 2 ROS ROS ED ROS Narrative see HPI EXAM Physical Exam Narrative Exam Narrative: Vital signs: Reviewed General: Alert and orientedx3. No acute distress HEENT: Head is normocephalic and atraumatic, sinuses nontender, pupils equal round and reactive. Nares are patent. Oropharynx and throat exams normal. Neck: Supple without lymphadenopathy nontender Cardiovascular: Regular rate and rhythm, no murmurs. No rubs or gallops. Normal S1 and S2. DP and radial pulses are all symmetric and intact bilaterally. Respiratory: Clear to auscultation bilaterally. No wheezes, rales, rhonchi Chest: chest wall is very tender to palpation along the left lower costosternal angle. Abdominal: Soft and nontender. Normal bowel sounds. No guarding or rebound. Nonsurgical abdomen Extremities: Splint on LUE. No tenderness. No bruising. Normal range of motion. Normal sensation. Skin: No rash or redness. Neurological: Cranial nerves II through XII are grossly intact. Normal strength and sensation. Normal cerebellar function The rest of the physical exam is unremarkable Const Vital Signs: 05/20/25 17:18 05/20/25 18:08 05/20/25 18:41 Temperature 98.4 F Temperature Source Oral Pulse Rate 80 90 69 Respiratory Rate 17 18 15 Blood Pressure 128/79 H 138/85 H 107/66 Blood Pressure Mean 95 102 79 Pulse Ox 98 98 98 Oxygen Delivery Method Room Air Room Air Room Air 05/20/25 19:49 05/20/25 21:22 Temperature 98.6 F Temperature Source Pulse Rate 73 70 Respiratory Rate 14 16 Blood Pressure 127/66 H 106/61 Blood Pressure Mean 86 76 Pulse Ox 96 96 Oxygen Delivery Method Room Air Heart Score History: Slightly/Non-Suspicious ECG: Normal Age: >45 - <65 years Risk Factors: >/= 3 Risk Factors or History of CAD Troponin: </= Normal Limit Score: 3 MDM MDM MDM Narrative Medical decision making narrative: Patient is a 65-year-old male presenting the emergency department for chest pain. Patient was seen and examined. Vitals are stable. Patient resting bed comfortably in no acute distress. Differenitial includes but is not limited to: ACS, costochondritis, less likely pneumothorax, PE, aortic dissection, AAA Vitals stable, no significant SOB. Lung sounds bilaterally. Do not think pneumothorax. No risk factors for PE. No significant SOB. No tachycardia or hypoxia. Pulses equal throughout, stable BP, no ripping tearing chest or abdominal pain. With chest wall tenderness to palpation do not think aortic pathology. EKG shows normal sinus rhythm with left axis deviation. No ischemic changes. No dysrhythmia. Appears similar to EKG from 2016. Patient's physical exam consistent with costochondritis. However given his significant family history of cardiac disease and him having hyperlipidemia, obesity and hypertension I did proceed with a cardiac workup. CBC with mild leukocytosis of 12.5 and a normal hemoglobin. BMP with no significant abnormalities. Troponin and reflex within normal limits with no significant delta change. Chest x-ray reviewed by myself. No evidence of of opacities, pneumothorax, widened mediastinum. Radiology read with no acute abnormalities. Patient given Toradol for pain control. I discussed negative workup with the patient. I recommended NSAIDs scheduled [id number] for the next week. 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 Patient discharged from the Emergency Department. I do not feel that the patient's evaluation reveals any acute reason for admission at this time. I instructed them to either follow-up with their primary care physician or promptly return to the Emergency Department for reevaluation should symptoms worsen or new symptoms develop. I explained what symptoms would indicate the need to return to the emergency department. Shared decision making was used. The patient voiced understanding of the treatment plan and is agreeable with it. Clinical impression Chest pain Costochondritis History & Record Review Discussion w/independent historian: Patient Additional record(s) reviewed:: Prior outpatient record Lab Data Attestation: I reviewed the patient's lab results. Labs: Laboratory Results - last 24 hr 05/20/25 05/20/25 17:24 19:33 WBC 12.5 H RBC 4.61 Hgb 14.3 Hct 41.4 MCV 89.8 MCH 31.0 MCHC 34.5 RDW Std Deviation 46.9 H RDW Coeff of [place] 14.3 Plt Count 332 MPV 9.5 Immature Gran % (Auto) 0.600 Neut % (Auto) 74.4 H Lymph % (Auto) 16.9 L [place] % (Auto) 6.8 Eos % (Auto) 1.1 Baso % (Auto) 0.2 Absolute Neuts (auto) 9.3 H Absolute Lymphs (auto) 2.12 Nucleated RBC % 0 Sodium 138 Potassium 3.5 Chloride 103 Carbon Dioxide 21.9 Anion Gap 13 BUN 21 H Creatinine 0.78 Estim Creat Clear Calc 107.71 Est GFR (MDRD) Non-Af 100 BUN/Creatinine Ratio 27.3 H Glucose 155 H Calcium 9.4 Troponin T High Sens 10 Troponin T Hi Sens 2 Hr 12 Radiography Chest X-Ray - ED: 2 View, Read by ED Physician, Normal, No Acute Disease and No Infiltrates Diagnostic Testing: Clinical Impression(s) from Imaging Studies Chest X-Ray 05/20/25 17:50 IMPRESSION: No evidence of acute cardiopulmonary disease. Reading Location: [facility] Discharge Plan Triage Chief Complaint: Chest Pain ED Provider: Michelle Cameron Dx/Rx/DC Orders Clinical Impression: Costochondritis, Chest pain Instructions: Costochondritis, ED Chest Wall Pain, Costochondritis Prescriptions: No Action aspirin [Adult Aspirin Regimen] 81 mg tablet,delayed release (DR/EC) 81 mg PO DAILY pantoprazole [Protonix] 40 mg tablet,delayed release (DR/EC) 40 mg PO DAILY fluoxetine 20 mg capsule 20 mg PO DAILY lisinopril-hydrochlorothiazide 10-12.5 mg tablet 1 tab PO DAILY Qty: 90 3RF amlodipine 10 mg tablet 10 mg PO DAILY Qty: 90 3RF Zyrtec 10 mg capsule 10 mg PO DAILY Trelegy Ellipta 100-62.5-25 mcg blister with device 1 inh inhalation QDAY Primary Care Provider: Сергей Reynoso Referrals: Сергей Reynoso MD [Primary Care Provider] - 2 Days Activity Restrictions/Additional Instructions: Take NSAIDs for pain control scheduled over the next week. Drink lots of fluids. Your evaluation in the Emergency Department did not reveal any acute reason for admission. However, I want to emphasize that you may be early in the course of a disease process or illness even if it is not present. For this reason you should follow-up within 24 hours for reevaluation with either your primary care physician or if necessary back here in the Emergency Department. You should return to the Emergency Department immediately if your symptoms worsen or new symptoms develop. Print Language: Azeri Disposition Disposition: Home, Self Care Discharge Date/Time: 05/20/25 21:23
--- NOTE | 2025-05-20 17:50 | RAD_ITS ---
PROCEDURE: CHEST PA AND LATERAL 05/20/2025 REASON FOR EXAM: CHEST PAIN TECHNIQUE: Procedure Code: RADCXR Modality: DX Procedure: CHEST PA AND LATERAL COMPARISON: None. FINDINGS: Lungs/Pleura: Clear. No pneumothorax or pleural effusion. Heart/Mediastinum: Within normal limits. Aortic arch calcification. Bones/Soft tissues: Degenerative changes of the spine. Cervical ACDF hardware. RAD/Chest PA and Lateral IMPRESSION: No evidence of acute cardiopulmonary disease. Reading Location: [facility]
[2025-05-20 17:53] LABS: Hematocrit 41.4 % (40-54); Hemoglobin 14.3 g/dL (13.0-16.5); Immature Granulocytes Count 0.080 X10^3/uL (0.0-0.0); Mean Corp Hgb Conc 34.5 g/dL (32-36); Mean Corpuscular Volume 89.8 fL (80-94); Mean Platelet Vol. 9.5 fl (6.2-12.0); NRBC Flagged by Analyzer 0 % (0-5); Platelet Count 332 K/mm3 (150-450); RBC Distribution Width CV 14.3 % (11.6-14.6); RBC Distribution Width SD 46.9 fl (35.1-43.9); Red Blood Count 4.61 M/mm3 (4.6-6.2); White Blood Count 12.5 K/mm3 (4.4-11.0)
[2025-05-20 18:08] VITALS: BP 138/85; PULSE 90; RESP 18; O2SAT 98
[2025-05-20 18:31] LABS: Anion Gap 13 (5-15); BUN 21 mg/dL (4-19); BUN/Creat Ratio 27.3 RATIO (10-20); Calcium,Total 9.4 mg/dL (7.6-11.0); Carbon Dioxide 21.9 mmol/L (21.0-32.0); Chloride 103 mmol/L (98-108); Estimated Creatinine Clearance 107.71 ml/min (50-250); Glucose 155 mg/dL (70-99); Potassium 3.5 mmol/L (3.3-5.1); Troponin T High Sensitivity 10 ng/L (<=22)
[2025-05-20 18:41] VITALS: BP 107/66; PULSE 69; RESP 15; O2SAT 98
[2025-05-20 19:49] VITALS: BP 127/66; PULSE 73; RESP 14; O2SAT 96
[2025-05-20 20:15] LABS: Troponin T High Sens 2 HR 12 ng/L (<=22)
[2025-05-20 21:22] VITALS: BP 106/61; PULSE 70; RESP 16; TEMP 37; O2SAT 96
== END 2025-05-20 21:23 | disposition home or self-care (01) ==
PROVIDERS: Emergency Provider Student in an Organized Health Care Education/Training Program; PCP Family Medicine; Visit Provider Student in an Organized Health Care Education/Training Program
DX: R07.9 Chest pain, unspecified (principal); E78.5 Hyperlipidemia, unspecified; M94.0 Chondrocostal junction syndrome [Tietze]; I10 Essential (primary) hypertension; Z86.718 Personal history of other venous thrombosis and embolism; Z79.82 Long term (current) use of aspirin; Z79.899 Other long term (current) drug therapy; Z87.891 Personal history of nicotine dependence
CPT/HCPCS: 71046; 80048; 84484; 85025; 93005; 96374; 99285; A4216

== ENCOUNTER → 2025-07-24 | Outpatient (CLI) | payer MEDICARE, MEDICAID, SELFPAY ==
--- NOTE | 2025-07-24 08:11 | AAVD_ITS ---
Reason For Study Reason For Study: AAA / Rt SAM Aneurysm Aorta Measurements Aorta Doppler Measurements Proximal aorta measures2.13 x 2.13cm. in cross-sectional Peak systolic flow velocities within the proximal aorta axis. measure 99.5 cm/sec. Proximal aorta measures2.02cm. in longitudinal axis. Peak systolic flow velocities within the mid aorta measure Mid aorta measures2.31 x 2.39cm. in cross-sectional axis. 60.1 cm/sec. Mid aorta measures2.66cm. in longitudinal axis. Peak systolic flow velocities within the distal aorta Distal aorta measures4.10 x 4.28cm. in cross-sectional axis.measure 67.4 cm/sec. Distal aorta measures3.64cm. in longitudinal axis. Left Iliac Artery Left iliac artery measures 2.09 x 2.17 cm. in the cross-sectional axis. Left iliac artery measures 2.09 cm. in the longitudinal axis. Peak systolic velocity in the left iliac artery measures 53.0 cm/sec. Right Iliac Artery Right iliac artery measures 1.92 x 1.94 cm. in the cross-sectional axis. Right iliac artery measures 2.01 cm. in the longitudinal axis. Peak systolic velocity in the right iliac artery measures 49.4 cm/sec. Procedure Aorta IVC Iliac vasculature or bypass grafts [id number]. The exam was diagnostic. Exam performed in department. VL/Abd Aortic/IVC Duplex scan Interpretation Summary Aorta patent, 4.28 cm aneurysm. Right iliac artery patent, 1.92 cm aneurysm. Left iliac artery patent, 2.09 cm aneurysm. Ordering Physician: Jagruti Jerez Referring Physician: Сергей Reynoso Performed By: Tez Aguilar RVT and Student
== END | disposition home or self-care (01) ==
PROVIDERS: PCP Family Medicine; Referring Provider Physician Assistant; Visit Provider Physician Assistant
DX: I71.43 Infrarenal abdominal aortic aneurysm, without rupture (principal); I72.3 Aneurysm of iliac artery
CPT/HCPCS: 93978